=== PATIENT | female | born 1945 | race Caucasian/White ===

== ENCOUNTER 2018-10-08 22:28 | Emergency (ER) | payer MEDICARE, OTHER, SELFPAY ==
[2018-08-16 13:40] VITALS: BMI 32.6
[2018-10-08 22:30] VITALS: BP 158/114; PULSE 98; RESP 15; TEMP 36.7; O2SAT 95; BMI 34.5
[2018-10-08 23:01] VITALS: BP 108/80; PULSE 92; RESP 18; O2SAT 93
--- NOTE | 2018-10-08 23:29 | ED.VIS.GEN ---
History of Present Illness Chief Complaint: Allergic Reaction Informant: Patient Onset: Today - about 1-1.5 hrs [employer]ENDING [employer] Context: Gradual Onset - about 30-60 min after taking a diclofenac pill for her back Quality: itching Location: all over Current Severity: Mild Maximum Severity: Severe Worsened by: nothing Relieved by: benadryl 50mg IV given by EMS Associated Symptoms: rash Narrative: Patient had no presyncopal symptoms, shortness of breath, edema of her extremities or tongue. She lives by herself and the rash and itching all over made her nervous so she called 911 to be brought to the hospital. She took a diclofenac, the last time she took that was 1 month ago. She is taking them in the past off and on, occasionally, for the past 8 years or so. She takes it when she has sciatica flareup, which felt worse today. She states it works very well and her back is better now. She denies any bowel or bladder dysfunction or any other new symptoms prior to taking the pill. She does not take any other NSAIDs, such as ibuprofen or Aleve or aspirin. Other than a calcium tablet, she did not take any other medications this evening, and can recall no other new exposures that could account for this reaction. - Past Medical History (1) Lumbar radiculopathy Status: Chronic (2) Incomplete uterovaginal prolapse Status: Chronic Comment: ring with support pessary Past Medical History - Allergies and Home Meds Allergies/Adverse Reactions: Allergies diclofenac [From Voltaren] Allergy (Verified 10/08/18 22:29) Hives novacaine Allergy (Uncoded 08/16/18 13:40) Other Primary Care Physician: Luca Boucher III, MD [Primary Care Provider] - Lives: Alone Smoking Status: Never smoker - Family History Maternal Family History: Family History (Last Reviewed 08/16/18 @ 13:40 by Adriane Puentes) Father Cancer Grandmother Cancer Diabetes Grandfather No problems noted. Family History: Reports: Dementia Review of Systems General: Denies: Chills, Fever Eyes: Denies: Visual changes - bilaterally, Diplopia Cardiovascular: Denies: Chest pain, Palpitations, Heart racing Respiratory: Denies: Dyspnea, Cough Gastrointestinal: Denies: Nausea, Vomiting, Diarrhea Musculoskeletal: Denies: Swelling, Extremity Pain Skin: Reports: Rash. Denies: Wounds Neurological: Denies: Weakness, Parasthesia, Numbness Physical Exam Vital Signs/Narrative: Vital Signs Temp Pulse Resp BP Pulse Ox 10/08/18 23:01 92 18 108/80 93 10/08/18 22:30 98.0 F 98 15 158/114 H 95 Inital Vital Signs reviewed: Yes General: Well nourished, Well developed, No Acute Distress Head: Normocephalic, Atraumatic Eyes: Perrl, EOMI ENT: Moist mucous membranes, No rhinorrhea, - - No tongue edema. Airway patent, no stridor.. Negative for: Nasal congestion Neck: Supple, Nontender Cardiovascular: Regular rate, Regular rhythm, No murmurs. Negative for: Tachycardia Respiratory: No distress, CTA bilaterally, Chest nontender Extremities: Nontender, No edema Skin: No Trauma, Rash - Diffuse patchy blanching, nontender urticaria on all 4 extremities, trunk, face. No other rash/lesion. Neurological: Alert, Oriented x3, Cranial nerves II-XII grossly intact, Normal Strength, Normal Sensation Psychological: Normal affect, Normal Mood Diagnostic/Tx/Re-eval - Medical Decision Making Patient was simply observed for about 2-1/2 hours. Her urticaria and pruritus completely resolved. When she was sleeping her pulse ox went down to 89, nurses put her on oxygen. While awake she was okay and with ambulation she had no hypoxia. Her lungs are clear. She has no shortness of breath. I think she can safely follow-up. No signs of anaphylaxis or anaphylactoid reaction. The half-life of the medication that she took is 1.9 hours so I do not think she needs steroids to mitigate any other issues/symptoms, since by the time the steroids kick in, it will have been 4-5 half-lives of the 1 pill she took. She was given a dose of Benadryl to take later if she needs, since she does not have any at home. Encouraged to return for any worsening symptoms except for just recurrent hives which we discussed. She is comfortable with this plan. ED Disposition - Plan for ED Patient: Disposition: Home or Assisted Living Diagnosis: Allergic reaction to nonsteroidal anti-inflammatory drug (NSAID) Instructions: ED Drug React Allergic Referrals: Luca Boucher III, MD [Primary Care Provider] - 3-5 Days Additional Instructions: Take the 2 Benadryl caplets for recurrent itching/hives.
[2018-10-09] MEDS: DiphenhydrAMINE 25 MG Capsule 50 MG PO (01:06)
--- NOTE | 2018-10-09 01:11 | ED.RN ---
pt verbalizes understanding of d/c instructions and home pack. denies any further questions. this rn called a ride for pt. pt ambulats to lobby to await ride.
== END 2018-10-09 01:12 | disposition home or self-care (01) ==
PROVIDERS: Emergency Provider Emergency Medicine; Family Provider Family Medicine; PCP Family Medicine
DX: L27.1 Localized skin eruption due to drugs and medicaments taken internally (principal); T39.395A Adverse effect of other nonsteroidal anti-inflammatory drugs [NSAID], initial encounter; Y92.9 Unspecified place or not applicable; M54.16 Radiculopathy, lumbar region; N81.2 Incomplete uterovaginal prolapse
CPT/HCPCS: 99284; J7030; A4216

== ENCOUNTER 2020-12-06 07:51 | Inpatient (IN) | payer MEDICARE, OTHER, SELFPAY ==
[2020-11-29 13:32] VITALS: BMI 32.1
[2020-12-06] VITALS (18 sets, daily range): BP systolic 83–117; BP diastolic 57–81; PULSE 58–116; RESP 14–88; TEMP 36.2–37.2; O2SAT 19–99; BMI 30.1; BMI 31.7
--- NOTE | 2020-12-06 08:15 | EKG12_ITS ---
Test Reason : SOB Blood Pressure : / mmHG Vent. Rate : 092 BPM Atrial Rate : 092 BPM P-R Int : 158 ms QRS Dur : 120 ms QT Int : 360 ms P-R-T Axes : 051 056 -01 degrees QTc Int : 445 ms Sinus rhythm with marked sinus arrhythmia with occasional Premature ventricular complexes Right bundle branch block Abnormal ECG Confirmed by LAMONTE AGOSTO, MASSIEL ([id number]), editorial clerk ELZA WHITE ([id number]) on 12/10/2020 9:11:18 AM Referred By: JORDAN Confirmed By:LISA ABURTO MD
--- NOTE | 2020-12-06 08:20 | ED.VIS.DYS ---
HPI History of Present Illness Chief Complaint: Shortness of Breath Informant: patient Onset/Context/Timing Onset: Days Context: gradual Timing: Intermittent Quality: Positive for Dyspnea on exertion Worsened by: Exertion Relieved by: Rest Associated Symptoms cough, subjective and chills; Negative for rhinorrhea, ear pain, fever, sore throat, clear sputum, white sputum, yellow sputum or green sputum Chest Pain: Positive for Intermittent and - (Heaviness) Narrative Narrative: Patient presents with shortness of breath that has been intermittent over the past several days. Patient states it is gradually gotten worse. Patient states it is worse with any exertion. Patient states it is better with rest. Patient states she has been feeling fatigued. Patient also admits to some heaviness in her chest when she gets short of breath. Patient admits to some subjective chills at home. Patient admits to a cough but denies any sputum production. Patient denies any sore throat or ear pain. Patient denies any recent travel or recent surgery. Patient has been vaccinated for COVID-19. Patient denies any exposures to COVID-19. PFSH PFS Home Medications ascorbic acid (vitamin C) 500 mg capsule 500 mg PO DAILY 06/11/17 [History Last Taken Unknown] calcium carbonate 500 mg calcium (1,250 mg) tablet 500 mg PO BID tab 06/11/17 [History Last Taken Unknown] lutein 20 mg capsule 20 mg PO QDAY 06/11/17 [History Last Taken Unknown] multivitamin with minerals 2 tab PO TID 06/11/17 [History Last Taken Unknown] vinegar See Rx Instructions PO QDAY 11/28/19 [History Last Taken Unknown] estradiol 1 g VAGINAL 2XW #42.5 g 04/16/20 [Rx Last Taken Unknown] oxyquinoline 0.025 %-sodium lauryl sulfate 0.01 % vaginal gel 1 ea VAGINAL DAILY #113.4 gm 08/30/20 [Rx Last Taken Unknown] Allergy/AdvReac Type Severity Reaction Status Date / Time diclofenac [From Voltaren] Allergy Hives Verified 12/06/20 07:51 novacaine Allergy Other Uncoded 12/06/20 07:51 Family History Father Cancer prostate Grandmother Cancer Diabetes Grandfather No problems noted. Surgical History FH: bilateral hip replacements H/O bilateral hip replacements History of hysterectomy History of tonsillectomy Hx of cholecystectomy Social History Smoking Status: Never smoker alcohol intake: never substance use type: does not use caffeine: Yes frequency: 5-6 times per week seatbelt use: always do you feel safe at home: Yes ROS ROS ED Constitutional Constitutional ED: Reports chills; Denies fever(s) Eyes Eyes: Denies blurry vision or change in vision ENT ENT ED: Denies rhinorrhea or sore throat Cardiovascular Cardiovascular: Reports chest pain; Denies palpitations Respiratory/Chest Respiratory/Chest: Reports cough and dyspnea Gastrointestinal Gastrointestinal: Reports nausea; Denies vomiting Genitourinary Genitourinary ED: Denies dysuria or hematuria Musculoskeletal Musculoskeletal: Denies back pain or neck pain Integumentary Denies abscess or rash Neurologic Neurologic: Denies headache(s) or weakness Allergic/Immunologic Allergic/Immunologic ED: Denies mouth swelling or urticaria EXAM Physical Exam Const Vital Signs: 12/06/20 07:52 12/06/20 07:59 12/06/20 08:23 Temperature 98.6 F 98.6 F Temperature Source Temporal Temporal Pulse Rate 113 H 116 H Respiratory Rate 18 29 H Respiratory Effort Normal Non-Labored Respiratory Depth Normal Respiratory Pattern Normal Blood Pressure 100/65 108/81 H Blood Pressure Mean 76 90 Pulse Ox 96 95 94 Oxygen Delivery Method Room Air Room Air Room Air Oxygen Flow Rate (L/min) 12/06/20 08:25 12/06/20 08:40 12/06/20 08:42 Temperature Temperature Source Pulse Rate 114 H Respiratory Rate 24 H 88 H 24 H Respiratory Effort Respiratory Depth Respiratory Pattern Tachypnea Blood Pressure Blood Pressure Mean Pulse Ox 19 92 Oxygen Delivery Method Room Air Nasal Cannula Oxygen Flow Rate (L/min) 4 12/06/20 10:42 12/06/20 11:00 Temperature 97.3 F L 97.2 F L Temperature Source Temporal Temporal Pulse Rate 78 88 Respiratory Rate 25 H 19 H Respiratory Effort Respiratory Depth Respiratory Pattern Blood Pressure 112/59 L 83/66 L Blood Pressure Mean 76 71 Pulse Ox 93 95 Oxygen Delivery Method Room Air Room Air Oxygen Flow Rate (L/min) Positive well nourished and well developed General Appearance ED: well developed HEENT Reports moist mucous membranes Neck supple and no JVD Resp normal respiratory effort and clear to auscultation bilaterally Cardio Rate: tachycardic Rhythm: abnormal rhythm ectopic beats Heart Sounds: murmur systolic III/ blowing holo left sternal border and right sternal border GI non-tender Palpation: soft Extremity normal to inspection General Extremety ED: Negative for edema or tenderness General Extremity: Negative for edema Neuro oriented x3, CN's II-XII intact bilaterally and no sensory deficits noted Sensorium / Orientation: alert Motor Exam: strength 5/5 throughout Psych mental status grossly normal MDM MDM MDM Narrative Medical decision making narrative: EKG was obtained. On my interpretation, there is a second-degree type II AV block with a dropped beat on every fourth beat. There are occasional PVCs. There is a right bundle branch block pattern noted. There are nonspecific ST-T wave changes in leads III and aVF. There are no prior EKGs available for comparison. Portable 1 view chest x-ray was obtained. On my interpretation, lung abraham show bibasilar atelectasis and mild degree of vascular congestion. There is normal cardiac silhouette. Bony thorax is normal. There is no acute process noted. Radiologist also interpreted the x-ray and agrees. CBC shows a leukocytosis of 15.1. Comprehensive metabolic profile was essentially within normal limits. High-sensitivity troponin was normal. D-dimer was 0.64. BNP was slightly elevated at 329. Case was discussed with the hospitalist. He recommended ordering a CTA of the chest. This was ordered. There is bibasilar atelectasis and/or infiltrate noted. Patient was started on community-acquired pneumonia antibiotics. Patient understood and was agreeable with the plan. All questions were answered. Lab Data Attestation: I reviewed the patient's lab results. Labs: Laboratory Results - last 24 hr 12/06/20 12/06/20 12/06/20 08:20 08:20 08:20 WBC 15.1 H RBC 4.44 Hgb 13.9 Hct 41.9 MCV 94.4 MCH 31.3 MCHC 33.2 RDW Std Deviation 48.3 H RDW Coeff of Solo 13.9 Plt Count 166 MPV 11.3 Immature Gran % (Auto) 0.500 Neut % (Auto) 87.4 H Lymph % (Auto) 3.3 L Pinal % (Auto) 8.6 Eos % (Auto) 0.1 Baso % (Auto) 0.1 Absolute Neuts (auto) 13.2 H Absolute Lymphs (auto) 0.50 L Nucleated RBC % 0 Differential Comment COMMENT D-Dimer Quant (PE/DVT) 0.64 H* Sodium 136 Potassium 3.8 Chloride 103 Carbon Dioxide 23.0 Anion Gap 10 BUN 9 Creatinine 0.70 Estim Creat Clear Calc 40.21 Est GFR (MDRD) Af Amer 104 Est GFR (MDRD) Non-Af 86 BUN/Creatinine Ratio 12.8 Glucose 107 H Calcium 9.0 Total Bilirubin 1.00 AST 41 H ALT 48 Alkaline Phosphatase 73 Troponin I High Sens 21.5 B-Natriuretic Peptide Total Protein 7.1 Albumin 3.6 Globulin 3.5 Albumin/Globulin Ratio 1.0 12/06/20 08:20 WBC RBC Hgb Hct MCV MCH MCHC RDW Std Deviation RDW Coeff of Solo Plt Count MPV Immature Gran % (Auto) Neut % (Auto) Lymph % (Auto) Pinal % (Auto) Eos % (Auto) Baso % (Auto) Absolute Neuts (auto) Absolute Lymphs (auto) Nucleated RBC % Differential Comment D-Dimer Quant (PE/DVT) Sodium Potassium Chloride Carbon Dioxide Anion Gap BUN Creatinine Estim Creat Clear Calc Est GFR (MDRD) Af Amer Est GFR (MDRD) Non-Af BUN/Creatinine Ratio Glucose Calcium Total Bilirubin AST ALT Alkaline Phosphatase Troponin I High Sens B-Natriuretic Peptide 320.9 H Total Protein Albumin Globulin Albumin/Globulin Ratio Radiography Chest X-Ray - ED: 1 View, Read by ED Physician, Read by Radiologist, CHF and Left Infiltrate (Questionable atelectasis versus infiltrate) Diagnostic Testing: Radiology Impression Chest X-Ray 12/06/20 09:26 IMPRESSION: Mild degree of increased markings at the lung bases suggestive of atelectasis with blunting of the left costophrenic angle. Mild degree of vascular congestion. Large hiatal hernia. Electronically Signed: Juan Luis Heath MD at 9:56 EDT , Service support , Chest CTA 12/06/20 10:31 IMPRESSION: Bibasilar atelectasis and/or infiltrates. Large hiatal hernia. No evidence of pulmonary embolus. Electronically Signed: Juan Luis Heath MD at 11:22 EDT , Service support , EKG Initial EKG: Attestation: I personally reviewed and interpreted this EKG as follows: Interpretation: RBBB and AV Block (Second-degree type II with occasional PVCs.) Prior EKG tracings: not available for review Discharge Plan Triage Chief Complaint: Shortness of Breath ED Provider: Jamal Momin Dx/Rx/DC Orders Clinical Impression: Second degree type II atrioventricular block, Community acquired pneumonia, Hypoxia Prescriptions: No Action lutein 20 mg capsule 20 mg PO QDAY RF: 0 ascorbic acid (vitamin C) 500 mg capsule 500 mg PO DAILY RF: 0 calcium carbonate [Calcium 500] 500 mg calcium (1,250 mg) tablet 500 mg PO BID RF: 0 multivitamin with minerals [Hair,Skin and Nails] tablet 2 tab PO TID RF: 0 vinegar See Rx Instructions PO QDAY RF: 0 Trimo-Harry Jelly 0.025-0.01 % gel 1 ea VAGINAL DAILY Qty: 113.4 RF: 2 estradiol 0.01 % (0.1 mg/gram) cream 1 g VAGINAL 2XW Qty: 42.5 RF: 4 Primary Care Provider: Rick Marsh Referrals: Rick Marsh MD [Primary Care Provider] - Disposition Disposition: Acute Care Hospital [facility]
[2020-12-06 08:26] LABS: Absolute Neutrophil Count 13.2 X10^3/uL (2.0-7.7); Basophil# 0.02 X10^3/uL; Basophil% 0.1 % (0-1); Eosinophil# 0.02 X10^3/uL; Eosinophils% 0.1 % (0-5); Hematocrit 41.9 % (37-47); Hemoglobin 13.9 g/dL (12.0-15.0); Lymphocyte % 3.3 % (19-41); Mean Corp Hgb Conc 33.2 g/dL (32-36); Mean Corpuscular Hgb 31.3 pg (27.0-32.0); Mean Corpuscular Volume 94.4 fL (81-99); Mean Platelet Vol. 11.3 fl (6.2-12.0); Monocyte% 8.6 % (0-10); NRBC Flagged by Analyzer 0 % (0-5); Neutrophil # 13.19 X10^3/uL (2.7-7.7); Neutrophil % 87.4 % (47-70); POSITIVE DIFFERENTIAL YES; Platelet Count 166 K/mm3 (150-450); RBC Distribution Width CV 13.9 % (11.6-14.6); RBC Distribution Width SD 48.3 fl (35.1-43.9); Red Blood Count 4.44 M/mm3 (4.2-5.4); White Blood Count 15.1 K/mm3 (4.4-11.0)
[2020-12-06] MEDS: Ipratropium/Albuterol Sulfate 3 ML AMPUL.NEB INHALATION (08:26)
[2020-12-06 08:27] LABS: Differential Indicated SCAN CRITERIA MET
[2020-12-06 08:44] LABS: AST(SGOT) 41 U/L (15-37); Alanine Aminotransfer ALT/SGPT 48 U/L (13-56); Albumin, Serum 3.6 g/dL (3.2-5.0); Alkaline Phosphatase 73 U/L (45-117); Anion Gap 10 (5-15); BUN 9 mg/dL (7-18); BUN/Creat Ratio 12.8 RATIO (10-20); Chloride 103 mmol/L (98-107); EST Glomerular Filtration Rate 86 mL/min (>60); Est Glom Filt Rate - Afr Amer 104 mL/min (>60); Estimated Creatinine Clearance 40.21 ml/min; Globulin 3.5 g/dL (2.2-4.2); Glucose 107 mg/dL (74-106); Potassium 3.8 mmol/L (3.5-5.1); Protein, Total 7.1 g/dL (6.4-8.2); Sodium Level 136 mmol/L (136-145); Troponin-I HS 21.5 pg/mL (3.0-53.7)
[2020-12-06 08:54] LABS: D-Dimer Quantitative (DVT/PE) 0.64 FEU/ug/m (0.27-0.49)
[2020-12-06 09:06] LABS: BNP,B-Type NATRIURETIC PEPTIDE 320.9 pg/mL (0-100)
--- NOTE | 2020-12-06 09:26 | RAD_ITS ---
STUDY: X-RAY CHEST REASON FOR EXAM: Female, 75 years old. Shortness of breath and general weakness. Dyspnea. TECHNIQUE: Single AP portable view of the chest. COMPARISON: None. FINDINGS: EKG electrodes are seen. Mild increased linear markings at the lung bases suggestive of linear atelectasis. There is blunting of the left costophrenic angle. Mild degree of vascular congestion. There is moderate cardiac enlargement. Normal mediastinum and briseyda. Normal visualized pulmonary arteries. There is atherosclerotic calcification of the aortic arch with tortuosity. Normal visualized thoracic spine. There is degenerative osteoarthritis of the bilateral shoulders. Large hiatal hernia. RAD/Chest 1 View (Portable) IMPRESSION: Mild degree of increased markings at the lung bases suggestive of atelectasis with blunting of the left costophrenic angle. Mild degree of vascular congestion. Large hiatal hernia. Electronically Signed: Juan Luis Heath MD at 9:56 EDT , Service support ,
--- NOTE | 2020-12-06 10:31 | CT_ITS ---
STUDY: CTA CHEST REASON FOR EXAM: Female, 75 years old. Dyspnea and shortness of breath. RADIATION DOSAGE (If Supplied By Facility): CTDIvol = ( 10.67 ) mGy, DLP = ( 432.04 ) mGycm TECHNIQUE: The examination was performed with the intravenous administration of IV 100mL Isovue-370. Post-processing of the angiographic images was performed, with multiplanar reformation and 3D reconstruction. Individualized dose optimization techniques were used for this CT. COMPARISON: None. FINDINGS: Normal enhancement of the main pulmonary artery and right and left pulmonary arteries. Normal enhancement of the bilateral peripheral pulmonary arteries. There is no demonstrated pulmonary embolism. There is atherosclerotic calcification of the aortic arch with tortuosity. There is no demonstrated aortic dissection. There is cardiomegaly. There are calcifications of the coronary arteries. Normal mediastinum. Normal hilar regions. Normal visualized trachea and bronchi. The lungs are well expanded. Patchy bibasilar infiltrates more prominent on the right side. Normal pleura. Normal chest wall structures. There are degenerative changes of thoracic spine. Large hiatal hernia. CT/CTA Chest W/WO Contrast IMPRESSION: Bibasilar atelectasis and/or infiltrates. Large hiatal hernia. No evidence of pulmonary embolus. Electronically Signed: Juan Luis Heath MD at 11:22 EDT , Service support ,
--- NOTE | 2020-12-06 13:59 | ECHOD_ITS ---
Reason For Study: ARRHYTHMIA Procedure This was a 2D Doppler, Color Flow transthoracic echocardiogram. Exam performed portable in patient room. Left Ventricle Normal LV size. Sigmoid septal hypertrophy/asymmetric septal hypertrophy with moderate degree of obstruction. Mean gradient is 25-32mmHg. The estimated ejection fraction is 70 %. Unable to assess diastolic dysfunction. No regional wall motion abnormalities noted. Right Ventricle Normal RV size. Normal systolic function. Atria Normal left atrium. Normal right atrium. No doppler evidence for ASD. Mitral Valve There is moderate mitral annular calcification. There is no mitral valve stenosis. Mild (1+) mitral valve insufficiency. Tricuspid Valve There is no tricuspid stenosis. Mild tricuspid valve insufficiency. Pulmonary artery systolic pressure is 45 mmHg. Aortic Valve Trisinus/trileaflet aortic valve. There is no aortic stenosis. No aortic valve insufficiency. Pulmonic Valve There is no pulmonic valvular stenosis. No pulmonic valve insufficiency. Great Vessels Mildly dilated aortic root. Pericardium/Pleural No pericardial effusion. MMode/2D Measurements & Calculations LVIDd: 4.1 cm IVSd: 1.2 cm Ao root diam: 4.4 cm LVIDs: 2.3 cm LVPWd: 1.2 cm RVDd: 3.5 cm FS: 45.1 % LAV(MOD-bp): 49.9 ml LVAd ap4: 23.0 cm2 SV(MOD-sp4): 42.0 ml LAV(MOD-bp) Indexed: 27.7 ml/m2 LVLd ap4: 7.2 cm LAV(MOD-sp2): 38.1 ml EDV(MOD-sp4): 61.1 ml LAV(MOD-sp4): 50.7 ml EDV(sp4-el): 62.9 ml LVAs ap4: 10.6 cm2 LVLs ap4: 5.6 cm ESV(MOD-sp4): 19.1 ml ESV(sp4-el): 17.1 ml EF(MOD-sp4): 68.7 % EF(sp4-el): 72.8 % SV(sp4-el): 45.8 ml LA A4 area: 17.3 cm2 LA dimension(2D): 2.7 cm RA A4 area: 12.5 cm2 Time Measurements MV dec time: 0.26 sec Doppler Measurements & Calculations MV E max joe: 72.9 cm/sec Lat Peak E' Joe: 4.8 cm/sec Med Peak E' Joe: 5.0 cm/sec MV A max joe: 102.0 cm/sec E/E' lat: 15.1 E/E' med: 14.5 MV E/A: 0.71 Ao V2 max: 316.3 cm/sec PA V2 max: 116.1 cm/sec TR max joe: 318.1 cm/sec Ao max P.8 mmHg TR max P.5 mmHg Ao V2 mean: 231.0 cm/sec Ao mean P.0 mmHg Ao V2 VTI: 59.5 cm ECHO/Echo Complete Interpretation Summary The estimated ejection fraction is 70 %. Unable to assess diastolic dysfunction. Mild (1+) mitral valve insufficiency. Mild tricuspid valve insufficiency. Mildly dilated aortic root. There is moderate mitral annular calcification. Sigmoid septal hypertrophy/asymmetric septal hypertrophy with moderate degree o f obstruction. Mean gradient is 25-32mmHg Ordering Physician: Everett Le Referring Physician: TUNDE CORDOVA Performed By: Yesenia Monge, MAKAYLACS, RVT
--- NOTE | 2020-12-06 14:40 | EKG12_ITS ---
Test Reason : Blood Pressure : / mmHG Vent. Rate : 086 BPM Atrial Rate : 086 BPM P-R Int : 168 ms QRS Dur : 122 ms QT Int : 388 ms P-R-T Axes : 032 024 -04 degrees QTc Int : 464 ms Sinus rhythm with occasional Premature ventricular complexes Right bundle branch block Abnormal ECG Confirmed by GIANFRANCO AGOSTO, LUCY ([id number]), social media editor ELZA WHITE ([id number]) on 12/14/2020 9:13:08 AM Referred By: LAMONTE Confirmed By:LUCY MEDEL MD
--- NOTE | 2020-12-06 15:06 | HP.PCM.HOS_ITS ---
Documented by User: Gunjan Dinh NP, GLASS GLAZIER-C 12/06/20 15:46 HPI - General General Date of Admission: 12/06/20 Chief Complaint: Shortness of breath. HPI Narrative MARKOS BEASLEY, is a 75 F who presents to the emergency room due to shortness of breath. Patient reports this has been ongoing for the past several days, worse with exertion. Patient reports fatigue, chills. Denies fever, cough. Denies upper respiratory symptoms. Denies exposure to sick contacts. Denies weight gain or lower extremity swelling. Reports intermittent chest pressure associated with shortness of breath. States shortness of breath is improved with rest. Patient states she received Covid vaccine. She denies past medical history. PFSH no medical history Home Medications ascorbic acid (vitamin C) 500 mg capsule 500 mg PO DAILY 06/11/17 [History Last Taken Unknown] calcium carbonate 500 mg calcium (1,250 mg) tablet 500 mg PO BID tab 06/11/17 [History Last Taken Unknown] lutein 20 mg capsule 20 mg PO QDAY 06/11/17 [History Last Taken Unknown] multivitamin with minerals 2 tab PO TID 06/11/17 [History Last Taken Unknown] vinegar See Rx Instructions PO QDAY 11/28/19 [History Last Taken Unknown] estradiol 1 g VAGINAL 2XW #42.5 g 04/16/20 [Rx Last Taken Unknown] oxyquinoline 0.025 %-sodium lauryl sulfate 0.01 % vaginal gel 1 ea VAGINAL DAILY #113.4 gm 08/30/20 [Rx Last Taken Unknown] Allergy/AdvReac Type Severity Reaction Status Date / Time diclofenac [From Voltaren] Allergy Hives Verified 12/06/20 07:51 novacaine Allergy Other Uncoded 12/06/20 07:51 Family History Father Cancer prostate Grandmother Cancer Diabetes Grandfather No problems noted. other (Denies maternal medical history, lives at until age 98) Surgical History FH: bilateral hip replacements H/O bilateral hip replacements History of hysterectomy History of tonsillectomy Hx of cholecystectomy Social History Smoking Status: Never smoker alcohol intake: never substance use type: does not use caffeine: Yes frequency: 5-6 times per week seatbelt use: always do you feel safe at home: Yes ROS Constitutional Constitutional: Reports chills and fatigue; Denies change in weight, fever(s) or weakness Cardiovascular Cardiovascular: Denies chest pain, edema, lightheadedness, palpitations or syncope Respiratory/Chest Respiratory/Chest: Reports shortness of breath with exertion; Denies cough, productive cough or wheezing Gastrointestinal Gastrointestinal: Denies abdominal pain, constipation, diarrhea, nausea or vomiting Genitourinary Genitourinary: Denies burning urination, difficulty urinating, dysuria, dimitrios turia, urinary frequency, urinary incontinence or urinary urgency Musculoskeletal Musculoskeletal: Denies back pain, joint pain or muscle weakness Integumentary Integumentary: Denies erythema, lesions, rash or wounds Neurologic Neurologic: Denies abnormal speech, confusion, dizziness, focal weakness, numbness, paresthesias, seizure-like activity or syncope Psychiatric Psychiatric: Denies anxiety or depression Hematologic/Lymphatic Hematologic/Lymphatic: Denies anemia, easy bleeding or easy bruising Allergic/Immunologic Allergic/Immunologic: Denies hives or asthma Vital Signs Vital Signs Vital Signs: 12/06/20 07:52 12/06/20 07:59 12/06/20 08:23 Temperature 98.6 F 98.6 F Temperature Source Temporal Temporal Pulse Rate 113 H 116 H Respiratory Rate 18 29 H Respiratory Effort Normal Non-Labored Respiratory Depth Normal Respiratory Pattern Normal Blood Pressure 100/65 108/81 H Blood Pressure Mean 76 90 Pulse Ox 96 95 94 Oxygen Delivery Method Room Air Room Air Room Air Oxygen Flow Rate (L/min) 12/06/20 08:25 12/06/20 08:40 12/06/20 08:42 Temperature Temperature Source Pulse Rate 114 H Respiratory Rate 24 H 88 H 24 H Respiratory Effort Respiratory Depth Respiratory Pattern Tachypnea Blood Pressure Blood Pressure Mean Pulse Ox 19 92 Oxygen Delivery Method Room Air Nasal Cannula Oxygen Flow Rate (L/min) 4 12/06/20 10:42 12/06/20 11:00 12/06/20 12:47 Temperature 97.3 F L 97.2 F L 98.7 F Temperature Source Temporal Temporal Oral Pulse Rate 78 88 83 Respiratory Rate 25 H 19 H 21 H Respiratory Effort Respiratory Depth Respiratory Pattern Blood Pressure 112/59 L 83/66 L 102/57 L Blood Pressure Mean 76 71 72 Pulse Ox 93 95 96 Oxygen Delivery Method Room Air Room Air Oxygen Flow Rate (L/min) 12/06/20 13:29 12/06/20 13:30 12/06/20 13:33 Temperature Temperature Source Pulse Rate 80 Respiratory Rate 16 Respiratory Effort Normal Respiratory Depth Normal Respiratory Pattern Normal Blood Pressure Blood Pressure Mean Pulse Ox 98 98 Oxygen Delivery Method Nasal Cannula Nasal Cannula Oxygen Flow Rate (L/min) 2 2 12/06/20 13:38 Temperature Temperature Source Pulse Rate Respiratory Rate Respiratory Effort Normal Non-Labored Respiratory Depth Normal Respiratory Pattern Normal Blood Pressure Blood Pressure Mean Pulse Ox Oxygen Delivery Method Nasal Cannula Oxygen Flow Rate (L/min) Weight Weight: 169 lb 15.622 oz Body Mass Index (BMI) 30.1 Physical Exam Const alert, oriented x3 and no apparent distress Orientation / Consciousness: awake, oriented to person, oriented to place and oriented to time HEENT normocephalic and moist oral mucous membranes Eyes PERRL, EOMs intact bilaterally and conjunctivae normal Neck no lymphadenopathy Resp clear to auscultation bilaterally Auscultation: diminished lung sounds Cardio regular rate and regular rhythm Heart Sounds: murmur Peripheral Pulses: pulses 2+ throughout GI normal to inspection, nondistended, normoactive bowel sounds, non-tender and non-distended Extremity normal to inspection Skin no rashes or lesions noted Lesions: no lesions Rashes: no rashes Trauma: no lacerations or abrasions Neuro CN's II-XII intact bilaterally, no focal motor deficits, no sensory deficits noted and deep tendon reflexes 2+ bilaterally Psych mental status grossly normal and affect normal Results Lab / Micro Data Result Diagrams: 12/06/20 08:20 12/06/20 08:20 Labs: Laboratory Results - last 24 hr 12/06/20 08:20: WBC 15.1 H, RBC 4.44, Hgb 13.9, Hct 41.9, MCV 94.4, MCH 31.3, MCHC 33.2, RDW Std Deviation 48.3 H, RDW Coeff of Solo 13.9, Plt Count 166, MPV 11.3, Immature Gran % (Auto) 0.500, Neut % (Auto) 87.4 H, Lymph % (Auto) 3.3 L, Mcculloch % (Auto) 8.6, Eos % (Auto) 0.1, Baso % (Auto) 0.1, Absolute Neuts (auto) 13.2 H, Absolute Lymphs (auto) 0.50 L, Nucleated RBC % 0, Differential Comment COMMENT 12/06/20 08:20: D-Dimer Quant (PE/DVT) 0.64 H* 12/06/20 08:20: Sodium 136, Potassium 3.8, Chloride 103, Carbon Dioxide 23.0, Anion Gap 10, BUN 9, Creatinine 0.70, Estim Creat Clear Calc 40.21, Est GFR (MDRD) Af Amer 104, Est GFR (MDRD) Non-Af 86, BUN/Creatinine Ratio 12.8, Glucose 107 H, Calcium 9.0, Total Bilirubin 1.00, AST 41 H, ALT 48, Alkaline Phosphatase 73, Troponin I High Sens 21.5, Total Protein 7.1, Albumin 3.6, Globulin 3.5, Albumin/Globulin Ratio 1.0 12/06/20 08:20: B-Natriuretic Peptide 320.9 H Micro: Microbiology 12/06/20 08:25 Mucosa - Nose SARS-CoV-2 Antigen (Rapid) - Final Radiology Impression Chest X-Ray 12/06/20 09:26 IMPRESSION: Mild degree of increased markings at the lung bases suggestive of atelectasis with blunting of the left costophrenic angle. Mild degree of vascular congestion. Large hiatal hernia. Electronically Signed: Juan Luis Heath MD at 9:56 EDT , Service support , Chest CTA 12/06/20 10:31 IMPRESSION: Bibasilar atelectasis and/or infiltrates. Large hiatal hernia. No evidence of pulmonary embolus. Electronically Signed: Juan Luis Heath MD at 11:22 EDT , Service support , Assessment & Plan Assessment/Plan (1) Community acquired pneumonia: (2) Hypoxia: PLAN: 1. Acute hypoxic respiratory insufficiency secondary to community- acquired pneumonia-CTA shows no evidence of PE. Bibasilar infiltrates. IV azithromycin and IV Rocephin. Albuterol DuoNeb aerosols. Send sputum for culture. Continue supplement oxygen to maintain O2 above 90%. Walking pulse ox prior to discharge. Covid negative. 2. Elevated BNP-possibly related to #1. Obtain echocardiogram. CTA without evidence of congestion. 3. Secondary degree type II AV block-no prior EKG for comparison. Echo ordered as noted above. Not on rate limiting medication. DVT prophylaxis-Heparin subcu This patient was seen by Gunjan Dinh NP-C under the supervision of Dr. Le. Documented by User: Dr. Everett Le DO 12/06/20 17:29 HPI - General General Date of Admission: 12/06/20 [facility] Home Medications ascorbic acid (vitamin C) 500 mg capsule 500 mg PO DAILY 06/11/17 [History Last Taken Unknown] calcium carbonate 500 mg calcium (1,250 mg) tablet 500 mg PO BID tab 06/11/17 [History Last Taken Unknown] lutein 20 mg capsule 20 mg PO QDAY 06/11/17 [History Last Taken Unknown] multivitamin with minerals 2 tab PO TID 06/11/17 [History Last Taken Unknown] vinegar See Rx Instructions PO QDAY 11/28/19 [History Last Taken Unknown] estradiol 1 g VAGINAL 2XW #42.5 g 04/16/20 [Rx Last Taken Unknown] oxyquinoline 0.025 %-sodium lauryl sulfate 0.01 % vaginal gel 1 ea VAGINAL DAILY #113.4 gm 08/30/20 [Rx Last Taken Unknown] Allergy/AdvReac Type Severity Reaction Status Date / Time diclofenac [From Voltaren] Allergy Hives Verified 12/06/20 07:51 novacaine Allergy Other Uncoded 12/06/20 07:51 Family History Father Cancer prostate Grandmother Cancer Diabetes Grandfather No problems noted. Surgical History FH: bilateral hip replacements H/O bilateral hip replacements History of hysterectomy History of tonsillectomy Hx of cholecystectomy Social History Smoking Status: Never smoker alcohol intake: never substance use type: does not use caffeine: Yes frequency: 5-6 times per week seatbelt use: always do you feel safe at home: Yes Results Lab / Micro Data Result Diagrams: 12/06/20 08:20 12/06/20 08:20 Charges/Coding Addendum Addendum: Patient was seen and examined today independently of Gunjan Dinh, she came to the emergency room with complaints of shortness of breath and generalized weakness. Work-up in the emergency room showed the patient have an elevated white blood cell count with evidence of bibasilar infiltrates on her CTA of her chest. During the time the emergency room, patient had episodic secondary AV block which was asymptomatic. On examination she appeared in good health and spirits, she does not appear to be in any distress. Vital signs as documented. Skin warm and dry and without overt rashes. Neck without JVD, thyroid appears normal, trachea is midline, neck is supple. Lungs clear, normal air movement was noted. Heart exam notable for regular rhythm, normal sounds, and there is a 2/6 systolic murmur noted at the apex, no rubs or gallops were noted. Abdomen unremarkable and without evidence of organomegaly, masses, or abdominal aortic enlargement, bowel sounds are present in all 4 quadrants, no abdominal tenderness was noted. Extremities nonedematous, no cyanosis was noted, no clubbing was noted. Neuro: Cranial nerves II through XII are grossly intact, no focal motor deficits were noted, sensation to light touch and pinprick is intact, motor exam 5/5 throughout. Psych: Patient is alert and oriented x3, she does not appear anxious or depressed, she does not appear agitated. Patient was admitted to PCU, she will be maintained on antibiotics for co mmunity-acquired pneumonia, echocardiogram will be obtained and she will be monitored on telemetry. I have reviewed Gunjan Dinh's history and physical including her medical assessment and plan of care and endorse it. Visit Charges Inpatient E&M: 84560 Init Hosp L3
[2020-12-06] MEDS: Albuterol 2.5 MG/3 ML VIAL.NEB. INHALATION (20:00)
[2020-12-06] MEDS: Heparin Injection (Vial) 5,000 UNIT/ML VIAL 5000 UNIT SC (21:14)
[2020-12-06] MEDS: 0.9% Saline Lock 10 ML Syringe IV (21:14)
[2020-12-07] VITALS (11 sets, daily range): BP systolic 113–120; BP diastolic 45–75; PULSE 54–90; RESP 16–20; TEMP 36.7–37.1; O2SAT 92–96
[2020-12-07 06:13] LABS: Absolute Lymphocyte Count 0.93 X10^3/uL (0.83-4.51); Basophil# 0.03 X10^3/uL; Basophil% 0.4 % (0-1); Eosinophil# 0.09 X10^3/uL; Eosinophils% 1.3 % (0-5); Hemoglobin 12.9 g/dL (12.0-15.0); Lymphocyte # 0.93 X10^3/ul (0.83-4.51); Lymphocyte % 13.3 % (19-41); Mean Corp Hgb Conc 32.3 g/dL (32-36); Mean Corpuscular Hgb 30.6 pg (27.0-32.0); Mean Corpuscular Volume 94.8 fL (81-99); Mean Platelet Vol. 11.2 fl (6.2-12.0); Monocyte# 0.91 X10^3/uL; NRBC Flagged by Analyzer 0 % (0-5); Neutrophil # 5.01 X10^3/uL (2.7-7.7); Neutrophil % 71.7 % (47-70); Platelet Count 144 K/mm3 (150-450); RBC Distribution Width SD 48.4 fl (35.1-43.9); Red Blood Count 4.22 M/mm3 (4.2-5.4)
[2020-12-07 06:40] LABS: Anion Gap 5 (5-15); BUN 10 mg/dL (7-18); BUN/Creat Ratio 14.8 RATIO (10-20); Calcium,Total 8.6 mg/dL (8.5-10.1); Chloride 104 mmol/L (98-107); Creatinine, Serum 0.67 mg/dL (0.55-1.02); EST Glomerular Filtration Rate 90 mL/min (>60); Est Glom Filt Rate - Afr Amer 109 mL/min (>60); Estimated Creatinine Clearance 36.68 ml/min; Glucose 92 mg/dL (74-106); Potassium 4.2 mmol/L (3.5-5.1); Sodium Level 136 mmol/L (136-145)
[2020-12-07] MEDS: Albuterol 2.5 MG/3 ML VIAL.NEB. INHALATION (07:17)
--- NOTE | 2020-12-07 07:50 | RAD_ITS ---
STUDY: X-RAY CHEST REASON FOR EXAM: Female, 75 years old. Fever and cough TECHNIQUE: PA and lateral views of the chest. COMPARISON: 12/06/2020 FINDINGS: EKG leads overlie the chest Lungs are mildly hyperexpanded with chronic interstitial changes. There is impressive atelectasis in the medial aspects of both lower lung abraham due to a prominent hiatal hernia. No organized infiltrate or effusion. Normal size heart. Normal mediastinum and briseyda. Normal visualized pulmonary arteries. Normal visualized aortic arch and descending thoracic aorta. There are diffuse degenerative changes of the visualized thoracic spine. There is degenerative osteoarthritis of the bilateral shoulders. There is no demonstrated abnormality of the visualized soft tissue structures of the upper abdomen. RAD/Chest PA and Lateral IMPRESSION: Chronic interstitial changes with compressive atelectasis in the medial aspect of both lower lung abraham due to a stable large retrocardiac hiatal hernia. No organized infiltrate or effusion Electronically Signed: Jake Lozano MD at 8:10 EDT , Service support ,
[2020-12-07] MEDS: Heparin Injection (Vial) 5,000 UNIT/ML VIAL 5000 UNIT SC (09:48)
[2020-12-07] MEDS: Ceftriaxone 1 GM/50 ML BAG IV (09:48)
[2020-12-07] MEDS: 0.9% Saline Lock 10 ML Syringe IV (09:51)
--- NOTE | 2020-12-07 10:15 | CASEMGMT ---
MANUEL ISSA assessment: Face to Face with patient for initial transition planning/care coordination assessment. MANUEL ISSA introduced self and role at [facility], pt voices understanding and consents to assessment. Pt is sitting up in bed in no distress on room air. Pt is A/Ox4 and answers all questions approrpriately. Care providers, pharmacy, and demographics verified. Presentation: Pt c/o SOB w/ exertion, chills, elev heart rate Admitting dx: Bilat CAP PCP: Salma Specialists: CELINA Hedrick Pain management; Gracie ortho at [facility] Preferred Pharmacy: [facility] Insurance: [facility] A/B, [facility] Prescription Benefit: Yes Living Will/HPOA: Pt states has LW/HPOA and is aware that they are not on file at [facility]. Pt states her friend, Melisa Ascencio, is HPOA. LNOK: Bernadette Tripathi, friend; Melisa Ascencio, friend Living Arrangements: Pt states lives alone in 1 story home with basement and states no concerns at home. Pt is independent with ADL's. Transportation: Pt states drives self and states no transportation concerns. DME/HHC: Pt states has a cane and walker that she uses prn. Pt states has had HHC in the past s/p hip replacement and has been to [facility] in the past. Pt states no concerns with going home at time of discharge. Pt is retired. Pt states does not smoke cigarettes or drink ETOH. Pt states no further concerns/needs. CM to follow for any further discharge planning/needs. Advised pt to ask for CM if any further questions/concerns/needs arise, voices understanding. Pt Goal: Home Plan: [place] MANUEL ISSA
--- NOTE | 2020-12-07 12:51 | EKG12_ITS ---
Test Reason : Blood Pressure : / mmHG Vent. Rate : 082 BPM Atrial Rate : 082 BPM P-R Int : 256 ms QRS Dur : 124 ms QT Int : 438 ms P-R-T Axes : 031 -34 114 degrees QTc Int : 511 ms Sinus rhythm with 1st degree A-V block Left axis deviation Left bundle branch block Abnormal ECG Confirmed by GIANFRANCO AGOSTO, LUCY ([id number]), editor magazine ELZA WHITE ([id number]) on 12/14/2020 9:13:43 AM Referred By: ASIA Confirmed By:LUCY MEDEL MD
--- NOTE | 2020-12-07 14:00 | PCM.CONS.C ---
Assessment & Plan Assessment/Plan (1) Second degree type II atrioventricular block: PLAN: Patient has alternating left and right bundle branch block. This is suggestive of a block at the infra his level rather than at the level of the AV node. She would benefit from a permanent pacemaker. Regarding the timing of the pacemaker placement we had a discussion with the patient. I explained to the patient that we could transfer the patient to a facility where she could get the pacemaker as an inpatient. I did explain to the patient that while this could be done as an outpatient there is a risk of deterioration when she is waiting even though the patient has not had clear symptoms from high-grade AV block. Patient is evaluating and will let us know if she is okay with getting transferred to another facility. (2) Shortness of breath: PLAN: Patient's BNP was elevated. Upon talking to Dr. Le, it appears that patient does not have clear pneumonia as well. Her chest x-ray findings resolved within a day making pneumonia unlikely. She could have mild degree of heart failure with preserved EF. At this time she is comfortable and does not have significant pulmonary edema. It will be reasonable not to diurese her at this time with her moderate degree of LVOT obstruction. (3) Left ventricular outflow tract obstruction: PLAN: Patient appears to have sigmoid septal hypertrophy/asymmetric septal hypertrophy with moderate degree of obstruction. We will monitor this as an outpatient. She is going to require a permanent pacemaker. At that time perhaps the electrophysiology service could also opine whether she would benefit from an AICD for this indication. HPI Consult Data Date of Consult: 12/07/20 HPI Narrative HPI Narrative: MARKOS BEASLEY, is a 75 F who presents with shortness of breath. Initially pneumonia was in the differential diagnosis. However patient has remained afebrile, the pulmonary congestion on her initial chest x-ray resolved. She had a 2D echo which showed preserved EF, sigmoid septal hypertrophy/asymmetric septal hypertrophy with moderate degree of obstruction and systolic anterior motion of the mitral leaflet. Telemetry monitoring also revealed type II second-degree AV block. She also has alternating left and right bundle branch blocks. Patient denies any syncope, dizziness etc. She does admit to mild chest pressure when she feels short of breath. She says that she does have dyspnea on exertion and sometimes it is associated with chest pressure. She does not get chest pressure at rest or every time she exerts. Review of systems: All systems reviewed. All else is negative except that in the [facility] Home Medications ascorbic acid (vitamin C) 500 mg capsule 500 mg PO DAILY 06/11/17 [History Last Taken Unknown] calcium carbonate 500 mg calcium (1,250 mg) tablet 500 mg PO BID tab 06/11/17 [History Last Taken Unknown] lutein 20 mg capsule 20 mg PO QDAY 06/11/17 [History Last Taken Unknown] multivitamin with minerals 2 tab PO TID 06/11/17 [History Last Taken Unknown] vinegar See Rx Instructions PO QDAY 11/28/19 [History Last Taken Unknown] estradiol 1 g VAGINAL 2XW #42.5 g 04/16/20 [Rx Last Taken Unknown] oxyquinoline 0.025 %-sodium lauryl sulfate 0.01 % vaginal gel 1 ea VAGINAL DAILY #113.4 gm 08/30/20 [Rx Last Taken Unknown] Allergy/AdvReac Type Severity Reaction Status Date / Time diclofenac [From Voltaren] Allergy Hives Verified 12/06/20 07:51 novacaine Allergy Other Uncoded 12/06/20 07:51 Family History Father Cancer prostate Grandmother Cancer Diabetes Grandfather No problems noted. Surgical History FH: bilateral hip replacements H/O bilateral hip replacements History of hysterectomy History of tonsillectomy Hx of cholecystectomy Social History Smoking Status: Never smoker alcohol intake: never substance use type: does not use caffeine: Yes frequency: 5-6 times per week seatbelt use: always do you feel safe at home: Yes Physical Exam Const alert and oriented x3 Orientation / Consciousness: awake HEENT normocephalic Eyes no scleral icterus Neck supple Chest inspection of chest normal Resp normal respiratory effort Cardio regular rate Extremity no pedal edema Skin no rashes or lesions noted Neuro oriented x3 Psych mental status grossly normal Charges/Coding Visit Charges Inpatient E&M: 34927 Init Hosp L3 Objective Data Vital Signs: Vital Signs Temp Pulse Resp BP Pulse Ox 98.0 F 76 16 120/45 L 96 12/07/20 08:24 12/07/20 11:52 12/07/20 08:24 12/07/20 08:24 12/07/20 08:29 Oxygen Flow Rate (L/min) 2 Oxygen Delivery Method Room Air Weight: 166 lb 7.184 oz Body Mass Index (BMI) 31.7 Intake & Output: Intake and Output for Last 24 Hours 12/05/20 12/06/20 12/07/20 23:59 23:59 23:59 Intake Total 805 / 805 665 / 665 Output Total 300 / 1000 2100 / 2100 Balance 505 / -195 -1435 / -1435 Lab / Micro Data Result Diagrams: 12/07/20 06:00 12/07/20 06:00 Labs: Laboratory Results - last 24 hr 12/07/20 06:00: WBC 7.0, RBC 4.22, Hgb 12.9, Hct 40.0, MCV 94.8, MCH 30.6, MCHC 32.3, RDW Std Deviation 48.4 H, RDW Coeff of Solo 14.0, Plt Count 144 L, MPV 11.2, Immature Gran % (Auto) 0.300, Neut % (Auto) 71.7 H, Lymph % (Auto) 13.3 L, [place] % (Auto) 13.0 H, Eos % (Auto) 1.3, Baso % (Auto) 0.4, Absolute Neuts (auto) 5.0, Absolute Lymphs (auto) 0.93, Nucleated RBC % 0 12/07/20 06:00: Sodium 136, Potassium 4.2, Chloride 104, Carbon Dioxide 27.0, Anion Gap 5, BUN 10, Creatinine 0.67, Estim Creat Clear Calc 36.68, Est GFR (MDRD) Af Amer 109, Est GFR (MDRD) Non-Af 90, BUN/Creatinine Ratio 14.8, Glucose 92, Calcium 8.6 Micro: Microbiology 12/06/20 14:40 Urine, Random Legionella Antigen - Final 12/06/20 14:40 Urine, Random Streptococcus pneumoniae Antigen (M - Final Cardiology Labs/Tests 12/07/20 06:00: WBC 7.0, RBC 4.22, Hgb 12.9, Hct 40.0, MCV 94.8, MCH 30.6, MCHC 32.3, Plt Count 144 L, MPV 11.2, Immature Gran % (Auto) 0.300, Neut % (Auto) 71.7 H, Lymph % (Auto) 13.3 L, [place] % (Auto) 13.0 H, Eos % (Auto) 1.3, Baso % (Auto) 0.4, Absolute Neuts (auto) 5.0, Nucleated RBC % 0 12/07/20 06:00: Sodium 136, Potassium 4.2, Chloride 104, Carbon Dioxide 27.0, Anion Gap 5, BUN 10, Creatinine 0.67, Est GFR (MDRD) Af Amer 109, Est GFR (MDRD) Non-Af 90, BUN/Creatinine Ratio 14.8, Glucose 92, Calcium 8.6 Rhythm: EKG: ECHO: Stress Test: Cardiac Cath: PCI: CT Surgery: Holter monitor: EPS: PPM: CXR: Chest CT Scan: Radiography Diagnostic Testing: Radiology Impression Echocardiogram 12/06/20 13:59 Interpretation Summary The estimated ejection fraction is 70 %. Unable to assess diastolic dysfunction. Mild (1+) mitral valve insufficiency. Mild tricuspid valve insufficiency. Mildly dilated aortic root. There is moderate mitral annular calcification. Sigmoid septal hypertrophy/asymmetric septal hypertrophy with moderate degree of obstruction. Mean gradient is 25-32mmHg Ordering Physician: Everett Le Referring Physician: TUNDE CORDOVA Performed By: Yesenia Monge, RDCS, RVT Chest X-Ray 12/07/20 07:50 IMPRESSION: Chronic interstitial changes with compressive atelectasis in the medial aspect of both lower lung abraham due to a stable large retrocardiac hiatal hernia. No organized infiltrate or effusion Electronically Signed: Jake Lozano MD at 8:10 EDT , Service support ,
--- NOTE | 2020-12-07 15:06 | PN.HOSP_ITS ---
Documented by User: Gunjan Dinh NP, [employer]ER-C 12/07/20 15:21 Subjective Subjective Patient seen and examined. Denies further shortness of breath. Denies chest pain. Cardiology consulted due to abnormal findings on echocardiogram. Plan for transfer to tertiary facility for further cardiac evaluation. Objective Data Objective Data Vital Signs: Vital Signs Temp Pulse Resp BP Pulse Ox 98.7 F 87 16 114/75 92 12/07/20 14:00 12/07/20 14:00 12/07/20 14:00 12/07/20 14:00 12/07/20 14:00 Oxygen Flow Rate (L/min) 2 Oxygen Delivery Method Room Air Weight: 166 lb 7.184 oz Body Mass Index (BMI) 31.7 Intake & Output: Intake and Output for Last 24 Hours 12/05/20 12/06/20 12/07/20 23:59 23:59 23:59 Intake Total 805 / 805 665 / 665 Output Total 300 / 1000 2100 / 2100 Balance 505 / -195 -1435 / -1435 Lab / Micro Data Result Diagrams: 12/07/20 06:00 12/07/20 06:00 Labs: Laboratory Results - last 24 hr 12/07/20 06:00: WBC 7.0, RBC 4.22, Hgb 12.9, Hct 40.0, MCV 94.8, MCH 30.6, MCHC 32.3, RDW Std Deviation 48.4 H, RDW Coeff of Solo 14.0, Plt Count 144 L, MPV 11.2, Immature Gran % (Auto) 0.300, Neut % (Auto) 71.7 H, Lymph % (Auto) 13.3 L, Dick[place] % (Auto) 13.0 H, Eos % (Auto) 1.3, Baso % (Auto) 0.4, Absolute Neuts (auto) 5.0, Absolute Lymphs (auto) 0.93, Nucleated RBC % 0 12/07/20 06:00: Sodium 136, Potassium 4.2, Chloride 104, Carbon Dioxide 27.0, Anion Gap 5, BUN 10, Creatinine 0.67, Estim Creat Clear Calc 36.68, Est GFR (MDRD) Af Amer 109, Est GFR (MDRD) Non-Af 90, BUN/Creatinine Ratio 14.8, Glucose 92, Calcium 8.6 Micro: Microbiology 12/06/20 14:40 Urine, Random Legionella Antigen - Final 12/06/20 14:40 Urine, Random Streptococcus pneumoniae Antigen (M - Final 12/06/20 08:25 Mucosa - Nose SARS-CoV-2 Antigen (Rapid) - Final Radiography Diagnostic Testing: Radiology Impression Echocardiogram 12/06/20 13:59 Interpretation Summary The estimated ejection fraction is 70 %. Unable to assess diastolic dysfunction. Mild (1+) mitral valve insufficiency. Mild tricuspid valve insufficiency. Mildly dilated aortic root. There is moderate mitral annular calcification. Sigmoid septal hypertrophy/asymmetric septal hypertrophy with moderate degree of obstruction. Mean gradient is 25-32mmHg Ordering Physician: Everett Le Referring Physician: TUNDE CORDOVA Performed By: Yesenia Monge, RDCS, RVT Chest X-Ray 12/07/20 07:50 IMPRESSION: Chronic interstitial changes with compressive atelectasis in the medial aspect of both lower lung abraham due to a stable large retrocardiac hiatal hernia. No organized infiltrate or effusion Electronically Signed: Jake Lozano MD at 8:10 EDT , Service support , Physical Exam Const alert, oriented x3 and no apparent distress Orientation / Consciousness: awake, oriented to person, oriented to place and oriented to time HEENT normocephalic and moist oral mucous membranes Eyes PERRL, EOMs intact bilaterally and conjunctivae normal Neck no lymphadenopathy Resp clear to auscultation bilaterally Auscultation: diminished lung sounds Cardio Cardio Narrative: Second-degree type II AV block, alternating left and right bundle branch block Heart Sounds: murmur Peripheral Pulses: pulses 2+ throughout GI normal to inspection, nondistended, normoactive bowel sounds, non-tender and non-distended Extremity normal to inspection Skin no rashes or lesions noted Lesions: no lesions Rashes: no rashes Trauma: no lacerations or abrasions Neuro CN's II-XII intact bilaterally, no focal motor deficits, no sensory deficits noted and deep tendon reflexes 2+ bilaterally Psych mental status grossly normal and affect normal Assessment & Plan Assessment/Plan (1) Second degree type II atrioventricular block: (2) Shortness of breath: PLAN: 1. Acute hypoxic respiratory insufficiency secondary to mild heart failure with preserved ejection fraction, pneumonia ruled out-CTA shows no evidence of PE. Bibasilar infiltrates. Chest x-ray on admission with mild congestion versus atelectasis. Afebrile. No leukocytosis. Avoid diuresis due to LVOT obstruction. Repeat chest x-ray without congestion or infiltrates. Oxygen now stable on room air. 2. Sigmoid septal hypertrophy/asymmetric septal hypertrophy with moderate degree of obstruction-will need further outpatient follow-up with cardiology. 3. 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 Transfer to tertiary facility for evaluation for permanent pacemaker. DVT prophylaxis-Heparin subcu This patient was seen by DEMIAN Shin under the supervision of Dr. Le. Documented by User: Dr. Everett Le, 12/08/20 09:06 Objective Data Lab / Micro Data Result Diagrams: 12/07/20 06:00 12/07/20 06:00
--- NOTE | 2020-12-07 15:21 | PCM.DC.SUM ---
Documented by User: Gunjan Dinh NP, [employer] CAR[employer]ER-C 12/07/20 15:25 Providers Date of Admission: 12/06/20 Date of Discharge: 12/07/20 Primary Care Physician: Dr. Tunde Cordova MD Reason For Visit: BILATERAL COMMUNITY AQUIRED PNEUMONIA Diagnosis Discharge Diagnosis (1) Second degree type II atrioventricular block: Status: Acute Code(s): I44.1 - Atrioventricular block, second degree (2) Shortness of breath: Status: Acute Code(s): R06.02 - Shortness of breath Medications at Discharge Home Medications ascorbic acid (vitamin C) 500 mg capsule 500 mg PO DAILY 06/11/17 calcium carbonate 500 mg calcium (1,250 mg) tablet 500 mg PO BID tab 06/11/17 lutein 20 mg capsule 20 mg PO QDAY 06/11/17 multivitamin with minerals 2 tab PO TID 06/11/17 vinegar See Rx Instructions PO QDAY 11/28/19 estradiol 1 g VAGINAL 2XW #42.5 g 04/16/20 oxyquinoline 0.025 %-sodium lauryl sulfate 0.01 % vaginal gel 1 ea VAGINAL DAILY #113.4 gm 08/30/20 Hospital Course Operations None Procedures 2-D Echocardiogram Summary of Care Provided Minutes Spent on Discharge: 35 Hospital Course: Patient is a 75-year-old female admitted 12/06/2020 due to shortness of breath. 1. Acute hypoxic respiratory insufficiency secondary to mild heart failure with preserved ejection fraction, pneumonia ruled out-CTA shows no evidence of PE. Bibasilar infiltrates. Chest x-ray on admission with mild congestion versus atelectasis. Afebrile. No leukocytosis. Avoid diuresis due to LVOT obstruction. Repeat chest x-ray without congestion or infiltrates. Oxygen now stable on room air. 2. Sigmoid septal hypertrophy/asymmetric septal hypertrophy with moderate degree of obstruction-will need further outpatient follow-up with cardiology. 3. 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 Transfer to tertiary facility for evaluation for permanent pacemaker. Physical Exam Const alert, oriented x3 and no apparent distress Orientation / Consciousness: awake, oriented to person, oriented to place and oriented to time HEENT normocephalic and moist oral mucous membranes Eyes PERRL, EOMs intact bilaterally and conjunctivae normal Neck no lymphadenopathy Resp clear to auscultation bilaterally Auscultation: diminished lung sounds Cardio Cardio Narrative: Second-degree type II AV block, alternating left and right bundle branch block Heart Sounds: murmur Peripheral Pulses: pulses 2+ throughout GI normal to inspection, nondistended, normoactive bowel sounds, non-tender and non-distended Extremity normal to inspection Skin no rashes or lesions noted Lesions: no lesions Rashes: no rashes Trauma: no lacerations or abrasions Neuro CN's II-XII intact bilaterally, no focal motor deficits, no sensory deficits noted and deep tendon reflexes 2+ bilaterally Psych mental status grossly normal and affect normal Patient seen and examined prior to discharge. Physical assessment as noted above. Transfer to tertiary facility as noted above. This patient was seen by DEMIAN Shin under the supervision of Dr. Le. Weight / BMI Weight Weight: 166 lb 7.184 oz Body Mass Index (BMI) 31.7 ABG / Lab / Microbiology Data Result Diagrams: 12/07/20 06:00 12/07/20 06:00 Laboratory: Laboratory Results - last 24 hr 12/07/20 06:00: WBC 7.0, RBC 4.22, Hgb 12.9, Hct 40.0, MCV 94.8, MCH 30.6, MCHC 32.3, RDW Std Deviation 48.4 H, RDW Coeff of Solo 14.0, Plt Count 144 L, MPV 11.2, Immature Gran % (Auto) 0.300, Neut % (Auto) 71.7 H, Lymph % (Auto) 13.3 L, [place] % (Auto) 13.0 H, Eos % (Auto) 1.3, Baso % (Auto) 0.4, Absolute Neuts (auto) 5.0, Absolute Lymphs (auto) 0.93, Nucleated RBC % 0 12/07/20 06:00: Sodium 136, Potassium 4.2, Chloride 104, Carbon Dioxide 27.0, Anion Gap 5, BUN 10, Creatinine 0.67, Estim Creat Clear Calc 36.68, Est GFR (MDRD) Af Amer 109, Est GFR (MDRD) Non-Af 90, BUN/Creatinine Ratio 14.8, Glucose 92, Calcium 8.6 Microbiology: Microbiology 12/06/20 14:40 Urine, Random Legionella Antigen - Final 12/06/20 14:40 Urine, Random Streptococcus pneumoniae Antigen (M - Final 12/06/20 08:25 Mucosa - Nose SARS-CoV-2 Antigen (Rapid) - Final Radiography Diagnostic Testing: Radiology Impression Echocardiogram 12/06/20 13:59 Interpretation Summary The estimated ejection fraction is 70 %. Unable to assess diastolic dysfunction. Mild (1+) mitral valve insufficiency. Mild tricuspid valve insufficiency. Mildly dilated aortic root. There is moderate mitral annular calcification. Sigmoid septal hypertrophy/asymmetric septal hypertrophy with moderate degree of obstruction. Mean gradient is 25-32mmHg Ordering Physician: Everett Le Referring Physician: TUNDE CORDOVA Performed By: Yesenia Monge RDCS, RVT Chest X-Ray 12/07/20 07:50 IMPRESSION: Chronic interstitial changes with compressive atelectasis in the medial aspect of both lower lung abraham due to a stable large retrocardiac hiatal hernia. No organized infiltrate or effusion Electronically Signed: Jake Lozano MD at 8:10 EDT , Service support , Meaningful Use Info Meaningful Use Diagnoses (Choose all that apply): None applicable Discharge Plan Admission Admit Date/Time: 12/06/20 12:16 Attending Provider: Everett Le Primary Care Provider: Tunde Cordova Discharge Orders/Prescriptions Prescriptions: No Action lutein 20 mg capsule 20 mg PO QDAY RF: 0 ascorbic acid (vitamin C) 500 mg capsule 500 mg PO DAILY RF: 0 calcium carbonate [Calcium 500] 500 mg calcium (1,250 mg) tablet 500 mg PO BID RF: 0 multivitamin with minerals [Hair,Skin and Nails] tablet 2 tab PO TID RF: 0 vinegar See Rx Instructions PO QDAY RF: 0 Trimo-Harry Jelly 0.025-0.01 % gel 1 ea VAGINAL DAILY Qty: 113.4 RF: 2 estradiol 0.01 % (0.1 mg/gram) cream 1 g VAGINAL 2XW Qty: 42.5 RF: 4 Referrals / Follow Up: Tunde Cordvoa MD [Primary Care Provider] - Disposition Disposition (needs filled in before D/C Order can be placed[facility] Documented by User: Dr. Everett Le DO 12/08/20 09:06 Providers Date of Admission: 12/06/20 Reason For Visit: BILATERAL COMMUNITY AQUIRED PNEUMONIA Medications at Discharge Home Medications ascorbic acid (vitamin C) 500 mg capsule 500 mg PO DAILY 06/11/17 calcium carbonate 500 mg calcium (1,250 mg) tablet 500 mg PO BID tab 06/11/17 lutein 20 mg capsule 20 mg PO QDAY 06/11/17 multivitamin with minerals 2 tab PO TID 06/11/17 vinegar See Rx Instructions PO QDAY 11/28/19 estradiol 1 g VAGINAL 2XW #42.5 g 04/16/20 oxyquinoline 0.025 %-sodium lauryl sulfate 0.01 % vaginal gel 1 ea VAGINAL DAILY #113.4 gm 08/30/20 ABG / Lab / Microbiology Data Result Diagrams: 12/07/20 06:00 12/07/20 06:00 Discharge Plan Admission Admit Date/Time: 12/06/20 12:16 Attending Provider: Everett Le Primary Care Provider: Tunde Cordova Discharge Orders/Prescriptions Prescriptions: No Action lutein 20 mg capsule 20 mg PO QDAY RF: 0 ascorbic acid (vitamin C) 500 mg capsule 500 mg PO DAILY RF: 0 calcium carbonate [Calcium 500] 500 mg calcium (1,250 mg) tablet 500 mg PO BID RF: 0 multivitamin with minerals [Hair,Skin and Nails] tablet 2 tab PO TID RF: 0 vinegar See Rx Instructions PO QDAY RF: 0 Trimo-Harry Jelly 0.025-0.01 % gel 1 ea VAGINAL DAILY Qty: 113.4 RF: 2 estradiol 0.01 % (0.1 mg/gram) cream 1 g VAGINAL 2XW Qty: 42.5 RF: 4 Referrals / Follow Up: Tunde Cordova MD [Primary Care Provider] - Disposition Disposition (needs filled in before D/C Order can be placed): Acute Care Hospital Charges/Coding Addendum Addendum: Patient was seen and examined today independently of Gunjan Dinh, I had lengthy discussions with cardiology today after I had cardiology see the patient regarding her second-degree heart block and abnormal echocardiogram. Upon reviewing the patient's rhythm strips and EKGs, cardiology recommended the patient be evaluated for pacemaker insertion, I talked at length with the patient in the presence of cardiology, the patient preferred to have the pacemaker put in sooner rather than go home and get it done as an outpatient, she consented to be transferred to [facility] for this procedure and I was able to get confirmation of a bed there and they accepted the patient. On examination she appeared in good health and spirits, she does not appear to be in any distress. Vital signs as documented. Skin warm and dry and without overt rashes. Neck without JVD, thyroid appears normal, trachea is midline, neck is supple. Lungs clear, normal air movement was noted. Heart exam notable for regular rhythm, normal sounds and absence of murmurs, rubs or gallops. Abdomen unremarkable and without evidence of organomegaly, masses, or abdominal aortic enlargement, bowel sounds are present in all 4 quadrants, no abdominal tenderness was noted. Extremities nonedematous, no cyanosis was noted, no clubbing was noted. Neuro: Cranial nerves II through XII are grossly intact, no focal motor deficits were noted, sensation to light touch and pinprick is intact, motor exam 5/5 throughout. Psych: Patient is alert and oriented x3, she does not appear anxious or depressed, she does not appear agitated. Patient appears stable for transfer to [facility] in [facility] for further care, I have reviewed Gunjan Dinh's discharge summary including her medical assessment and plan of care and endorse it. Visit Charges Inpatient E&M: 90816 Disch Hosp
--- NOTE | 2020-12-07 17:08 | NURSING ---
report called and transfer set up for [facility] for pacemaker. no questions voiced. consent signed and belongings form filled out.
== END 2020-12-07 18:30 | disposition short-term general hospital (02) | DRG 308 ==
LOC: ED 12:20 → PCU 12:31
PROVIDERS: Admitting Provider Internal Medicine; Emergency Provider Emergency Medicine; PCP Family Medicine; Visit Provider Internal Medicine
DX: I44.1 Atrioventricular block, second degree (principal); I50.31 Acute diastolic (congestive) heart failure; I42.1 Obstructive hypertrophic cardiomyopathy; I49.3 Ventricular premature depolarization; I45.10 Unspecified right bundle-branch block; I44.7 Left bundle-branch block, unspecified; R09.02 Hypoxemia; R06.89 Other abnormalities of breathing
CPT/HCPCS: 36415; 71045; 71046; 71275; 80048; 80053; 83880; 84484; 85025; 85379; 87040; 87426; 87449; 93005; 93306; 94640; 99251; 99285; J7030; J7040; Q9967; A4216; G0463; J0696

== ENCOUNTER → 2021-03-29 10:58 | Outpatient (CLI) | payer MEDICARE, OTHER, SELFPAY ==
--- NOTE | 2021-03-29 11:15 | RAD_ITS ---
STUDY: X-RAY CHEST REASON FOR EXAM: Female, 75 years old. Pacemaker placement TECHNIQUE: PA and lateral views of the chest. COMPARISON: 12/07/2020 FINDINGS: A left subclavian pacemaker has been placed since the previous study, leads in satisfactory position. No pneumothorax. Lungs are hyperexpanded with chronic interstitial changes but no superimposed process. There is no demonstrated pleural abnormality. Normal size heart. Normal mediastinum and briseyda. Normal visualized pulmonary arteries. Normal visualized aortic arch and descending thoracic aorta. Normal visualized thoracic spine. Normal visualized ribs, clavicles, and shoulders. Stable retrocardiac hiatal hernia causing compressive atelectasis in the medial lung bases RAD/Chest PA and Lateral IMPRESSION: Hyper expanded lungs without a superimposed acute pulmonary process. There is a prominent retrocardiac hiatal hernia causing compressive atelectasis in the medial aspect of both lower lung abraham Satisfactory appearance of a left subclavian pacemaker, no pneumothorax Electronically Signed: Jake Lozano MD at 16:00 EST , Service support ,
== END ==
PROVIDERS: PCP Family Medicine; Visit Provider Internal Medicine Cardiovascular Disease
DX: I42.1 Obstructive hypertrophic cardiomyopathy (principal); I45.9 Conduction disorder, unspecified; I44.1 Atrioventricular block, second degree; Z95.0 Presence of cardiac pacemaker
CPT/HCPCS: 71046

== ENCOUNTER 2021-09-10 12:50 | Emergency (ER) | payer MEDICARE, OTHER, SELFPAY ==
[2021-09-10 12:51] VITALS: BP 159/132; PULSE 78; RESP 16; TEMP 36.4; O2SAT 87; BMI 33.5
--- NOTE | 2021-09-10 13:11 | EKG12_ITS ---
Test Reason : CP Blood Pressure : / mmHG Vent. Rate : 085 BPM Atrial Rate : 085 BPM P-R Int : 196 ms QRS Dur : 128 ms QT Int : 382 ms P-R-T Axes : 042 052 -19 degrees QTc Int : 454 ms Atrial-sensed ventricular-paced rhythm with occasional AV dual-paced complexes and with occasional Pr emature ventricular complexes Abnormal ECG Confirmed by JORGE AGOSTO, LAKHWINDER ([id number]), editor sound ELZA WHITE ([id number]) on 09/11/2021 9:49:16 AM Referred By: BB Confirmed By:LAKHWINDER PATEL MD
--- NOTE | 2021-09-10 13:12 | EDS_ITS ---
HPI History of Present Illness Chief Complaint: Chest Pain Informant: patient Narrative Narrative: 76-year-old female presents out of concern for her health. She states that this morning she felt in her usual state of health and she felt like perhaps her breathing was off. She cannot explain what she means by that but states that she started to get scared and wonders if the breathing was off because of being scared. She denies any chest pain or palpitations no nausea vomiting diarrhea sweating. She states laying in the bed she feels pretty normal. [facility] Medical History Heart block Hypertrophic obstructive cardiomyopathy Pacemaker Pessary maintenance Presence of permanent cardiac pacemaker (~12/10/20) Home Medications lutein 20 mg capsule 20 mg PO QDAY 06/11/17 [History Last Taken Unknown] vinegar See Rx Instructions PO QDAY 11/28/19 [History Last Taken Unknown] metoprolol succinate 50 mg tablet,extended release 24 hr 50 mg PO DAILY #30 tab 03/11/21 [Rx Last Taken Unknown] ascorbic acid (vitamin C) 500 mg capsule 1,000 mg PO DAILY cap 03/29/21 [History Last Taken Unknown] multivitamin with minerals 1 tab PO DAILY tab 03/29/21 [History Last Taken Unknown] calcium carbonate 600 mg calcium (1,500 mg) tablet 600 mg PO BID 06/26/21 [History Last Taken Unknown] estradiol 1 g VAGINAL .COMPLEX g 06/26/21 [History Last Taken Unknown] hydrochlorothiazide 12.5 mg capsule 12.5 mg PO DAILY #90 cap 06/26/21 [Rx Last Taken Unknown] Allergy/AdvReac Type Severity Reaction Status Date / Time diclofenac [From Voltaren] Allergy Hives Verified 09/10/21 12:53 novacaine Allergy Other Uncoded 09/10/21 12:53 Family History Father Cancer prostate Grandmother Cancer Diabetes Grandfather No problems noted. Surgical History FH: bilateral hip replacements H/O bilateral hip replacements History of hysterectomy History of tonsillectomy Hx of cholecystectomy Social History Smoking Status: Never smoker alcohol intake: never substance use type: does not use caffeine: Yes frequency: 5-6 times per week seatbelt use: always do you feel safe at home: Yes ROS ROS ED Constitutional Constitutional ED: Denies chills, fever(s) or weight loss Eyes Eyes: Denies change in vision or diplopia ENT ENT ED: Denies ear pain, rhinorrhea or sore throat Cardiovascular Cardiovascular: Denies chest pain, orthopnea, palpitations or racing heartbeat Respiratory/Chest Respiratory/Chest: Reports dyspnea; Denies cough or orthopnea Gastrointestinal Gastrointestinal: Denies abdominal pain, diarrhea, nausea or vomiting Genitourinary Genitourinary ED: Denies dysuria, hematuria or urinary frequency Musculoskeletal Musculoskeletal: Denies arthralgias or myalgias Integumentary Denies abscess or rash Neurologic Neurologic: Denies headache(s) or weakness Psychiatric Psychiatric: Denies anxiety, depression, suicidal ideation or suicidal thoughts Endocrine Endocrinology: Denies polydipsia, polyphagia or polyuria Allergic/Immunologic Allergic/Immunologic ED: Denies mouth swelling, tongue swelling or urticaria EXAM Physical Exam Const Vital Signs: 09/10/21 12:51 Temperature 97.5 F L Temperature Source Temporal Pulse Rate 78 Respiratory Rate 16 Blood Pressure 159/132 H Blood Pressure Mean 141 Pulse Ox 87 Oxygen Delivery Method Room Air Positive well nourished and well developed General Appearance ED: well developed HEENT Reports normocephalic, head/scalp atraumatic and moist mucous membranes Eyes PERRL and EOMs intact bilaterally Neck no lymphadenopathy, supple and no JVD Resp normal respiratory effort and clear to auscultation bilaterally Cardio regular rate, regular rhythm and no murmurs GI normal to inspection, nondistended, normoactive bowel sounds and non-tender Palpation: soft Back/Spine no CVA tenderness and normal ROM Extremity normal to inspection General Extremety ED: Negative for edema General Extremity: Negative for edema Neuro oriented x3 and CN's II-XII intact bilaterally Sensorium / Orientation: alert Motor Exam: strength 5/5 throughout Psych mental status grossly normal Mood & Affect: Negative for depressed or tearful Skin no rashes or lesions noted and no wounds MDM MDM MDM Narrative Medical decision making narrative: My interpretation of the plain film of the chest is hiatal. No acute process. CBC and BMP are normal. Troponin is 6. Patient's had no events on the monitor. At this point patient has normal vital signs. I believe the 87% on room air triage vital sign was in error. Laying in the bed with a good waveform she is 93%. This point patient will be discharged home Lab Data Attestation: I reviewed the patient's lab results. Labs: Laboratory Results - last 24 hr 09/10/21 09/10/21 13:07 13:07 WBC 8.6 RBC 4.54 Hgb 14.5 Hct 43.5 MCV 95.8 MCH 31.9 MCHC 33.3 RDW Std Deviation 46.5 H RDW Coeff of Solo 13.0 Plt Count 209 MPV 10.6 Immature Gran % (Auto) 0.200 Neut % (Auto) 68.1 Lymph % (Auto) 19.9 [place] % (Auto) 9.6 Eos % (Auto) 2.0 Baso % (Auto) 0.2 Absolute Neuts (auto) 5.8 Absolute Lymphs (auto) 1.70 Nucleated RBC % 0 Sodium 139 Potassium 3.7 Chloride 103 Carbon Dioxide 28.0 Anion Gap 8 BUN 22 H Creatinine 0.87 Estim Creat Clear Calc 39.51 Est GFR (MDRD) Af Amer 81 Est GFR (MDRD) Non-Af 67 BUN/Creatinine Ratio 25.2 H Glucose 103 Calcium 9.6 Troponin I High Sens 6 Radiography Diagnostic Testing: Clinical Impression(s) from Imaging Studies Chest X-Ray 09/10/21 13:20 IMPRESSION: Hyperinflation. Stable mild increased markings at the lung bases suggestive of scarring. Large hiatal hernia. Electronically Signed: Juan Luis Heath MD at 13:37 EDT , EKG Initial EKG: Attestation: I personally reviewed and interpreted this EKG as follows: Comments: Paced Discharge Plan Triage Chief Complaint: Chest Pain Other Complaint: Shortness of Breath ED Provider: Alex Ludwig Dx/Rx/DC Orders Clinical Impression: Anxiety about health, Acute dyspnea Instructions: ED Dyspnea Prescriptions: No Action lutein 20 mg capsule 20 mg PO QDAY RF: 0 ascorbic acid (vitamin C) 500 mg capsule 1,000 mg PO DAILY RF: 0 multivitamin with minerals [Hair,Skin and Nails] Tablet 1 tab PO DAILY RF: 0 vinegar See Rx Instructions PO QDAY RF: 0 calcium carbonate 600 mg calcium (1,500 mg) tablet 600 mg PO BID RF: 0 estradiol 0.01 % (0.1 mg/gram) cream 1 g VAGINAL .COMPLEX RF: 0 hydrochlorothiazide 12.5 mg capsule 12.5 mg PO DAILY Qty: 90 RF: 3 metoprolol succinate 50 mg tablet extended release 24 hr 50 mg PO DAILY Qty: 30 RF: 11 Primary Care Provider: Rick Marsh Referrals: Rick Marsh MD [Primary Care Provider] - As Needed Disposition Disposition: Home, Self Care
--- NOTE | 2021-09-10 13:20 | RAD_ITS ---
STUDY: X-RAY CHEST REASON FOR EXAM: Female, 76 years old. Chest pain TECHNIQUE: Single AP portable view of the chest. COMPARISON: Comparison is made with prior study dated 2020. FINDINGS: EKG electrodes are seen. Mild increased linear markings at the lung bases suggestive of bibasilar scarring. Hyperinflation. There is no demonstrated pleural abnormality. Normal size heart. The left-sided dual-chamber pacemaker is seen. Normal mediastinum and briseyda. Normal visualized pulmonary arteries. There is atherosclerotic tortuosity of the aortic arch and descending thoracic aorta. Normal visualized thoracic spine. Normal visualized ribs, clavicles, and shoulders. Large hiatal hernia. RAD/Chest 1 View (Portable) IMPRESSION: Hyperinflation. Stable mild increased markings at the lung bases suggestive of scarring. Large hiatal hernia. Electronically Signed: Juan Luis Heath MD at 13:37 EDT ,
[2021-09-10 13:23] LABS: Absolute Neutrophil Count 5.8 X10^3/uL (2.0-7.7); Basophil# 0.02 X10^3/uL; Basophil% 0.2 % (0-1); Eosinophil# 0.17 X10^3/uL; Hematocrit 43.5 % (37-47); Hemoglobin 14.5 g/dL (12.0-15.0); Lymphocyte % 19.9 % (19-41); Mean Corp Hgb Conc 33.3 g/dL (32-36); Mean Corpuscular Hgb 31.9 pg (27.0-32.0); Mean Corpuscular Volume 95.8 fL (81-99); Mean Platelet Vol. 10.6 fl (6.2-12.0); Monocyte# 0.82 X10^3/uL; Monocyte% 9.6 % (0-10); NRBC Flagged by Analyzer 0 % (0-5); Neutrophil # 5.83 X10^3/uL (2.7-7.7); Neutrophil % 68.1 % (47-70); Platelet Count 209 K/mm3 (150-450); RBC Distribution Width SD 46.5 fl (35.1-43.9); Red Blood Count 4.54 M/mm3 (4.2-5.4); White Blood Count 8.6 K/mm3 (4.4-11.0)
[2021-09-10 13:41] LABS: Anion Gap 8 (5-15); BUN 22 mg/dL (7-18); BUN/Creat Ratio 25.2 RATIO (10-20); Calcium,Total 9.6 mg/dL (8.5-10.1); Chloride 103 mmol/L (98-107); Creatinine, Serum 0.87 mg/dL (0.55-1.02); EST Glomerular Filtration Rate 67 mL/min (>60); Est Glom Filt Rate - Afr Amer 81 mL/min (>60); Estimated Creatinine Clearance 39.51 ml/min; Glucose 103 mg/dL (74-106); Potassium 3.7 mmol/L (3.5-5.1); Sodium Level 139 mmol/L (136-145); Troponin-I HS (w/2H Reflex) 6 pg/mL (3.0-54.0)
[2021-09-10 14:16] VITALS: BP 115/82; PULSE 71; RESP 18; O2SAT 95
[2021-09-10 15:20] LABS: Reflex Troponin-HS? (from REC) Y
== END 2021-09-10 14:16 | disposition home or self-care (01) ==
PROVIDERS: Emergency Provider Emergency Medicine; PCP Family Medicine; Visit Provider Emergency Medicine
DX: R06.00 Dyspnea, unspecified (principal); I42.1 Obstructive hypertrophic cardiomyopathy; Z95.0 Presence of cardiac pacemaker; Z79.899 Other long term (current) drug therapy; Z71.1 Person with feared health complaint in whom no diagnosis is made; F41.9 Anxiety disorder, unspecified
CPT/HCPCS: 71045; 80048; 84484; 85025; 93005; 99284; A4216

== ENCOUNTER → 2021-10-16 | Outpatient (CLI) | payer MEDICARE, OTHER, SELFPAY ==
--- NOTE | 2021-10-16 10:41 | ECHOD_ITS ---
Reason For Study: Dyspnea/SOB Procedure This was a 2D Doppler, Color Flow transthoracic echocardiogram. The exam was of adequate technical quality. Exam performed in department. Left Ventricle Normal LV size. Sigmoid septum. Left ventricular systolic function is normal. The estimated ejection fraction is 70 %. Diastolic function is indeterminate. No regional wall motion abnormalities noted. Right Ventricle Normal RV size. ICD or pacer leads identified within the right ventricle. Normal systolic function. Atria Normal left atrium. Normal right atrium. ICD or pacer leads identified within the right atrium. No doppler evidence for ASD. Bubble contrast study negative for right to left interatrial shunt. Mitral Valve There is mild mitral annular calcification. Chordal systolic anterior motion of the mitral valve. Mild mitral valve prolapse, posterior leaflet. Mild (1+) mitral valve insufficiency. Tricuspid Valve Normal tricuspid valve. Mild to moderate (1-2+) tricuspid valve insufficiency. Right ventricular systolic pressure estimated to be 29 mmHg. Aortic Valve Trisinus/trileaflet aortic valve. Mild focal aortic valve calcification. Trivial aortic valve insufficiency. Pulmonic Valve The pulmonic valve is not well visualized. Trivial pulmonic valve insufficiency. Great Vessels Borderline enlarged aortic root. Pericardium/Pleural No pericardial effusion. Medication Performed a rapid injection of agitated mix of 9 cc saline and 1cc air to assess for atrial septal defect. MMode/2D Measurements & Calculations LVIDd: 4.7 cm IVSd: 1.3 cm Ao root diam: 3.8 cm LVIDs: 2.5 cm LVPWd: 0.81 cm RVDd: 4.5 cm FS: 46.9 % LAV(MOD-bp): 43.6 ml LVAd ap4: 20.1 cm2 SV(MOD-sp4): 31.6 ml LAV(MOD-bp) Indexed: 24.9 ml/m2 LVLd ap4: 7.2 cm LAV(MOD-sp2): 43.2 ml EDV(MOD-sp4): 47.6 ml LAV(MOD-sp4): 42.8 ml EDV(sp4-el): 47.2 ml LVAs ap4: 10.4 cm2 LVLs ap4: 6.2 cm ESV(MOD-sp4): 16.0 ml ESV(sp4-el): 14.7 ml EF(MOD-sp4): 66.4 % EF(sp4-el): 68.9 % SV(sp4-el): 32.6 ml LA A4 area: 17.2 cm2 LA dimension(2D): 2.3 cm RA A4 area: 13.6 cm2 Doppler Measurements & Calculations MV E max joe: 63.4 cm/sec Lat Peak E' Joe: 5.2 cm/sec Med Peak E' Joe: 4.5 cm/sec MV A max joe: 77.0 cm/sec E/E' lat: 12.3 E/E' med: 14.0 MV E/A: 0.82 Ao V2 max: 172.0 cm/sec LV V1 max: 150.2 cm/sec PA V2 max: 83.0 cm/sec Ao max P.8 mmHg LV V1 max P.0 mmHg Ao V2 mean: 124.6 cm/sec Ao mean P.8 mmHg Ao V2 VTI: 32.4 cm TR max joe: 256.4 cm/sec TR max P.3 mmHg ECHO/Echo Complete Interpretation Summary Left ventricular systolic function is normal. The estimated ejection fraction is 70 %. Sigmoid septum. There is mild mitral annular calcification. Chordal systolic anterior motion of the mitral valve. Mild mitral valve prolapse, posterior leaflet Mild (1+) mitral valve insufficiency. Mild to moderate (1-2+) tricuspid valve insufficiency. Mild focal aortic valve calcification. Trivial aortic valve insufficiency. Trivial pulmonic valve insufficiency. Borderline enlarged aortic root. Right ventricular systolic pressure estimated to be 29 mmHg. Diastolic function is indeterminate. Bubble contrast study negative for right to left interatrial shunt. ICD or pacer leads identified within the right atrium ICD or pacer leads identified within the right ventricle. Ordering Physician: Maria D Crowley Referring Physician: Rick Marsh Performed By: Miranda Mcneil, MIRIAM, RVT
== END | disposition home or self-care (01) ==
LOC: CVS 10:40
PROVIDERS: PCP Family Medicine; Referring Provider Physician Assistant Medical; Visit Provider Physician Assistant Medical
DX: Q24.8 Other specified congenital malformations of heart (principal); I42.1 Obstructive hypertrophic cardiomyopathy; I44.1 Atrioventricular block, second degree; Z95.0 Presence of cardiac pacemaker; I45.9 Conduction disorder, unspecified
CPT/HCPCS: 93306; A4216

== ENCOUNTER 2023-07-18 13:32 | Observation (INO) | payer MEDICARE, OTHER, SELFPAY ==
[2023-07-18] VITALS (8 sets, daily range): BP systolic 130–158; BP diastolic 69–94; PULSE 38–60; RESP 14–24; TEMP 35.7–36.7; O2SAT 92–97; BMI 33.5; BMI 32.5
--- NOTE | 2023-07-18 14:00 | EKG12_ITS ---
Test Reason : Blood Pressure : / mmHG Vent. Rate : 041 BPM Atrial Rate : 041 BPM P-R Int : 174 ms QRS Dur : 126 ms QT Int : 464 ms P-R-T Axes : 045 065 -16 degrees QTc Int : 382 ms NSR WITH 2:1 CONDUCATION PACER Abnormal ECG Confirmed by Lizandro Ca ([id number]), acquisition editor LEAH BOND ([id number]) on 07/21/2023 7:22:19 AM Referred By: MARY ANNE Confirmed By:Lizandro Ca
--- NOTE | 2023-07-18 14:07 | EDS_ITS ---
<Statement entered by Criss Cruz MD - 07/18/23 17:40> I have personally performed a face to face assessment of the patient and have reviewed the ANA Note. Patient presents secondary to shortness of breath with exertion. She states symptoms started 3 days ago. She denies chest pain. She will get intermittently dizzy when she is up with exertion. Patient was seen by her cardiology office on Thursday. She states that she was told to keep a record of her blood pressure medications and call in next week for about some possible changes to her BP meds. At this time she has not made any changes to her medical regimen. Patient sitting upright in bed no acute distress. Alert and talkative. Head and neck examination unremarkable. Heart is bradycardic and regular. Lung sounds are clear. Abdomen is soft with no focal tenderness. Neuro exam unremarkable. EKG reveals paced rhythm, however she is only transmitting a QRS after every other P wave. Her ventricular rate is 40 bpm. Her blood pressure is normal. Lab work obtained and reveals no significant electrolyte abnormalities. Portable chest x-ray obtained that reveals wires to be intact. Patient's pacem nicole was interrogated. Patient discussed with cardiology and patient is to be admitted and will be evaluated. Patient discussed with hospitalist. HPI History of Present Illness Chief Complaint: Shortness of Breath Narrative Narrative: Patient is 78-year-old female that has a pacemaker, hypertension on metoprolol who presents to the emergency department for 3 days of feeling dyspneic, difficulty getting around. Patient states when she gets up, she can feel dizzy, lightheaded, she also feels that she is short of breath. Patient did have a pacemaker placed 4 years ago, she does see cardiology, she saw the nurse practitioner Thursday of this last week which was 4 to 5 days ago. Patient denies any medication changes, she has any cough, fever, chills, she denies any infective symptoms. [facility] Medical History Heart block Hypertrophic obstructive cardiomyopathy Pacemaker Pessary maintenance Presence of permanent cardiac pacemaker (~12/10/20) Home Medications lutein 20 mg capsule 20 mg PO QDAY 06/11/17 [History Last Taken Unknown] vinegar See Rx Instructions PO QDAY 11/28/19 [History Last Taken Unknown] ascorbic acid (vitamin C) 500 mg capsule 1,000 mg PO DAILY 03/29/21 [History Last Taken Unknown] multivitamin with minerals (Hair,Skin and Nails tablet) 1 tab PO DAILY 03/29/21 [History Last Taken Unknown] calcium carbonate 600 mg calcium (1,500 mg) tablet 600 mg PO BID 06/26/21 [History Last Taken Unknown] estradiol 0.01% (0.1 mg/gram) vaginal cream 1 g vaginal .COMPLEX 06/26/21 [History Last Taken Unknown] multivitamin 1 tab PO DAILY 01/01/22 [History Last Taken Unknown] vibegron 75 mg tablet (Gemtesa) 75 mg PO DAILY 01/01/22 [History Last Taken Unknown] metoprolol succinate 50 mg tablet,extended release 24 hr 25 mg PO DAILY 07/14/23 [History Last Taken Unknown] apixaban 5 mg tablet (Eliquis) 5 mg PO BID #180 tabs 07/16/23 [Rx Last Taken Unknown] Allergy/AdvReac Type Severity Reaction Status Date / Time diclofenac [From Voltaren] Allergy Hives Verified 07/18/23 13:33 procaine [From Novocain] Allergy NEEDS Verified 07/18/23 13:33 FOLLOW-UP Family History Father Cancer prostate Grandmother Cancer Diabetes Grandfather No problems noted. Surgical History (Reviewed 07/14/23 @ 09:35 by Tiffany Mathew RN LABOR AND DELIVERY, RN LABOR AND DELIVERY-C) FH: bilateral hip replacements H/O bilateral cataract extraction H/O bilateral hip replacements History of hysterectomy History of tonsillectomy Hx of cholecystectomy Social History Smoking Status: Never smoker alcohol intake: never substance use type: does not use caffeine: Yes frequency: 5-6 times per week seatbelt use: always do you feel safe at home: Yes ROS ROS ED ROS Narrative Constitutional: Negative for fever, chills, weight loss, weakness Eyes: Negative for vision loss, vision change, double vision ENT: Negative for any sore throat, ear pain, congestion Cardiovascular: Negative for any chest pain, tightness, palpitations Respiratory: Negative for any cough, sputum production, hemoptysis. Positive for dyspnea, dyspnea on exertion, orthopnea Gastrointestinal: Negative for any abdominal pain, nausea, vomiting, diarrhea, constipation, blood in stool, blood in vomit : Negative for any urinary frequency, dysuria, retention, blood in urine Muscle skeletal: Negative for any neck pain, back pain Neurological: Negative for any headache, syncope, dizziness Skin: Negative for any rashes, itching, abrasions, lacerations Psychiatric: Negative for any depression, anxiety, stress, suicidal ideation, homicidal ideation Hematologic: Negative for any excessive bruising, easy bleeding EXAM Physical Exam Narrative Exam Narrative: Vital signs reviewed. HEET: Head normocephalic atraumatic, TMs clear bilaterally. Posterior pharynx is clear, moist mucous membranes. Nares clear bilaterally. Neck: Supple with no lymphadenopathy or tenderness. No signs of meningismus. Cardiac: Bradycardic rhythm no murmurs gallops or rubs, equal peripheral pulses bilaterally. Respiratory: Lungs clear to auscultation bilaterally. No chest tenderness. Abdomen: Soft, nontender, nondistended. No abdominal bruit or pulsatile masses. No hepatosplenomegaly Extremities: No peripheral edema, no signs of gross trauma or deformity. Active full range of motion of all extremities. Neuro: Cranial nerves II through XII intact, no focal neurological deficits. Skin: Clean dry and intact with no rash, purpura, petechiae, vesicles or pustules. Backs/flank: No CVA tenderness, no midline spinal tenderness, no deformity. Psych: Normal mood and affect. No SI, HI or acute psychosis. Const Vital Signs: 07/18/23 13:33 07/18/23 13:46 07/18/23 13:47 Temperature 96.3 F L 98.1 F Temperature Source Temporal Temporal Pulse Rate 40 L 40 L Respiratory Rate 14 24 H Respiratory Effort Normal Respiratory Depth Normal Respiratory Pattern Tachypnea Blood Pressure 130/83 H 152/77 H Blood Pressure Mean 98 102 Pulse Ox 96 95 Oxygen Delivery Method Room Air Room Air 07/18/23 14:00 Temperature Temperature Source Pulse Rate Respiratory Rate Respiratory Effort Respiratory Depth Respiratory Pattern Blood Pressure Blood Pressure Mean Pulse Ox Oxygen Delivery Method Room Air [facility] Lab Data Labs: Laboratory Results - last 24 hr 07/18/23 14:00 WBC 7.1 RBC 4.14 L Hgb 13.4 Hct 40.3 MCV 97.3 MCH 32.4 H MCHC 33.3 RDW Std Deviation 48.1 H RDW Coeff of Solo 13.3 Plt Count 152 MPV 11.5 Immature Gran % (Auto) 0.100 Neut % (Auto) 66.4 Lymph % (Auto) 21.9 [place] % (Auto) 9.9 Eos % (Auto) 1.3 Baso % (Auto) 0.4 Absolute Neuts (auto) 4.7 Absolute Lymphs (auto) 1.55 Nucleated RBC % 0 Sodium 137 Potassium 4.2 Chloride 106 Carbon Dioxide 25.0 Anion Gap 6 BUN 14 Creatinine 0.81 Estim Creat Clear Calc 52.86 Est GFR (MDRD) Af Amer 88 Est GFR (MDRD) Non-Af 72 BUN/Creatinine Ratio 17.2 Glucose 108 H Calcium 9.1 Troponin I High Sens 15 EKG Atrial sensed ventricular paced rhythm: Attestation: I personally reviewed and interpreted this EKG as follows: Comments: EKG shows a rate of 41 bpm, patient is paced however it does appear that the ICD is not capturing the QRS, it is capturing to P waves however not to QRS waves. It seems that it is a 2-1 heart block. Treatment and Re-Evaluation :: Patient at rest appears to be in no obvious distress, patient's vital signs are stable. Patient is bradycardic, states that she is symptomatic when she gets up and moves around. Secondary to her pacemaker not capturing the QRSs, I did reach out to Dr. Ca who is a sheep clipper, he agrees this only might be wrong with a pacemaker. The pacemaker will be interrogated, sent to [facility]. Patient received some basic laboratory value as well as a chest x- ray. All radiologic examinations were read, reviewed by the emergency department attending. From these reads, a plan of care will be put in place. After the interrogation, I was instructed by Dr. Ca to call him back for reevaluation I received 34 pages of Interrogation. Is difficult for me to evaluate in detail. Patient CBC was unremarkable, chemistries were unremarkable, currently waiting on a BNP. Patient's chest x-ray would like to be no acute process interpreted the ER physician. After the interrogation, I did speak with Dr. Ca, he recommends admission, he will see her tomorrow. I spoke with hospitalist, PCU observation. I made the patient aware, she is on board with the plan. Patient stable for admission. Discharge Plan Triage Chief Complaint: Shortness of Breath ED Midlevel Provider: Jason Snell ED Provider: Criss Cruz Dx/Rx/DC Orders Clinical Impression: Dizziness, SOB (shortness of breath) on exertion, Bradycardia, Pacemaker complications Prescriptions: No Action lutein 20 mg capsule 20 mg PO QDAY ascorbic acid (vitamin C) 500 mg capsule 1,000 mg PO DAILY multivitamin with minerals [Hair,Skin and Nails] Tablet 1 tab PO DAILY vinegar See Rx Instructions PO QDAY Rx Instructions: 2 tsp in 8 oz h2o multivitamin Tablet 1 tab PO DAILY Gemtesa 75 mg tablet 75 mg PO DAILY calcium carbonate 600 mg calcium (1,500 mg) tablet 600 mg PO BID estradiol 0.01 % (0.1 mg/gram) cream 1 g VAGINAL .COMPLEX Rx Instructions: 1 g vaginal 3 times per week; metoprolol succinate 50 mg tablet extended release 24 hr 25 mg PO DAILY Eliquis 5 mg tablet 5 mg PO BID Qty: 180 4RF Primary Care Provider: Rick Marsh Referrals: Rick Marsh MD [Primary Care Provider] - Disposition Disposition: Acute Care Hospital [facility]
[2023-07-18 14:29] LABS: Absolute Lymphocyte Count 1.55 X10^3/uL (0.83-4.51); Absolute Neutrophil Count 4.7 X10^3/uL (2.0-7.7); Basophil# 0.03 X10^3/uL; Basophil% 0.4 % (0-1); Eosinophil# 0.09 X10^3/uL; Eosinophils% 1.3 % (0-5); Hematocrit 40.3 % (37-47); Hemoglobin 13.4 g/dL (12.0-15.0); Lymphocyte # 1.55 X10^3/ul (0.83-4.51); Lymphocyte % 21.9 % (19-41); Mean Corp Hgb Conc 33.3 g/dL (32-36); Mean Corpuscular Hgb 32.4 pg (27.0-32.0); Mean Corpuscular Volume 97.3 fL (81-99); Mean Platelet Vol. 11.5 fl (6.2-12.0); Monocyte% 9.9 % (0-10); NRBC Flagged by Analyzer 0 % (0-5); Neutrophil % 66.4 % (47-70); Platelet Count 152 K/mm3 (150-450); RBC Distribution Width CV 13.3 % (11.6-14.6); RBC Distribution Width SD 48.1 fl (35.1-43.9); Red Blood Count 4.14 M/mm3 (4.2-5.4); White Blood Count 7.1 K/mm3 (4.4-11.0)
[2023-07-18 14:32] LABS: Anion Gap 6 (5-15); BUN 14 mg/dL (7-18); BUN/Creat Ratio 17.2 RATIO (10-20); Calcium,Total 9.1 mg/dL (8.5-10.1); Chloride 106 mmol/L (98-107); Creatinine, Serum 0.81 mg/dL (0.55-1.02); EST Glomerular Filtration Rate 72 mL/min (>60); Est Glom Filt Rate - Afr Amer 88 mL/min (>60); Estimated Creatinine Clearance 52.86 ml/min; Glucose 108 mg/dL (74-106); Potassium 4.2 mmol/L (3.5-5.1); Sodium Level 137 mmol/L (136-145); Troponin-I HS (w/2H Reflex) 15 pg/mL (3.0-54.0)
--- NOTE | 2023-07-18 14:36 | RAD_ITS ---
INDICATION: chest pain EXAMINATION/TECHNIQUE: X-RAY - XR Chest 1 View COMPARISON: September 10, 2021 FINDINGS: LINES/DEVICES: There is a dual-lead cardiac pacer device in place. LUNGS: No new consolidation, edema or effusion. There are stable few right basilar streaky opacities which may reflect atelectasis and/or scarring. No pneumothorax. MEDIASTINUM AND CARDIOVASCULAR STRUCTURES: There is stable cardiomegaly. There is a grossly stable radiolucency projecting over the cardiac silhouette consistent with a hiatal hernia. BONES AND SOFT TISSUES: Unremarkable. RAD/Chest 1 View (Portable) IMPRESSION: No radiographic evidence of acute cardiopulmonary disease. Electronically Signed: Mirtha Ochoa MD at 15:22 EST ,
--- NOTE | 2023-07-18 14:56 | PCM.HP.STD ---
HPI - General General Date of Admission: 07/18/23 Date of Service: 07/18/23 Chief Complaint: SOB HPI Narrative MARKOS BEASLEY, is a 78 F with past medical history of HTN, bradycardia s/p pacemaker, now presents for worsening SOB and easy fatigability. She also has associated lightheadedness, orthostatic symptoms and decreased vitality. On evaluation in the ED her heart rates were in 40 to 50s and evaluation of the pacemaker revealed decreased capture to the QRS complex and there is 2 is to [address] Ca has been consulted from the ED, he would evaluate the patient tomorrow. Patient is being admitted for observation overnight. [facility] Medical History Heart block Hypertrophic obstructive cardiomyopathy Pacemaker Pessary maintenance Presence of permanent cardiac pacemaker (~12/10/20) Home Medications lutein 20 mg capsule 20 mg PO QDAY 06/11/17 [History Last Taken Unknown] vinegar See Rx Instructions PO QDAY 11/28/19 [History Last Taken Unknown] ascorbic acid (vitamin C) 500 mg capsule 1,000 mg PO DAILY 03/29/21 [History Last Taken Unknown] multivitamin with minerals (Hair,Skin and Nails tablet) 1 tab PO DAILY 03/29/21 [History Last Taken Unknown] calcium carbonate 600 mg calcium (1,500 mg) tablet 600 mg PO BID 06/26/21 [History Last Taken Unknown] estradiol 0.01% (0.1 mg/gram) vaginal cream 1 g vaginal .COMPLEX 06/26/21 [History Last Taken Unknown] multivitamin 1 tab PO DAILY 01/01/22 [History Last Taken Unknown] vibegron 75 mg tablet (Gemtesa) 75 mg PO DAILY 01/01/22 [History Last Taken Unknown] metoprolol succinate 50 mg tablet,extended release 24 hr 25 mg PO DAILY 07/14/23 [History Last Taken Unknown] apixaban 5 mg tablet (Eliquis) 5 mg PO BID #180 tabs 07/16/23 [Rx Last Taken Unknown] Allergy/AdvReac Type Severity Reaction Status Date / Time diclofenac [From Voltaren] Allergy Hives Verified 07/18/23 13:33 procaine [From Novocain] Allergy NEEDS Verified 07/18/23 13:33 FOLLOW-UP Family History Father Cancer prostate Grandmother Cancer Diabetes Grandfather No problems noted. Surgical History (Reviewed 07/14/23 @ 09:35 by Tiffany Mathew DIRECTOR HOSPICE OPERATIONS, DIRECTOR HOSPICE OPERATIONS-C) FH: bilateral hip replacements H/O bilateral cataract extraction H/O bilateral hip replacements History of hysterectomy History of tonsillectomy Hx of cholecystectomy Social History Smoking Status: Never smoker alcohol intake: never substance use type: does not use caffeine: Yes frequency: 5-6 times per week seatbelt use: always do you feel safe at home: Yes Vital Signs Vital Signs Vital Signs: 07/18/23 13:33 07/18/23 13:46 07/18/23 13:47 Temperature 96.3 F L 98.1 F Temperature Source Temporal Temporal Pulse Rate 40 L 40 L Respiratory Rate 14 24 H Respiratory Effort Normal Respiratory Depth Normal Respiratory Pattern Tachypnea Blood Pressure 130/83 H 152/77 H Blood Pressure Mean 98 102 Pulse Ox 96 95 Oxygen Delivery Method Room Air Room Air 07/18/23 14:00 Temperature Temperature Source Pulse Rate Respiratory Rate Respiratory Effort Respiratory Depth Respiratory Pattern Blood Pressure Blood Pressure Mean Pulse Ox Oxygen Delivery Method Room Air Weight Weight: 171 lb 15.369 oz Body Mass Index (BMI) 33.5 Results Lab / Micro Data 07/18/23 14:00 07/18/23 14:00 Labs: Laboratory Results - last 24 hr 07/18/23 14:00: WBC 7.1, RBC 4.14 L, Hgb 13.4, Hct 40.3, MCV 97.3, MCH 32.4 H, MCHC 33.3, RDW Std Deviation 48.1 H, RDW Coeff of Solo 13.3, Plt Count 152, MPV 11.5, Immature Gran % (Auto) 0.100, Neut % (Auto) 66.4, Lymph % (Auto) 21.9, [place] % (Auto) 9.9, Eos % (Auto) 1.3, Baso % (Auto) 0.4, Absolute Neuts (auto) 4.7, Absolute Lymphs (auto) 1.55, Nucleated RBC % 0, Sodium 137, Potassium 4.2, Chloride 106, Carbon Dioxide 25.0, Anion Gap 6, BUN 14, Creatinine 0.81, Estim Creat Clear Calc 52.86, Est GFR (MDRD) Af Amer 88, Est GFR (MDRD) Non-Af 72, BUN/Creatinine Ratio 17.2, Glucose 108 H, Calcium 9.1, Troponin I High Sens 15
--- NOTE | 2023-07-18 15:02 | PCM.HP.STD ---
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 She also has associated lightheadedness, orthostatic symptoms and decreased vitality. On evaluation in the ED her heart rates were in 40 to 50s and evaluation of the pacemaker revealed decreased capture to the QRS complex and there is 2 is to [address] Ca has been consulted from the ED, he would evaluate the patient tomorrow. Patient is being admitted for observation overnight. [facility] Medical History Heart block Hypertrophic obstructive cardiomyopathy Pacemaker Pessary maintenance Presence of permanent cardiac pacemaker (~12/10/20) Home Medications lutein 20 mg capsule 20 mg PO QDAY eye vitamin 06/11/17 [History Last Taken Unknown] vinegar See Rx Instructions PO QDAY suppliment 11/28/19 [History Last Taken Unknown] ascorbic acid (vitamin C) 500 mg capsule 1,000 mg PO DAILY suppliment 03/29/21 [History Last Taken Unknown] multivitamin with minerals (Hair,Skin and Nails tablet) 1 tab PO DAILY suppliement 03/29/21 [History Last Taken Unknown] calcium carbonate 600 mg calcium (1,500 mg) tablet 600 mg PO BID suppliment 06/26/21 [History Last Taken Unknown] estradiol 0.01% (0.1 mg/gram) vaginal cream 1 g vaginal .3xweek estrogen 06/26/21 [History Last Taken Unknown] multivitamin 1 tab PO DAILY suppliment 01/01/22 [History Last Taken Unknown] vibegron 75 mg tablet (Gemtesa) 75 mg PO DAILY bladder 01/01/22 [History Last Taken Unknown] metoprolol succinate 50 mg tablet,extended release 24 hr 25 mg PO DAILY heart 07/14/23 [History Last Taken Unknown] apixaban 5 mg tablet (Eliquis) 5 mg PO BID #180 tabs 07/16/23 [Rx Last Taken Unknown] Allergy/AdvReac Type Severity Reaction Status Date / Time procaine [From Novocain] Allergy Intermediate NEEDS Verified 07/18/23 15:57 FOLLOW-UP diclofenac [From Voltaren] Allergy Hives Verified 07/18/23 13:33 Family History Father Cancer prostate Grandmother Cancer Diabetes Grandfather No problems noted. Surgical History FH: bilateral hip replacements H/O bilateral cataract extraction H/O bilateral hip replacements History of hysterectomy History of tonsillectomy Hx of cholecystectomy Social History (Updated 07/18/23 @ 15:48 by Catrachita Waller) household members: none Smoking Status: Never smoker alcohol intake: never substance use type: does not use caffeine: Yes frequency: 5-6 times per week seatbelt use: always do you feel safe at home: Yes ROS Review of Systems ROS Unobtainable: Denies due to encephalopathy, due to endotracheal tube, due to mental condition, due to mental status or other Constitutional Constitutional: Denies anorexia, change in weight, chills, fatigue, fever(s), malaise, night sweats, weakness or other Eyes Eyes: Denies blurry vision, change in eye color, change in vision, discharge from eye(s), double vision, erythema, eye pain, loss of vision or other ENT HEENT: Denies abnormal hearing, dysphagia, ear pain, epistaxis, headache(s), hearing loss, nasal congestion, nasal discharge, post nasal drip, sinus pressure, sore throat or other Cardiovascular Cardiovascular: Reports dyspnea on exertion, edema, lightheadedness, orthopnea and palpitations Respiratory/Chest Respiratory/Chest: Reports dyspnea; Denies cough, excessive phlegm production, hemoptysis, productive cough, shortness of breath at rest, shortness of breath with exertion, wheezing or other Gastrointestinal Gastrointestinal: Denies abdominal pain, coffee ground emesis, constipation, diarrhea, dyspepsia, hematemesis, hematochezia, loose stools, melena, nausea, vomiting or other Genitourinary Genitourinary: Denies burning urination, difficulty urinating, dysuria, hematuria, nocturia, urinary frequency, urinary hesitancy, urinary incontinence, urinary urgency or other Musculoskeletal Musculoskeletal: Denies arthralgias, back pain, joint pain, joint stiffness, joint swelling, myalgias, neck pain or other Neurologic Neurologic: Reports disequilibrium and dizziness Psychiatric Psychiatric: Denies anxiety, depression, homicidal ideation, suicidal ideation or other Endocrine Endocrinology: Denies change in body appearance, cold intolerance, excessive sweating, heat intolerance, polydipsia, polyuria or other Vital Signs Vital Signs Vital Signs: 07/18/23 13:33 07/18/23 13:46 07/18/23 13:47 Temperature 96.3 F L 98.1 F Temperature Source Temporal Temporal Pulse Rate 40 L 40 L Respiratory Rate 14 24 H Respiratory Effort Normal Respiratory Depth Normal Respiratory Pattern Tachypnea Blood Pressure 130/83 H 152/77 H Blood Pressure Mean 98 102 Pulse Ox 96 95 Oxygen Delivery Method Room Air Room Air 07/18/23 14:00 Temperature Temperature Source Pulse Rate Respiratory Rate Respiratory Effort Respiratory Depth Respiratory Pattern Blood Pressure Blood Pressure Mean Pulse Ox Oxygen Delivery Method Room Air Weight Weight: 171 lb 15.369 oz Body Mass Index (BMI) 33.5 Physical Exam Const alert and oriented x3 HEENT normocephalic and head/scalp atraumatic Eyes PERRL, EOMs intact bilaterally and conjunctivae normal Neck no lymphadenopathy, supple, no JVD and no carotid bruits Resp normal respiratory effort, no retractions, no use of accessory muscles and clear to auscultation bilaterally Cardio Cardio Narrative: Bradycardia GI normal to inspection, nondistended, normoactive bowel sounds Extremity normal to inspection Neuro oriented x3, CN's II-XII intact bilaterally, moves all extremities and no focal motor deficits Results Medical Records Data Attestation: I reviewed the patient's medical records Lab / Micro Data Attestation: I reviewed the patient's lab results. 07/18/23 14:00 07/18/23 14:00 Labs: Laboratory Results - last 24 hr 07/18/23 14:00: WBC 7.1, RBC 4.14 L, Hgb 13.4, Hct 40.3, MCV 97.3, MCH 32.4 H, MCHC 33.3, RDW Std Deviation 48.1 H, RDW Coeff of Solo 13.3, Plt Count 152, MPV 11.5, Immature Gran % (Auto) 0.100, Neut % (Auto) 66.4, Lymph % (Auto) 21.9, Finney % (Auto) 9.9, Eos % (Auto) 1.3, Baso % (Auto) 0.4, Absolute Neuts (auto) 4.7, Absolute Lymphs (auto) 1.55, Nucleated RBC % 0, Sodium 137, Potassium 4.2, Chloride 106, Carbon Dioxide 25.0, Anion Gap 6, BUN 14, Creatinine 0.81, Estim Creat Clear Calc 52.86, Est GFR (MDRD) Af Amer 88, Est GFR (MDRD) Non-Af 72, BUN/Creatinine Ratio 17.2, Glucose 108 H, Calcium 9.1, Troponin I High Sens 15 Assessment & Plan Assessment/Plan (1) Pacemaker complications: PLAN: Plan 78-year-old female with bradycardia, permanent pacemaker placed since 2020, hypertrophic obstructive cardiomyopathy, presents to the ED with concerns regarding bradycardia secondary to pacemaker malformation and absence of capture of the QRS complex. 1. Bradycardia: Related to the pacemaker malfunction, will be interrogated further by cardiology tomorrow morning. Cardiology Dr. Ca has been informed through the ED -Will hold her metoprolol for now, she took her last dose this morning. 2. Shortness of breath: Exertion associated, saturation is normal. Continue to monitor 3. Atrial fibrillation [[id number] score 4 )on chronic anticoagulation with Eliquis continue same for now 4. Hypertrophic cardiomyopathy with sigmoid septum and asymmetric septal hypertrophy with chordal systolic anterior motion of the mitral valve with mild mitral valve prolapse and mild MR seen on last echo, she is on chronic beta-derrell therapy for the same. Given the bradycardia we will hold the beta-blockers till cardiology evaluation for now Charges/Coding Visit Charges Inpatient E&M: 04994 Init Hosp L2
--- NOTE | 2023-07-18 15:07 | NURSING ---
PCU OBS ALONZO PACEMAKER MALFUNCTION, SYMPTOMATIC BRADYCARDIA, DYSPNEA ON EXERTION
[2023-07-18 15:08] LABS: BNP,B-Type NATRIURETIC PEPTIDE 239.8 pg/mL (0-100)
[2023-07-18 16:09] LABS: Reflex Troponin-HS? (from REC) Y
[2023-07-18] MEDS: Calcium (Elemental) 500 MG Tablet PO (17:25)
[2023-07-18 20:43] LABS: Troponin-I HS 13 pg/mL (3.0-54.0)
[2023-07-19 03:33] VITALS: BP 115/71; PULSE 38; RESP 14; TEMP 36.8; O2SAT 94
[2023-07-19 04:57] VITALS: BP 128/69; PULSE 41; RESP 16; TEMP 36.6; O2SAT 94
[2023-07-19 07:42] VITALS: BP 111/90; PULSE 75; RESP 12; TEMP 36.6; O2SAT 94
[2023-07-19] MEDS: Ascorbic Acid 500 MG Tablet 1000 MG PO (07:50)
[2023-07-19] MEDS: Multivitamins,Therapeutic Tablet 1 TABLET PO (07:50)
[2023-07-19] MEDS: Calcium (Elemental) 500 MG Tablet PO ×2 (07:51→17:30)
[2023-07-19 08:02] VITALS: O2SAT 94
[2023-07-19 08:40] LABS: Hematocrit 44.6 % (37-47); Hemoglobin 14.4 g/dL (12.0-15.0); Mean Corp Hgb Conc 32.3 g/dL (32-36); Mean Corpuscular Hgb 31.4 pg (27.0-32.0); Mean Corpuscular Volume 97.4 fL (81-99); Mean Platelet Vol. 12.2 fl (6.2-12.0); Platelet Count 156 K/mm3 (150-450); RBC Distribution Width CV 13.4 % (11.6-14.6); RBC Distribution Width SD 47.8 fl (35.1-43.9); Red Blood Count 4.58 M/mm3 (4.2-5.4)
--- NOTE | 2023-07-19 08:51 | CON.PCM.CA_ITS ---
Assessment & Plan Assessment/Plan (1) Pacemaker complications: QUALIFIERS: Encounter type: initial encounter Qualified Code(s): T82.9XXA - Unspecified complication of cardiac and vascular prosthetic device, implant and graft, initial encounter PLAN: The patient's EKG and telemetry strips are consistent with intermittent sensing issues. Her heart rate at times is paced and AV sequential mode rate 70 bpm the majority of the time she is in sinus rhythm at 80 bpm with 2-1 AV conduction and a right bundle branch block pattern. The pacemaker will be interrogated. Currently the patient is asymptomatic resting in the bed. Blood pressure is stable and her heart rate varies between 40 and 80 bpm depending on the intermittent pacing. (2) Bradycardia: PLAN: The patient has a history of paroxysmal atrial fibrillation and sinus bradycardia with 2-1 AV block. The pacemaker was placed [facility] 4 years ago when she presented with identical symptoms as described on this admission. (3) Atrial fibrillation: QUALIFIERS: Atrial fibrillation type: paroxysmal Qualified Code(s): I48.0 - Paroxysmal atrial fibrillation PLAN: The patient has remained in sinus rhythm since admission. She does have a history of paroxysmal atrial fibrillation and we had prescribed Eliquis but due to financial constraints that has not been instituted. Currently she is in sinus rhythm and I would hold Eliquis in case a revision of the pacer is necessary. (4) Hypertrophic obstructive cardiomyopathy: PLAN: The patient has a history of sigmoid septum with a documented left ventricular outflow tract obstruction mean gradient of 25 to 30 mmHg range. The patient has been relatively active but limited by her arthritis by her report. She was riding a bike 15 minutes a day 3 to 5 days a week until the last few months. Once the pacemaker is evaluated and functioning appropriately I would r ecommend that we repeat her echocardiogram with provocation to determine left ventricular outflow tract and her overall LV function. She may be a candidate for further medical therapy to assist with her exertion tolerance. PLAN: Plan 1. Will interrogate permanent pacemaker. 2. Hold Eliquis and keep n.p.o. after midnight in preparation for possible pacemaker revision. 3. Consider repeat echocardiogram with provocation to determine potential for further aggressive medical therapy with myosin chain inhibitors. This would be done in the ambulatory setting after the pacer is functioning appropriately. HPI Consult Data Date of Consult: 07/19/23 HPI Narrative Reason for Consultation: Bradycardia potential pacer malfuction HPI Narrative: MARKOS BEASLEY, is a 78 F who presents with 4-day history of progressive dyspnea on exertion, shortness of breath, and fatigue. She had a permanent pacemaker placed 4 years ago which was a DDD pacemaker. In the emergency department her EKG showed sinus rhythm at 80 bpm with a ventricular rate of 40. The QRS is a right bundle branch block pattern and it appears there is 2-1 conduction. Telemetry strips show intermittent AV pacing and at other times it appears that there is noncapture also. The patient explains to me this is identical to what she presented when she originally had the pacemaker placed. The patient denies any lower extremity edema and denies any PND orthopnea she is fine as long as she is at rest. She d enies any chest discomfort and by her report has no history of coronary artery disease. The patient does have a history of paroxysmal atrial fibrillation, second-degree AV block, and alternating right and left bundle branch blocks documented at [facility] where she had the pacemaker implanted. She also carries a history of sigmoid septum with asymmetric septal hypertrophy and gradients needs in the 25 to 30 mmHg range. I do not know if that is with provocation or at rest. The patient had been given a prescription for Eliquis and the office was trying to obtain financial assistance so she has never had it filled yet. The patient is in sinus rhythm at this time we will hold Eliquis pending the evaluation and treatment of the pacemaker issues. The patient has never smoked she does not have a family history of coronary disease she denies any history with lipids she is not diabetic she does have a history of hypertension. Her blood pressure is currently controlled with only metoprolol 25 mg daily. The metoprolol has been held as well as the Eliquis which she has never started due to financial constraints. [facility] Medical History Heart block Hypertrophic obstructive cardiomyopathy Pacemaker Pessary maintenance Presence of permanent cardiac pacemaker (~12/10/20) Home Medications lutein 20 mg capsule 20 mg PO QDAY eye vitamin 06/11/17 [History Last Taken Unknown] vinegar See Rx Instructions PO QDAY suppliment 11/28/19 [History Last Taken Unknown] ascorbic acid (vitamin C) 500 mg capsule 1,000 mg PO DAILY suppliment 03/29/21 [History Last Taken Unknown] multivitamin with minerals (Hair,Skin and Nails tablet) 1 tab PO DAILY suppliement 03/29/21 [History Last Taken Unknown] calcium carbonate 600 mg calcium (1,500 mg) tablet 600 mg PO BID suppliment 06/26/21 [History Last Taken Unknown] estradiol 0.01% (0.1 mg/gram) vaginal cream 1 g vaginal .3xweek estrogen 06/26/21 [History Last Taken Unknown] multivitamin 1 tab PO DAILY suppliment 01/01/22 [History Last Taken Unknown] vibegron 75 mg tablet (Gemtesa) 75 mg PO DAILY bladder 01/01/22 [History Last Taken Unknown] metoprolol succinate 50 mg tablet,extended release 24 hr 25 mg PO DAILY heart 07/14/23 [History Last Taken Unknown] apixaban 5 mg tablet (Eliquis) 5 mg PO BID #180 tabs 07/16/23 [Rx Last Taken Unknown] Allergy/AdvReac Type Severity Reaction Status Date / Time procaine [From Novocain] Allergy Intermediate NEEDS Verified 07/18/23 15:57 FOLLOW-UP diclofenac [From Voltaren] Allergy Hives Verified 07/18/23 13:33 Family History Father Cancer prostate Grandmother Cancer Diabetes Grandfather No problems noted. Surgical History FH: bilateral hip replacements H/O bilateral cataract extraction H/O bilateral hip replacements History of hysterectomy History of tonsillectomy Hx of cholecystectomy Social History household members: none Smoking Status: Never smoker alcohol intake: never substance use type: does not use caffeine: Yes frequency: 5-6 times per week seatbelt use: always do you feel safe at home: Yes ROS Constitutional Constitutional: Reports as per HPI Eyes Eyes: Reports systems reviewed and no addt'l complaints, except as documented ENT HEENT: Reports systems reviewed and no addt'l complaints, except as documented Cardiovascular Cardiovascular: Reports as per HPI Respiratory/Chest Respiratory/Chest: Reports as per HPI Gastrointestinal Gastrointestinal: Reports systems reviewed and no addt'l complaints, except as documented Genitourinary Genitourinary: Reports systems reviewed and no addt'l complaints, except as documented Musculoskeletal Musculoskeletal: Reports systems reviewed and no addt'l complaints, except as documented Integumentary Integumentary: Reports systems reviewed and no addt'l complaints, except as documented Neurologic Neurologic: Reports systems reviewed and no addt'l complaints, except as documented Psychiatric Psychiatric: Reports systems reviewed and no addt'l complaints, except as documented Endocrine Endocrinology: Reports systems reviewed and no addt'l complaints, except as d ocumented Hematologic/Lymphatic Hematologic/Lymphatic: Reports systems reviewed and no addt'l complaints, except as documented Allergic/Immunologic Allergic/Immunologic: Reports systems reviewed and no addt'l complaints, except as documented Physical Exam Const oriented x3 HEENT normocephalic Eyes EOMs intact bilaterally Neck no JVD and no carotid bruits Chest inspection of chest normal Resp normal respiratory effort Auscultation: crackles right base Cardio Rate: bradycardia Rhythm: regular rhythm Heart Sounds: S1 normal, S2 normal and murmur systolic I/ soft right sternal border; Negative for click or gallop GI soft to palpation and no bruits Extremity General Extremity: edema bilateral lower extremity Details: trace Skin no rashes or lesions noted Neuro Neuro Narrative: Alert and oriented x 3 Psych mental status grossly normal Risk Stratification Risk Stratification Applicable: No Charges/Coding Visit Charges Inpatient E&M: 35873 Init Hosp L3 Objective Data Vital Signs: Vital Signs Temp Pulse Resp BP Pulse Ox O2 Del Method O2 Flow Rate 97.9 F 75 12 111/90 H 94 Nasal Cannula 2 07/19/23 07:42 07/19/23 07:42 07/19/23 07:42 07/19/23 07:42 07/19/23 07:42 07/19/23 07:42 07/19/23 07:42 Oxygen Flow Rate (L/min) 2 Oxygen Delivery Method Nasal Cannula Weight: 166 lb 10.711 oz Body Mass Index (BMI) 32.5 Intake & Output: Intake and Output for Last 24 Hours 07/17/23 07/18/23 07/20/23 23:59 23:59 00:59 Intake Total 560 / 560 120 / 120 Balance 560 / 560 120 / 120 Lab / Micro Data 07/19/23 08:23 07/18/23 14:00 Labs: Laboratory Results - last 24 hr 07/18/23 14:00: WBC 7.1, RBC 4.14 L, Hgb 13.4, Hct 40.3, MCV 97.3, MCH 32.4 H, MCHC 33.3, RDW Std Deviation 48.1 H, RDW Coeff of Solo 13.3, Plt Count 152, MPV 11.5, Immature Gran % (Auto) 0.100, Neut % (Auto) 66.4, Lymph % (Auto) 21.9, Brewster % (Auto) 9.9, Eos % (Auto) 1.3, Baso % (Auto) 0.4, Absolute Neuts (auto) 4.7, Absolute Lymphs (auto) 1.55, Nucleated RBC % 0, Sodium 137, Potassium 4.2, Chloride 106, Carbon Dioxide 25.0, Anion Gap 6, BUN 14, Creatinine 0.81, Estim Creat Clear Calc 52.86, Est GFR (MDRD) Af Amer 88, Est GFR (MDRD) Non-Af 72, BUN/Creatinine Ratio 17.2, Glucose 108 H, Calcium 9.1, Troponin I High Sens 15, B-Natriuretic Peptide 239.8 H 07/18/23 19:55: Troponin I High Sens 13 07/19/23 08:23: WBC 8.0, RBC 4.58, Hgb 14.4, Hct 44.6, MCV 97.4, MCH 31.4, MCHC 32.3, RDW Std Deviation 47.8 H, RDW Coeff of Solo 13.4, Plt Count 156, MPV 12.2 H Rhythm Strip Rhythm Strip: Sinus Rhythm Rate: 75 Cardiology Labs/Tests 07/18/23 14:00: WBC 7.1, RBC 4.14 L, Hgb 13.4, Hct 40.3, MCV 97.3, MCH 32.4 H, MCHC 33.3, Plt Count 152, MPV 11.5, Immature Gran % (Auto) 0.100, Neut % (Auto) 66.4, Lymph % (Auto) 21.9, Brewster % (Auto) 9.9, Eos % (Auto) 1.3, Baso % (Auto) 0.4, Absolute Neuts (auto) 4.7, Nucleated RBC % 0, Sodium 137, Potassium 4.2, Chloride 106, Carbon Dioxide 25.0, Anion Gap 6, BUN 14, Creatinine 0.81, Est GFR (MDRD) Af Amer 88, Est GFR (MDRD) Non-Af 72, BUN/Creatinine Ratio 17.2, Glucose 108 H, Calcium 9.1, B-Natriuretic Peptide 239.8 H 07/19/23 08:23: WBC 8.0, RBC 4.58, Hgb 14.4, Hct 44.6, MCV 97.4, MCH 31.4, MCHC 32.3, Plt Count 156, MPV 12.2 H Rhythm: EKG: ECHO: Stress Test: Cardiac Cath: PCI: CT Surgery: Holter monitor: EPS: PPM: CXR: Chest CT Scan: Radiography Diagnostic Testing: Radiology Impression Chest X-Ray 07/18/23 14:36 IMPRESSION: No radiographic evidence of acute cardiopulmonary disease. Electronically Signed: Mirtha Ochoa MD at 15:22 EST ,
[2023-07-19 08:53] LABS: Anion Gap 3 (5-15); BUN 11 mg/dL (7-18); BUN/Creat Ratio 12.9 RATIO (10-20); Calcium,Total 9.1 mg/dL (8.5-10.1); Chloride 106 mmol/L (98-107); Creatinine, Serum 0.86 mg/dL (0.55-1.02); EST Glomerular Filtration Rate 68 mL/min (>60); Est Glom Filt Rate - Afr Amer 83 mL/min (>60); Estimated Creatinine Clearance 48.97 ml/min; Glucose 149 mg/dL (74-106); Potassium 4.5 mmol/L (3.5-5.1); Sodium Level 137 mmol/L (136-145)
--- NOTE | 2023-07-19 12:04 | PCM.PN.HOSP ---
Reason for Visit Reason for Visit: Diagnoses Obstructive hypertrophic cardiomyopathy (07/18/23) Paroxysmal atrial fibrillation (07/18/23) Bradycardia, unspecified (07/18/23) Unspecified complication of cardiac and vascular prosthetic device, implant and graft, initial encounter (07/18/23) Subjective Subjective Patient admitted yesterday afternoon for symptomatic bradycardia and concern for pacemaker dysfunction. No acute events overnight. Patient seen at bedside this morning. Patient was sitting up comfortably in bed, conversing normally, no acute distress. Stated that she had been seen by Dr. Ca with cardiology shortly before this morning, and the plan was for her to have her pacemaker interrogated tomorrow morning and if not working properly, would be followed by a procedure with cardiology to fix the lead that is likely not functioning properly. She otherwise denies any pain or discomfort. No other acute concerns this time. Objective Data Objective Data Vital Signs: Vital Signs Temp Pulse Resp BP Pulse Ox O2 Del Method O2 Flow Rate 97.9 F 75 12 111/90 H 94 Nasal Cannula 2 07/19/23 07:42 07/19/23 07:42 07/19/23 07:42 07/19/23 07:42 07/19/23 08:02 07/19/23 08:02 07/19/23 08:02 Oxygen Flow Rate (L/min) 2 Oxygen Delivery Method Nasal Cannula Weight: 75.6 kg Body Mass Index (BMI) 32.5 Intake & Output: Intake and Output for Last 24 Hours 07/17/23 07/18/23 07/20/23 23:59 23:59 00:59 Intake Total 560 / 560 740 / 740 Balance 560 / 560 740 / 740 Lab / Micro Data 07/19/23 08:23 07/19/23 08:23 Labs: Laboratory Results - last 24 hr 07/18/23 14:00: WBC 7.1, RBC 4.14 L, Hgb 13.4, Hct 40.3, MCV 97.3, MCH 32.4 H, MCHC 33.3, RDW Std Deviation 48.1 H, RDW Coeff of Solo 13.3, Plt Count 152, MPV 11.5, Immature Gran % (Auto) 0.100, Neut % (Auto) 66.4, Lymph % (Auto) 21.9, Rhea % (Auto) 9.9, Eos % (Auto) 1.3, Baso % (Auto) 0.4, Absolute Neuts (auto) 4.7, Absolute Lymphs (auto) 1.55, Nucleated RBC % 0, Sodium 137, Potassium 4.2, Chloride 106, Carbon Dioxide 25.0, Anion Gap 6, BUN 14, Creatinine 0.81, Estim Creat Clear Calc 52.86, Est GFR (MDRD) Af Amer 88, Est GFR (MDRD) Non-Af 72, BUN/Creatinine Ratio 17.2, Glucose 108 H, Calcium 9.1, Troponin I High Sens 15, B-Natriuretic Peptide 239.8 H 07/18/23 19:55: Troponin I High Sens 13 07/19/23 08:23: WBC 8.0, RBC 4.58, Hgb 14.4, Hct 44.6, MCV 97.4, MCH 31.4, MCHC 32.3, RDW Std Deviation 47.8 H, RDW Coeff of Solo 13.4, Plt Count 156, MPV 12.2 H, Sodium 137, Potassium 4.5, Chloride 106, Carbon Dioxide 28.0, Anion Gap 3 L, BUN 11, Creatinine 0.86, Estim Creat Clear Calc 48.97, Est GFR (MDRD) Af Amer 83, Est GFR (MDRD) Non-Af 68, BUN/Creatinine Ratio 12.9, Glucose 149 H, Calcium 9.1 Radiography Diagnostic Testing: Radiology Impression Chest X-Ray 07/18/23 14:36 IMPRESSION: No radiographic evidence of acute cardiopulmonary disease. Electronically Signed: Mirtha Ochoa MD at 15:22 EST , Rhythm Strip Rhythm Strip: Sinus Rhythm Rate: 75 Physical Exam Const alert, oriented x3 and no apparent distress Constitutional Narrative: Pleasant elderly female, obese, sitting up comfortably in bed, conversing normally, no acute distress. General Appearance: cooperative and comfortable HEENT normocephalic, head/scalp atraumatic, hearing grossly normal bilaterally, nasal mucous membranes and turbinates normal and moist oral mucous membranes Eyes PERRL, EOMs intact bilaterally and conjunctivae normal Neck full ROM Chest inspection of chest normal Resp normal respiratory effort, normal air movement, no use of accessory muscles and clear to auscultation bilaterally Cardio regular rate, regular rhythm, no murmurs and peripheral pulses 2+ throughout GI normal to inspection, nondistended, normoactive bowel sounds, soft to palpation, non-tender and non-distended Back/Spine normal ROM Extremity normal to inspection, full ROM and no pedal edema Skin no rashes or lesions noted Neuro moves all extremities and no focal motor deficits Speech: speech normal Psych mental status grossly normal Assessment & Plan Assessment/Plan (1) Pacemaker complications: QUALIFIERS: Encounter type: initial encounter Qualified Code(s): T82.9XXA - Unspecified complication of cardiac and vascular prosthetic device, implant and graft, initial encounter PLAN: Plan Patient is a 78-year-old female who presented [facility] ED on 07/18/2023 with worsening shortness of breath on exertion and intermittent dizziness. 1. Symptomatic bradycardia, concern for pacemaker complication ? 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 Had pacemaker placed at [facility] 4 years ago. Symptoms on admission essential identical to her previous symptoms 4 years ago. ? Cardiology following. Planning to interrogate pacemaker tomorrow morning and if dysfunctional, will proceed with pacemaker revision. N.p.o. at midnight, hold home Eliquis for possible procedure. 2. Paroxysmal atrial fibrillation ? Per history. Notably has been in sinus rhythm since admission. Holding home Eliquis as noted above. Holding home Toprol. 3. Hypertrophic obstructive cardiomyopathy ? Per history. Notably has had decreasing exercise tolerance over the past few months. Per cardiology, recommending repeat echo likely in the outpatient setting to determine if any new findings with the ventricular outflow tract and overall LV function. DVT prophylaxis: SCDs CODE STATUS: Full code, verified Expected disposition: Home, TBD Total clinical time spent by myself addressing the patient's medical issues, reviewing all the data, and collaborating with patient's care team: 25 minutes. Charges/Coding Visit Charges Inpatient E&M: 74822 [facility] Hosp L1
[2023-07-19 15:51] VITALS: BP 118/79; PULSE 70; RESP 14; TEMP 36.6; O2SAT 95
[2023-07-19 21:12] VITALS: BP 131/76; PULSE 55; RESP 14; TEMP 36.6; O2SAT 96
[2023-07-20 03:23] VITALS: BP 141/85; PULSE 66; RESP 14; TEMP 36.8; O2SAT 96
[2023-07-20 08:18] VITALS: O2SAT 95
[2023-07-20 09:27] VITALS: BP 116/79; PULSE 83; RESP 12; TEMP 36.4; O2SAT 94
--- NOTE | 2023-07-20 10:38 | PCM.PN.CARD ---
Subjective Subjective Patient denies any symptoms of syncope or near syncope and her breathing has been normal. Telemetry has shown normal sinus rhythm with 2-1 conduction with a narrow complex. This morning her telemetry shows AV paced rhythm at 60 bpm. Pacer interrogation this morning shows high thresholds in the ventricle the output was increased with good capture being documented. The pacemaker was reprogrammed to avoid the AV sensing programmed AV delay. Objective Data Vital Signs: Vital Signs Temp Pulse Resp BP Pulse Ox O2 Del Method O2 Flow Rate 97.6 F L 83 12 116/79 94 Nasal Cannula 2 07/20/23 09:27 07/20/23 09:27 07/20/23 09:27 07/20/23 09:27 07/20/23 09:27 07/20/23 09:27 07/20/23 09:27 Oxygen Flow Rate (L/min) 2 Oxygen Delivery Method Nasal Cannula Weight: 166 lb 10.711 oz Body Mass Index (BMI) 32.5 Intake & Output: Intake and Output for Last 24 Hours 07/18/23 07/19/23 07/20/23 22:59 23:59 23:59 Intake Total 0 / 0 Balance 0 / 0 Lab / Micro Data 07/19/23 08:23 07/19/23 08:23 Rhythm Strip Rhythm Strip: AV paced Rate: 64 Cardiology Labs/Tests Rhythm: EKG: ECHO: Stress Test: Cardiac Cath: PCI: CT Surgery: Holter monitor: EPS: PPM: CXR: Chest CT Scan: Physical Exam Const oriented x3 HEENT normocephalic Neck no JVD Chest inspection of chest normal Resp normal respiratory effort and clear to auscultation bilaterally Cardio regular rate, regular rhythm, S1 normal heart sound, S2 normal heart sound, no rub and no gallops Heart Sounds: murmur systolic II/ GI soft to palpation Extremity no pedal edema Skin no rashes or lesions noted Neuro Neuro Narrative: Alert and oriented x 3 Psych mental status grossly normal Assessment & Plan Assessment/Plan (1) Pacemaker complications: QUALIFIERS: Encounter type: initial encounter Qualified Code(s): T82.9XXA - Unspecified complication of cardiac and vascular prosthetic device, implant and graft, initial encounter PLAN: The patient's pacer was reprogrammed is now functioning with an AV paced rhythm. The reprogramming will probably shorten the battery life and the patient's follow-up will be increased to every 3 months. At the time of battery placement the RV lead will be replaced artery manipulated and consideration given for APPLICATIONS DEVELOPMENT CONSULTANT left sided lead due to persistent right ventricular pacing. (2) Bradycardia: PLAN: The patient's underlying rhythm is normal sinus and when the pacer was malfunctioning and prior to pacer implantation she was a 2-1 AV conduction with narrow QRSs. (3) Atrial fibrillation: QUALIFIERS: Atrial fibrillation type: paroxysmal Qualified Code(s): I48.0 - Paroxysmal atrial fibrillation PLAN: The patient has a history of paroxysmal atrial fibrillation. She has not been able to afford Eliquis and has not started it yet. We will get her a card for first 30 days and then the [place] office is working to assist her with obtaining financial assistance. PLAN: Plan 1. Eliquis 5 mg twice daily. 2. Will increase pacer checks to every 3 months remotely. 3. Will follow-up in the office in 3 months. 4. The patient was instructed to call our office should she notice her heart rate in the 40 bpm range as this is when she goes 2-1. She is also instructed to call if she has any further symptoms she checks her blood pressure and heart rate on a daily basis. 5. The patient can be discharged to home from a cardiovascular standpoint. Charges/Coding Visit Charges Inpatient E&M: 62095 Subs Hosp L2
--- NOTE | 2023-07-20 11:42 | CASEMGMT ---
Met with patient to complete WHITE form. WHITE form explained to patient who voiced understanding and signed form. Original form placed in pt?s chart and copy provided to patient. Lorena Curry, Discharge Planning Asst
[2023-07-20] MEDS: Acetaminophen 325 MG Tablet 650 MG PO (14:14)
[2023-07-20 15:44] VITALS: BP 115/69; PULSE 105; RESP 14; TEMP 37; O2SAT 93
--- NOTE | 2023-07-20 15:46 | DS.PCM_ITS ---
Providers Date of Admission: 07/18/23 Date of Discharge: 07/20/23 Primary Care Physician: Dr. Rick Marsh MD Consultations 07/18/23 16:43 Consult: Cardiology Routine Consulting Provider: Jefferson Euceda Reason for Consult: Permanent pacemaker dysfunction EMERGENT Consult: Yes MD Notified: Yes Date Notified: 07/18/23 Time Notified: 16:43 Method of Notification: ED Physician Initiated Reason For Visit: BRADYCARDIA Diagnosis Discharge Diagnosis (1) Pacemaker complications: Status: Acute Code(s): T82.9XXA - Unspecified complication of cardiac and vascular prosthetic device, implant and graft, initial encounter Qualifiers: Encounter type: initial encounter Qualified Code(s): T82.9XXA - Unspecified complication of cardiac and vascular prosthetic device, implant and graft, initial encounter (2) Bradycardia: Status: Acute Code(s): R00.1 - Bradycardia, unspecified (3) Atrial fibrillation: Status: Acute Code(s): I48.91 - Unspecified atrial fibrillation Qualifiers: Atrial fibrillation type: paroxysmal Qualified Code(s): I48.0 - Paroxysmal atrial fibrillation Medications at Discharge Home Medications lutein 20 mg capsule 20 mg PO QDAY eye vitamin 06/11/17 vinegar See Rx Instructions PO QDAY suppliment 11/28/19 ascorbic acid (vitamin C) 500 mg capsule 1,000 mg PO DAILY suppliment 03/29/21 multivitamin with minerals (Hair,Skin and Nails tablet) 1 tab PO DAILY suppliement 03/29/21 calcium carbonate 600 mg calcium (1,500 mg) tablet 600 mg PO BID suppliment 06/26/21 estradiol 0.01% (0.1 mg/gram) vaginal cream 1 g vaginal .3xweek estrogen 06/26/21 multivitamin 1 tab PO DAILY suppliment 01/01/22 vibegron 75 mg tablet (Gemtesa) 75 mg PO DAILY bladder 01/01/22 metoprolol succinate 50 mg tablet,extended release 24 hr 25 mg PO DAILY heart 07/14/23 apixaban 5 mg tablet (Eliquis) 5 mg PO BID #180 tabs 07/16/23 Hospital Course Operations None Procedures EKG and - (Chest x-ray) Summary of Care Provided Minutes Spent on Discharge: 36 Hospital Course: Mrs. Gonzalez is a 78-year-old female who presented to the emergency department at [facility] on 07/19/2023 due to progressively worsening dyspnea on exertion, shortness of breath and fatigue. She had a permanent pacemaker placed 4 years ago and in the emergency department her EKG showed sinus rhythm with a ventricular rate at 40 bpm. Her QRS complex is a right bundle branch block pattern and it appears there may be a 2-1 conduction abnormality. Her telemetry slip showed intermittent AV pacing and at other times there was no capture. The patient reported that her symptoms were identical to how she felt prior to pacemaker placement. She denied any lower extremity edema, paroxysmal nocturnal dyspnea or orthopnea and stated she felt fine as long as she was at rest. She denied any chest pain and has no history of coronary disease. 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 Upon admission she was admitted to PCU due to bradycardia and her metoprolol was held. She was recently started on Eliquis but had not obtained the prescription yet as she was trying to obtain financial assistance. Cardiology was consulted on admission due to bradycardia and concern for malfunctioning pacemaker. By the a.m. of 06/21/2019 for her breathing felt normal. Telemetry showed sinus rhythm with 2 1 conduction and narrow complex and her AV paced rhythm was at 60 bpm. Her pacer was interrogated and showed high thresholds in the ventricle with output increased and good capture being documented. The pacemaker was reprogrammed to avoid AV sensing and programmed AV delay. Per discussion with cardiology they felt that she should continue her Eliquis, increase pacer checks to every 3 months remotely, and monitor her blood pressure and heart rate as an outpatient. She is to call them if her heart rate is in the 40 bpm range as this seems to be when she goes in a 2-1 block. She was also instructed to call if she has any issues with her blood pressure. They did recommend restarting her metoprolol. They recommended outpatient follow-up in 3 months. Clinically she was feeling well and anxious to go home so we were able to discharge her in stable condition on 07/20/2023. She is also to follow-up with her primary care physician within the next 1 to 2 weeks. Discharge diagnoses: Bradycardia Pacemaker complications History of atrial fibrillation Shortness of breath-resolved History of hypertrophic obstructive cardiomyopathy Urinary incontinence Physical Exam Const alert, oriented x3, no apparent distress, no limitations, healthy appearing and well nourished Constitutional Narrative: Obese, elderly, white female, sitting up on the edge of the bed, appears co mfortable and nontoxic General Appearance: cooperative, comfortable, well kempt and well developed Orientation / Consciousness: awake, oriented to person, oriented to place and oriented to time Exam Limitations: no limitations Nutritional Appearance: obese HEENT normocephalic, head/scalp atraumatic and moist oral mucous membranes; Negative for hearing grossly normal bilaterally HEENT Narrative: Mild hearing loss, Mallampati 2, no thrush Eyes PERRL, EOMs intact bilaterally and conjunctivae normal Eyes Narrative: No scleral icterus Neck no lymphadenopathy and supple Neck Narrative: Trachea midline, no thyroid enlargement Resp normal respiratory effort, no retractions, no use of accessory muscles and clear to auscultation bilaterally Auscultation: Negative for rales, rhonchi or wheezes Cardio regular rate, regular rhythm, S1 normal heart sound, S2 normal heart sound, no rub, no gallops and no clicks; Negative for no murmurs Cardio Narrative: 2 out of 6 systolic murmur loudest at left lower sternal border GI normal to inspection, nondistended, normoactive bowel sounds, soft to palpation and non-tender Extremity no clubbing, cyanosis or edema Extremity Narrative: Pedal pulses are 2+ Skin no rashes or lesions noted, no wounds, skin turgor normal and no jaundice Neuro oriented x3, moves all extremities and no focal motor deficits Speech: speech normal Psych affect normal Psych Narrative: Eye contact is good, patient is pleasant and interacts appropriately Weight / BMI Weight Weight: 75.6 kg Body Mass Index (BMI) 32.5 ABG / Lab / Microbiology Data 07/19/23 08:23 07/19/23 08:23 D/C Instructions Discharge Diet: Low fat / Low cholesterol Discharge Activity: Return to Normal Activity Meaningful Use Info Meaningful Use Diagnoses (Choose all that apply): None applicable Discharge Plan Admission Admit Date/Time: 07/18/23 15:11 Primary Reason for Your Visit: Bradycardia Attending Provider: Sammi Churchill Primary Care Provider: Rick Marsh Consulting Providers: Jefferson Euceda; Seun Jones Instructions Additional Instructions / Restrictions: 1. Continue your Eliquis 5 mg twice daily 2. The plan is to increase your pacer checks to every 3 months remotely 3. Please call order packer or packager office to follow-up with either Dr. Ca or the physician patient support assistant to be seen in 3 months 4. Please call the order packer or packager office if you notice your heart rate is in the 40 bpm range or if you have any questions about your blood pressure checks Discharge Orders/Prescriptions Prescriptions: Continued lutein 20 mg capsule 20 mg PO QDAY ascorbic acid (vitamin C) 500 mg capsule 1,000 mg PO DAILY Hair,Skin and Nails Tablet 1 tab PO DAILY vinegar See Rx Instructions PO QDAY Rx Instructions: 2 tsp in 8 oz h2o multivitamin Tablet 1 tab PO DAILY Gemtesa 75 mg tablet 75 mg PO DAILY calcium carbonate 600 mg calcium (1,500 mg) tablet 600 mg PO BID estradiol 0.01 % (0.1 mg/gram) cream 1 g VAGINAL .3xweek Rx Instructions: 1 g vaginal 3 times per week; thursday metoprolol succinate 50 mg tablet extended release 24 hr 25 mg PO DAILY Eliquis 5 mg tablet 5 mg PO BID Qty: 180 4RF Referrals / Follow Up: Rick Marsh MD [Primary Care Provider] - Within 2 Weeks Lizandro Ca MD [Med Staff - Active Staff] - Within 3 Months (Call for appt) Disposition Disposition (needs filled in before D/C Order can be placed): Home, Self Care Charges/Coding Visit Charges Inpatient E&M: 77980 Disch Hosp >30min
--- NOTE | 2023-07-20 16:01 | PHA.DC.MR.R ---
Pharmacy [place] Med Reconciliation Pharmacy Service has performed discharge medication reconciliation for this patient. The patient's discharge medication list was reviewed for discrepancies and discrepancies were resolved. Medications at Discharge Home Medications lutein 20 mg capsule 20 mg PO QDAY eye vitamin 06/11/17 vinegar See Rx Instructions PO QDAY suppliment 11/28/19 ascorbic acid (vitamin C) 500 mg capsule 1,000 mg PO DAILY suppliment 03/29/21 multivitamin with minerals (Hair,Skin and Nails tablet) 1 tab PO DAILY suppliement 03/29/21 calcium carbonate 600 mg calcium (1,500 mg) tablet 600 mg PO BID suppliment 06/26/21 estradiol 0.01% (0.1 mg/gram) vaginal cream 1 g vaginal .3xweek estrogen 06/26/21 multivitamin 1 tab PO DAILY suppliment 01/01/22 vibegron 75 mg tablet (Gemtesa) 75 mg PO DAILY bladder 01/01/22 metoprolol succinate 50 mg tablet,extended release 24 hr 25 mg PO DAILY heart 07/14/23 apixaban 5 mg tablet (Eliquis) 5 mg PO BID #180 tabs 07/16/23
--- NOTE | 2023-07-20 16:40 | CASEMGMT ---
Patient has order for discharge. RN CM in to discuss needs at discharge. Patient denies needs or help at discharge. Patient states her friend will take and check in on her at home. Patient had no further questions or concerns.
--- NOTE | 2023-07-20 16:40 | CHAPLAIN ---
Type of Pastoral Visit _x__ Initial Visit ___ Follow-up Visit ___ On-call Visit ___ General Patient Visit ___ Spiritual Assessment ___ Family Conference ___ Bereavement ___ Rapid Response ___ Code Blue ___ Other (describe below) Pastoral Care Referral From _x__ Patient ___ Family ___ Nurse ___ Physician ___ President Financial Institution ___ Telephonic Nurse ___ Other (describe below) Sacrament/Intervention _x__ Active listening ___ Anointing ___ Episcopal ___ Bereavement ___ Communion ___ Destiny exploration ___ ___ Life review ___ Prayer ___ Reconciliation ___ Sacrament of Sick _x__ Supportive presence ___ Wedding ___ Other (describe below) Pastoral Comments patient reports feeling better and is expecting to go home this afternoon; pt says she has no extra concerns but appreciates the offer of presence and support
== END 2023-07-20 15:51 | disposition home or self-care (01) ==
LOC: ED 15:04 → PCU 15:15
PROVIDERS: Hospitalist; Nurse Practitioner; Admitting Provider Internal Medicine; Emergency Provider Emergency Medicine; PCP Family Medicine; Visit Provider Internal Medicine
DX: T82.9XXA Unspecified complication of cardiac and vascular prosthetic device, implant and graft, initial encounter (principal); I42.1 Obstructive hypertrophic cardiomyopathy; I48.0 Paroxysmal atrial fibrillation; R00.1 Bradycardia, unspecified; Z95.5 Presence of coronary angioplasty implant and graft; I45.10 Unspecified right bundle-branch block; R32 Unspecified urinary incontinence; I10 Essential (primary) hypertension; Z79.01 Long term (current) use of anticoagulants; R06.02 Shortness of breath; R42 Dizziness and giddiness; R53.83 Other fatigue; Z79.899 Other long term (current) drug therapy; I44.1 Atrioventricular block, second degree; Y71.2 Prosthetic and other implants, materials and accessory cardiovascular devices associated with adverse incidents
CPT/HCPCS: 36415; 71045; 80048; 83880; 84484; 85025; 85027; 93005; 99221; 99284; G0378

== ENCOUNTER 2023-07-21 08:06 | Emergency (ER) | payer MEDICARE, OTHER, SELFPAY ==
[2023-07-21] VITALS (11 sets, daily range): BP systolic 58–104; BP diastolic 32–71; PULSE 45–87; RESP 16–25; TEMP 35.9–36.8; O2SAT 92–98; BMI 33.5
--- NOTE | 2023-07-21 08:27 | RAD_ITS ---
STUDY: X-RAY CHEST REASON FOR EXAM: Female, 78 years old. Dyspnea TECHNIQUE: AP and lateral views of the chest. COMPARISON: Comparison is made with prior study dated July 18, 2023. FINDINGS: EKG electrodes are seen. Mild increased markings at the lung bases suggestive of atelectasis. There is no demonstrated pleural abnormality. There is moderate cardiac enlargement. A left-sided dual-chamber pacemaker is seen. Normal mediastinum and briseyda. Normal visualized pulmonary arteries. There is atherosclerotic calcification of the aortic arch with tortuosity. There are diffuse degenerative changes of the visualized thoracic spine. There is degenerative osteoarthritis of the bilateral shoulders. Large hiatal hernia. RAD/Chest PA and Lateral IMPRESSION: Large hiatal hernia. Mild cardiomegaly. Mild increased linear markings at the lung bases suggestive of atelectasis. Electronically Signed: Juan Luis Heath MD at 9:12 EDT ,
[2023-07-21] MEDS: 0.9% Normal Saline (500mL Bag) 500 ML 1000 ML IV ×3 (08:43→11:00)
[2023-07-21 08:44] LABS: Absolute Lymphocyte Count 0.99 X10^3/uL (0.83-4.51); Absolute Neutrophil Count 13.5 X10^3/uL (2.0-7.7); Basophil# 0.05 X10^3/uL; Basophil% 0.3 % (0-1); Eosinophil# 0.02 X10^3/uL; Eosinophils% 0.1 % (0-5); Hematocrit 43.4 % (37-47); Hemoglobin 14.3 g/dL (12.0-15.0); Lymphocyte # 0.99 X10^3/ul (0.83-4.51); Lymphocyte % 6.2 % (19-41); Mean Corp Hgb Conc 32.9 g/dL (32-36); Mean Corpuscular Volume 97.1 fL (81-99); Mean Platelet Vol. 12.2 fl (6.2-12.0); Monocyte# 1.22 X10^3/uL; Monocyte% 7.7 % (0-10); NRBC Flagged by Analyzer 0 % (0-5); Neutrophil # 13.52 X10^3/uL (2.7-7.7); Neutrophil % 85.3 % (47-70); Platelet Count 135 K/mm3 (150-450); RBC Distribution Width CV 13.2 % (11.6-14.6); RBC Distribution Width SD 47.1 fl (35.1-43.9); Red Blood Count 4.47 M/mm3 (4.2-5.4); White Blood Count 15.9 K/mm3 (4.4-11.0)
[2023-07-21] MEDS: Aspirin 81 MG TAB.CHEW 324 MG PO (08:45)
[2023-07-21 09:06] LABS: BNP,B-Type NATRIURETIC PEPTIDE 334.5 pg/mL (0-100)
--- NOTE | 2023-07-21 09:07 | EKG12_ITS ---
Test Reason : SOB Blood Pressure : / mmHG Vent. Rate : 087 BPM Atrial Rate : 087 BPM P-R Int : 172 ms QRS Dur : 118 ms QT Int : 412 ms P-R-T Axes : 051 092 -37 degrees QTc Int : 495 ms Atrial-sensed ventricular-paced rhythm Abnormal ECG Confirmed by JORGE AGOSTO, LAKHWINDER ([id number]), editor farm journal LEAH BOND ([id number]) on 07/23/2023 6:15:52 AM Referred By: JORDAN Confirmed By:LAKHWINDER PATEL MD
[2023-07-21 09:11] LABS: Anion Gap 9 (5-15); BUN 20 mg/dL (7-18); BUN/Creat Ratio 17.7 RATIO (10-20); Calcium,Total 9.3 mg/dL (8.5-10.1); Chloride 105 mmol/L (98-107); Creatinine, Serum 1.13 mg/dL (0.55-1.02); EST Glomerular Filtration Rate 50 mL/min (>60); Est Glom Filt Rate - Afr Amer 60 mL/min (>60); Estimated Creatinine Clearance 37.84 ml/min; Glucose 150 mg/dL (74-106); Lactic Acid 2.5 mmol/L (0.4-1.9); Potassium 4.3 mmol/L (3.5-5.1); Sodium Level 135 mmol/L (136-145); Troponin-I HS (w/2H Reflex) 455 pg/mL (3.0-54.0)
[2023-07-21 09:15] LABS: International Normalized Ratio 1.4; Partial Thromboplast Time 31.8 Seconds (24.1-36.2)
--- NOTE | 2023-07-21 09:38 | PCM.CONS.C ---
Assessment & Plan Assessment/Plan (1) SOB (shortness of breath) on exertion: PLAN: The patient shortness of breath does not appear to be related to pacemaker malfunction. It appears that he is functioning appropriately the pacer will be interrogated. Has a history of left ventricular outflow tract obstruction with a resting gradient in the 25 to 30 mmHg range. Her murmur radiates widely and seems more prominent than I remember from the last 48 hours when she was hospitalized. Her blood pressure systolic is down, she has an elevated lactic acid and elevated white count and her renal function has deteriorated slightly. These all suggest hypoperfusion. (2) Presence of permanent cardiac pacemaker: PLAN: The pacemaker does appear to be functioning appropriately now. But with these complicating hemodynamics feel that higher level of care is indicated. (3) Hypertrophic obstructive cardiomyopathy: PLAN: The patient carries a history of left big outflow tract obstruction with gradients in the 25 to 30 mmHg range at rest. Her murmur sounds more prominent now her blood pressure systolic is down, she has lactic acidosis, white count is elevated with no obvious evidence of infection her renal function has deteriorated slightly and she has elevated troponins and BNP all consistent with what looks to be a drop in perfusion related to her left ventricular outflow tract. An echocardiogram has not been performed at this point in time but I believe this patient would require a higher level of care specifically given the pacemaker issues with her left ventricular lead and these hemodynamic parameters were seeing now. PLAN: Plan 1. Would avoid anything that would elevate the heart rate. Will program her pacemaker down to 60 bpm. 2. Will arrange for transfer to [facility] as she has previously been in the [facility] system. HPI Consult Data Date of Consult: 07/21/23 HPI Narrative Reason for Consultation: Recurrent shortness of breath HPI Narrative: MARKOS BEASLEY, is a 78 F who presents to the emergency department reporting that this morning she got up took her little dog out for their walk with some minimal shortness of breath. She came back in was getting a breakfast ready and shortness of breath recurred she sat down and it persisted. She did not take her blood pressure or heart rate at that time. She was recently discharged from the hospital in the last 24 hours with pacemaker that was not functioning appropriately. Her pacemaker was reprogrammed and on the rhythm strips and on the EKG shows an atrially paced rhythm with ventricular fused beats. There is also times when there is douglas conduction through the ventricle. The patient has an underlying right bundle branch block she had presented over the weekend to the emergency department with similar symptoms and was in sinus rhythm with 2-1 AV conduction at a rate of 40. Currently the patient is resting comfortably in recumbent position systolic blood pressures 85 heart rate is 75 and AV sequentially paced rhythm. She denies any PND orthopnea denies any lower extremity edema. Her shortness of breath is primarily dyspnea on exertion. She remains primarily in sinus rhythm. The patient does have a history of sigmoid septum with asymmetric septal hypertrophy and a left ventricular outflow gradient in the 25 to 30 mmHg range. This was due to be checked again after the pacemaker was functioning appropriately. It does appear that her pacer is functioning appropriately. Her EKG is suggestive of some post paced or fusion beats with J-point elevation and some ST segment elevation in aVL. Her troponin is slightly elevated at 455. BNP is in the 340 range. She has a 15,000 white count with a lactic acid of 2.5. Blood pressure has been running in the 85-95 systolic range with good mean arterial pressures. [facility] Medical History Heart block Hypertrophic obstructive cardiomyopathy Pacemaker Pessary maintenance Presence of permanent cardiac pacemaker (~12/10/20) Home Medications lutein 20 mg capsule 20 mg PO DAILY EYE HEALTH 06/11/17 [History Last Taken Unknown] vinegar PO DAILY SUPPLEMENT 11/28/19 [History Last Taken Unknown] ascorbic acid (vitamin C) 500 mg capsule 1,000 mg PO DAILY SUPPLEMENT 03/29/21 [History Last Taken Unknown] multivitamin with minerals (Hair,Skin and Nails tablet) 1 tab PO DAILY SUPPLEMENT 03/29/21 [History Last Taken Unknown] calcium carbonate 600 mg calcium (1,500 mg) tablet 600 mg PO BID SUPPLEMENT 06/26/21 [History Last Taken Unknown] estradiol 0.01% (0.1 mg/gram) vaginal cream 1 g vaginal SUWEFR HORMONES 06/26/21 [History Last Taken Unknown] multivitamin 1 tab PO DAILY SUPPLEMENT 01/01/22 [History Last Taken Unknown] vibegron 75 mg tablet (Gemtesa) 75 mg PO DAILY OVERACTIVE BLADDER 01/01/22 [History Last Taken Unknown] metoprolol succinate 50 mg tablet,extended release 24 hr 25 mg PO DAILY HEART 07/14/23 [History Last Taken Unknown] apixaban 5 mg tablet (Eliquis) 5 mg PO BID AFIB #180 tabs 07/20/23 [Rx Last Taken Unknown] Allergy/AdvReac Type Severity Reaction Status Date / Time procaine [From Novocain] Allergy Intermediate NEEDS Verified 07/18/23 15:57 FOLLOW-UP diclofenac [From Voltaren] Allergy Hives Verified 07/18/23 13:33 Family History Father Cancer prostate Grandmother Cancer Diabetes Grandfather No problems noted. Surgical History FH: bilateral hip replacements H/O bilateral cataract extraction H/O bilateral hip replacements History of hysterectomy History of tonsillectomy Hx of cholecystectomy Social History household members: none Smoking Status: Never smoker alcohol intake: never substance use type: does not use caffeine: Yes frequency: 5-6 times per week seatbelt use: always do you feel safe at home: Yes ROS Constitutional Constitutional: Reports as per HPI Eyes Eyes: Reports systems reviewed and no addt'l complaints, except as documented ENT HEENT: Reports systems reviewed and no addt'l complaints, except as documented Cardiovascular Cardiovascular: Reports as per HPI Respiratory/Chest Respiratory/Chest: Reports as per HPI Gastrointestinal Gastrointestinal: Reports systems reviewed and no addt'l complaints, except as documented Genitourinary Genitourinary: Reports systems reviewed and no addt'l complaints, except as documented Musculoskeletal Musculoskeletal: Reports systems reviewed and no addt'l complaints, except as documented Integumentary Integumentary: Reports systems reviewed and no addt'l complaints, except as documented Neurologic Neurologic: Reports systems reviewed and no addt'l complaints, except as documented Psychiatric Psychiatric: Reports systems reviewed and no addt'l complaints, except as documented Endocrine Endocrinology: Reports systems reviewed and no addt'l complaints, except as documented Hematologic/Lymphatic Hematologic/Lymphatic: Reports as per HPI Allergic/Immunologic Allergic/Immunologic: Reports systems reviewed and no addt'l complaints, except as documented Physical Exam Const oriented x3 HEENT normocephalic Eyes EOMs intact bilaterally Neck no JVD and no carotid bruits Chest inspection of chest normal Resp normal respiratory effort and clear to auscultation bilaterally Cardio regular rate, regular rhythm, S1 normal heart sound, S2 normal heart sound, no rub and no gallops Heart Sounds: murmur systolic III/ harsh left sternal border and right sternal border to the neck GI soft to palpation Extremity no pedal edema Skin no rashes or lesions noted Psych mental status grossly normal Risk Stratification Risk Stratification Applicable: Yes Age >/= 65: Yes >/= 3 CAD Risk Factors (HTN, HLD, DM, family hx of CAD, or current smoker): No Aspirin Use in the Past 7 Days: No Severe Angina (>/= episodes in 24 hours): No EKG ST Changes >/= 0.5mm: Yes Positive Cardiac Marker: Yes YEMI Risk Stratification Score: 3 YEMI % Risk: 13% Risk Charges/Coding Visit Charges Inpatient E&M: 71682 Init Hosp L3 Objective Data Vital Signs: Vital Signs Temp Pulse Resp BP Pulse Ox O2 Del Method 96.7 F L 79 22 H 76/60 L 98 Room Air 07/21/23 08:08 07/21/23 09:06 07/21/23 09:06 07/21/23 09:06 07/21/23 09:06 07/21/23 09:06 Oxygen Delivery Method Room Air Weight: 171 lb 8.314 oz Body Mass Index (BMI) 33.5 Intake & Output: Intake and Output for Last 24 Hours 07/19/23 07/20/23 07/21/23 23:59 23:59 23:59 Intake Total 200 / 200 Balance 200 / 200 Lab / Micro Data Attestation: I reviewed the patient's lab results. 07/21/23 08:18 07/21/23 08:18 Labs: Laboratory Results - last 24 hr 07/21/23 08:18: WBC 15.9 H, RBC 4.47, Hgb 14.3, Hct 43.4, MCV 97.1, MCH 32.0, MCHC 32.9, RDW Std Deviation 47.1 H, RDW Coeff of Solo 13.2, Plt Count 135 L, MPV 12.2 H, Immature Gran % (Auto) 0.400, Neut % (Auto) 85.3 H, Lymph % (Auto) 6.2 L, [place] % (Auto) 7.7, Eos % (Auto) 0.1, Baso % (Auto) 0.3, Absolute Neuts (auto) 13.5 H, Absolute Lymphs (auto) 0.99, Nucleated RBC % 0, PT 17.0 H, INR 1.4, APTT 31.8, Sodium 135 L, Potassium 4.3, Chloride 105, Carbon Dioxide 21.0, Anion Gap 9, BUN 20 H, Creatinine 1.13 H, Estim Creat Clear Calc 37.84, Est GFR (MDRD) Af Amer 60, Est GFR (MDRD) Non-Af 50 L, BUN/Creatinine Ratio 17.7, Glucose 150 H, Lactic Acid 2.5 H*, Calcium 9.3, Troponin I High Sens 455 H*, B-Natriuretic Peptide 334.5 H Rhythm Strip Rhythm Strip: Primarily atrially paced rhythm but does have an underlying sinus rhythm. Rate: 80 Cardiology Labs/Tests 07/21/23 08:18: WBC 15.9 H, RBC 4.47, Hgb 14.3, Hct 43.4, MCV 97.1, MCH 32.0, MCHC 32.9, Plt Count 135 L, MPV 12.2 H, Immature Gran % (Auto) 0.400, Neut % (Auto) 85.3 H, Lymph % (Auto) 6.2 L, [place] % (Auto) 7.7, Eos % (Auto) 0.1, Baso % (Auto) 0.3, Absolute Neuts (auto) 13.5 H, Nucleated RBC % 0, PT 17.0 H, INR 1.4, APTT 31.8, Sodium 135 L, Potassium 4.3, Chloride 105, Carbon Dioxide 21.0, Anion Gap 9, BUN 20 H, Creatinine 1.13 H, Est GFR (MDRD) Af Amer 60, Est GFR (MDRD) Non-Af 50 L, BUN/Creatinine Ratio 17.7, Glucose 150 H, Lactic Acid 2.5 H*, Calcium 9.3, B-Natriuretic Peptide 334.5 H Rhythm: EKG: ECHO: Stress Test: Cardiac Cath: PCI: CT Surgery: Holter monitor: EPS: PPM: CXR: Chest CT Scan: Radiography Diagnostic Testing: Radiology Impression Chest X-Ray 07/21/23 08:27 IMPRESSION: Large hiatal hernia. Mild cardiomegaly. Mild increased linear markings at the lung bases suggestive of atelectasis. Electronically Signed: Juan Luis Heath MD at 9:12 EDT , EKG Initial EKG: Interpretation: Atrially paced rhythm with occasional sinus beats there is douglas AV conduction and what appears to be ventricular fusion beats with a paced versus douglas conduction. There is subtle J-point and ST elevation in a nonischemic appearing pattern in lead aVL
--- NOTE | 2023-07-21 09:51 | CT_ITS ---
STUDY: CTA CHEST REASON FOR EXAM: Female, 78 years old. DYSPNEA RADIATION DOSAGE (If Supplied By Facility): CTDIvol = ( 9.30 ) mGy, DLP = ( 435.48 ) mGycm TECHNIQUE: The examination was performed with the intravenous administration of IV 100mL [id number]. Post-processing of the angiographic images was performed, with multiplanar reformation and 3D reconstruction. Individualized dose optimization techniques were used for this CT. COMPARISON: Comparison is made with prior CT scan of thorax dated December 06, 2020 and prior chest radiograph done earlier in the day. FINDINGS: Normal enhancement of the main pulmonary artery and right and left pulmonary arteries. Normal enhancement of the bilateral peripheral pulmonary arteries. There is no demonstrated pulmonary embolism. There is atherosclerotic calcification of the aortic arch with tortuosity. There is no demonstrated aortic dissection. Sternal cerclage wires and vascular clips are present from a prior sternotomy and coronary artery bypass graft procedure (CABG). There are calcifications of the coronary arteries. Normal mediastinum. Normal hilar regions. Normal visualized trachea and bronchi. The lungs are well expanded. Increased markings at the lung bases suggestive of a possible infiltrate superimposed on scarring. Normal pleura. Normal chest wall structures. Normal osseous structures. The patient is status post cholecystectomy. Large hiatal hernia. CT/CTA Chest W/WO Contrast IMPRESSION: No evidence of pulmonary embolism. Increased markings at the lung bases suggestive of scarring with either atelectasis and/or infiltrates. Large hiatal hernia. Electronically Signed: Juan Luis Heath MD at 11:14 EDT ,
[2023-07-21 10:38] LABS: Reflex Troponin-HS? (from REC) Y
--- NOTE | 2023-07-21 10:52 | ED.VIS.DYS ---
HPI History of Present Illness Chief Complaint: Shortness of Breath Informant: patient Onset/Context/Timing Onset: Today Context: sudden Timing: Continuous Quality: Positive for Dyspnea on exertion Worsened by: Exertion Relieved by: Nothing Associated Symptoms subjective and chills; Negative for cough, rhinorrhea, post nasal drip, ear pain, fever, sore throat, sweats, clear sputum, white sputum, yellow sputum or green sputum Chest Pain: Positive for None Narrative Narrative: Patient presents with shortness of breath that began this morning. Patient states it began rather suddenly. Patient states she woke up and was feeling fine. Patient states that while she was doing some activities this morning she started having some shortness of breath. Patient states her breathing is worse with any exertion. Patient states nothing seems to help with it. Patient admits to some subjective chills but denies any fevers. Patient denies any cough. Patient denies any chest pain. Patient denies any upper respiratory congestion or sore throat. Patient admits to some mild nausea but denies any vomiting. [facility] Medical History Heart block Hypertrophic obstructive cardiomyopathy Pacemaker Pessary maintenance Presence of permanent cardiac pacemaker (~12/10/20) Home Medications lutein 20 mg capsule 20 mg PO DAILY EYE HEALTH 06/11/17 [History Last Taken 07/21/23] Vinegar 2 tsp PO DAILY SUPPLEMENT 11/28/19 [History Last Taken Unknown] ascorbic acid (vitamin C) 500 mg capsule 1,000 mg PO DAILY SUPPLEMENT 03/29/21 [History Last Taken 07/21/23] multivitamin with minerals (Hair,Skin and Nails tablet) 1 tab PO DAILY SUPPLEMENT 03/29/21 [History Last Taken 07/21/23] calcium carbonate 600 mg calcium (1,500 mg) tablet 600 mg PO BID SUPPLEMENT 06/26/21 [History Last Taken Unknown] estradiol 0.01% (0.1 mg/gram) vaginal cream 1 g vaginal SUWEFR [place] 06/26/21 [History Last Taken 07/19/23] multivitamin 1 tab PO DAILY SUPPLEMENT 01/01/22 [History Last Taken 07/21/23] vibegron 75 mg tablet (Gemtesa) 75 mg PO DAILY OVERACTIVE BLADDER 01/01/22 [History Last Taken 07/18/23] metoprolol succinate 50 mg tablet,extended release 24 hr 25 mg PO DAILY HEART 07/14/23 [History Last Taken 07/20/23] apixaban 5 mg tablet (Eliquis) 5 mg PO BID AFIB #180 tabs 07/20/23 [Rx Last Taken 07/20/23] Allergy/AdvReac Type Severity Reaction Status Date / Time procaine [From Novocain] Allergy Intermediate NEEDS Verified 07/18/23 15:57 FOLLOW-UP diclofenac [From Voltaren] Allergy Hives Verified 07/18/23 13:33 Family History Father Cancer prostate Grandmother Cancer Diabetes Grandfather No problems noted. Surgical History FH: bilateral hip replacements H/O bilateral cataract extraction H/O bilateral hip replacements History of hysterectomy History of tonsillectomy Hx of cholecystectomy Social History household members: none Smoking Status: Never smoker alcohol intake: never substance use type: does not use caffeine: Yes frequency: 5-6 times per week seatbelt use: always do you feel safe at home: Yes EXAM Physical Exam Const Vital Signs: 07/21/23 08:08 07/21/23 08:12 07/21/23 08:12 Temperature 96.7 F L Temperature Source Temporal Pulse Rate 81 Respiratory Rate 24 H Respiratory Effort Normal Non-Labored Respiratory Depth Normal Respiratory Pattern Normal Blood Pressure 92/71 Blood Pressure Mean 78 Pulse Ox 93 Oxygen Delivery Method Room Air Room Air 07/21/23 08:26 07/21/23 09:06 07/21/23 10:00 Temperature Temperature Source Pulse Rate 75 79 87 Respiratory Rate 21 H 22 H 23 H Respiratory Effort Respiratory Depth Respiratory Pattern Blood Pressure 85/65 L 76/60 L 88/65 L Blood Pressure Mean 71 65 72 Pulse Ox 98 97 Oxygen Delivery Method Room Air Room Air 07/21/23 10:52 07/21/23 10:11 07/21/23 11:00 Temperature 98.0 F 98.1 F 98.3 F Temperature Source Temporal Temporal Temporal Pulse Rate 79 59 L 69 Respiratory Rate 21 H 25 H 25 H Respiratory Effort Respiratory Depth Respiratory Pattern Blood Pressure 80/53 L 104/69 73/49 L Blood Pressure Mean 62 80 57 Pulse Ox 97 95 96 Oxygen Delivery Method Room Air Room Air Room Air 07/21/23 11:45 07/21/23 11:50 07/21/23 11:16 Temperature Temperature Source Pulse Rate 45 L 52 L 67 Respiratory Rate 16 17 Respiratory Effort Respiratory Depth Respiratory Pattern Blood Pressure 58/32 L 76/57 L Blood Pressure Mean 40 63 Pulse Ox 92 Oxygen Delivery Method Room Air Positive well nourished and well developed General Appearance ED: well developed and NAD HEENT Reports moist mucous membranes Neck supple and no JVD Resp normal respiratory effort and clear to auscultation bilaterally Cardio regular rate and regular rhythm GI non-tender and non-distended Palpation: soft Extremity General Extremety ED: Negative for edema or tenderness General Extremity: Negative for edema Neuro oriented x3, CN's II-XII intact bilaterally and no sensory deficits noted Yara Coma Scale: document GCS findings Spontaneous Obeys Commands Oriented 15 Sensorium / Orientation: alert Speech: speech normal Psych mental status grossly normal MDM MDM MDM Narrative Medical decision making narrative: Differential diagnosis includes pulmonary embolism, pneumonia, congestive heart failure, cardiac dysrhythmia, cardiac ischemia, electrolyte abnormality. EKG will be obtained to assess for cardiac dysrhythmia and cardiac ischemia. Chest x-ray will be obtained to assess for pneumonia and pneumothorax. CBC will be obtained to assess for leukocytosis and anemia. Basic metabolic profile will be obtained to assess for electrolyte abnormality and renal function. High-sensitivity troponin will be obtained to assess for cardiac ischemia. 2-hour repeat high-sensitivity troponin will be obtained to assess for ongoing cardiac ischemia. BNP will be obtained to assess for congestive heart failure. CTA of the chest will be obtained to assess for pulmonary embolism. Lab Data Attestation: I reviewed the patient's lab results. Lab results narrative: CBC was reviewed. There is a mild leukocytosis of 15.9. The remainder is within normal limits. Basic metabolic profile was reviewed. BUN was 20 and creatinine was 1.13. This is slightly increased from previous result. PT was INR and PTT were reviewed. Pro time was 17.0 and INR is 1.4. PTT was 31.8. Serum lactate was reviewed and was mildly elevated at 2.5. High-sensitivity troponin was reviewed and was elevated at 455. BNP was reviewed and was slightly elevated at 334.5. 2-hour repeat high-sensitivity troponin was reviewed and was elevated at 1725. Labs: Laboratory Results - last 24 hr 07/21/23 07/21/23 08:18 11:19 WBC 15.9 H RBC 4.47 Hgb 14.3 Hct 43.4 MCV 97.1 MCH 32.0 MCHC 32.9 RDW Std Deviation 47.1 H RDW Coeff of Solo 13.2 Plt Count 135 L MPV 12.2 H Immature Gran % (Auto) 0.400 Neut % (Auto) 85.3 H Lymph % (Auto) 6.2 L Bond % (Auto) 7.7 Eos % (Auto) 0.1 Baso % (Auto) 0.3 Absolute Neuts (auto) 13.5 H Absolute Lymphs (auto) 0.99 Nucleated RBC % 0 PT 17.0 H INR 1.4 APTT 31.8 Sodium 135 L Potassium 4.3 Chloride 105 Carbon Dioxide 21.0 Anion Gap 9 BUN 20 H Creatinine 1.13 H Estim Creat Clear Calc 37.84 Est GFR (MDRD) Af Amer 60 Est GFR (MDRD) Non-Af 50 L BUN/Creatinine Ratio 17.7 Glucose 150 H Lactic Acid 2.5 H* Calcium 9.3 Troponin I High Sens 455 H* 1725 H* B-Natriuretic Peptide 334.5 H Radiography Diagnostic Testing: Clinical Impression(s) from Imaging Studies Chest X-Ray 07/21/23 08:27 IMPRESSION: Large hiatal hernia. Mild cardiomegaly. Mild increased linear markings at the lung bases suggestive of atelectasis. Electronically Signed: Juan Luis Heath MD at 9:12 EDT , PA and lateral chest x-ray was obtained. There are 2 views. On my independent interpretation, lung abraham show increased markings at the lung bases suggestive of atelectasis. There is cardiomegaly. There is a large hiatal hernia. Bony thorax is normal. There is no acute process noted. Radiologist also interpreted the x-ray and agrees. Rhythm Strip Rhythm Strip: Primarily atrially paced rhythm but does have an underlying sinus rhythm. Rate: 80 EKG Initial EKG: Attestation: I personally reviewed and interpreted this EKG as follows: Interpretation: Paced Comments: EKG was obtained. On my independent interpretation, it shows a paced rhythm with a rate of 87. SD interval was normal at 172 ms. QRS interval was normal at 118 ms. QTc interval was normal at 495 ms. [place] was normal at 92. There is a right bundle branch block pattern noted. There are no acute ST or T wave changes noted. Prior EKG tracings: available for review Prior: Changed (Previous EKG dated 07/18/2023 showed a paced rhythm with 2-1 conduction. Currently, pacemaker is capturing all beats. There are no other acute changes noted.) Follow-up EKG: Attestation: I personally reviewed and interpreted this EKG as follows: Interpretation: Sinus Bradycardia (48), RBBB and Non-Specific ST Changes Comments: EKG was obtained. On my independent interpretation, it showed sinus bradycardia with a rate of 48. There are occasional ectopic beats noted. There are some paced beats noted. There is some long conduction of the atrial paced beats. There is a right bundle branch block pattern noted. SD interval was normal at 166 ms. QRS interval was slightly prolonged at 130 ms. QTc interval was normal at 491 ms. [place] was normal. Prior EKG tracings: available for review Prior: Changed Management Discussion w/another healthcare provider: [facility] Treatment and Re-Evaluation :: Patient was given aspirin. Patient was given IV fluids. Case was discussed with Dr. Ca. He was in to evaluate the patient. He recommended giving the patient phenylephrine. He recommended transferring the patient to [facility]. Patient is agreeable with this. Case was discussed with the transfer center at [facility]. There is currently not a bed available at this time. They will continue to arrange for transfer bed. When one becomes available patient will be transferred there. Patient understood and was agreeable with the plan. All questions were answered. While awaiting transfer, patient lost capture of her pacemaker. Patient became more bradycardic and hypotensive. Patient was given more IV fluids. Patient was given a dose of phenylephrine. Patient was started on a phenylephrine drip. Patient was given 2 doses of atropine with no improvement. Case was discussed with Dr. Ca from cardiology. He was back in to evaluate the patient again. He had pacemaker interrogated and the voltage was increased. Patient was capturing more beats but not all of the pacemaker stimuli were conducted. He also had a stat echo obtained. This showed some wall motion abnormalities. Because of this, he consulted Dr. Parekh to take the patient to the [facility] prior to transfer. After his contacted [facility] and informed them of the patient going to the [facility] prior to transfer. He discussed the case with cardiology at [facility] and arranged acceptance from a market gardener there. Patient was taken to the [facility] and will then be transferred to [facility] ICU. Critical Care Time Critical Care Time: Yes Critical care time (excluding procedures): 75-104 minutes (82), Including time spent:, Discussing w/Patient &/or Family/Graphic Art Technician, Discussing w/Consultants, Arranging Admission or Transfer and Performing Direct Patient Care at Bedside Discharge Plan Triage Chief Complaint: Shortness of Breath ED Provider: Jamal Momin Dx/Rx/DC Orders Clinical Impression: Hypotension (arterial), Left ventricular outflow tract obstruction, Heart block, Presence of permanent cardiac pacemaker, Bradycardia Prescriptions: No Action lutein 20 mg capsule 20 mg PO DAILY ascorbic acid (vitamin C) 500 mg capsule 1,000 mg PO DAILY Hair,Skin and Nails Tablet 1 tab PO DAILY Vinegar solution 2 tsp PO DAILY Rx Instructions: ADD 2 TABLESPOONS OF VINEGAR TO 8 OZ OF WATER ONCE DAILY. multivitamin Tablet 1 tab PO DAILY Gemtesa 75 mg tablet 75 mg PO DAILY calcium carbonate 600 mg calcium (1,500 mg) tablet 600 mg PO BID estradiol 0.01 % (0.1 mg/gram) cream 1 g VAGINAL SUWEFR metoprolol succinate 50 mg tablet extended release 24 hr 25 mg PO DAILY Eliquis 5 mg tablet 5 mg PO BID Qty: 180 4RF Primary Care Provider: Rick Marsh Referrals: Rick Marsh MD [Primary Care Provider] - Disposition Disposition: Acute Care Hospital Discharge Location: [facility]
[2023-07-21] MEDS: Phenylephrine 1 MG/10 ML SYRINGE IV (11:00)
[2023-07-21] MEDS: Ondansetron 4 MG/2 ML Vial IV (11:37)
[2023-07-21 11:42] LABS: Troponin-I HS 1725 pg/mL (3.0-54.0)
--- NOTE | 2023-07-21 11:49 | ED.RN ---
DR. REED AT BEDSIDE ASSESSING PATIENT. GETTING ANOTHER EKG. UNABLE TO OBTAIN BLOOD PRESSURE BY AUTOMATIC OR MANAUL
--- NOTE | 2023-07-21 11:49 | ED.RN ---
PER DR. REED, GIVE PT. 1MG ATROPINE. ATROPINE GIVEN AT 1150. PACER PADS PUT ON PATEINT
--- NOTE | 2023-07-21 12:02 | ED.RN ---
pt. Hypotensive, 36. pale,diaphoretic. Dr. Momin notified
--- NOTE | 2023-07-21 12:15 | ED.RN ---
Pt. HR dropped to 25. Notified Dr. Momin. 1mg verbal order for atropine
--- NOTE | 2023-07-21 12:24 | ED.RN ---
Addendum entered by Cari Dooley 07/21/23 19:11: [address] Ca being completed. 1245 68/40, 89, 27rr 1253 dr. gutierrez at bedside *All of these vital signs have been paper charted d/t unexpected down time. Original Note: 1224 Dr. Ca at bedside. 1226 bp 53/32 1230 bp 51/32, hr [address] Momin at bedside, Dr. ca gave verbal order to increase maurice drip to 20 mcg 1242 bp 61/34, 74 HR, this RN gave verbal update on patient to [facility] critical care transport
[2023-07-21 14:31] LABS: Reflex Lactate? Y
--- NOTE | 2023-07-21 15:17 | PCM.OP.PRO ---
Procedure Report Date of Procedure: 07/21/23 Placement of a temporary transvenous pacemaker. Indication: Pacemaker malfunction. The patient was brought to cardiac catheterization lab urgently and was prepped for a left heart catheterization. It was decided to place a temporary pacemaker and a 7 [place] venous sheath was placed after the area was anesthetized. The sideport was flushed. A 5 [place] balloontipped catheter was then advanced and placed in the right ventricular apex with appropriate capturing. The ventricular rate was turned to 90 bpm. Appropriate capture was noted. The sheath was then sewn in place. Conclusion: Successful placement of a transvenous temporary pacemaker.
--- NOTE | 2023-07-21 15:20 | ECHOL_ITS ---
Reason For Study: Assess LV function Procedure This was a limited 2D transthoracic echocardiogram. Exam performed portable in ED. Left Ventricle Normal LV size. Mild concentric left ventricular hypertrophy. The estimated ejection fraction is 55 %. Mid-Lateral : Hypokinetic. Mid-Posterior: Hypokinetic. Right Ventricle Normal RV size. ICD or pacer leads identified within the right ventricle. Normal systolic function. Atria Normal left atrium. Normal right atrium. Mitral Valve Normal mitral valve. Tricuspid Valve Normal tricuspid valve. Aortic Valve Trisinus/trileaflet aortic valve. Great Vessels Normal aortic root. The pulmonary artery is normal size. Normal inferior vena cava. Pericardium/Pleural No pericardial effusion. MMode/2D Measurements & Calculations LVIDd: 3.6 cm IVSd: 1.2 cm LAV(MOD-sp4): 30.4 ml LVIDs: 1.7 cm LVPWd: 1.2 cm RVDd: 4.0 cm FS: 52.7 % LVAd ap4: 26.7 cm2 SV(MOD-sp4): 37.2 ml SV(sp4-el): 42.6 ml LVLd ap4: 7.4 cm EDV(MOD-sp4): 77.5 ml EDV(sp4-el): 82.6 ml LVAs ap4: 16.5 cm2 LVLs ap4: 5.8 cm ESV(MOD-sp4): 40.2 ml ESV(sp4-el): 40.0 ml EF(MOD-sp4): 48.1 % EF(sp4-el): 51.6 % LA dimension(2D): 3.2 cm LA A4 area: 12.3 cm2 RA A4 area: 14.2 cm2 ECHO/Echo, Limited Study Interpretation Summary Normal LV size. The estimated ejection fraction is 55 %. ICD or pacer leads identified within the right ventricle. Mild concentric left ventricular hypertrophy. Ordering Physician: Mk Coto Referring Physician: Rick Marsh Performed By: Alejandra Gonzalez RDCS
--- NOTE | 2023-07-28 14:25 | CL.D_ITS ---
Patient Name: MARKOS BEASLEY Study Date: 07/21/2023 Performing: Mk Coto MD Ht: 60 inches 152.4 cm : 1945 Wt: 171.52 lbs 77.8 kg Age: 78 Gender: female BSA: 1.75 PROCEDURE(S) PERFORMED LP13-(10832)TEMPORARY INTRAVENTRICULAR PACING DC02-(24088)LHC/COR CLINICAL PROFILE AND INDICATIONS Indications: Suspected CAD Heart Failure: None Stress/Imaging Stress/Image Study Performed: No CAD Presentations: Other: Hypotension CONCLUSIONS Normal coronary arteries Normal LV size, wall motion,and systolic function RECOMMENDATIONS Medical therapy DESCRIPTION OF PROCEDURE The patient arrived to the procedure lab. The risks and benefits of the procedure as well as a full description of our services here and current unavailability of surgical backup were fully explained to the patient and/or their significant other prior to the catheterization. The Timeout was completed, verifying the correct patient and procedure. The patient's procedural site was prepped and draped in the usual fashion. Local anesthetic was given subcutaneously to right groin region with Lidocaine 2%. Using a modified Seldinger technique, arterial access was obtained via the right femoral artery, a 5Fr sheath was inserted. Venous access was obtained via the right femoral vein, a 7Fr sheath was inserted. Left Coronary Artery selective angiography was performed in multiple views using a 5 Fr. JL4 catheter. Right Coronary Artery selective angiography was then performed in multiple views using a 5 Fr. 3DRC (Tin) catheter.The arterial sheath was sutured in place and capped with a transduced art line. The venous sheath was then sutured inplace with normal saline drip CORONARY ANGIOGRAPHY DOMINANCE: Right Dominant LEFT HEART ASSESSMENT Left Ventricular Ejection Fraction: by Echo 55 % Lateral Hypokinesis - Moderate Normal Left Ventricular systolic function LEFT MAIN: Angiographically normal LEFT ANTERIOR DESCENDING ARTERY: Angiographically normal CIRCUMFLEX ARTERY: Angiographically normal RIGHT CORONARY ARTERY: Angiographically normal COMPLICATIONS No Complications PROCEDURE MEDICATIONS Versed .5 mg IV Oxygen: 2 L/min via nasal cannula Vancomycin 1 Gm iv infused 07/21/2023 14:09:05 SUMMARY OF HEMODYNAMIC DATA Time AIR REST ECG 13:09:00 AO 62/41 (48) SA 13:28:41 14:31:57 Signed By Mk Coto MD On 07/21/2023 14:34:56 Mk Coto MD
== END 2023-07-21 13:24 | disposition short-term general hospital (02) ==
PROVIDERS: Emergency Provider Emergency Medicine; PCP Family Medicine; Visit Provider Emergency Medicine
DX: I95.9 Hypotension, unspecified (principal); I42.1 Obstructive hypertrophic cardiomyopathy; R00.1 Bradycardia, unspecified; Z95.0 Presence of cardiac pacemaker; I45.10 Unspecified right bundle-branch block; Z96.643 Presence of artificial hip joint, bilateral; Z98.41 Cataract extraction status, right eye; Z98.42 Cataract extraction status, left eye; Z90.710 Acquired absence of both cervix and uterus; Z90.49 Acquired absence of other specified parts of digestive tract; R06.02 Shortness of breath; R94.39 Abnormal result of other cardiovascular function study
CPT/HCPCS: 96374; 33210; 71046; 71275; 80048; 83605; 83880; 84484; 85025; 85610; 85730; 93005; 93308; 93454; 96361; 96365; 96375; 99152; 99285; J7030; J7040; J7050; Q9967; A4216; C1769; C1894; J2405

== ENCOUNTER 2023-08-05 15:30 | Inpatient (IN) | payer MEDICARE, OTHER, SELFPAY ==
[2023-08-05 15:47] VITALS: BP 109/67; PULSE 68; RESP 18; TEMP 36.4; O2SAT 96
[2023-08-05 19:02] VITALS: BMI 33.5
[2023-08-05 21:22] VITALS: PULSE 70
[2023-08-05] MEDS: Metoprolol(XL)Succ 25 MG Tablet PO (21:22)
[2023-08-05] MEDS: Estrogens,Conj. 1 Tube 0.625 DOSE VAGINAL (21:23)
[2023-08-05 21:37] VITALS: BP 134/79; PULSE 78; RESP 17; TEMP 36.7; O2SAT 96
[2023-08-06 05:58] LABS: Absolute Lymphocyte Count 0.94 X10^3/uL (0.83-4.51); Absolute Neutrophil Count 6.7 X10^3/uL (2.0-7.7); Basophil# 0.02 X10^3/uL; Basophil% 0.2 % (0-1); Eosinophil# 0.29 X10^3/uL; Eosinophils% 3.3 % (0-5); Hematocrit 31.8 % (37-47); Hemoglobin 10.5 g/dL (12.0-15.0); Lymphocyte # 0.94 X10^3/ul (0.83-4.51); Lymphocyte % 10.7 % (19-41); Mean Corpuscular Hgb 32.1 pg (27.0-32.0); Mean Corpuscular Volume 97.2 fL (81-99); Mean Platelet Vol. 11.8 fl (6.2-12.0); Monocyte# 0.85 X10^3/uL; Monocyte% 9.7 % (0-10); NRBC Flagged by Analyzer 0 % (0-5); Neutrophil # 6.65 X10^3/uL (2.7-7.7); Neutrophil % 75.9 % (47-70); Platelet Count 229 K/mm3 (150-450); RBC Distribution Width SD 49.2 fl (35.1-43.9); Red Blood Count 3.27 M/mm3 (4.2-5.4); White Blood Count 8.8 K/mm3 (4.4-11.0)
[2023-08-06 06:21] LABS: ALB/GLOB Ratio 0.9 RATIO (0.9-2.4); AST(SGOT) 16 U/L (15-37); Alanine Aminotransfer ALT/SGPT 18 U/L (13-56); Albumin, Serum 2.6 g/dL (3.2-5.0); Alkaline Phosphatase 77 U/L (45-117); Anion Gap 5 (5-15); BUN 11 mg/dL (7-18); BUN/Creat Ratio 19.9 RATIO (10-20); Calcium,Total 8.8 mg/dL (8.5-10.1); Chloride 109 mmol/L (98-107); Creatinine, Serum 0.55 mg/dL (0.55-1.02); EST Glomerular Filtration Rate 113 mL/min (>60); Est Glom Filt Rate - Afr Amer 137 mL/min (>60); Estimated Creatinine Clearance 52.57 ml/min; Glucose 104 mg/dL (74-106); Magnesium 1.9 mg/dL (1.6-2.6); Phosphorus 2.7 mg/dL (2.5-4.9); Potassium 3.8 mmol/L (3.5-5.1); Protein, Total 5.6 g/dL (6.4-8.2); Sodium Level 140 mmol/L (136-145)
[2023-08-06 08:23] VITALS: PULSE 71
[2023-08-06] MEDS: Senna/Docusate Sodium 1 Tablet 2 TABLET PO ×2 (08:23→22:52)
[2023-08-06] MEDS: Metoprolol(XL)Succ 25 MG Tablet PO ×2 (08:23→22:53)
[2023-08-06] MEDS: Calcium Carbonate 500 MG Tablet PO ×2 (08:23→16:21)
[2023-08-06] MEDS: Multivitamins,Therapeutic Tablet 1 TABLET PO (08:23)
[2023-08-06] MEDS: Ascorbic Acid 500 MG Tablet 1000 MG PO (08:23)
[2023-08-06] MEDS: Vibegron 75 MG TABLET PO (08:23)
--- NOTE | 2023-08-06 09:20 | HP.PCM_ITS ---
[facility] - General General Date of Admission: 08/05/23 Date of Service: 08/06/23 Chief Complaint: Debility due to prolonged hospitalization for malfunctioning PM with circulatory shock. 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 She presented to the ED at [facility] on 07/21/2023 with complaint of shortness of breath that had started rather abruptly that morning. When the squad arrived she was 78% saturated on RA and the BP was 78/58. She had just been an inpt at [facility] for possible pacer malfunction and was discharged on 07/20/23. BNP was slightly elevated at 334 in the emergency room and the troponin was elevated at 455. Initial EKG showed paced rhythm at 87 bpm with complete capture. Follow-up EKG was done when her heart rate dropped to 48 and it showed, per the ER doc, some paced beats and some ectopics. Pt was seen by Dr. Schreibers from cardiology and he recommended transfer to [facility] since she has been a [facility] patient. Initially there was not bed available at [facility] and while she was waiting for a bed the PM lost capture. She was taken for a cardiac cath at [facility] when the troponin increased from 445 to 1725. Prior to the cath a temporary PM. The cath showed normal coronaries, normal LV size and normal systolic function. She was then transferred to [facility]. Device check at [facility] showed reliable capture at high outputs. The RV lead was removed and reimplanted on 07/30/23. A repeat device check showed continued el evated V capture threshold and she underwent repeat RV lead placement on 08/04/2023. A repeat device check on 08/05/2023 showed stable impedance, sensing and threshold. Hospital course was complicated by acute hypoxic respiratory failure, malnutrition and urine retention requiring a Crain. Ron Cheryl was held due to urine retention but it was restarted at discharge. While at [facility] she was seen by therapy and acute inpt rehab was recommended at [facility]. She was transferred to [facility] acute inpt rehab on 08/05/23 for 3 hours of therapy daily to restore function/independence at or near her level prior to the admission for PM failure. She was on pharmacologic DVT prophylaxis at [facility] but, this was discontinued at [facility]. She is to start Eliquis on 08/08/23. Afebrile VSS Maintaining appropriate oxygen saturation on RA-95% Oral intake - FOOD good FLUIDS adequate Discussed with nursing - no problems that need addressed Medication list reviewed. All lab drawn this morning was personally reviewed. Hemoglobin is 10.5 today, down from 14.3 on 07/21/2023. Platelets are within normal limits. Sodium is 140 and the potassium is 3.8. The BUN is 11 with a creatinine of 0.55 which is actually better than her baseline. Phosphorus is normal at 2.7 and the magnesium is normal at 1.9. LFTs are unremarkable. Calcium is within normal limits. [facility] Medical History (Updated 08/09/23 @ 10:[address] 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 Heart block HTN (hypertension) Hypertrophic obstructive cardiomyopathy Incomplete prolapse of vaginal vault Lumbar radiculopathy Osteoarthritis Pacemaker Pessary maintenance Presence of permanent cardiac pacemaker (~12/10/20) Second degree type II atrioventricular block Home Medications lutein 20 mg capsule 20 mg PO DAILY EYE HEALTH 06/11/17 [History Last Taken 07/21/23] Vinegar 2 tsp PO DAILY SUPPLEMENT 11/28/19 [History Last Taken Unknown] ascorbic acid (vitamin C) 500 mg capsule 1,000 mg PO DAILY SUPPLEMENT 03/29/21 [History Last Taken 07/21/23] multivitamin with minerals (Hair,Skin and Nails tablet) 1 tab PO DAILY SUPPLEMENT 03/29/21 [History Last Taken 07/21/23] calcium carbonate 600 mg calcium (1,500 mg) tablet 600 mg PO BID SUPPLEMENT 06/26/21 [History Last Taken Unknown] estradiol 0.01% (0.1 mg/gram) vaginal cream 1 g vaginal SUWEFR HORMONES 06/26/21 [History Last Taken 07/19/23] multivitamin 1 tab PO DAILY SUPPLEMENT 01/01/22 [History Last Taken 07/21/23] vibegron 75 mg tablet (Gemtesa) 75 mg PO DAILY OVERACTIVE BLADDER 01/01/22 [History Last Taken 07/18/23] metoprolol succinate 50 mg tablet,extended release 24 hr 25 mg PO DAILY HEART [History Last Taken 08/05/23] apixaban 5 mg tablet (Eliquis) 5 mg PO BID AFIB #180 tabs 07/20/23 [Rx Last Taken 07/20/23] Allergy/AdvReac Type Severity Reaction Status Date / Time procaine [From Novocain] Allergy Intermediate NEEDS Verified 07/18/23 15:57 FOLLOW-UP diclofenac [From Voltaren] Allergy Hives Verified 07/18/23 13:33 Family History Father Cancer prostate Grandmother Cancer Diabetes Grandfather No problems noted. Surgical History FH: bilateral hip replacements H/O bilateral cataract extraction H/O bilateral hip replacements History of hysterectomy History of tonsillectomy Hx of cholecystectomy Social History household members: none pets and animals: Yes (Jakubodle named Rohan) pets and animals: dog(s) Smoking Status: Never smoker alcohol intake: never substance use type: does not use caffeine: Yes frequency: 5-6 times per week seatbelt use: always do you feel safe at home: Yes ROS Review of Systems ROS Unobtainable: Denies due to encephalopathy, due to endotracheal tube, due to mental condition or due to mental status Constitutional Constitutional: Reports weakness; Denies anorexia, change in weight, chills, difficulty sleeping, fatigue, fever(s) or night sweats Eyes Eyes: Denies blurry vision, change in vision, eye pain or loss of vision ENT HEENT: Denies abnormal hearing, dysphagia, headache(s), hearing loss, nasal congestion or sore throat Cardiovascular Cardiovascular: Reports dyspnea on exertion; Denies chest pain, edema, lighthead edness, orthopnea, palpitations, paroxysmal nocturnal dyspnea or syncope Respiratory/Chest Respiratory/Chest: Reports shortness of breath with exertion; Denies cough, dyspnea, shortness of breath at rest or wheezing Gastrointestinal Gastrointestinal: Denies abdominal pain, constipation, diarrhea, dyspepsia, hematemesis, hematochezia, nausea or vomiting Genitourinary Genitourinary: Denies dysuria, hematuria, nocturia, urinary frequency, urinary hesitancy, urinary incontinence or urinary urgency Musculoskeletal Musculoskeletal: Denies back pain, joint pain, joint swelling or neck pain Neurologic Neurologic: Denies confusion, disequilibrium, dizziness, focal weakness, headache(s), paresthesias, seizures or tremor(s) Psychiatric Psychiatric: Denies anxiety, depression, homicidal ideation or suicidal ideation Endocrine Endocrinology: Denies change in body appearance, polydipsia or polyuria Hematologic/Lymphatic Hematologic/Lymphatic: Denies easy bleeding, easy bruising or lymphadenopathy Allergic/Immunologic Allergic/Immunologic: Denies rhinitis, eczemia or asthma Vital Signs Vital Signs Vital Signs: 08/05/23 15:47 08/05/23 21:22 08/05/23 21:37 Temperature 97.6 F L 98.0 F Temperature Source Temporal Oral Pulse Rate 68 70 78 Respiratory Rate 18 17 Blood Pressure 109/67 134/79 H Blood Pressure Mean 81 97 Blood Pressure Source Monitor Monitor Blood Pressure Position Sitting Semi-Fowlers Blood Pressure Location Right Forearm Right Arm Pulse Ox 96 96 Oxygen Delivery Method Nasal Cannula Nasal Cannula Oxygen Flow Rate (L/min) 1 1 08/06/23 07:52 08/06/23 08:23 Temperature Temperature Source Pulse Rate 71 Respiratory Rate Blood Pressure Blood Pressure Mean Blood Pressure Source Blood Pressure Position Blood Pressure Location Pulse Ox Oxygen Delivery Method Oxygen Flow Rate (L/min) 1 Weight Weight: 166 lb 3.657 oz Body Mass Index (BMI) 33.5 Physical Exam Const alert, oriented x3 and no apparent distress General Appearance: cooperative, comfortable and well kempt HEENT head/scalp atraumatic and hearing grossly normal bilaterally Face and Sinus: normal facial exam and face symmetric Mouth: dry mucous membranes Eyes PERRL, EOMs intact bilaterally, conjunctivae normal and no scleral icterus General Eye: normal appearance of both eyes Neck supple and No nodes General: normal visual inspection and trachea midline Chest Chest: symmetrical chest wall rise Resp Resp Narrative: Not tachypneic at rest. She gets SOB with exertion and desaturated on RA with exertion. She became diaphoretic. She is known to have normal coronaries on recent cardiac cath. Few crackles in the bases only. No wheezing. No accessory muscle use, even with exertion. Effort and Inspection: able to speak in complete sentences Cardio regular rate, regular rhythm and no gallops Cardio Narrative: She has a 3/6 KARINE at the second RICS with radiation to the LVOT, LLSB and the apex. The MM radiates into the carotids and it gets softer as you move up the carotid toward the head. Jugular Venous Distention: Negative for JVD GI normal to inspection, nondistended, normoactive bowel sounds, soft to palpation and non-tender GI Narrative: No guarding with palpation Back/Spine General Back: Negative for CVA tenderness Extremity no calf tenderness Extremity Narrative: Trace ankle edema bilaterally which is controlled by LYN hose. Skin no jaundice and no petechiae General Skin Exam: no breakdown Rashes: no rashes Neuro oriented x3, CN's II-XII intact bilaterally, moves all extremities and no focal motor deficits Psych mental status grossly normal, thought process normal, cooperative, affect normal and speech normal Attitude: calm Results Lab / Micro Data 08/06/23 05:41 08/06/23 05:41 Labs: Laboratory Results - last 24 hr 08/06/23 05:41: WBC 8.8, RBC 3.27 L, Hgb 10.5 L, Hct 31.8 L, MCV 97.2, MCH 32.1 H, MCHC 33.0, RDW Std Deviation 49.2 H, RDW Coeff of Solo 14.0, Plt Count 229, MPV 11.8, Immature Gran % (Auto) 0.200, Neut % (Auto) 75.9 H, Lymph % (Auto) 10.7 L, [place] % (Auto) 9.7, Eos % (Auto) 3.3, Baso % (Auto) 0.2, Absolute Neuts (auto) 6.7, Absolute Lymphs (auto) 0.94, Nucleated RBC % 0, Sodium 140, Potassium 3.8, Chloride 109 H, Carbon Dioxide 26.0, Anion Gap 5, BUN 11, Creatinine 0.55, Estim Creat Clear Calc 52.57, Est GFR (MDRD) Af Amer 137, Est GFR (MDRD) Non-Af 113, BUN/Creatinine Ratio 19.9, Glucose 104, Calcium 8.8, Phosphorus 2.7, Magnesium 1.9, Total Bilirubin 0.80, AST 16, ALT 18, Alkaline Phosphatase 77, Total Protein 5.6 L, Albumin 2.6 L, Globulin 3.0, Albumin/Globulin Ratio 0.9 Assessment & Plan Assessment/Plan (1) Physical debility: (2) Acute congestive heart failure: (3) Heart block: (4) Pacemaker lead malfunction: (5) Presence of permanent cardiac pacemaker: (6) Left ventricular outflow tract obstruction: (7) Essential hypertension: (8) Atrial fibrillation: QUALIFIERS: Atrial fibrillation type: paroxysmal Qualified Code(s): I48.0 - Paroxysmal atrial fibrillation (9) Chronic anticoagulation: PLAN: With Eliquis (10) Hypoxia: PLAN: With exertion. Unknown at this time if this is chronic or acute. She has never smoked. Nno mention of PA systolic pressure on the recent cath or ECHO. will check with [facility] to see if an ECHO was done there and also find out who her regular retirement village manager is and request Med list, Problem list and reports of cardiac cath and ECHO's. (11) HTN (hypertension): QUALIFIERS: Hypertension type: primary hypertension Qualified Code(s): I10 - Essential (primary) hypertension (12) Acute blood loss anemia: PLAN: Hemoglobin on 07/21/2023 was 14.3 and at presentation to acute rehab it is 10.5. MCV is normal but, the RDW is increased. PLAN: Plan PLAN PT for gait stability OT for ADL's ST for evaluation Analgesics as needed Bowel protocol Fall precautions Assess for Anxiety/Depression GI prophylaxis -not necessary at this time. She denies nausea, vomiting, epigastric pain and heartburn. Will check a Hemoccult stool. DVT prophylaxis-on apixaban 5 mg twice daily for chronic anticoagulation for paroxysmal atrial fibrillation Follow up with PCP and cardiology following DC from [facility] AM lab including CMP, CBC, Mag and Phos-all personally reviewed Check a CXR today check a UA today since she had a Crain while at [facility]. Start Lovenox 40 mg subcu daily x 2 days and then discontinue and start Eliquis 5 mg twice daily on 08/08/2023. Follow-up in the [place] [facility] in 1 week. She is to follow-up with in 1 week and this will need to be rescheduled unless she is able to be discharged by then. I reviewed her restrictions for recent pacemaker revision. No driving for 1 week. No MRI for 6 weeks, must keep site dry for 1 week, site care and no lifting above the left shoulder level for 6 weeks.
[2023-08-06 09:54] VITALS: BP 141/58; PULSE 71; RESP 17; TEMP 36.2; O2SAT 95
[2023-08-06 11:29] LABS: Squamous Epithelial Cells - UA 0 SEEN /hpf (5-10)
[2023-08-06 11:32] LABS: Color, Urine Yellow (Yellow); Glucose, Dipstick Normal (Normal); Ketone-Dipstick 5 mg/dl (Negative); Leukocyte Esterase-Dipstick 25 /ul (Negative); Nitrite-Dipstick Negative (Negative); Occult Blood-Urine 10 /ul (Negative); Protein-Dipstick 15 mg/dl (Negative); Specific Gravity, Urine 1.025 (1.002-1.030); Urine Bilirubin Dipstick 1 mg/dL (Negative); Urine Clarity Sl. Cloudy (Clear); Urine Urobilinogen 4 mg/dl (Normal)
[2023-08-06 11:40] LABS: Bacteria 1+ /hpf (None Seen); Mucous, Urine 2+ /hpf (<or=2+); Red Blood Cells-Urine 0-5 SEEN /hpf (0-5); White Blood Cells 0-5 SEEN /hpf (0-5); Yeast-Urine 1+ /hpf (None Seen)
--- NOTE | 2023-08-06 12:10 | RAD_ITS ---
STUDY: X-RAY CHEST REASON FOR EXAM: Female, 78 years old. Shortness of breath. TECHNIQUE: PA and lateral views of the chest. COMPARISON: Comparison is made with prior study July 21, 2023. FINDINGS: Hyperinflation. Stable mild increased markings at the lung bases suggestive of atelectasis and/or scarring. There is no demonstrated pleural abnormality. The left-sided dual-chamber pacemaker is seen. Normal mediastinum and briseyda. Normal visualized pulmonary arteries. There is atherosclerotic calcification of the aortic arch with tortuosity. There is demineralization of the osseous structures. Increased kyphosis. Normal visualized ribs, clavicles, and shoulders. There is evidence of a large hiatal hernia. RAD/Chest PA and Lateral IMPRESSION: Hyperinflation. Mild increased markings at the lung base suggestive of atelectasis and/or scarring. Large hiatal hernia. Electronically Signed: Juan Luis Heath MD at 13:07 EDT ,
[2023-08-06 16:45] VITALS: O2SAT 93
[2023-08-06 22:00] VITALS: BP 94/65; PULSE 73; RESP 14; TEMP 36.6
[2023-08-06 22:53] VITALS: BP 106/70; PULSE 79
[2023-08-07 06:00] VITALS: BMI 33.0
[2023-08-07] MEDS: Ascorbic Acid 500 MG Tablet 1000 MG PO (08:45)
[2023-08-07 08:46] VITALS: PULSE 73
[2023-08-07] MEDS: Multivitamins,Therapeutic Tablet 1 TABLET PO (08:46)
[2023-08-07] MEDS: Calcium Carbonate 500 MG Tablet PO ×2 (08:46→16:53)
[2023-08-07] MEDS: Metoprolol(XL)Succ 25 MG Tablet PO ×2 (08:46→21:48)
[2023-08-07] MEDS: Vibegron 75 MG TABLET PO (08:46)
[2023-08-07 08:48] VITALS: BP 101/70; PULSE 73; RESP 16; TEMP 37.2; O2SAT 94
--- NOTE | 2023-08-07 14:10 | CASEMGMT ---
Social Work SW met with patient at bedside to complete rehab admission assessment. Patient completed MDS. BIM () and PHQ-9 (12/04). Patient informed SW that feelings of lack of interest and pleasure is due to having two cardiac procedures for pacemaker. Patient informed SW that she was feeling tired over the past two weeks due to medical issues with pacemaker. The patient denies any concerns regarding social support or loneliness. Patient reports feeling better since having cardiac procedure, but feels physically weaker due to being hospitalized. SW discussed home health care services and potential support services. Patient goals are to return home post rehab. NORBERTO Bourne
[2023-08-07 21:25] VITALS: BP 105/70; PULSE 77; RESP 16; TEMP 36.6; O2SAT 99
[2023-08-07 21:48] VITALS: BP 105/70; PULSE 77
[2023-08-07] MEDS: Estrogens,Conj. 1 Tube 0.625 DOSE VAGINAL (21:53)
[2023-08-08] MEDS: Ascorbic Acid 500 MG Tablet 1000 MG PO (08:08)
[2023-08-08 08:09] VITALS: BP 101/75; PULSE 70
[2023-08-08] MEDS: APIXABAN 5 MG TABLET PO ×2 (08:09→19:47)
[2023-08-08] MEDS: Metoprolol(XL)Succ 25 MG Tablet PO ×2 (08:09→19:46)
[2023-08-08] MEDS: Vibegron 75 MG TABLET PO (08:10)
[2023-08-08] MEDS: Multivitamins,Therapeutic Tablet 1 TABLET PO (08:10)
[2023-08-08] MEDS: Calcium Carbonate 500 MG Tablet PO ×2 (08:10→17:04)
[2023-08-08 09:41] VITALS: PULSE 74
[2023-08-08 10:00] VITALS: BP 100/72; PULSE 70; RESP 16; TEMP 36.5; O2SAT 92
[2023-08-08 19:45] VITALS: BP 100/60; PULSE 79; RESP 17; TEMP 36.2; O2SAT 96
[2023-08-08 19:46] VITALS: BP 100/60; PULSE 79
--- NOTE | 2023-08-09 02:20 | NURSING ---
Reviewed and agree with Raffaele NESBITT, documentation and assessment charting.
[2023-08-09 07:27] VITALS: BP 101/75; PULSE 66; RESP 17; TEMP 37.2; O2SAT 94
[2023-08-09] MEDS: Calcium Carbonate 500 MG Tablet PO ×2 (07:33→17:15)
[2023-08-09] MEDS: Multivitamins,Therapeutic Tablet 1 TABLET PO (07:33)
[2023-08-09] MEDS: Vibegron 75 MG TABLET PO (09:45)
[2023-08-09] MEDS: APIXABAN 5 MG TABLET PO ×2 (09:45→21:22)
[2023-08-09] MEDS: Ascorbic Acid 500 MG Tablet 1000 MG PO (09:46)
[2023-08-09 09:47] VITALS: PULSE 68
[2023-08-09] MEDS: Senna/Docusate Sodium 1 Tablet 2 TABLET PO (09:47)
[2023-08-09] MEDS: Metoprolol(XL)Succ 25 MG Tablet PO ×2 (09:47→21:22)
--- NOTE | 2023-08-09 10:34 | PCM.RU.PYE ---
Admission Information Primary Diagnosis:: Debility secondary to acute congestive heart failure secondary to malfunctioning pacemaker lead with heart block. Status Changes from Prescreening?: No changes Identified Actual Problem List:: Mobility Impaired, Self Care Deficit, BP, Hypertension, Alteration/ Air Exchange and Alteration-Leisure Activ. Potential Problem List:: DVT, Bleeding, Infection, UTI, Aspiration, Falls, Skin Integrity and Depression Risk of Complications DVT: LYN Hose and - (Apixaban 5 mg twice daily) Bleeding: Monitor Lab Values, Nursing to Teach Precautions for anti-coagulation therapy., Wound, if applicable, to be assessed every shift. and Stroke patients assessed for lethargy or change in status. Infection: Clinical Staff to Monitor for S/S of infection: and S/S of infection include fever, redness, warmth, etc. Urinary Tract Infection: Monitor for frequency, burning, discomfort, or incontinence. and Nursing will obtain urine sample for urinalysis and C&S when ordered. Aspiration: Clinical staff will monitor for coughing, drooling, congestion., Speech will evaluate swallowing and dsyphasia. and Nursing will monitor patient swallowing during meals. Falls: Patient will be evaluated for Fall Precautions and Patient will be placed on Fall Precautions as indicated per protocol. Skin Breakdown: Nursing will assess skin daily using assessment tool. and Nursing will place on Skin Breakdown Precautions as indicated. Pain: Clinical staff will assess patient's pain level per protocol., Medications will be given, if needed, and the pain level reassessed. and Other methods: Massage, distraction, decrease stimulus, etc. used PRN. Plan of Care Patient requires physician specializing in physical medicine and rehab oversight to provide close medical supervision of rehab issues including: Pain Management, Sleep Problems, Bowel and Bladder, Medical and co-morbidity Management, DVT prophylaxis, Rehabilitation Leadership and Coordination of treatment team Patient needs Physical Therapy: For a minimum of 1 hour and At least 5 out of 7 days Patient needs Physical Therapy to improve:: Mobility, Strengthening, Transfers, Stretching, ROM, Endurance, Stairs, Gait and Balance Patient needs Occupational Therapy: For a minimum of 1 hour and At least 5 out of 7 days Patient needs Occupational Therapy to improve ADL's incl.: Eating, Grooming, Bathing, Dressing, Toileting, Toilet transfers, Community Reintegration, Higher functioning activities, Household tasks, Adaptive Equipment, Splinting and Other activities as determined Patient requires 24/ Rehabilitation Nursing for: Pain Issues, Identifying and preventing risk factors, Monitoring and reporting current medical conditions, Assisting with ambulation, transfer, and all ADL's, Teaching patients about disease process and medications, Family teaching, Providing safe environment, Bowel and Bladder Issues, Skin integrity and Medication Management Patient needs Air Intelligence Specialist/ Case Management for: Discharge Planning, Arranging Home Equipment or Services and Family Interventions Patient needs Dietary and Nutrition Services for: Adequate Nutrition, Nutritional Supplements and Nutritional Education Goals Goals Patient will remain: free from falls Patient will perform eating at: MOD I level of assist. Patient will perform bed mobility at: MOD I level of assist. Patient will complete transfers from bed to chair at: MOD I level of assist. Patient will ambulate: - (300 feet with least restrictive device at mod I on various surfaces to allow her to return home.) Patient will complete upper body dressing at: MOD I level of assist. Patient will complete lower body dressing at: MOD I level of assist. (With adaptive equipment as needed) Patient will complete toilet transfer at: MOD I level of assist. Patient will complete toileting at: MOD I level of assist. Patient will perform bathing at: MOD I level of assist. Patient will perform Tub/Shower transfer at: MOD I level of assist. Patient will complete grooming at: MOD I level of assist. Patient will complete home management skills at: MOD I level of assist. Patient will achieve: - (1 flight of stairs with 2 handrails at standby assist to be able to let her dog out. 2 steps with 2 HR's to gain entrance into her home. ) Patient will have pain level of: of 3 or less Patient's skin will: remain intact Patient will receive: adequate nutrition. Discharge Planning Estimated Length of stay (days): 21 Anticipated D/C Destination: Home with Home Health
--- NOTE | 2023-08-09 10:40 | PCM.PROGNOTE ---
Subjective Subjective Afebrile VSS-blood pressures have ranged from 100/60 to 105/70 for the past 72 hours. Heart rate is within normal limits. She is 94 to 96% saturated on room air at rest. Maintaining appropriate oxygen saturation -she is 94% on 1 L/min today and yesterday was 96% on room air. Oral intake - FOOD good FLUIDS -not being monitored Postvoid residuals were all less than 200 Last bowel movement was yesterday. Discussed with nursing - no problems that need addressed Reviewed the THERAPY notes Medication list reviewed. Only antihypertensive is metoprolol 25 mg twice daily which also helps control heart rate when in atrial fibrillation. Melisa is very concerned about her pessary. She normally has it taken out and cleaned every 3 months and she is overdue. She follows with Dr. Courtney Jernigan. Melisa denies shortness of breath at rest and also denies cough. She does not lie flat at night but this is her preference and is for comfort and not because she gets short of breath. She denies chest pain, lightheadedness, vertigo, nausea/vomiting/abdominal pain, dysuria and calf tenderness. I reviewed the results of an echocardiogram done at [facility] in 2020 and at that time her right ventricular systolic pressure was estimated at 29 which is normal. Objective Data Objective Data Vital Signs: Vital Signs Temp Pulse Resp BP Pulse Ox O2 Del Method O2 Flow Rate 99.0 F 68 17 101/75 94 Nasal Cannula 1 08/09/23 07:27 08/09/23 09:47 08/09/23 07:27 08/09/23 07:27 08/09/23 07:27 08/09/23 07:27 08/09/23 07:27 Oxygen Flow Rate (L/min) 1 Oxygen Delivery Method Nasal Cannula Weight: 164 lb 0.383 oz Body Mass Index (BMI) 33.0 Intake & Output: Intake and Output for Last 24 Hours 08/07/23 08/08/23 08/09/23 23:59 23:59 23:59 Intake Total 600 / 600 Balance 600 / 600 Lab / Micro Data 08/06/23 05:41 08/06/23 05:41 Micro: Microbiology 08/06/23 15:30 Stool Stool Occult Blood (MARLO) - Final Physical Exam Const alert, oriented x3 and no apparent distress General Appearance: cooperative Orientation / Consciousness: Negative for confused HEENT moist oral mucous membranes Resp normal respiratory effort Resp Narrative: Few coarse crackles in the bases, no wheezing. Crackles improved with a couple deep breaths. Has been doing the IS regularly. She does not notice shortness of breath when doing therapy but she is very focused on doing therapy and not necessarily on her breathing. She does have oxygen on when exercising. Effort and Inspection: Negative for tachypneic Cardio regular rate, regular rhythm and no gallops Cardio Narrative: No change in murmur. GI normal to inspection, nondistended, normoactive bowel sounds, soft to palpation and non-distended GI Narrative: No guarding with palpation. Extremity no calf tenderness Extremity Narrative: Trace ankle edema. Skin General Skin Exam: no breakdown Rashes: no rashes Wounds: wounds noted Wound Narrative: The incision in the left inferior clavicular area is healing. Steri-Strips are still in place. There is no chandrika-incisional erythema and no significant swelling around the incision. Small amount of dried blood but no acute discharge. Neuro CN's II-XII intact bilaterally and no focal motor deficits Psych thought process normal, cooperative and affect normal Assessment & Plan Assessment/Plan (1) Physical debility: (2) Heart block: (3) Pacemaker lead malfunction: (4) Presence of permanent cardiac pacemaker: (5) Left ventricular outflow tract obstruction: (6) Chronic anticoagulation: (7) Hypoxia: (8) HTN (hypertension): QUALIFIERS: Hypertension type: primary hypertension Qualified Code(s): I10 - Essential (primary) hypertension (9) Acute blood loss anemia: (10) Presence of pessary: PLAN: Melisa is very concerned that this has not been cleaned in over [address] Jernigan for pessary maintenance. PLAN: Plan 1. Continue therapy 2. Recheck a BMP, mag and H&H in the AM. 3. BP is on the low side but, she is asymptomatic. will continue to monitor BP closely. May need to decrease metoprolol XL to 12.5 mg twice daily. Charges/Coding Visit Charges Inpatient E&M: 97745 Subs Hosp L1
[2023-08-09 21:22] VITALS: BP 98/65; PULSE 74
[2023-08-09 22:00] VITALS: BP 98/65; PULSE 74; RESP 16; TEMP 37.1; O2SAT 97
[2023-08-10] MEDS: Estrogens,Conj. 1 Tube 0.625 DOSE VAGINAL (05:11)
[2023-08-10 05:50] LABS: Hematocrit 28.7 % (37-47); Hemoglobin 9.3 g/dL (12.0-15.0)
[2023-08-10 06:13] LABS: Anion Gap 6 (5-15); BUN 13 mg/dL (7-18); BUN/Creat Ratio 22.5 RATIO (10-20); Calcium,Total 8.6 mg/dL (8.5-10.1); Chloride 108 mmol/L (98-107); Creatinine, Serum 0.58 mg/dL (0.55-1.02); EST Glomerular Filtration Rate 107 mL/min (>60); Est Glom Filt Rate - Afr Amer 130 mL/min (>60); Estimated Creatinine Clearance 52.21 ml/min; Glucose 100 mg/dL (74-106); Magnesium 1.8 mg/dL (1.6-2.6); Potassium 3.8 mmol/L (3.5-5.1); Sodium Level 141 mmol/L (136-145)
[2023-08-10 07:11] VITALS: BP 111/70; PULSE 73; RESP 16; TEMP 37.3; O2SAT 93
[2023-08-10 08:12] VITALS: PULSE 73
[2023-08-10] MEDS: Senna/Docusate Sodium 1 Tablet 2 TABLET PO (08:12)
[2023-08-10] MEDS: Multivitamins,Therapeutic Tablet 1 TABLET PO (08:12)
[2023-08-10] MEDS: Vibegron 75 MG TABLET PO (08:12)
[2023-08-10] MEDS: Calcium Carbonate 500 MG Tablet PO ×2 (08:12→17:49)
[2023-08-10] MEDS: Ascorbic Acid 500 MG Tablet 1000 MG PO (08:12)
[2023-08-10] MEDS: APIXABAN 5 MG TABLET PO (08:12)
[2023-08-10] MEDS: Metoprolol(XL)Succ 25 MG Tablet PO (08:12)
[2023-08-10 11:11] VITALS: O2SAT 95
--- NOTE | 2023-08-10 14:13 | CASEMGMT ---
Social Work IDT meeting with patient and friend at bedside. SW notified patient of Medicare estimated date of discharge 08/17/2023. SW discussed transition of care plans for transition of care unit (TCU) v. home health pending progress. Therapy recommends continued therapy services in an acute setting. Patient is agreeable to transition to TCU, if recommended. Patient expressed frustration with insurance determination for cut date of 08/16. Patient would like to go to TCU. Physician is agreeable to plan of care. Corporate Compliance Manager will follow up with patient regarding discharge plan of care. Discharge transfer to TCU [facility]
--- NOTE | 2023-08-10 16:40 | PCM.PROGNOTE ---
Subjective Subjective Melisa was seen on team rounds today. Her friend Bernadette was present in the room. All questions were answered to their satisfaction. Afebrile VSS-the blood pressure over the past 2 days has ranged from 98/65 to 111/70. The mean arterial pressures ranged from 73-83. HR is WNL. Maintaining appropriate oxygen saturation on RA - the saturation on RA prior to therapy was in the mid 90's. The sat on RA with exertion ranged from 94-98% but, when she sat down after exercise the sat initially dropped to 89% but, recovered quickly. Oral intake - FOOD good FLUIDS not being monitored at this time. Will order an accurate I&O. Her weight is 164 today, down from 171 almost 172 on 07/18/2023. Discussed with nursing - no problems that need addressed Reviewed the THERAPY notes Medication list reviewed. All lab was personally reviewed. Hemoglobin today is 9.3, down from 10.5 on 08/06/2023. Hemoglobin on 07/21/2023 was 14.3. Sodium today is 141 with a potassium of 3.8. The BUN is 13 and the creatinine is 0.58. The BUN/creatinine ratio is elevated at 22.5 which is up from 19.9 on 08/06/2023. Mag is 1.8. Hemoccult stool on 08/06/2023 was negative. Denies CP and also denies lightheadedness. She does not c/o SOB but, admits she is not focusing on sx she is focusing on completing her task. Denies palpitations, N/V/epigastric pain, diarrhea, black stool, dysuria and calf pain. Objective Data Objective Data Vital Signs: Vital Signs Temp Pulse Resp BP Pulse Ox O2 Del Method O2 Flow Rate 99.1 F 73 16 111/70 95 Room Air 1 08/10/23 07:11 08/10/23 08:12 08/10/23 07:11 08/10/23 07:11 08/10/23 11:11 08/10/23 10:00 08/10/23 12:40 Oxygen Flow Rate (L/min) 1 Oxygen Delivery Method Room Air Weight: 164 lb 0.383 oz Body Mass Index (BMI) 33.0 Intake & Output: Intake and Output for Last 24 Hours 03/30/24 03/31/24 04/01/24 23:59 23:59 23:59 Intake Total 600 / 600 240 / 240 Balance 600 / 600 240 / 240 Lab / Micro Data 08/10/23 05:32 08/10/23 05:32 Labs: Laboratory Results - last 24 hr 08/10/23 05:32: Hgb 9.3 L, Hct 28.7 L, Sodium 141, Potassium 3.8, Chloride 108 H, Carbon Dioxide 27.0, Anion Gap 6, BUN 13, Creatinine 0.58, Estim Creat Clear Calc 52.21, Est GFR (MDRD) Af Amer 130, Est GFR (MDRD) Non-Af 107, BUN/Creatinine Ratio 22.5 H, Glucose 100, Calcium 8.6, Magnesium 1.8 Micro: Microbiology 08/06/23 15:30 Stool Stool Occult Blood (MARLO) - Final Physical Exam Const alert and oriented x3 Constitutional Narrative: Appropriate, pleasant, normal thought process. General Appearance: cooperative Orientation / Consciousness: Negative for confused HEENT head/scalp atraumatic, hearing grossly normal bilaterally and moist oral mucous membranes Mouth: dry mucous membranes Eyes PERRL, EOMs intact bilaterally, conjunctivae normal and no scleral icterus General Eye: normal appearance of both eyes Neck supple and No nodes General: normal visual inspection and trachea midline Chest Chest: symmetrical chest wall rise Resp normal respiratory effort and clear to auscultation bilaterally Resp Narrative: Normal respiratory effort and no tachypnea at rest. Respiratory rate increases with exertion. Effort and Inspection: Negative for tachypneic Auscultation: diminished lung sounds bilateral lower Cardio regular rate, regular rhythm and no gallops Cardio Narrative: No change in the systolic MM 3/6 at the second RICS with radiation to the LVOT, LLSB and the apex. Jugular Venous Distention: Negative for JVD GI normal to inspection, nondistended, normoactive bowel sounds, soft to palpation and non-tender GI Narrative: No guarding with palpation. Bowel sounds are not hyperactive. Back/Spine General Back: Negative for CVA tenderness Extremity no calf tenderness Extremity Narrative: Trace ankle edema. General Extremity: Negative for edema Skin no jaundice and no petechiae General Skin Exam: no breakdown Rashes: no rashes Wounds: wounds noted Wound Narrative: The site of the pacemaker insertion is healing well with no chandrika-incisional erythema, no discharge and no significant swelling around the area. Neuro oriented x3, CN's II-XII intact bilaterally, moves all extremities and no focal motor deficits Psych mental status grossly normal, thought process normal, cooperative, affect normal and speech normal Attitude: calm Assessment & Plan Assessment/Plan (1) Physical debility: (2) Heart block: (3) Pacemaker lead malfunction: (4) Presence of permanent cardiac pacemaker: (5) Left ventricular outflow tract obstruction: (6) Chronic anticoagulation: (7) Hypoxia: (8) Acute blood loss anemia: (9) Presence of pessary: PLAN: Melisa is very concerned that this has not been cleaned in over [address] Jernigan for pessary maintenance. PLAN: Plan 1. Continue therapy 2. I believe the low BP and the IV volume depletion are contributing to the JONES in this pt with HOCM and LV outflow obstruction. Will give 1500 cc of NS IV tonight. Check orthostatic VS tonight and repeat in the AM. Decrease the Metoprolol succinate to 25 mg once a day. 3. Concerned about the continued drop in the HGB despite being dehydrated on PE. Stool was heme - on . Will recheck. Hold Apixaban for now until we see what the HGB is going to do. MCV is NL but the RDW is increased. check Iron studies in the AM. Suspect exercise tolerance, weakness and JONES will improve with a better BP and hydration. Melisa and I talked about the importance of maintaining good IV volume with HOCM and I explained, with drawings, what HCOM is and how it is treated. She will do her best to increase her fluid intake. Charges/Coding Visit Charges Inpatient E&M: 12696 Subs Hosp L2
[2023-08-10] MEDS: 0.9% Normal Saline (1000mL) 1,000 ML 75 ML IV (18:05)
--- NOTE | 2023-08-10 18:41 | CHAPLAIN ---
Type of Pastoral Visit _x__ Initial Visit ___ Follow-up Visit ___ On-call Visit ___ General Patient Visit ___ Spiritual Assessment ___ Family Conference ___ Bereavement ___ Rapid Response ___ Code Blue ___ Other (describe below) Pastoral Care Referral From _x__ Patient ___ Family ___ Nurse ___ Physician ___ Diploma Medical Assistant ___ Treasury Agent ___ Other (describe below) Sacrament/Intervention _x__ Active listening ___ Anointing ___ Confucianism ___ Bereavement ___ Communion ___ Destiny exploration ___ _x__ Life review _x__ Prayer ___ Reconciliation ___ Sacrament of Sick ___ Supportive presence ___ Wedding ___ Other (describe below) Pastoral Comments asked questions of patient, her background, her concerns, her destiny perspective, and current needs; prayer and presence given; will follow up at another time; pt has no family and is dependent on a few friends and her small pentecostal for support
[2023-08-10 20:00] VITALS: BP 112/68; PULSE 70; RESP 18; TEMP 37.1; O2SAT 95
[2023-08-11] VITALS (7 sets, daily range): BP systolic 84–169; BP diastolic 62–122; PULSE 86–96; RESP 16–20; TEMP 36.1–36.2; O2SAT 85–97
[2023-08-11 06:03] LABS: Ferritin 153 ng/mL (8-252); Iron 50 ug/dL (50-170); Iron Binding Capacity,Total 255 ug/dL (250-450); PERCENT IRON SATURATION 19.6 % (15.0-55.0)
[2023-08-11] MEDS: 0.9% Normal Saline (1000mL) 1,000 ML 75 ML IV (06:19)
[2023-08-11 06:28] LABS: Platelet Count 179 K/mm3 (150-450); RET-HE 34.4 pg (30-35); Reticulocyte Count 2.64 % (0.5-1.5)
[2023-08-11] MEDS: Calcium Carbonate 500 MG Tablet PO (09:06)
[2023-08-11] MEDS: Senna/Docusate Sodium 1 Tablet 2 TABLET PO (09:06)
[2023-08-11] MEDS: Metoprolol(XL)Succ 25 MG Tablet PO (09:07)
[2023-08-11] MEDS: Multivitamins,Therapeutic Tablet 1 TABLET PO (09:07)
[2023-08-11] MEDS: Vibegron 75 MG TABLET PO (09:07)
[2023-08-11] MEDS: Ascorbic Acid 500 MG Tablet 1000 MG PO (09:07)
--- NOTE | 2023-08-11 11:00 | PCM.PROGNOTE ---
Subjective Subjective Afebrile VSS-blood pressure this a.m. is increased at 147/76. Heart rate is within normal limits. Orthostatics today had a blood pressure of 147/76 lying down with a pulse rate of 86 and the blood pressure standing was 169/117 with a pulse rate of 94. Nursing did the orthostatics in her ankle? Will have them repeat in the arm after the IV is capped. Maintaining appropriate oxygen saturation on RA while awake however while sleeping last night it dropped to 85% and she was placed on 1 L/min. Current oxygen saturation on 1 L is 96%. Oral intake - FOOD good FLUIDS not being recorded by nursing. I&O has been ordered. Discussed with nursing - Has been very anxious for the majority of the admission so far. Does not want to be on oxygen and was upset about the IV fluids despite me explaining everything to her. She was also upset yesterday about insurance setting a DC for next Thursday. She knows that she is not ready/safe to go home next week yet. She is also upset about it being longer than 3 months since the pessary was removed and cleaned. She knows that a consult has been placed with Dr. Jernigan. Had an emesis last night. She is eating 75-100% of her meals. She is not on anything for anxiety or depression. Reviewed the THERAPY notes Medication list reviewed. Stool is Hemoccult positive. Apixaban was placed on hold yesterday. She is not on a PPI. Melisa did not sleep well last night. She is very tired today and is c/o SOB with exertion. She denies CP, shortness of breath at rest, palpitations, lightheadedness, cephalgia, nausea/vomiting/epigastric pain, diarrhea, dysuria and calf pain. She is feeling very anxious and overwhelmed. Objective Data Objective Data Vital Signs: Vital Signs Temp Pulse Resp BP Pulse Ox O2 Del Method O2 Flow Rate 97.0 F L 86 16 147/76 H 96 Nasal Cannula 1 08/11/23 07:33 08/11/23 09:07 08/11/23 07:33 08/11/23 07:33 08/11/23 07:33 08/11/23 07:33 08/11/23 07:33 Oxygen Flow Rate (L/min) 1 Oxygen Delivery Method Nasal Cannula Weight: 164 lb 0.383 oz Body Mass Index (BMI) 33.0 Intake & Output: Intake and Output for Last 24 Hours 08/09/23 08/10/23 08/11/23 23:59 23:59 23:59 Intake Total 600 / 600 240 / 240 917.5 / 917.5 Output Total 500 / 500 Balance 600 / 600 -260 / -260 917.5 / 917.5 Lab / Micro Data 08/11/23 11:45 08/10/23 05:32 Labs: Laboratory Results - last 24 hr 08/10/23 05:32: Retic Count 2.64 H, Immature Retic Fraction 12.80, Retic Hgb Equivalent 34.4, Iron 50, TIBC 255, Iron Saturation 19.6, Ferritin 153 Micro: Microbiology 08/11/23 06:20 Stool Stool Occult Blood (MARLO) - Final Occult Blood Positive 08/06/23 15:30 Stool Stool Occult Blood (MARLO) - Final Physical Exam Const alert Constitutional Narrative: Appears fatigued and anxious. She is pale. HEENT HEENT Narrative: Palpebral conjunctiva is very pale today. Mouth: dry mucous membranes Resp clear to auscultation bilaterally Resp Narrative: Few crackles in the bases that cleared after a few deep breaths. No wheezing. resting RR is mildly elevated. Cardio Cardio Narrative: Regular with an occasional ectopic. No gallop. No change in the MM. Resting HR is a little elevated today. GI GI Narrative: Nondistended, nontender to palpation, hypoactive bowel sounds. Stool was large, formed and dark this a.m. Extremity no calf tenderness General Extremity: Negative for edema Skin General Skin Exam: no breakdown Rashes: no rashes Neuro CN's II-XII intact bilaterally and no focal motor deficits Psych Appearance: appropriate Attitude: No agitated Mood & Affect: depressed and anxious Assessment & Plan Assessment/Plan (1) Physical debility: (2) Heart block: (3) Pacemaker lead malfunction: (4) Presence of permanent cardiac pacemaker: (5) Left ventricular outflow tract obstruction: (6) Chronic anticoagulation: (7) Hypoxia: (8) Acute blood loss anemia: (9) Presence of pessary: (10) Upper GI bleed: PLAN: Plan 1. Continue therapy 2. Check an H&H now 3. Recheck orthostatic vital signs later today after the IV has been capped 4. Start Protonix 40 mg once daily 5. Continue to hold apixaban 6. Patient is agreeable to starting sertraline for anxiety/depression. She is also agreeable to low-dose as needed Xanax for anxiety control. Will start 0.125 mg 3 times daily as needed anxiety/insomnia and give a dose now. Charges/Coding Visit Charges Inpatient E&M: 29784 Subs Hosp L2
[2023-08-11] MEDS: ALPRAZolam 0.25 MG Tablet 0.125 MG PO (11:48)
[2023-08-11] MEDS: Pantoprazole Sodium 40 MG Tablet PO (11:50)
[2023-08-11 12:03] LABS: Hematocrit 24.5 % (37-47)
[2023-08-11] MEDS: Pantoprazole Sodium 40 MG in 0.9% Normal Saline (100mL MB+) 100 ML 330 MG IV (13:31)
--- NOTE | 2023-08-11 14:31 | PCM.DC.SUM ---
Providers Date of Admission: 08/05/23 Date of Discharge: 08/11/23 Primary Care Physician: Dr. Rick Marsh MD Consultations 08/09/23 12:16 Consult: Urology Routine Consulting Provider: Courtney Jernigan Reason for Consult: removal and cleaning of pessary EMERGENT Consult: No Notified: Yes Date Notified: 08/09/23 Time Notified: 12:16 Method of Notification: Verbal 08/11/23 12:11 Consult: Gastroenterology Routine Consulting Provider: [facility] Reason for Consult: Upper GI bleed EMERGENT Consult: Yes Notified: Yes Date Notified: 08/11/23 Time Notified: 12:12 Method of Notification: Answering Service Reason For Visit: DEBILITY Diagnosis Discharge Diagnosis (1) Upper GI bleed: Status: Acute Code(s): K92.2 - Gastrointestinal hemorrhage, unspecified (2) Hypotension (arterial): Status: Acute Code(s): I95.9 - Hypotension, unspecified (3) Acute blood loss anemia: Status: Acute Code(s): D62 - Acute posthemorrhagic anemia (4) Physical debility: Status: Acute Code(s): R53.81 - Other malaise (5) Heart block: Status: Acute Code(s): I45.9 - Conduction disorder, unspecified (6) Pacemaker lead malfunction: Status: Acute Code(s): T82.110A - Breakdown (mechanical) of cardiac electrode, initial encounter (7) Presence of permanent cardiac pacemaker: Status: Chronic Code(s): Z95.0 - Presence of cardiac pacemaker (8) Left ventricular outflow tract obstruction: Status: Acute Code(s): Q24.8 - Other specified congenital malformations of heart Plan: Due to HOCM with a sigmoid septum. (9) Chronic anticoagulation: Status: Acute Code(s): Z79.01 - meterman (current) use of anticoagulants (10) Hypoxia: Status: Acute Code(s): R09.02 - Hypoxemia (11) Presence of pessary: Status: Acute Code(s): Z96.0 - Presence of urogenital implants Plan: Dr. Jernigan is on consult for maintenance. Plan 1. Transfer to ICU for cardiac monitoring. Increased resting HR with hypotension, increased resting HR and tachypnea. Dr. Brenton lyons. Dr. Arora notified of transfer and Dr. Sarabia notified of transfer to ICU. 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 Jernigan), atrial fibrillation, chronic anticoagulation with Eliquis (she actually was supposed to be taking Eliquis but, she could not afford and was not taking....It was started on the of this month) and osteoarthritis. She presented to the ED at [facility] on 07/21/2023 with complaint of shortness of breath that had started rather abruptly that morning. When the squad arrived she was 78% saturated on RA and the BP was 78/58. She had just been an inpt at [facility] for possible pacer malfunction and was discharged on 07/20/23. BNP was slightly elevated at 334 in the emergency room and the troponin was elevated at 455. Initial EKG showed paced rhythm at 87 bpm with complete capture. Follow-up EKG was done when her heart rate dropped to 48 and it showed, per the ER doc, some paced beats and some ectopics. Pt was seen by Dr. Post from cardiology and he recommended transfer to [facility] since she has been a [facility] patient. Initially there was not bed available at [facility] and while she was waiting for a bed the PM lost capture. She was taken for a cardiac cath at [facility] when the troponin increased from 445 to 1725. Prior to the cath a temporary PM. The cath showed normal coronaries, normal LV size and normal systolic function. She was then transferred to [facility]. Device check at [facility] showed reliable capture at high outputs. The RV lead was removed and reimplanted on 07/30/23. A repeat device check showed continued elevated V capture threshold and she underwent repeat RV lead placement on 08/04/2023. A repeat device check on 08/05/2023 showed stable impedance, sensing and threshold. Hospital course was complicated by acute hypoxic respiratory failure, malnutrition and urine retention requiring a Crain. Ron Cheryl was held due to urine retention but it was restarted at discharge. While at [facility] she was seen by therapy and acute inpt rehab was recommended at [facility]. She was transferred to [facility] acute inpt rehab on 08/05/23 for 3 hours of therapy daily to restore function/independence at or near her level prior to the admission for PM failure. HGB at presentation to rehab was 10.5 on 08/06/2023. Hemoglobin dropped to 9.3 on 08/10/2023 and 8.0 on 08/11/2023. Hemoccult stool was positive. Apixaban was discontinued after the first dose on 08/10/2023. She had 2 BM's on and they were formed but, heme +. Due to the HOCM she does not tolerate low BP's and tachycardia. Consult was ordered with Dr. Sarabia and she was made NPO. She was started on Protonix 40 mg IV twice daily. A type and cross mass was obtained and 2 units of packed red blood cells were ordered to be transfused. As the morning progressed on rehab the resting heart rate increased and the blood pressure dropped to 89/65. Heart rate was 96 bpm. Ectopy increased and she developed some mild tachypnea at rest. Auscultation of her lungs revealed decreased breath sounds in the left base but the right base was clear after several deep breaths. She had no wheezing. Bowel sounds were not hyperactive and she had no pain with palpation of the abdomen. The abdomen was soft. She was transferred to the ICU at [facility] where she can be closely monitored. She has seen Dr. Qiu's from [facility] in the past. Recent cardiac cath revealed normal coronaries and a normal ejection fraction. When she is stable will take her back on acute rehab. Physical Exam Const alert Constitutional Narrative: Appears fatigued and anxious. She is pale. HEENT HEENT Narrative: Palpebral conjunctiva is very pale today. Mouth: dry mucous membranes Resp clear to auscultation bilaterally Resp Narrative: Few crackles in the bases that cleared after a few deep breaths. No wheezing. resting RR is mildly elevated. Cardio Cardio Narrative: Regular with an occasional ectopic. No gallop. No change in the MM. Resting HR is a little elevated today. GI GI Narrative: Nondistended, nontender to palpation, hypoactive bowel sounds. Stool was large, formed and dark this a.m. Extremity no calf tenderness General Extremity: Negative for edema Skin General Skin Exam: no breakdown Rashes: no rashes Neuro CN's II-XII intact bilaterally and no focal motor deficits Psych Appearance: appropriate Attitude: No agitated Mood & Affect: depressed and anxious Weight / BMI Weight Weight: 164 lb 0.383 oz Body Mass Index (BMI) 33.0 ABG / Lab / Microbiology Data 08/11/23 11:45 08/10/23 05:32 Laboratory: Laboratory Results - last 24 hr 08/10/23 05:32: Retic Count 2.64 H, Immature Retic Fraction 12.80, Retic Hgb Equivalent 34.4, Iron 50, TIBC 255, Iron Saturation 19.6, Ferritin 153 08/11/23 11:45: Hgb 8.0 L, Hct 24.5 L, Blood Type O POSITIVE, Antibody Screen NEGATIVE, Crossmatch See Detail Microbiology: Microbiology 08/11/23 06:20 Stool Stool Occult Blood (MARLO) - Final Occult Blood Positive 08/06/23 15:30 Stool Stool Occult Blood (MARLO) - Final D/C Instructions Discharge Diet: - (NPO) Meaningful Use Info Meaningful Use Diagnoses (Choose all that apply): None applicable Discharge Plan Admission Admit Date/Time: 08/05/23 15:30 Primary Reason for Your Visit: debility due to PM malfunction Attending Provider: Fabienne Vazquez Primary Care Provider: Rick Marsh Consulting Providers: Courtney Jernigan Discharge Orders/Prescriptions Prescriptions: Continued lutein 20 mg capsule 20 mg PO DAILY Discontinued ascorbic acid (vitamin C) 500 mg capsule 1,000 mg PO DAILY Hair,Skin and Nails Tablet 1 tab PO DAILY Vinegar solution 2 tsp PO DAILY Rx Instructions: ADD 2 TABLESPOONS OF VINEGAR TO 8 OZ OF WATER ONCE DAILY. multivitamin Tablet 1 tab PO DAILY Gemtesa 75 mg tablet 75 mg PO DAILY metoprolol succinate 50 mg tablet extended release 24 hr 25 mg PO DAILY Eliquis 5 mg tablet 5 mg PO BID Qty: 180 4RF No Action calcium carbonate 600 mg calcium (1,500 mg) tablet 600 mg PO BID estradiol 0.01 % (0.1 mg/gram) cream 1 g VAGINAL SUWEFR Referrals / Follow Up: Rick Marsh MD [Primary Care Provider] - Disposition Disposition (needs filled in before D/C Order can be placed): Acute Care Hospital [facility] Charges/Coding Visit Charges Inpatient E&M: 28981 Disch Hosp >30min
--- NOTE | 2023-08-11 14:37 | NURSING ---
discharged to ICU. Report called to Evelina JACKSON
== END 2023-08-11 14:14 | disposition short-term general hospital (02) | DRG 949 ==
PROVIDERS: Admitting Provider Internal Medicine; PCP Family Medicine; Visit Provider Internal Medicine
DX: T82.1 Mechanical complication of cardiac electronic device (principal); I42.1 Obstructive hypertrophic cardiomyopathy; D62 Acute posthemorrhagic anemia; K92.2 Gastrointestinal hemorrhage, unspecified; I48.0 Paroxysmal atrial fibrillation; I10 Essential (primary) hypertension; F32.A Depression, unspecified; I95.1 Orthostatic hypotension; I45.9 Conduction disorder, unspecified; M19.90 Unspecified osteoarthritis, unspecified site; Q24.9 Congenital malformation of heart, unspecified; F41.9 Anxiety disorder, unspecified; E66.9 Obesity, unspecified; Z79.01 Long term (current) use of anticoagulants; R09.02 Hypoxemia; Y71.2 Prosthetic and other implants, materials and accessory cardiovascular devices associated with adverse incidents; Z79.899 Other long term (current) drug therapy; R33.9 Retention of urine, unspecified; Z68.33 Body mass index [BMI] 33.0-33.9, adult
CPT/HCPCS: 36415; 71046; 80048; 80053; 81001; 82274; 82728; 83540; 83550; 83735; 84100; 85014; 85018; 85025; 85045; 86920; 94668; 97110; 97116; 97162; 97166; 97530; 97535; 97802; J7030

== ENCOUNTER 2023-08-11 16:02 | Inpatient (IN) | payer MEDICARE, OTHER, SELFPAY ==
[2023-08-11] VITALS (15 sets, daily range): BP systolic 77–97; BP diastolic 49–70; PULSE 75–100; RESP 18–28; TEMP 36.4–37.7; O2SAT 90–100; BMI 31.8
--- NOTE | 2023-08-11 14:56 | CASEMGMT ---
MANUEL CM Discharge Planning: Notification received from Laure, Avionics Electronics Technician with [facility] Acute Rehab Unit that pt will be accepted back to the rehab unit upon discharge from acute stay. Maci Saavedra RN [facility]
[2023-08-11] MEDS: Lactated Ringers 1,000 ML 999 ML IV (15:16)
[2023-08-11] MEDS: 0.9% Saline Lock 10 ML Syringe IV (15:16)
--- NOTE | 2023-08-11 15:21 | HP.PCM.HOS_ITS ---
HPI - General General Date of Admission: 08/11/23 Date of Service: 08/11/23 Chief Complaint: Dizziness and lightheadedness on walking. Nausea vomiting yesterday and loss of appetite HPI Narrative MRAKOS BEASLEY, is a 78 F who is directly admitted from acute rehab unit after she was found dizzy and lightheaded in the morning. She stated she is not feeling good for last couple days but yesterday evening she had nausea and vomiting and felt fatigued and loss of appetite. She denies chest pain pressure or tightness. She is not short of breath at rest or dyspnea. In the rehab unit her BP was 142/76 heart rate 86 but later blood pressure dropped. Orthostatic blood pressure lying was 84/62 and standing documented 102/82, heart rate in 90s. In ICU patient blood pressure is 89/65 and 1 L of Ringer lactate ordered. No hypoxia. Her H&H dropped from 10.5 on 08/05-8.0 today. Platelet count normal 229,000. Units of PRBC ordered and patient further admitted in ICU. 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 Lumbar radiculopathy Osteoarthritis Pacemaker Pessary maintenance Presence of permanent cardiac pacemaker (~12/10/20) Presence of pessary Second degree type II atrioventricular block Home Medications lutein 20 mg capsule 20 mg PO DAILY E[facility] 06/11/17 [History Last Taken 0 07/21/23] calcium carbonate 600 mg calcium (1,500 mg) tablet 600 mg PO BID SUPPLEMENT 06/26/21 [History Last Taken Unknown] estradiol 0.01% (0.1 mg/gram) vaginal cream 1 g vaginal SUWEFR HORMONES 06/26/21 [History Last Taken 07/19/23] Allergy/AdvReac Type Severity Reaction Status Date / Time procaine [From Novocain] Allergy Intermediate NEEDS Verified 07/18/23 15:57 FOLLOW-UP diclofenac [From Voltaren] Allergy Hives Verified 07/18/23 13:33 Family History Father Cancer prostate Grandmother Cancer Diabetes Grandfather No problems noted. Family History other other (Denies maternal medical history, lives at until age 98) Surgical History FH: bilateral hip replacements H/O bilateral cataract extraction H/O bilateral hip replacements History of hysterectomy History of tonsillectomy Hx of cholecystectomy Social History household members: none pets and animals: Yes (Poodle named Rohan) pets and animals: dog(s) Smoking Status: Never smoker alcohol intake: never substance use type: does not use caffeine: Yes frequency: 5-6 times per week seatbelt use: always do you feel safe at home: Yes ROS ROS Narrative Constitutional: Reports fatigue and weakness. No fever. HEENT: Reports systems reviewed and no addt'l complaints, except as documented Respiratory/Chest: No acute shortness of breath or respiratory distress or wheezing. CVS: Mild dizziness/lightheadedness. No chest pain pressure or tightness Gastrointestinal: Stool for occult blood positive. Bowel movement regular. No abdominal pain or discomfort. Rest as described in HPI Genitourinary: Denies burning urination or new urinary tract symptoms Musculoskeletal: History of bilateral hip replacement. Denies acute joint pain or limited range of motion. No acute injury Neurologic: Denies seizure-like symptoms. No acute strokelike symptoms skin: No ulcer. No rash Endocrinology: Reports systems reviewed and no addt'l complaints, except as documented Hematologic/Lymphatic: Reports systems reviewed and no addt'l complaints, except as documented Rest 14 ROS are negative except as mentioned in HPI Vital Signs Vital Signs Vital Signs: Weight Weight: 162 lb 14.746 oz Body Mass Index (BMI) 31.8 Physical Exam Narrative General: Alert, Oriented x3, Cooperative HEENT: Atraumatic, PERRLA, EOMI, Normocephalic Oral: Oral mucosa dry. No Gingival or Mucosal Lesions/ Ulcerations Neck: Supple, No JVD, Negative Carotid Bruits Chest wall/Lungs: Air entry diminished in bilateral lung bases. No crepitation/rhonchi Cardiovascular: Paced rhythm. Systolic murmur right second ICS. Regular rhythm. Abdomen: Bowel Sounds Present, Soft, Non Tender, Non-Distended : No dysuria. No renal angle tenderness. No suprapubic tenderness. Extremities: Mild nonpitting ankle edema, Capillary Refill Less than 3 Seconds Skin: No rashes, No breakdown Musculoskeletal: No Tenderness to Palpation of Joints or Extremities. Muscle strength 4+/5 at knees and hip joints Neurological: Cranial nerves II-XII grossly intact, DTR 2+/4. No acute focal neurological deficit. Psych/Mental Status: Normal Affect, Appropriate. Results Lab / Micro Data Labs: Laboratory Results - last 24 hr 08/11/23 11:45: Blood Type O POSITIVE, Antibody Screen NEGATIVE, Crossmatch See Detail Assessment & Plan Assessment/Plan (1) Hypotension (arterial): QUALIFIERS: Hypotension type: hypotension due to hypovolemia Qualified Code(s): E86.1 - Hypovolemia (2) Upper GI bleed: PLAN: Plan This is 78-year-old female directly admitted to ICU from acute rehab unit for hypotension 1. Hypotension most likely due to hypovolemia from upper GI bleed: Patient is being admitted in ICU. 1 L Ringer lactate added and then 100 mill per hour to continue. Type and crossmatch for 2 units and transfuse 1 unit now. H&H every 6 hourly ordered. Pantoprazole 40 mg IV every 12 hourly. GI is consulted. She had EGD long time ago and does not remember. Denies history of NSAIDs or PUD/gastric ulcer in the past. 2. Upper GI bleed, exact most likely from apixaban: Patient states she does not know about her rectal bleed as she was not looking for it. Stool for occult blo od positive. In the rehab unit, patient's apixaban was held. Patient was on apixaban 5 mg twice daily. 3. Acute blood loss anemia most likely due to upper GI bleed: As mentioned above. 4. Hypertrophic cardiomyopathy with history of left ventricular outflow atoll traction, history of heart block status post pacemaker and paroxysmal A-fib and chronic HFpEF: Patient on metoprolol succinate 50 mg daily, which is on hold. Last cardiac cath in July 2023 shows angiographically normal arteries. Patient had 2D echo in July 2023 as mentioned below. 2D echo Normal LV size. Mild concentric LVH. RV normal size and systolic function. The estimated ejection fraction is 55 %. ICD or pacer leads identified within the right ventricle. Mild concentric left ventricular hypertrophy. 5. Hypertension, currently hypotension: Hold antihypertensive medication DVT prophylaxis: Pharmacological prophylaxis contraindicated. Bilateral SCDs Living will/advanced directive/end of life care: Patient does have living will or advanced directive. After discussion of benefits/risks procedures involved with full code, DNR CC arrest and DNR CC, the patient opted for full code. Patient does want artificial life support including intubation, tube feed, ventilator and/chest compression, central venous catheter, vasopressor and DC shock if needed Total time spent in [id number] encounter in discussion of advanced directive 17 minutes. Charges/Coding Visit Charges Inpatient E&M: 46077 Init Hosp L3 Procedures Hospitalists Procedures: 01302 Advncd Care Plan 30 Min
[2023-08-11] MEDS: 0.9% Normal Saline (500mL Bag) 500 ML 120 ML IV (15:46)
[2023-08-11 16:10] LABS: ALB/GLOB Ratio 0.9 RATIO (0.9-2.4); AST(SGOT) 26 U/L (15-37); Alanine Aminotransfer ALT/SGPT 16 U/L (13-56); Albumin, Serum 2.4 g/dL (3.2-5.0); Alkaline Phosphatase 61 U/L (45-117); Anion Gap 5 (5-15); BUN 32 mg/dL (7-18); BUN/Creat Ratio 65.2 RATIO (10-20); Calcium,Total 8.1 mg/dL (8.5-10.1); Chloride 110 mmol/L (98-107); Creatinine, Serum 0.49 mg/dL (0.55-1.02); EST Glomerular Filtration Rate 129 mL/min (>60); Est Glom Filt Rate - Afr Amer 157 mL/min (>60); Estimated Creatinine Clearance 52.02 ml/min; Globulin 2.6 g/dL (2.2-4.2); Glucose 101 mg/dL (74-106); Magnesium 1.7 mg/dL (1.6-2.6); Potassium 4.3 mmol/L (3.5-5.1); Sodium Level 138 mmol/L (136-145)
[2023-08-11] MEDS: Pantoprazole Sodium 40 MG in 0.9% Normal Saline (100mL MB+) 100 ML 330 MG IV ×2 (16:30→20:31)
[2023-08-11] MEDS: Lactated Ringers 1,000 ML 100 ML IV (16:30)
[2023-08-11 16:39] LABS: Absolute Lymphocyte Count 0.97 X10^3/uL (0.83-4.51); Absolute Neutrophil Count 4.8 X10^3/uL (2.0-7.7); Basophil# 0.02 X10^3/uL; Basophil% 0.3 % (0-1); Eosinophil# 0.08 X10^3/uL; Eosinophils% 1.2 % (0-5); Hematocrit 21.1 % (37-47); Hemoglobin 6.9 g/dL (12.0-15.0); Lymphocyte # 0.97 X10^3/ul (0.83-4.51); Mean Corp Hgb Conc 32.7 g/dL (32-36); Mean Corpuscular Hgb 32.2 pg (27.0-32.0); Mean Corpuscular Volume 98.6 fL (81-99); Mean Platelet Vol. 11.6 fl (6.2-12.0); Monocyte# 0.53 X10^3/uL; Monocyte% 8.2 % (0-10); NRBC Flagged by Analyzer 0 % (0-5); Neutrophil # 4.84 X10^3/uL (2.7-7.7); Neutrophil % 74.8 % (47-70); Platelet Count 151 K/mm3 (150-450); RBC Distribution Width CV 14.6 % (11.6-14.6); RBC Distribution Width SD 51.6 fl (35.1-43.9); Red Blood Count 2.14 M/mm3 (4.2-5.4); White Blood Count 6.5 K/mm3 (4.4-11.0)
[2023-08-11 16:47] LABS: International Normalized Ratio 1.4; Prothrombin Time (Protime)PT. 16.8 SECONDS (11.7-14.9)
--- NOTE | 2023-08-11 19:27 | EX.PCM.CON.G ---
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 She presented to the ED at [facility] on 07/21/2023 with complaint of shortness of breath that had started rather abruptly that morning. When the squad arrived she was 78% saturated on RA and the BP was 78/58. She had just been an inpt at [facility] for possible pacer malfunction and was discharged on 07/20/23. BNP was slightly elevated at 334 in the emergency room and the troponin was elevated at 455. Initial EKG showed paced rhythm at 87 bpm with complete capture. Follow-up EKG was done when her heart rate dropped to 48 and it showed, per the ER doc, some paced beats and some ectopics. Pt was seen by Dr. Schreibers from cardiology and he recommended transfer to [facility] since she has been a [facility] patient. Initially there was not bed available at [facility] and while she was waiting for a bed the PM lost capture. She was taken for a cardiac cath at [facility] when the troponin increased from 445 to 1725. Prior to the cath a temporary PM. The cath showed normal coronaries, normal LV size and normal systolic function. She was then transferred to [facility]. Device check at [facility] showed reliable capture at high outputs. The RV lead was removed and reimplanted on 07/30/23. A repeat device check showed continued elevated V capture threshold and she underwent repeat RV lead placement on 08/04/2023. A repeat device check on 08/05/2023 showed stable impedance, sensing and threshold. Hospital course was complicated by acute hypoxic respiratory failure, malnutrition and urine retention requiring a Crain. Ron Cheryl was held due to urine retention but it was restarted at discharge. While at [facility] she was seen by therapy and acute inpt rehab was recommended at [place]. She was transferred to [facility] acute inpt rehab on 08/05/23 for 3 hours of therapy daily to restore function/independence at or near her level prior to the admission for PM failure . HGB at presentation to rehab was 10.5 on 08/06/2023. Hemoglobin dropped to 9.3 on 08/10/2023 and 8.0 on 08/11/2023. Hemoccult stool was positive. Apixaban was discontinued after the first dose on 08/10/2023. She had 2 BM's on and they were formed but, heme +. Due to the HOCM she does not tolerate low BP's and tachycardia. Consult was ordered with Dr. Sarabia and she was made NPO. She was started on Protonix 40 mg IV twice daily. A type and cross mass was obtained and 2 units of packed red blood cells were ordered to be transfused. As the morning progressed on rehab the resting heart rate increased and the blood pressure dropped to 89/65. Heart rate was 96 bpm. She was transferred to the ICU at [facility] where she can be closely monitored. 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 Lumbar radiculopathy Osteoarthritis Pacemaker Pessary maintenance Presence of permanent cardiac pacemaker (~12/10/20) Presence of pessary Second degree type II atrioventricular block Home Medications lutein 20 mg capsule 20 mg PO DAILY [facility] 06/11/17 [History Last Taken 07/21/23] calcium carbonate 600 mg calcium (1,500 mg) tablet 600 mg PO BID SUPPLEMENT 06/26/21 [History Last Taken 08/11/23 09:00] estradiol 0.01% (0.1 mg/gram) vaginal cream 1 g vaginal SUWEFR HORMONES 06/26/21 [History Last Taken 08/10/23 05:00] apixaban 5 mg tablet (Eliquis) 5 mg PO BID blood thinner/afib 08/11/23 [History Last Taken 08/10/23 08:00] ascorbic acid (vitamin C) 500 mg capsule 1,000 mg PO DAILY supplement 08/11/23 [History Last Taken 08/11/23 09:00] metoprolol succinate 50 mg tablet,extended release 24 hr 25 mg PO DAILY heart/bp 08/11/23 [History Last Taken 08/11/23 09:00] multivitamin with minerals (Hair,Skin and Nails tablet) 1 tab PO DAILY Vitamin 08/11/23 [History Last Taken 08/11/23 09:00] vibegron 75 mg tablet (Gemtesa) 75 mg PO DAILY overactive bladder 08/11/23 [History Last Taken 08/11/23 09:00] Allergy/AdvReac Type Severity Reaction Status Date / Time procaine [From Novocain] Allergy Intermediate NEEDS Verified 07/18/23 15:57 FOLLOW-UP diclofenac [From Voltaren] Allergy Hives Verified 07/18/23 13:33 Family History Father Cancer prostate Grandmother Cancer Diabetes Grandfather No problems noted. Family History other Surgical History FH: bilateral hip replacements H/O bilateral cataract extraction H/O bilateral hip replacements History of hysterectomy History of tonsillectomy Hx of cholecystectomy Social History household members: none pets and animals: Yes (Jakubodle named Rohan) pets and animals: dog(s) Smoking Status: Never smoker alcohol intake: never substance use type: does not use caffeine: Yes frequency: 5-6 times per week seatbelt use: always do you feel safe at home: Yes ROS ROS Narrative Constitutional: Reports fatigue and weakness. No fever. HEENT: Reports systems reviewed and no addt'l complaints, except as documented Respiratory/Chest: No acute shortness of breath or respiratory distress or wheezing. CVS: Mild dizziness/lightheadedness. No chest pain pressure or tightness Gastrointestinal: Stool for occult blood positive. Bowel movement regular. No abdominal pain or discomfort. Rest as described in HPI Genitourinary: Denies burning urination or new urinary tract symptoms Musculoskeletal: History of bilateral hip replacement. Denies acute joint pain or limited range of motion. No acute injury Neurologic: Denies seizure-like symptoms. No acute strokelike symptoms skin: No ulcer. No rash Endocrinology: Reports systems reviewed and no addt'l complaints, except as documented Hematologic/Lymphatic: Reports systems reviewed and no addt'l complaints, except as documented Rest 14 ROS are negative except as mentioned in HPI Physical Exam Narrative General: Alert, Oriented x3, Cooperative HEENT: Atraumatic, PERRLA, EOMI, Normocephalic Oral: Oral mucosa dry. No Gingival or Mucosal Lesions/ Ulcerations Neck: Supple, No JVD, Negative Carotid Bruits Chest wall/Lungs: Air entry diminished in bilateral lung bases. No crepitation/rhonchi Cardiovascular: Paced rhythm. Systolic murmur right second ICS. Regular rhythm. Abdomen: Bowel Sounds Present, Soft, Non Tender, Non-Distended : No dysuria. No renal angle tenderness. No suprapubic tenderness. Extremities: Mild nonpitting ankle edema, Capillary Refill Less than 3 Seconds Skin: No rashes, No breakdown Musculoskeletal: No Tenderness to Palpation of Joints or Extremities. Muscle strength 4+/5 at knees and hip joints Neurological: Cranial nerves II-XII grossly intact, DTR 2+/4. No acute focal neurological deficit. Psych/Mental Status: Normal Affect, Appropriate. Lab / Micro Data 08/11/23 16:25 08/11/23 15:40 Labs: Laboratory Results - last 24 hr 08/11/23 11:45: Blood Type O POSITIVE, Antibody Screen NEGATIVE, Crossmatch See Detail 08/11/23 15:40: WBC Cancelled, Corrected WBC Cancelled, RBC Cancelled, Hgb Cancelled, Hct Cancelled, MCV Cancelled, MCH Cancelled, MCHC Cancelled, RDW Std Deviation Cancelled, RDW Coeff of Solo Cancelled, Plt Count Cancelled, MPV Cancelled, Immature Gran % (Auto) Cancelled, Neut % (Auto) Cancelled, Lymph % (Auto) Cancelled, Harris % (Auto) Cancelled, Eos % (Auto) Cancelled, Baso % (Auto) Cancelled, Absolute Neuts (auto) Cancelled, Absolute Lymphs (auto) Cancelled, Total Counted Cancelled, Neutrophils % (Manual) Cancelled, Band Neutrophils % Cancelled, Lymphocytes % (Manual) Cancelled, Monocytes % (Manual) Cancelled, Eosinophils % (Manual) Cancelled, Basophils % (Manual) Cancelled, Metamyelocytes % Cancelled, Myelocytes % Cancelled, Promyelocytes % Cancelled, Blast Cells % Cancelled, Plasma Cell % (Manual) Cancelled, Other Cells % Cancelled, Nucleated RBC % Cancelled, Nucleated RBCs/100 WBC Cancelled, Differential Comment Cancelled, Diff Path Review Cancelled, Hypersegmented Neuts Cancelled, Atypical Lymphocytes Cancelled, Reactive Lymphocytes Cancelled, Smudge Cells Cancelled, Toxic Granulation Cancelled, Toxic Vacuolation Cancelled, Dohle Bodies Cancelled, Triston Rods Cancelled, Platelet Estimate Cancelled, Plt Morphology Comment Cancelled, RBC Morphology Cancelled 08/11/23 15:40: RBC Morphology Cancelled, Polychromasia Cancelled, Hypochromasia Cancelled, Basophilic Stippling Cancelled, Anisocytosis Cancelled, Microcytosis Cancelled, Macrocytosis Cancelled, Spherocytes Cancelled, Sickle Cells Cancelled, Target Cells Cancelled, Tear Drop Cells Cancelled, Ovalocytes Cancelled, Stomatocytes Cancelled, Austin-Upton Bodies Cancelled, Junito Cells Cancelled, Bite Cells Cancelled, Crenated Cell Cancelled, Acanthocytes (Spur) Cancelled, Rouleaux Cancelled, Schistocytes Cancelled, Sodium 138, Potassium 4.3, Chloride 110 H, Carbon Dioxide 23.0, Anion Gap 5, BUN 32 H, Creatinine 0.49 L, Estim Creat Clear Calc 52.02, Est GFR (MDRD) Af Amer 157, Est GFR (MDRD) Non-Af 129, BUN/Creatinine Ratio 65.2 H, Glucose 101, Calcium 8.1 L, Magnesium 1.7, Total Bilirubin 0.40, AST 26, ALT 16, Alkaline Phosphatase 61, Total Protein 5.0 L, Albumin 2.4 L, Globulin 2.6, Albumin/Globulin Ratio 0.9 08/11/23 16:25: WBC 6.5, RBC 2.14 L, Hgb 6.9 L, Hct 21.1 L, MCV 98.6, MCH 32.2 H, MCHC 32.7, RDW Std Deviation 51.6 H, RDW Coeff of Solo 14.6, Plt Count 151, MPV 11.6, Immature Gran % (Auto) 0.500, Neut % (Auto) 74.8 H, Lymph % (Auto) 15.0 L, Harris % (Auto) 8.2, Eos % (Auto) 1.2, Baso % (Auto) 0.3, Absolute Neuts (auto) 4.8, Absolute Lymphs (auto) 0.97, Nucleated RBC % 0, PT 16.8 H, INR 1.4 Assessment & Plan Assessment/Plan (1) Physical debility: (2) Heart block: (3) Pacemaker lead malfunction: (4) Presence of permanent cardiac pacemaker: (5) Left ventricular outflow tract obstruction: (6) Chronic anticoagulation: (7) Hypoxia: (8) Acute blood loss anemia: (9) Presence of pessary: (10) Upper GI bleed: PLAN: Plan 78-year-old with hypertrophic cardiomyopathy, A-fib on anticoagulation transferred to ICU after having hypotension in the setting of GI bleed 1. Continue therapy 2. Check an H&H now 3. Recheck orthostatic vital signs later today after the IV has been capped 4. Start Protonix drip 5. Continue to hold apixaban 6. Patient will need to undergo an upper endoscopy to evaluate upper GI tract. She was explained alternatives, risk, benefits include not withstanding bleeding infection, sepsis, perforation, need for emergent urgent . Keep n.p.o. past midnight. Charges/Coding Visit Charges Inpatient E&M: 94950 Init Hosp L3
[2023-08-11 20:48] LABS: Hematocrit 23.4 % (37-47); Hemoglobin 7.7 g/dL (12.0-15.0)
[2023-08-12] VITALS (43 sets, daily range): BP systolic 67–108; BP diastolic 49–79; PULSE 72–114; RESP 14–30; TEMP 37.1–39.1; O2SAT 90–100; BMI 32.8
[2023-08-12 04:45] LABS: Absolute Lymphocyte Count 1.34 X10^3/uL (0.83-4.51); Absolute Neutrophil Count 5.2 X10^3/uL (2.0-7.7); Basophil# 0.03 X10^3/uL; Basophil% 0.4 % (0-1); Eosinophil# 0.24 X10^3/uL; Eosinophils% 3.2 % (0-5); Hematocrit 23.6 % (37-47); Hemoglobin 7.8 g/dL (12.0-15.0); Lymphocyte # 1.34 X10^3/ul (0.83-4.51); Lymphocyte % 18.1 % (19-41); Mean Corp Hgb Conc 33.1 g/dL (32-36); Mean Corpuscular Hgb 31.7 pg (27.0-32.0); Mean Corpuscular Volume 95.9 fL (81-99); Mean Platelet Vol. 11.9 fl (6.2-12.0); Monocyte# 0.52 X10^3/uL; NRBC Flagged by Analyzer 0 % (0-5); Neutrophil # 5.23 X10^3/uL (2.7-7.7); Neutrophil % 70.9 % (47-70); Platelet Count 137 K/mm3 (150-450); RBC Distribution Width CV 16.1 % (11.6-14.6); RBC Distribution Width SD 56.5 fl (35.1-43.9); Red Blood Count 2.46 M/mm3 (4.2-5.4); White Blood Count 7.4 K/mm3 (4.4-11.0)
[2023-08-12 05:18] LABS: Anion Gap 4 (5-15); BUN 24 mg/dL (7-18); BUN/Creat Ratio 45.3 RATIO (10-20); Calcium,Total 8.1 mg/dL (8.5-10.1); Chloride 115 mmol/L (98-107); Creatinine, Serum 0.53 mg/dL (0.55-1.02); EST Glomerular Filtration Rate 119 mL/min (>60); Est Glom Filt Rate - Afr Amer 143 mL/min (>60); Estimated Creatinine Clearance 52.79 ml/min; Glucose 98 mg/dL (74-106); Potassium 3.7 mmol/L (3.5-5.1); Sodium Level 145 mmol/L (136-145)
--- NOTE | 2023-08-12 07:27 | EX.PCM.CONCC ---
Assessment & Plan Assessment/Plan (1) Acute blood loss anemia: PLAN: Plan RECOMMENDATIONS: 1. Continue to monitor blood counts and transfuse if hemoglobin drops below 7 g/dL. 2. Gentle IV fluid hydration. 3. Continue PPI therapy. 4. Gastroenterology is following with tentative plans for endoscopic evaluation. 5. Send urine analysis and check lactate. Will obtain chest x-ray as well. IMPRESSIONS: 1. Acute blood loss anemia with associated hypotension The patient presented with acute blood loss anemia in the setting of recent Eliquis utilization. The aforementioned medication has been withheld now. The patient has received transfusion of blood products with stabilization of blood counts. Although the patient's blood pressures are somewhat marginal, she has not required vasopressor support. Recommend continuing to monitor H&H and transfuse if hemoglobin drops below 7 g/dL. Continue PPI therapy as ordered. Tentative plans for endoscopic evaluation today. 2. History of hypertrophic cardiomyopathy/history of heart block status post pacemaker/heart failure with preserved ejection fraction Complicates care, management, recovery and prognosis. Continue to hold beta-derrell for now. This note was generated with [employer]onge dictation software. It may contain incorrect words, spelling, and punctuation that were not noted in checking the note before signing. HPI Consult Data Date of Consult: 08/12/23 HPI Narrative Reason for Consultation: Blood loss anemia, hypotension HPI Narrative: The patient is a 78-year-old female, with a history as outlined below, who presented as a transfer from inpatient rehabilitation secondary to hypotension and anemia. The patient was initially admitted to the rehab unit on August 04 following admission in July with a malfunctioning pacemaker, which required temporary pacemaker placement and ultimate transfer to [facility]. The patient has a known history of hypertension and pacemaker placement for complete heart block in 2020. She also has a history of HOCM, atrial fibrillation, chronically anticoagulated on Eliquis and osteoarthritis. On arrival to the intensive care unit, the patient was noted to have a low-grade fever with a presenting blood pressure of 84/65 mmHg. She was maintaining saturations in the mid 90s on room air. Laboratory evaluation revealed a hemoglobin of 6.9 g/dL. The patient was ordered to receive 1 unit of packed red blood cells. Stool for occult blood was noted to be positive. GI consultation was obtained. The patient's Eliquis was discontinued on August 10, 2023. As of this morning, the patient's hemoglobin has improved to 7.8 g/dL. Although her blood pressures have been borderline, vasopressors were never initiated. There are tentative plans for endoscopic evaluation today by gastroenterology. 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 Lumbar radiculopathy Osteoarthritis Pacemaker Pessary maintenance Presence of permanent cardiac pacemaker (~12/10/20) Presence of pessary Second degree type II atrioventricular block Home Medications lutein 20 mg capsule 20 mg PO DAILY E[facility] HEALTH 06/11/17 [History Last Taken 07/21/23] calcium carbonate 600 mg calcium (1,500 mg) tablet 600 mg PO BID SUPPLEMENT 06/26/21 [History Last Taken 08/11/23 09:00] estradiol 0.01% (0.1 mg/gram) vaginal cream 1 g vaginal SUWEFR HORMONES 06/26/21 [History Last Taken 08/10/23 05:00] apixaban 5 mg tablet (Eliquis) 5 mg PO BID blood thinner/afib 08/11/23 [History Last Taken 08/10/23 08:00] ascorbic acid (vitamin C) 500 mg capsule 1,000 mg PO DAILY supplement 08/11/23 [History Last Taken 08/11/23 09:00] metoprolol succinate 50 mg tablet,extended release 24 hr 25 mg PO DAILY heart/bp 08/11/23 [History Last Taken 08/11/23 09:00] multivitamin with minerals (Hair,Skin and Nails tablet) 1 tab PO DAILY Vitamin 08/11/23 [History Last Taken 08/11/23 09:00] vibegron 75 mg tablet (Gemtesa) 75 mg PO DAILY overactive bladder 08/11/23 [History Last Taken 08/11/23 09:00] Allergy/AdvReac Type Severity Reaction Status Date / Time procaine [From Novocain] Allergy Intermediate NEEDS Verified 07/18/23 15:57 FOLLOW-UP diclofenac [From Voltaren] Allergy Hives Verified 07/18/23 13:33 Family History Father Cancer prostate Grandmother Cancer Diabetes Grandfather No problems noted. Family History other Surgical History FH: bilateral hip replacements H/O bilateral cataract extraction H/O bilateral hip replacements History of hysterectomy History of tonsillectomy Hx of cholecystectomy Social History household members: none pets and animals: Yes (Poodle named Rohan) pets and animals: dog(s) Smoking Status: Never smoker alcohol intake: never substance use type: does not use caffeine: Yes frequency: 5-6 times per week seatbelt use: always do you feel safe at home: Yes ROS ROS Narrative 10 systems reviewed with pertinent positives as noted in the HPI above. Physical Exam Const alert and no apparent distress General Appearance: cooperative HEENT normocephalic and head/scalp atraumatic Eyes PERRL, EOMs intact bilaterally and conjunctivae normal Neck supple General: trachea midline Chest inspection of chest normal Resp normal respiratory effort Auscultation: Negative for rales, rhonchi or wheezes Cardio regular rate and regular rhythm Heart Sounds: murmur GI soft to palpation and non-tender Extremity no clubbing, cyanosis or edema Skin no rashes or lesions noted Neuro CN's II-XII intact bilaterally, moves all extremities and no focal motor deficits Psych cooperative and affect normal Lab / Micro Data 08/12/23 04:25 08/12/23 04:25 Labs: Laboratory Results - last 24 hr 08/11/23 11:45: Blood Type O POSITIVE, Antibody Screen NEGATIVE, Crossmatch See Detail 08/11/23 15:40: WBC Cancelled, Corrected WBC Cancelled, RBC Cancelled, Hgb Cancelled, Hct Cancelled, MCV Cancelled, MCH Cancelled, MCHC Cancelled, RDW Std Deviation Cancelled, RDW Coeff of Solo Cancelled, Plt Count Cancelled, MPV Cancelled, Immature Gran % (Auto) Cancelled, Neut % (Auto) Cancelled, Lymph % (Auto) Cancelled, [place] % (Auto) Cancelled, Eos % (Auto) Cancelled, Baso % (Auto) Cancelled, Absolute Neuts (auto) Cancelled, Absolute Lymphs (auto) Cancelled, Total Counted Cancelled, Neutrophils % (Manual) Cancelled, Band Neutrophils % Cancelled, Lymphocytes % (Manual) Cancelled, Monocytes % (Manual) Cancelled, Eosinophils % (Manual) Cancelled, Basophils % (Manual) Cancelled, Metamyelocytes % Cancelled, Myelocytes % Cancelled, Promyelocytes % Cancelled, Blast Cells % Cancelled, Plasma Cell % (Manual) Cancelled, Other Cells % Cancelled, Nucleated RBC % Cancelled, Nucleated RBCs/100 WBC Cancelled, Differential Comment Cancelled, Diff Path Review Cancelled, Hypersegmented Neuts Cancelled, Atypical Lymphocytes Cancelled, Reactive Lymphocytes Cancelled, Smudge Cells Cancelled, Toxic Granulation Cancelled, Toxic Vacuolation Cancelled, Dohle Bodies Cancelled, Triston Rods Cancelled, Platelet Estimate Cancelled, Plt Morphology Comment Cancelled, RBC Morphology Cancelled 08/11/23 15:40: RBC Morphology Cancelled, Polychromasia Cancelled, Hypochromasia Cancelled, Basophilic Stippling Cancelled, Anisocytosis Cancelled, Microcytosis Cancelled, Macrocytosis Cancelled, Spherocytes Cancelled, Sickle Cells Cancelled, Target Cells Cancelled, Tear Drop Cells Cancelled, Ovalocytes Cancelled, Stomatocytes Cancelled, [place] Bodies Cancelled, [place] Cells Cancelled, Bite Cells Cancelled, Crenated Cell Cancelled, Acanthocytes (Spur) Cancelled, Rouleaux Cancelled, Schistocytes Cancelled, Sodium 138, Potassium 4.3, Chloride 110 H, Carbon Dioxide 23.0, Anion Gap 5, BUN 32 H, Creatinine 0.49 L, Estim Creat Clear Calc 52.02, Est GFR (MDRD) Af Amer 157, Est GFR (MDRD) Non-Af 129, BUN/Creatinine Ratio 65.2 H, Glucose 101, Calcium 8.1 L, Magnesium 1.7, Total Bilirubin 0.40, AST 26, ALT 16, Alkaline Phosphatase 61, Total Protein 5.0 L, Albumin 2.4 L, Globulin 2.6, Albumin/Globulin Ratio 0.9 08/11/23 16:25: WBC 6.5, RBC 2.14 L, Hgb 6.9 L, Hct 21.1 L, MCV 98.6, MCH 32.2 H, MCHC 32.7, RDW Std Deviation 51.6 H, RDW Coeff of Solo 14.6, Plt Count 151, MPV 11.6, Immature Gran % (Auto) 0.500, Neut % (Auto) 74.8 H, Lymph % (Auto) 15.0 L, [place] % (Auto) 8.2, Eos % (Auto) 1.2, Baso % (Auto) 0.3, Absolute Neuts (auto) 4.8, Absolute Lymphs (auto) 0.97, Nucleated RBC % 0, PT 16.8 H, INR 1.4 08/11/23 20:35: Hgb 7.7 L, Hct 23.4 L 08/12/23 04:25: WBC 7.4, RBC 2.46 L, Hgb 7.8 L, Hct 23.6 L, MCV 95.9, MCH 31.7, MCHC 33.1, RDW Std Deviation 56.5 H, RDW Coeff of Solo 16.1 H, Plt Count 137 L, MPV 11.9, Immature Gran % (Auto) 0.400, Neut % (Auto) 70.9 H, Lymph % (Auto) 18.1 L, [place] % (Auto) 7.0, Eos % (Auto) 3.2, Baso % (Auto) 0.4, Absolute Neuts (auto) 5.2, Absolute Lymphs (auto) 1.34, Nucleated RBC % 0, Sodium 145, Potassium 3.7, Chloride 115 H, Carbon Dioxide 26.0, Anion Gap 4 L, BUN 24 H, Creatinine 0.53 L, Estim Creat Clear Calc 52.79, Est GFR (MDRD) Af Amer 143, Est GFR (MDRD) Non-Af 119, BUN/Creatinine Ratio 45.3 H, Glucose 98, Calcium 8.1 L Charges/Coding Visit Charges Inpatient E&M: 36067 Init Hosp L3
[2023-08-12] MEDS: 0.9% Saline Lock 10 ML Syringe IV ×2 (07:41→13:19)
[2023-08-12] MEDS: 0.9% Normal Saline (1000mL) 1,000 ML 125 ML IV (07:41)
[2023-08-12] MEDS: Pantoprazole Sodium 40 MG in 0.9% Normal Saline (100mL MB+) 100 ML 330 MG IV ×2 (09:08→20:50)
[2023-08-12] MEDS: Epinephrine (1 mg/ml) 1 MG/ML VIAL (10:39)
[2023-08-12] MEDS: 0.9% Normal Saline (Pres. free 10 ML Vial (10:40)
--- NOTE | 2023-08-12 10:47 | OP.EGD_ITS ---
Patient Name: Becca Gonzalez Procedure Date: 08/12/2023 10:17 AM Date of : 1945 Age: 78 Procedure: Upper GI endoscopy Indications: Active gastrointestinal bleeding, Suspected upper gastrointestinal bleeding Providers: Willis Sarabia DO Referring MD: All Farris Medicines: Monitored Anesthesia Care Patient Profile: This is a 78 year old female. Refer to note in patient chart for documentation of history and physical. Patient has symptoms of acute abdominal cramping and acute dyspepsia. Complications: No immediate complications. Procedure: Pre-Anesthesia Assessment: - Prior to the procedure, a History and Physical was performed, and patient medications and allergies were reviewed. The patient is competent. The risks and benefits of the procedure and the sedation options and risks were discussed with the patient. All questions were answered and informed consent was obtained. Patient identification and proposed procedure were verified by the physician in the pre-procedure area. Mental Status Examination: alert and oriented. Airway Examination: normal oropharyngeal airway and neck mobility. Respiratory Examination: clear to auscultation. CV Examination: normal. Prophylactic Antibiotics: The patient does not require prophylactic antibiotics. Prior Anticoagulants: The patient has taken no anticoagulant or antiplatelet agents. ASA Grade Assessment: IV - A patient with severe systemic disease that is a constant threat to life. After reviewing the risks and benefits, the patient was deemed in satisfactory condition to undergo the procedure. The anesthesia plan was to use monitored anesthesia care (MAC). Immediately prior to administration of medications, the patient was re-assessed for adequacy to receive sedatives. The heart rate, respiratory rate, oxygen saturations, blood pressure, adequacy of pulmonary ventilation, and response to care were monitored throughout the procedure. The physical status of the patient was re-assessed after the procedure. After obtaining informed consent, the endoscope was passed under direct vision. Throughout the procedure, the patient's blood pressure, pulse, and oxygen saturations were monitored continuously. The Endoscope was introduced through the mouth, and advanced to the second part of duodenum. The upper GI endoscopy was accomplished without difficulty. The patient tolerated the procedure well. Scope In: 10:30:44 AM Scope Out: 10:41:35 AM Total Procedure Duration Time 0 hours 10 minutes 51 seconds Findings: The examined esophagus was significantly tortuous. A large hiatal hernia was present. Ten oozing cratered duodenal ulcers with a visible vessel were found in the duodenal bulb. The largest lesion was 6 mm in largest dimension. Area was successfully injected with 4 mL of a 0.1 mg/mL solution of epinephrine for drug delivery. Coagulation for hemostasis using heater probe was successful. Estimated blood loss was minimal. Three non-bleeding linear duodenal ulcers with no stigmata of bleeding were found in the first portion of the duodenum and in the second portion of the duodenum. The largest lesion was 4 mm in largest dimension. Coagulation for bleeding prevention using argon beam at 0.3 liters/minute and 20 light was successful. Estimated blood loss was minimal. Impression: - Tortuous esophagus. - Large hiatal hernia. - Oozing duodenal ulcers with a visible vessel. Injected. Treated with a heater probe. - Non-bleeding duodenal ulcers with no stigmata of bleeding. Treated with argon beam coagulation. - No specimens collected. Recommendation: - Return patient to [facility] for [facility] care. - Advance diet as tolerated today. - Continue present medications. Procedure Code(s): --- Professional --- 83885, Esophagogastroduodenoscopy, flexible, transoral; with control of bleeding, any method 21105, 59,51, Esophagogastroduodenoscopy, flexible, transoral; with directed submucosal injection(s), any substance CPT copyright 2021 [employer]. All rights reserved. The codes documented in this report are preliminary and upon optical goods drill operator review may be revised to meet current compliance requirements. Willis Sarabia DO 08/12/2023 10:47:36 AM This report has been signed electronically. Number of Addenda: 0 Note Initiated On: 08/12/2023 10:17 AM
--- NOTE | 2023-08-12 10:48 | OP.CCLET_ITS ---
08/12/2023 Rick Marsh MD Re : Upper GI endoscopy procedure for Becca Carlos Dear Dr. Marsh This procedure was performed on Saturday, August 12, 2023. My impressions and recommendations are as follows: Impressions : - Tortuous esophagus. - Large hiatal hernia. - Oozing duodenal ulcers with a visible vessel. Injected. Treated with a heater probe. - Non-bleeding duodenal ulcers with no stigmata of bleeding. Treated with argon beam coagulation. - No specimens collected. Recommendations : - Return patient to [facility] for ongoing care. - Advance diet as tolerated today. - Continue present medications. My findings are described in the full procedure note, which is enclosed. If I can be of further assistance, please feel free to contact me at . Sincerely, Willis Sarabia, 08/12/2023 10:47:36 AM This report has been signed electronically.
--- NOTE | 2023-08-12 11:46 | RAD_ITS ---
STUDY: X-RAY CHEST REASON FOR EXAM: Female, 78 years old. Hypotension TECHNIQUE: Single AP portable view of the chest. COMPARISON: Comparison is made with prior study dated August 06, 2023. FINDINGS: EKG electrodes are seen. The lungs are clear and expanded. There is no demonstrated pleural abnormality. Normal size heart. Left-sided dual-chamber pacemaker is seen. Normal mediastinum and briseyda. Normal visualized pulmonary arteries. There is atherosclerotic calcification of the aortic arch with tortuosity. There is a dextroscoliosis of the thoracic spine. There is degenerative osteoarthritis of the bilateral shoulders. There is a large hiatal hernia. RAD/Chest 1 View (Portable) IMPRESSION: Large hiatal hernia. The lungs are clear. Electronically Signed: Juan Luis Heath MD at 11:58 EDT ,
--- NOTE | 2023-08-12 13:06 | PN_ITS ---
Subjective Subjective Patient seen and examined. She was admitted with a complaint of lightheadedness and dizziness. She was found to be hypotensive and anemic. She has no active complaints today and said she actually felt a bit better. She She says she has a pessary in place and says it was due to be changed in July by her urologist; however she missed her appointment several times because she was in hospital. She may get an infection of his no change clean once urology consulted. Data Transcriber on board admission for EGD today. Objective Data Objective Data Vital Signs: Vital Signs Temp Pulse Resp BP Pulse Ox O2 Del Method O2 Flow Rate 99.2 F H 91 30 H 97/64 93 Nasal Cannula 4 08/12/23 11:16 08/12/23 11:45 08/12/23 11:45 08/12/23 11:45 08/12/23 11:45 08/12/23 11:45 08/12/23 11:45 Oxygen Flow Rate (L/min) 4 Oxygen Delivery Method Nasal Cannula Weight: 167 lb 8.821 oz Body Mass Index (BMI) 32.8 Intake & Output: Intake and Output for Last 24 Hours 08/10/23 08/11/23 08/12/23 23:59 23:59 23:59 Intake Total 1719 / 1719 1722.5 / 1722.5 Output Total 550 / 550 800 / 800 Balance 1169 / 1169 922.5 / 922.5 Lab / Micro Data 08/12/23 04:25 08/12/23 04:25 Labs: Laboratory Results - last 24 hr 08/11/23 11:45: Blood Type O POSITIVE, Antibody Screen NEGATIVE, Crossmatch See Detail 08/11/23 15:40: WBC Cancelled, Corrected WBC Cancelled, RBC Cancelled, Hgb Cancelled, Hct Cancelled, MCV Cancelled, MCH Cancelled, MCHC Cancelled, RDW Std Deviation Cancelled, RDW Coeff of Solo Cancelled, Plt Count Cancelled, MPV Cancelled, Immature Gran % (Auto) Cancelled, Neut % (Auto) Cancelled, Lymph % (Auto) Cancelled, [place] % (Auto) Cancelled, Eos % (Auto) Cancelled, Baso % (Auto) Cancelled, Absolute Neuts (auto) Cancelled, Absolute Lymphs (auto) Cancelled, Total Counted Cancelled, Neutrophils % (Manual) Cancelled, Band Neutrophils % Cancelled, Lymphocytes % (Manual) Cancelled, Monocytes % (Manual) Cancelled, Eosinophils % (Manual) Cancelled, Basophils % (Manual) Cancelled, Metamyelocytes % Cancelled, Myelocytes % Cancelled, Promyelocytes % Cancelled, Blast Cells % Cancelled, Plasma Cell % (Manual) Cancelled, Other Cells % Cancelled, Nucleated RBC % Cancelled, Nucleated RBCs/100 WBC Cancelled, Differential Comment Cancelled, Diff Path Review Cancelled, Hypersegmented Neuts Cancelled, Atypical Lymphocytes Cancelled, Reactive Lymphocytes Cancelled, Smudge Cells Cancelled, Toxic Granulation Cancelled, Toxic Vacuolation Cancelled, Dohle Bodies Cancelled, Triston Rods Cancelled, Platelet Estimate Cancelled, Plt Morphology Comment Cancelled, RBC Morphology Cancelled 08/11/23 15:40: RBC Morphology Cancelled, Polychromasia Cancelled, Hypochromasia Cancelled, Basophilic Stippling Cancelled, Anisocytosis Cancelled, Microcytosis Cancelled, Macrocytosis Cancelled, Spherocytes Cancelled, Sickle Cells Cancelled, Target Cells Cancelled, Tear Drop Cells Cancelled, Ovalocytes Cancelled, Stomatocytes Cancelled, [place] Bodies Cancelled, [place] Cells Cancelled, Bite Cells Cancelled, Crenated Cell Cancelled, Acanthocytes (Spur) Cancelled, Rouleaux Cancelled, Schistocytes Cancelled, Sodium 138, Potassium 4.3, Chloride 110 H, Carbon Dioxide 23.0, Anion Gap 5, BUN 32 H, Creatinine 0.49 L, Estim Creat Clear Calc 52.02, Est GFR (MDRD) Af Amer 157, Est GFR (MDRD) Non- Af 129, BUN/Creatinine Ratio 65.2 H, Glucose 101, Calcium 8.1 L, Magnesium 1.7, Total Bilirubin 0.40, AST 26, ALT 16, Alkaline Phosphatase 61, Total Protein 5.0 L, Albumin 2.4 L, Globulin 2.6, Albumin/Globulin Ratio 0.9 08/11/23 16:25: WBC 6.5, RBC 2.14 L, Hgb 6.9 L, Hct 21.1 L, MCV 98.6, MCH 32.2 H , MCHC 32.7, RDW Std Deviation 51.6 H, RDW Coeff of Solo 14.6, Plt Count 151, MPV 11.6, Immature Gran % (Auto) 0.500, Neut % (Auto) 74.8 H, Lymph % (Auto) 15.0 L, [place] % (Auto) 8.2, Eos % (Auto) 1.2, Baso % (Auto) 0.3, Absolute Neuts (auto) 4.8, Absolute Lymphs (auto) 0.97, Nucleated RBC % 0, PT 16.8 H, INR 1.4 08/11/23 20:35: Hgb 7.7 L, Hct 23.4 L 08/12/23 04:25: WBC 7.4, RBC 2.46 L, Hgb 7.8 L, Hct 23.6 L, MCV 95.9, MCH 31.7, MCHC 33.1, RDW Std Deviation 56.5 H, RDW Coeff of Solo 16.1 H, Plt Count 137 L, MPV 11.9, Immature Gran % (Auto) 0.400, Neut % (Auto) 70.9 H, Lymph % (Auto) 18.1 L, [place] % (Auto) 7.0, Eos % (Auto) 3.2, Baso % (Auto) 0.4, Absolute Neuts (auto) 5.2, Absolute Lymphs (auto) 1.34, Nucleated RBC % 0, Sodium 145, Potassium 3.7, Chloride 115 H, Carbon Dioxide 26.0, Anion Gap 4 L, BUN 24 H, Creatinine 0.53 L, Estim Creat Clear Calc 52.79, Est GFR (MDRD) Af Amer 143, Est GFR (MDRD) Non-Af 119, BUN/Creatinine Ratio 45.3 H, Glucose 98, Calcium 8.1 L Radiography Diagnostic Testing: Radiology Impression Chest X-Ray 08/12/23 11:46 IMPRESSION: Large hiatal hernia. The lungs are clear. Electronically Signed: Juan Luis Heath MD at 11:58 EDT , Physical Exam Const alert, oriented x3, no apparent distress and well nourished General Appearance: cooperative and well developed HEENT normocephalic, head/scalp atraumatic and oropharynx normal Mouth: dry mucous membranes Eyes PERRL and EOMs intact bilaterally Neck no lymphadenopathy and supple Lymph Lymphatic: no lymphadenopathy noted and no lymphedema noted Resp normal respiratory effort, normal air movement and clear to auscultation bilaterally Cardio regular rate, regular rhythm, S1 normal heart sound, S2 normal heart sound and no murmurs GI normal to inspection, nondistended, normoactive bowel sounds, soft to palpation, non-tender and non-distended Extremity normal capillary refill, no clubbing, cyanosis or edema and no calf tenderness Skin General Skin Exam: no breakdown Neuro CN's II-XII intact bilaterally, no focal motor deficits, no sensory deficits noted and deep tendon reflexes 2+ bilaterally Motor Exam: strength 5/5 throughout and general weakness Psych thought process normal, cooperative and affect normal Appearance: appropriate Assessment & Plan Assessment/Plan (1) Hypotension (arterial): QUALIFIERS: Hypotension type: hypotension due to hypovolemia Qualified Code(s): E86.1 - Hypovolemia (2) Upper GI bleed: (3) Acute blood loss anemia: PLAN: Plan #Hypotension likely due to GI bleed * Patient's blood pressure still running in the 80s and 90s systolic at time of my review this morning. * Hydrate with IV fluids normal saline at 150 cc/h. She was transfused with 2 units of packed red blood cells. Hemoglobin today 7.8. * On IV pantoprazole 40 mg every 12 hours. GI on board. * Had EGD today which showed tortuous esophagus with large hiatal hernia and oozing duodenal ulcers with a visible vessel which was injected and treated with heater probe. She also had nonbleeding duodenal ulcers with no stigmata of bleeding which were treated with argon beam coagulation. * Windows Infrastructure Engineer consulted due to hypotension. * #Upper GI bleed: Eliquis on hold. Stool for occult blood positive. GI on board. #Hypertrophic cardiomyopathy * On metoprolol which was held due to hypotension. Had cardiac cath in July 2023 which did not show any evidence of hemodynamically significant stenosis. * Has known EF of 55% with mild concentric left ventricular hypertrophy and ICD pacing leads in situ in the right ventricle. #History of heart block: S/p pacemaker. #Paroxysmal A-fib: Metoprolol on hold due to hypotension as mentioned above. #Pelvic prolapse: * Has a pessary in place. * Says the pessary was due to be changed in July but she missed her appointments because she was in the hospital. She would like Dr Jernigan to evaluate her today. Urology consulted. * DVT prophylaxis: SCDs Charges/Coding Visit Charges Inpatient E&M: 23297 Subs Hosp L3
[2023-08-12 13:15] LABS: Lactic Acid 1.2 mmol/L (0.4-1.9)
[2023-08-12] MEDS: Ondansetron 4 MG/2 ML Vial IV (13:18)
[2023-08-12 14:09] LABS: Allen Test Positive; Base Excess -5 mmol/L (-2 to +2); Bicarbonate 18.8 mmol/L (22-26); Blood Gas Specimen Type ART; Mode Not entered; O2 Delivery Device HFNC; PO2 52 mmHG (75-100); SITE R Radial; SO2 89 % (95-99); Total Carbon Dioxide 20 mmol/L; pCO2 26.1 mmHg (35-45); pH 7.46 (7.35-7.45)
--- NOTE | 2023-08-12 14:15 | RAD_ITS ---
STUDY: X-RAY CHEST REASON FOR EXAM: Female, 78 years old. Sob TECHNIQUE: Single AP portable view of the chest. COMPARISON: Comparison is made with prior study done earlier in the day. FINDINGS: EKG electrodes are seen. There now is evidence of mild increased markings at the lung bases as compared to prior study suggestive of bibasilar atelectasis. There is no demonstrated pleural abnormality. A left-sided dual-chamber pacemaker is seen. Normal mediastinum and briseyda. Normal visualized pulmonary arteries. There is atherosclerotic calcification of the aortic arch with tortuosity. Normal visualized thoracic spine. There is degenerative osteoarthritis of the bilateral shoulders. Large hiatal hernia. RAD/Chest 1 View (Portable) IMPRESSION: Increased markings at the lung bases suggestive of bibasilar atelectasis as compared to prior study. Persistent large hiatal hernia. Electronically Signed: Juan Luis Heath MD at 14:34 EDT ,
[2023-08-12 14:40] LABS: Hematocrit 28.7 % (37-47)
[2023-08-12 14:49] LABS: Bacteria 0 SEEN /hpf (None Seen); Mucous, Urine 0 SEEN /hpf (<or=2+); Red Blood Cells-Urine 0 SEEN /hpf (0-5); Squamous Epithelial Cells - UA 0 SEEN /hpf (5-10); White Blood Cells 0 SEEN /hpf (0-5)
[2023-08-12 14:53] LABS: Color, Urine Yellow (Yellow); Glucose, Dipstick Normal (Normal); Ketone-Dipstick Negative (Negative); Leukocyte Esterase-Dipstick Negative /ul (Negative); Nitrite-Dipstick Negative (Negative); Occult Blood-Urine Negative /ul (Negative); Protein-Dipstick Negative (Negative); Urine Bilirubin Dipstick Negative (Negative); Urine Clarity Sl. Cloudy (Clear); Urine Urobilinogen Normal (Normal)
[2023-08-12 14:58] LABS: Anion Gap 7 (5-15); BUN 19 mg/dL (7-18); BUN/Creat Ratio 28.6 RATIO (10-20); Calcium,Total 8.2 mg/dL (8.5-10.1); Chloride 114 mmol/L (98-107); Creatinine, Serum 0.66 mg/dL (0.55-1.02); EST Glomerular Filtration Rate 91 mL/min (>60); Est Glom Filt Rate - Afr Amer 111 mL/min (>60); Estimated Creatinine Clearance 52.79 ml/min; Glucose 135 mg/dL (74-106); Potassium 3.7 mmol/L (3.5-5.1); Sodium Level 143 mmol/L (136-145)
[2023-08-12 15:02] LABS: Yeast-Urine 1+ /hpf (None Seen)
[2023-08-12] MEDS: Piperacil/Tazobactam 3.375 GM in 0.9% Normal Saline (50mL MB+) 50 ML IV ×2 (15:08→21:14)
[2023-08-12] MEDS: Acetaminophen 325 MG Tablet 650 MG PO (15:35)
[2023-08-12 16:34] LABS: Allen Test Positive; Base Excess -2 mmol/L (-2 to +2); Bicarbonate 20.5 mmol/L (22-26); Blood Gas Specimen Type ART; Comment 60 91; Mode Not entered; O2 Delivery Device AIRVO; PO2 102 mmHG (75-100); SITE R Radial; SO2 99 % (95-99); Total Carbon Dioxide 21 mmol/L; pCO2 24.2 mmHg (35-45); pH 7.54 (7.35-7.45)
[2023-08-12] MEDS: Norepinephrine 8 MG in 0.9% Normal Saline (250mL Bag) 242 ML 9.4 MG CONT INF (18:14)
[2023-08-13] VITALS (58 sets, daily range): BP systolic 70–153; BP diastolic 41–78; PULSE 69–110; RESP 12–28; TEMP 37.6–38.4; O2SAT 92–100; BMI 32.5
[2023-08-13] MEDS: Piperacil/Tazobactam 3.375 GM in 0.9% Normal Saline (50mL MB+) 50 ML IV ×3 (04:59→21:19)
[2023-08-13 05:49] LABS: Absolute Lymphocyte Count 1.47 X10^3/uL (0.83-4.51); Absolute Neutrophil Count 20.2 X10^3/uL (2.0-7.7); Basophil# 0.07 X10^3/uL; Basophil% 0.3 % (0-1); Eosinophil# 0.02 X10^3/uL; Eosinophils% 0.1 % (0-5); Hematocrit 24.3 % (37-47); Hemoglobin 7.9 g/dL (12.0-15.0); Lymphocyte # 1.47 X10^3/ul (0.83-4.51); Lymphocyte % 6.3 % (19-41); Mean Corp Hgb Conc 32.5 g/dL (32-36); Mean Corpuscular Hgb 31.6 pg (27.0-32.0); Mean Corpuscular Volume 97.2 fL (81-99); Mean Platelet Vol. 12.4 fl (6.2-12.0); NRBC Flagged by Analyzer 0 % (0-5); Neutrophil # 20.23 X10^3/uL (2.7-7.7); Neutrophil % 86.5 % (47-70); POSITIVE DIFFERENTIAL YES; Platelet Count 147 K/mm3 (150-450); RBC Distribution Width CV 16.1 % (11.6-14.6); RBC Distribution Width SD 56.2 fl (35.1-43.9); White Blood Count 23.4 K/mm3 (4.4-11.0)
[2023-08-13 06:01] LABS: Anion Gap 6 (5-15); BUN 20 mg/dL (7-18); BUN/Creat Ratio 26.2 RATIO (10-20); Calcium,Total 8.2 mg/dL (8.5-10.1); Chloride 113 mmol/L (98-107); Creatinine, Serum 0.76 mg/dL (0.55-1.02); EST Glomerular Filtration Rate 78 mL/min (>60); Est Glom Filt Rate - Afr Amer 94 mL/min (>60); Estimated Creatinine Clearance 52.46 ml/min; Glucose 152 mg/dL (74-106); Potassium 3.6 mmol/L (3.5-5.1); Sodium Level 143 mmol/L (136-145)
[2023-08-13 06:18] LABS: Differential Indicated SCAN CRITERIA MET
[2023-08-13] MEDS: Norepinephrine 8 MG in 0.9% Normal Saline (250mL Bag) 242 ML 28.1 MG CONT INF (06:36)
[2023-08-13 06:54] LABS: Differential Comment SCANNED
--- NOTE | 2023-08-13 07:23 | PN.CC_ITS ---
Assessment & Plan Assessment/Plan (1) Acute blood loss anemia: PLAN: Plan RECOMMENDATIONS: 1. Continue Levophed to maintain a mean arterial pressure at or above 65 mmHg. 2. Continue empiric antibiotics, pending culture results. 3. Check MRSA screen. 4. Obtain follow-up echocardiogram, given undifferentiated hypotension. 5. Perform cosyntropin stimulation test. 6. Obtain CT chest/abdomen/pelvis. 7. Continue PPI therapy as ordered. IMPRESSIONS: 1. Undifferentiated shock The patient initially presented to the hospital in the setting of suspected hypotension related to blood loss anemia. However, the patient received IV fluid resuscitation and is stabilized from a blood count perspective following transfusion of packed red blood cells. Nevertheless, she remains persistently hypotensive. No definitive source of infection has yet to be identified. However, given the patient's recent manipulation of her pacemaker and lead placement, blood cultures were obtained. In addition, urine culture was sent for analysis. The patient has been initiated on antibiotics to cover for potential underlying infection that has yet to be identified. Given her recent cardiac device manipulation, will obtain follow-up echocardiogram, along with dedicated CT chest/abdomen/pelvis. Lastly, a cosyntropin stimulation test will be performed to evaluate for adrenal insufficiency. In the interim, the patient will be continued on vasopressor support to maintain hemodynamic stability. 2. Acute blood loss anemia secondary to upper GI bleed on apixaban The patient underwent upper endoscopy which revealed oozing duodenal ulcers with a visible vessel, which was injected and treated with a heater probe. The patient remains on PPI therapy. Plan to continue to monitor H&H and transfuse if hemoglobin drops below 7 g/dL. Apixaban has been discontinued. 3. History of hypertrophic cardiomyopathy/history of heart block status post pacemaker/heart failure with preserved ejection fraction Complicates care, management, recovery and prognosis. Continue to hold beta- derrell for now. Will obtain follow-up echocardiogram, as noted above. TIME: 40 minutes of critical care time, independent of procedures, spent addressing the patient's undifferentiated shock, acute blood loss anemia, upper GI bleed, hypertrophic cardiomyopathy, review of all data and collaboration with care team. Subjective Subjective The patient was seen and examined at the bedside this morning. Events from the last 24 hours have been reviewed. Yesterday afternoon, after returning from her endoscopy procedure, the patient was noted to have worsening in her respiratory status. I personally reevaluated the patient and reviewed her endoscopic findings along with laboratory workup. The exact etiology for her persistent hypotension was not entirely clear. The patient also began to develop fevers. Therefore, I opted to error on the side of caution and obtained blood and urine cultures and started the patient on antibiotics. Her hemodynamic instability persisted and she ultimately had to be started on vasopressor support. At the present time, the patient is requiring Levophed at 15 mcg/min along with heated high flow oxygen with an FiO2 requirement of 40%. She is documented to be overall net +2 L for the hospitalization. The patient's white count has inc reased to 23,000 this morning. Hemoglobin is relatively stable at 7.9 g/dL. Chemistry profile remains within normal limits, with a normal creatinine. The patient's upper endoscopy revealed a tortuous esophagus with a large hiatal hernia and oozing duodenal ulcers which were injected and treated with a heater probe. The patient reported that she did not feel well this morning, but is unable to provide any additional details as to what is truly bothering her. Objective Data Objective Data The patient's most recent lab work, culture data and imaging studies have all been personally reviewed. Blood and urine cultures are pending. Vital Signs: Vital Signs Temp Pulse Resp BP Pulse Ox O2 Del Method O2 Flow Rate 100.3 F H 110 H 25 H 101/72 97 Airvo 40 08/13/23 07:00 08/13/23 07:00 08/13/23 07:00 08/13/23 07:00 08/13/23 07:00 08/13/23 07:00 08/13/23 07:00 FiO2 40 08/13/23 07:00 Oxygen Flow Rate (L/min) 40 Oxygen Delivery Method Airvo Weight: 165 lb 9.074 oz Body Mass Index (BMI) 32.5 Intake & Output: Intake and Output for Last 24 Hours 08/11/23 08/12/23 08/13/23 23:59 23:59 23:59 Intake Total 1719 / 1719 2157.86 / 2176.66 219.02 / 219.02 Output Total 550 / 550 1450 / 1450 Balance 1169 / 1169 707.86 / 726.66 219.02 / 219.02 Lab / Micro Data Attestation: I reviewed the patient's lab results. 08/13/23 04:55 08/13/23 04:55 Labs: Laboratory Results - last 24 hr 08/12/23 12:40: Lactic Acid 1.2 08/12/23 14:25: Hgb 9.0 L, Hct 28.7 L, Sodium 143, Potassium 3.7, Chloride 114 H , Carbon Dioxide 22.0, Anion Gap 7, BUN 19 H, Creatinine 0.66, Estim Creat Clear Calc 52.79, Est GFR (MDRD) Af Amer 111, Est GFR (MDRD) Non-Af 91, BUN/Creatinine Ratio 28.6 H, Glucose 135 H, Calcium 8.2 L 08/12/23 14:35: Urine Color Yellow, Urine Clarity Sl. Cloudy, Urine pH 6.0, Ur Specific [place] 1.020, Urine Protein Negative, Urine Glucose (UA) Normal, Urine Ketones Negative, Urine Occult Blood Negative, Urine Nitrite Negative, Urine Bilirubin Negative, Urine Urobilinogen Normal, Ur Leukocyte Esterase Negative, Urine RBC 0 SEEN, Urine WBC 0 SEEN, Ur Squamous Epith Cells 0 SEEN, Urine Bacteria 0 SEEN, Urine Mucus 0 SEEN, Urine Yeast 1+ 08/13/23 04:55: WBC 23.4 H, RBC 2.50 L, Hgb 7.9 L, Hct 24.3 L, MCV 97.2, MCH 31.6, MCHC 32.5, RDW Std Deviation 56.2 H, RDW Coeff of Solo 16.1 H, Plt Count 147 L, MPV 12.4 H, Immature Gran % (Auto) 0.800, Neut % (Auto) 86.5 H, Lymph % (Auto) 6.3 L, [place] % (Auto) 6.0, Eos % (Auto) 0.1, Baso % (Auto) 0.3, Absolute Neuts (auto) 20.2 H, Absolute Lymphs (auto) 1.47, Nucleated RBC % 0, Differential Comment SCANNED, Sodium 143, Potassium 3.6, Chloride 113 H, Carbon Dioxide 24.0, Anion Gap 6, BUN 20 H, Creatinine 0.76, Estim Creat Clear Calc 52.46, Est GFR (MDRD) Af Amer 94, Est GFR (MDRD) Non-Af 78, BUN/Creatinine Ratio 26.2 H, Glucose 152 H, Calcium 8.2 L ABG Data ABG results: ABG 08/12/23 08/12/23 14:04 16:31 Specimen Type ART ART Sample Site R Radial R Radial pH 7.46 H 7.54 H Bicarbonate Actual 18.8 L 20.5 L Total CO2 20 21 Base Excess -5 L -2 O2 Saturation 89 L 99 O2 % 15.0 91.0 ABG pCO2 26.1 L 24.2 L ABG pO2 52 L 102 H Jose Luis Test Positive Positive O2 Delivery Device HFNC AIRVO Vent Mode Not entered Not entered Clinical Comments 60 91 Radiography Diagnostic Testing: Radiology Impression Chest X-Ray 08/12/23 11:46 IMPRESSION: Large hiatal hernia. The lungs are clear. Electronically Signed: Juan Luis Heath MD at 11:58 EDT , Chest X-Ray 08/12/23 14:15 IMPRESSION: Increased markings at the lung bases suggestive of bibasilar atelectasis as compared to prior study. Persistent large hiatal hernia. Electronically Signed: Juan Luis Heath MD at 14:34 EDT , Physical Exam Const alert and oriented x3 General Appearance: cooperative HEENT normocephalic and head/scalp atraumatic Eyes PERRL, EOMs intact bilaterally and conjunctivae normal Neck supple General: trachea midline Chest inspection of chest normal Resp Effort and Inspection: tachypneic Auscultation: Negative for rales, rhonchi or wheezes Cardio regular rate and regular rhythm Heart Sounds: murmur GI soft to palpation and non-tender Extremity no clubbing, cyanosis or edema Skin no rashes or lesions noted Neuro CN's II-XII intact bilaterally, moves all extremities and no focal motor defic its Psych cooperative and affect normal Charges/Coding Procedures Hospitalists Procedures: [id number] Critical Care 1st Hr
--- NOTE | 2023-08-13 07:28 | ECHOD_ITS ---
Reason For Study: DYSPNEA Procedure This was a 2D Doppler, Color Flow transthoracic echocardiogram. Exam performed portable in ICU/CCU. Left Ventricle Normal LV size. Left ventricular systolic function is normal. The left ventricular ejection fraction is 70 %. No regional wall motion abnormalities noted. Right Ventricle Normal RV size. Normal systolic function. Tricuspid Valve Normal tricuspid valve. Mild to moderate (1-2+) tricuspid valve insufficiency. Pulmonary artery systolic pressure is 44 mmHg. Pericardium/Pleural No pericardial effusion. MMode/2D Measurements & Calculations LAV(MOD-bp): 43.7 ml LA A4 area: 15.7 cm2 RA A4 area: 8.2 cm2 LAV(MOD-bp) Indexed: 25.4 ml/m2 LAV(MOD-sp2): 54.9 ml LAV(MOD-sp4): 32.1 ml TAPSE: 1.7 cm Doppler Measurements & Calculations MV E max eduardo: 145.8 cm/sec Ao V2 max: 180.6 cm/sec TR max eduardo: 308.8 cm/sec Ao max P.0 mmHg TR max P.2 mmHg ECHO/Echo Complete Interpretation Summary Normal LV size. Left ventricular systolic function is normal. The left ventricular ejection fraction is 70 %. Pulmonary artery systolic pressure is 44 mmHg. Ordering Physician: Simone Arora Referring Physician: All Farris Performed By: Mandi Benton RCS
--- NOTE | 2023-08-13 07:35 | RAD_ITS ---
INDICATION: Respiratory Failure EXAMINATION/TECHNIQUE: X-RAY - XR Chest 1 View COMPARISON: Prior study dated: 08/12/2023 FINDINGS: LINES/DEVICES: New right-sided PICC line with its tip in the superior vena cava. Left-sided dual-chamber cardiac pacer device in stable position. LUNGS: Improved aeration of the right lung base. No focal infiltrate is seen at this time. No evidence of pleural effusions. MEDIASTINUM AND CARDIOVASCULAR STRUCTURES: Cardiac silhouette not enlarged. Central airways and mediastinal contour are unremarkable. BONES AND SOFT TISSUES: Large hiatal hernia is again seen. Stable osseous structures. RAD/Chest 1 View (Portable) IMPRESSION: 1. New right PICC line with its tip in the superior vena cava. 2. No radiographic evidence of acute cardiopulmonary disease. 3. Large hiatal hernia. Electronically Signed: Ovidio Singh MD at 8:08 EDT ,
[2023-08-13 08:24] LABS: Magnesium 1.8 mg/dL (1.6-2.6); Phosphorus 4.1 mg/dL (2.5-4.9)
--- NOTE | 2023-08-13 09:11 | CT_ITS ---
INDICATION: Undifferentiated Shock EXAMINATION: CTA CHEST, ABDOMEN AND PELVIS WITH CONTRAST - TECHNIQUE: A CTA of the chest, abdomen, and pelvis is obtained with sagittal and coronal reconstructed MIP views. Three-dimensional surface rendered sequence of the thoracic and abdominal aorta was obtained. A radiation dose optimization technique was used for this scan. 100 mL of Isovue-370. Oral contrast: None. RADIATION DOSAGE (If Supplied By Facility): CTDIvol = ( 16.52 ) mGy, DLP = ( 1153.19 ) mGycm COMPARISON: CTA of the chest of 07/21/2023 FINDINGS: CT CHEST: THORACIC AORTA: Ascending thoracic aortic aneurysm measuring up to 4.3 cm in AP diameter atherosclerotic calcifications of the aortic arch. No evidence of aortic dissection. ABDOMINAL AORTA: Atherosclerotic calcifications without evidence of aneurysm or dissection. Unremarkable celiac axis and SMA. Atherosclerotic calcifications of the origin of the left renal artery without significant stenosis. Patent FIORELLA. LUNGS: [Atelectatic changes in the lower lungs increased since previous exam. Patchy infiltrates in both upper lobes abutting the major fissures. No evidence of pleural effusions. MEDIASTINUM: The thyroid gland is normal. No mediastinal or hilar adenopathy. HEART: Heart is normal size. No pericardial effusion. No CAD. CT ABDOMEN AND PELVIS: LIVER: Hepatic steatosis. No focal lesion is seen. GALLBLADDER: Status post cholecystectomy. SPLEEN: Normal. PANCREAS: No masses or inflammation. ADRENAL GLANDS: Normal. KIDNEYS AND URETERS: 2 cm low-density lesion in the right kidney likely representing cyst. Another smaller cyst in the lower pole. No hydronephrosis or nephrolithiasis. No renal masses or cysts. STOMACH: Large hiatal hernia. GI TRACT: Normal in caliber small bowel loops. Fecal retention. Diverticulosis without evidence of acute diverticulitis. Limited evaluation of the pelvic region due to severe artifacts from hip arthroplasty. The appendix is not definitely identified. MESENTERY: No mesenteric inflammation. No ascites. IVC: Unremarkable RETROPERITONEUM: No retroperitoneal lymphadenopathy. PELVIC STRUCTURES: Crain catheter in the bladder. Bladder is not distended. Limited evaluation due to artifacts. SOFT TISSUES ABDOMEN: No discrete abdominal wall hernia. SOFT TISSUE CHEST: Cardiac pacer device in the left anterior chest wall creating artifacts. BONES: S-shaped scoliosis of the thoracolumbar spine. Multilevel degenerative changes. Bilateral total hip arthroplasty creating significant artifacts. CT/CTA Chst, Abd, Pel W and/or WO IMPRESSION: 1. No evidence of pulmonary embolism or aortic dissection. 2. Ascending thoracic aortic aneurysm measuring up to 4.3 cm in AP diameter. 3. Atelectatic changes in the lower lungs and mild patchy infiltrates in both upper lobes. 4. Diverticulosis without evidence of acute diverticulitis. 5. Otherwise no focal acute inflammatory process. Electronically Signed: Ovidio Singh MD at 11:18 EDT ,
[2023-08-13 09:23] LABS: M R Staph aureus DNA By PCR POSITIVE (Negative)
[2023-08-13] MEDS: Pantoprazole Sodium 40 MG in 0.9% Normal Saline (100mL MB+) 100 ML 330 MG IV ×2 (09:23→20:54)
[2023-08-13 09:24] LABS: Probe Check PASS
--- NOTE | 2023-08-13 09:49 | PCM.OP.PRO ---
Procedure Report Date of Procedure: 08/13/23 Arterial Line Indication: Hemorrhagic shock Consent was obtained from: Patient A time-out was completed verifying correct patient, procedure, site, positioning, and special equipment if applicable. Jose Luis's test was performed to ensure adequate perfusion. The patient's left wrist was prepped and draped in the sterile fashion. An 18-gauge arrow arterial line was introduced into the left radial artery. The catheter was threaded over the guidewire and the needle was removed with the appropriate pulsatile blood return. The catheter was then sutured in place to the skin and a sterile dressing applied. Perfusion to the extremity distal to the point of catheter insertion was checked and found to be adequate. ULTRASOUND GUIDANCE STATEMENT (Vascular Access): I perform ultrasound image acquisition and interpretation for needle placement during this procedure. The vessel was identified and found to be free of thrombosis by compression technique. A safe point of entry was marked at the skin and then angle for access was determined. The needle was guided by obtaining free-flowing fluid and by real-time visualization. Procedures Hospitalists Procedures: [id number] Insertion Catheter Artery
[2023-08-13] MEDS: Vancomycin HCl 2,000 MG in 0.9% Normal Saline (500mL Bag) 500 ML 250 MG IV (10:21)
--- NOTE | 2023-08-13 10:22 | PN_ITS ---
Subjective Subjective Patient seen and seen and examined. She had EGD yesterday which showed tortuous esophagus and large hiatal hernia as well as oozing duodenal ulcers with a visible vessel. She subsequently became very short of breath and hypotensive. She had to be started on levophed and IVF was discontinued.She is febrile this morning, and says she doesnt feel well. She is coughing and as on Airvo. She remains on levophed. Review of systems is otherwise negative. Objective Data Objective Data Vital Signs: Vital Signs Temp Pulse Resp BP Pulse Ox O2 Del Method O2 Flow Rate 100.7 F H 87 23 H 90/54 L 100 High Flow 12 08/13/23 10:00 08/13/23 10:00 08/13/23 10:00 08/13/23 10:15 08/13/23 10:00 08/13/23 10:00 08/13/23 10:00 FiO2 40 08/13/23 09:00 Oxygen Flow Rate (L/min) 12 Oxygen Delivery Method High Flow Weight: 165 lb 9.074 oz Body Mass Index (BMI) 32.5 Intake & Output: Intake and Output for Last 24 Hours 08/11/23 08/12/23 08/13/23 23:59 23:59 23:59 Intake Total 1719 / 1719 2157.86 / 2176.66 465.70 / 465.70 Output Total 550 / 550 1450 / 1450 Balance 1169 / 1169 707.86 / 726.66 465.70 / 465.70 Lab / Micro Data 08/13/23 04:55 08/13/23 04:55 Labs: Laboratory Results - last 24 hr 08/12/23 12:40: Lactic Acid 1.2 08/12/23 14:25: Hgb 9.0 L, Hct 28.7 L, Sodium 143, Potassium 3.7, Chloride 114 H , Carbon Dioxide 22.0, Anion Gap 7, BUN 19 H, Creatinine 0.66, Estim Creat Clear Calc 52.79, Est GFR (MDRD) Af Amer 111, Est GFR (MDRD) Non-Af 91, BUN/Creatinine Ratio 28.6 H, Glucose 135 H, Calcium 8.2 L 08/12/23 14:35: Urine Color Yellow, Urine Clarity Sl. Cloudy, Urine pH 6.0, Ur Specific [place] 1.020, Urine Protein Negative, Urine Glucose (UA) Normal, Urine Ketones Negative, Urine Occult Blood Negative, Urine Nitrite Negative, Urine Bilirubin Negative, Urine Urobilinogen Normal, Ur Leukocyte Esterase Negative, Urine RBC 0 SEEN, Urine WBC 0 SEEN, Ur Squamous Epith Cells 0 SEEN, Urine Cindy teria 0 SEEN, Urine Mucus 0 SEEN, Urine Yeast 1+ 08/13/23 04:55: WBC 23.4 H, RBC 2.50 L, Hgb 7.9 L, Hct 24.3 L, MCV 97.2, MCH 31.6, MCHC 32.5, RDW Std Deviation 56.2 H, RDW Coeff of Solo 16.1 H, Plt Count 147 L, MPV 12.4 H, Immature Gran % (Auto) 0.800, Neut % (Auto) 86.5 H, Lymph % (Auto) 6.3 L, [place] % (Auto) 6.0, Eos % (Auto) 0.1, Baso % (Auto) 0.3, Absolute Neuts (auto) 20.2 H, Absolute Lymphs (auto) 1.47, Nucleated RBC % 0, Differential Comment SCANNED, Sodium 143, Potassium 3.6, Chloride 113 H, Carbon Dioxide 24.0, Anion Gap 6, BUN 20 H, Creatinine 0.76, Estim Creat Clear Calc 52.46, Est GFR (MDRD) Af Amer 94, Est GFR (MDRD) Non-Af 78, BUN/Creatinine Ratio 26.2 H, Glucose 152 H, Calcium 8.2 L, Phosphorus 4.1, Magnesium 1.8 08/13/23 07:45: MRSA (PCR) POSITIVE H ABG Data ABG results: ABG 08/12/23 08/12/23 14:04 16:31 Specimen Type ART ART Sample Site R Radial R Radial pH 7.46 H 7.54 H Bicarbonate Actual 18.8 L 20.5 L Total CO2 20 21 Base Excess -5 L -2 O2 Saturation 89 L 99 O2 % 15.0 91.0 ABG pCO2 26.1 L 24.2 L ABG pO2 52 L 102 H Jose Luis Test Positive Positive O2 Delivery Device HFNC AIRVO Vent Mode Not entered Not entered Clinical Comments 60 91 Radiography Diagnostic Testing: Radiology Impression Chest X-Ray 08/12/23 11:46 IMPRESSION: Large hiatal hernia. The lungs are clear. Electronically Signed: Juan Luis Heath MD at 11:58 EDT , Chest X-Ray 08/12/23 14:15 IMPRESSION: Increased markings at the lung bases suggestive of bibasilar atelectasis as compared to prior study. Persistent large hiatal hernia. Electronically Signed: Juan Luis Heath MD at 14:34 EDT , Chest X-Ray 08/13/23 07:35 IMPRESSION: 1. New right PICC line with its tip in the superior vena cava. 2. No radiographic evidence of acute cardiopulmonary disease. 3. Large hiatal hernia. Electronically Signed: Ovidio Singh MD at 8:08 EDT , Physical Exam Const alert, oriented x3, no apparent distress and well nourished General Appearance: cooperative and well developed HEENT normocephalic, head/scalp atraumatic, moist oral mucous membranes and oropharynx normal Eyes PERRL and EOMs intact bilaterally Neck no lymphadenopathy and supple Lymph Lymphatic: no lymphadenopathy noted and no lymphedema noted Resp Resp Narrative: diminished breath sounds bibasally, bilateral crackles. on 12L of oxygen via AirVo. Cardio regular rate, regular rhythm, S1 normal heart sound, S2 normal heart sound and no murmurs GI normal to inspection, nondistended, normoactive bowel sounds, soft to palpation, non-tender and non-distended Extremity normal capillary refill, no clubbing, cyanosis or edema and no calf tenderness General Extremity: no tenderness to palpation of joints or extremities Skin General Skin Exam: no breakdown Neuro CN's II-XII intact bilaterally, no focal motor deficits, no sensory deficits noted and deep tendon reflexes 2+ bilaterally Motor Exam: strength 5/5 throughout and general weakness Psych thought process normal, cooperative and affect normal Appearance: appropriate Assessment & Plan Assessment/Plan (1) Hypotension (arterial): QUALIFIERS: Hypotension type: hypotension due to hypovolemia Qualified Code(s): E86.1 - Hypovolemia (2) Upper GI bleed: (3) Acute blood loss anemia: PLAN: Plan #Shock, likely septic * Patient developed a fever and tachypnea. She is now on 12 L of oxygen via Airvo * Also on Levophed. Critical care on board. Started on Zosyn and on IV Zosyn. * blood cultures ordered. * titrate levophed to maintain MAP >65 * On IV pantoprazole 40 mg every 12 hours. GI on board. * CT chest, abdomen and pelvis ordered. * 2D echo ordered. * #Acute hypoxic respiratory failure * Likely due to aspiration pneumonia. Patient vomited after EGD so there is concern for aspiration. * Now on Airvo. On IV Zosyn. * Breathing treatment with bronchodilators. Titrate oxygen to maintain saturation above 90%. * blood cultures and sputum cultures ordered. * #Upper GI bleed: * Eliquis on hold. * Stool for occult blood positive. * Had EGD which showed tortuous esophagus with large hiatal hernia and oozing duodenal ulcers with a visible vessel which was injected and treated with heater probe. She also had nonbleeding duodenal ulcers with no stigmata of bleeding which were treated with argon beam coagulation. * GI on board. #Hypertrophic cardiomyopathy * On metoprolol which was held due to hypotension. Had cardiac cath in July 2023 which did not show any evidence of hemodynamically significant stenosis. * Has known EF of 55% with mild concentric left ventricular hypertrophy and ICD pacing leads in situ in the right ventricle. #History of heart block: S/p pacemaker. #Paroxysmal A-fib: Metoprolol on hold due to hypotension as mentioned above. #Pelvic prolapse: * Has a pessary in place. * Says the pessary was due to be changed in July but she missed her appointments because she was in the hospital. She would like Dr Jernigan to evaluate her. Urology consulted. * DVT prophylaxis: SCDs Charges/Coding Visit Charges Inpatient E&M: [id number] [facility] L3
[2023-08-13] MEDS: 0.9% Saline Lock 10 ML Syringe IV ×4 (11:16→20:54)
[2023-08-13] MEDS: Cosyntropin 0.25 MG in 0.9% Normal Saline (Pres. free 4 ML 150 MG IV (11:16)
--- NOTE | 2023-08-13 11:19 | PCM.RX.CS ---
Consult Antibiotic Management Pharmacy has been consulted to manage selected antibiotic: Vancomycin Type of Intervention Type of Consult: New start Suspected Infection Suspected Infection: Pneumonia Prior Doses of Antibiotics Prior Doses of Antibiotics Received/Current Regimen: THis is a new start Labs Labs: Sodium 143 mmol/L (136-145) 08/13/23 04:55 Potassium 3.6 mmol/L (3.5-5.1) 08/13/23 04:55 Chloride 113 mmol/L (98-107) H 08/13/23 04:55 Carbon Dioxide 24.0 mmol/L (21.0-32.0) 08/13/23 04:55 Anion Gap 6 (5-15) 08/13/23 04:55 BUN 20 mg/dL (7-18) H 08/13/23 04:55 Creatinine 0.76 mg/dL (0.55-1.02) 08/13/23 04:55 Est GFR (MDRD) Af Amer 94 mL/min (>60) 08/13/23 04:55 Est GFR (MDRD) Non-Af 78 mL/min (>60) 08/13/23 04:55 BUN/Creatinine Ratio 26.2 RATIO (10-20) H 08/13/23 04:55 Glucose 152 mg/dL (74-106) H 08/13/23 04:55 Dosing Weight Weight used for dosin kg Estimated Creatinine Clearance Estimated Creatinine Clearance: 52 Goal Trough Goal Trough: 15-20 mcg/mL Pharmacy Plan for Drug Dosing Pharmacy Plan for Drug Dosing: Give loading dose of 2000mg x1. Maintenance dose of 750mg every 12 hours. Pharmacy Service will continue to monitor and adjust dosing as required. Follow-Up Labs Follow-Up Labs: Trough: Vancomycin Date/Time Labs Ordered Labs to be done on [date and time ordered]: 08/14/23 @ 2200
--- NOTE | 2023-08-13 12:49 | CHAPLAIN ---
Type of Pastoral Visit ___ Initial Visit _x__ Follow-up Visit ___ On-call Visit ___ General Patient Visit ___ Spiritual Assessment ___ Family Conference ___ Bereavement ___ Rapid Response ___ Code Blue ___ Other (describe below) Pastoral Care Referral From _x__ Patient ___ Family ___ Nurse ___ Physician ___ Animation Producer ___ Depilatory Painter ___ Other (describe below) Sacrament/Intervention ___ Active listening ___ Anointing ___ Mormonism ___ Bereavement ___ Communion ___ Destiny exploration ___ ___ Life review _x__ Prayer ___ Reconciliation ___ Sacrament of Sick _x__ Supportive presence ___ Wedding ___ Other (describe below) Pastoral Comments patient was previously seen in Rehab and is now in ICU; pt remembers and welcomes this director mobile but explains that she is not feeling well and would like a prayer spoken and then to rest; done as requested
[2023-08-13] MEDS: Lactated Ringers 1,000 ML 999 ML IV ×2 (13:20→14:55)
[2023-08-13 13:28] LABS: Troponin-I HS 34 pg/mL (3.0-54.0)
[2023-08-13] MEDS: Vasopressin 20 UNITS in 0.9% Normal Saline (50mL Bag) 24 ML 3 UNITS CONT INF ×2 (13:50→18:32)
[2023-08-13] MEDS: Acetaminophen 325 MG Tablet 650 MG PO (14:21)
[2023-08-13] MEDS: Norepinephrine 8 MG in 0.9% Normal Saline (250mL Bag) 242 ML 56.3 MG CONT INF (14:29)
--- NOTE | 2023-08-13 16:13 | CON.PCM_ITS ---
Assessment & Plan Assessment/Plan (1) Presence of pessary: PLAN: Pessary has been removed for the time being I will see her in the office for replacement when she is able I will follow her socially, please call if there are any urologic concerns Thank you HPI Consult Data Date of Consult: 08/13/23 HPI Narrative Reason for Consultation: Pessary care HPI Narrative: MARKOS BEASLEY, is a 78 F who has had significant events since yesterday. She developed acute blood loss anemia, has had endoscopic management of bleeding ulcers and now appears to be septic. She is a patient of mine that I follow in the office with a vaginal pessary for prolapse. She is due for a routine every 3 month cleaning. After discussing with her, we have decided to remove the pessary and I will take it to the office for autoclave and can have it available to her when she is healthy enough to get it replaced in the office. 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 Lumbar radiculopathy Osteoarthritis Pacemaker Pessary maintenance Presence of permanent cardiac pacemaker (~12/10/20) Presence of pessary Second degree type II atrioventricular block Home Medications lutein 20 mg capsule 20 mg PO DAILY EYE HEALTH 06/11/17 [History Last Taken 07/21/23] calcium carbonate 600 mg calcium (1,500 mg) tablet 600 mg PO BID SUPPLEMENT 06/11 10/30 [History Last Taken 08/11/23 09:00] estradiol 0.01% (0.1 mg/gram) vaginal cream 1 g vaginal SUWEFR HORMONES 06/26/21 [History Last Taken 08/10/23 05:00] apixaban 5 mg tablet (Eliquis) 5 mg PO BID blood thinner/afib 08/11/23 [History Last Taken 08/10/23 08:00] ascorbic acid (vitamin C) 500 mg capsule 1,000 mg PO DAILY supplement 08/11/23 [History Last Taken 08/11/23 09:00] metoprolol succinate 50 mg tablet,extended release 24 hr 25 mg PO DAILY heart/bp 08/11/23 [History Last Taken 08/11/23 09:00] multivitamin with minerals (Hair,Skin and Nails tablet) 1 tab PO DAILY Vitamin 08/11/23 [History Last Taken 08/11/23 09:00] vibegron 75 mg tablet (Gemtesa) 75 mg PO DAILY overactive bladder 08/11/23 [History Last Taken 08/11/23 09:00] Allergy/AdvReac Type Severity Reaction Status Date / Time procaine [From Novocain] Allergy Intermediate NEEDS Verified 07/18/23 15:57 FOLLOW-UP diclofenac [From Voltaren] Allergy Hives Verified 07/18/23 13:33 Family History Father Cancer prostate Grandmother Cancer Diabetes Grandfather No problems noted. Family History other Surgical History FH: bilateral hip replacements H/O bilateral cataract extraction H/O bilateral hip replacements History of hysterectomy History of tonsillectomy Hx of cholecystectomy Social History household members: none pets and animals: Yes (Jakubodradha named Rohan) pets and animals: dog(s) Smoking Status: Never smoker alcohol intake: never substance use type: does not use caffeine: Yes frequency: 5-6 times per week seatbelt use: always do you feel safe at home: Yes Physical Exam Const alert and oriented x3 Constitutional Narrative: Feeling very lightheaded, placed into Trendelenburg position with improvement of blood pressure and dizziness. HEENT normocephalic and head/scalp atraumatic Eyes General Eye: normal appearance of both eyes Neck supple Chest Chest: symmetrical chest wall rise Resp Effort and Inspection: able to speak in complete sentences and symmetric chest movement Cardio regular rate Narrative: Pessary was removed without difficulty, cleaned and taken with me to the office for autoclave in. Her Crain catheter is draining clear yellow urine at this time. Bladder / Kidney Exam: catheter in place urethral Extremity Extremity Narrative: SCDs are in place Skin no rashes or lesions noted General Skin Exam: pallor Neuro oriented x3, CN's II-XII intact bilaterally and moves all extremities Psych mental status grossly normal and thought process normal Lab / Micro Data 08/13/23 13:35 08/13/23 04:55 Labs: Laboratory Results - last 24 hr 08/11/23 11:45: Blood Type O POSITIVE, Antibody Screen NEGATIVE, Crossmatch See Detail 08/13/23 04:55: WBC 23.4 H, RBC 2.50 L, Hgb 7.9 L, Hct 24.3 L, MCV 97.2, MCH 31.6, MCHC 32.5, RDW Std Deviation 56.2 H, RDW Coeff of Solo 16.1 H, Plt Count 147 L, MPV 12.4 H, Immature Gran % (Auto) 0.800, Neut % (Auto) 86.5 H, Lymph % (Auto) 6.3 L, [place] % (Auto) 6.0, Eos % (Auto) 0.1, Baso % (Auto) 0.3, Absolute Neuts (auto) 20.2 H, Absolute Lymphs (auto) 1.47, Nucleated RBC % 0, Different ial Comment SCANNED, Sodium 143, Potassium 3.6, Chloride 113 H, Carbon Dioxide 24.0, Anion Gap 6, BUN 20 H, Creatinine 0.76, Estim Creat Clear Calc 52.46, Est GFR (MDRD) Af Amer 94, Est GFR (MDRD) Non-Af 78, BUN/Creatinine Ratio 26.2 H, Glucose 152 H, Calcium 8.2 L, Phosphorus 4.1, Magnesium 1.8, Troponin I High Sens 34 08/13/23 07:45: MRSA (PCR) POSITIVE H 08/13/23 11:15: Cortisol 38.70 H 08/13/23 12:16: Cortisol 57.40 H 08/13/23 13:35: Hgb 7.0 L, Hct 22.0 L Micro: Microbiology 08/13/23 13:25 Mucosa - Nose SARS-CoV-2, Influenza & RSV (PCR) - Final 08/12/23 14:35 Urine Catheter - Crain Urine Culture - Preliminary Yeast ABG Data ABG results: ABG 08/12/23 16:31 Specimen Type ART Sample Site R Radial pH 7.54 H Bicarbonate Actual 20.5 L Total CO2 21 Base Excess -2 O2 Saturation 99 O2 % 91.0 ABG pCO2 24.2 L ABG pO2 102 H Jose Luis Test Positive O2 Delivery Device AIRVO Vent Mode Not entered Clinical Comments 60 91 Imaging Radiology Impression Echocardiogram 08/13/23 07:28 Interpretation Summary Normal LV size. Left ventricular systolic function is normal. The left ventricular ejection fraction is 70 %. Pulmonary artery systolic pressure is 44 mmHg. Ordering Physician: Simone Arora Referring Physician: All Farris Performed By: Mandi Benton RCS Chest X-Ray 08/13/23 07:35 IMPRESSION: 1. New right PICC line with its tip in the superior vena cava. 2. No radiographic evidence of acute cardiopulmonary disease. 3. Large hiatal hernia. Electronically Signed: Ovidio Singh MD at 8:08 EDT , Chest/Abdomen/Pelvis CTA 08/13/23 09:11 IMPRESSION: 1. No evidence of pulmonary embolism or aortic dissection. 2. Ascending thoracic aortic aneurysm measuring up to 4.3 cm in AP diameter. 3. Atelectatic changes in the lower lungs and mild patchy infiltrates in both upper lobes. 4. Diverticulosis without evidence of acute diverticulitis. 5. Otherwise no focal acute inflammatory process. Electronically Signed: Ovidio Singh MD at 11:18 EDT ,
--- NOTE | 2023-08-13 16:22 | CASEMGMT ---
Social Work Pt was admitted from [facility] Inpatient Rehab. SW met with pt to discuss discharge plan. Pt confirms plan to return to when medically ready. [facility] is able to accept pt back. Plan: Inpatient Rehab, when medically ready MICHELE Yeager
[2023-08-13] MEDS: Norepinephrine 8 MG in 0.9% Normal Saline (250mL Bag) 242 ML 37.5 MG CONT INF (19:58)
[2023-08-13] MEDS: Vancomycin HCl 750 MG in 0.9% Normal Saline (250mL Bag) 250 ML 250 MG IV (21:19)
[2023-08-14] VITALS (40 sets, daily range): BP systolic 47–195; BP diastolic 32–114; PULSE 64–88; RESP 12–39; TEMP 37.4–38.1; O2SAT 87–100; BMI 32.8
[2023-08-14] MEDS: 0.9% Saline Lock 10 ML Syringe IV ×3 (03:12→07:32)
[2023-08-14] MEDS: Vasopressin 20 UNITS in 0.9% Normal Saline (50mL Bag) 24 ML 3 UNITS CONT INF ×2 (03:12→11:58)
[2023-08-14 03:33] LABS: Absolute Lymphocyte Count 1.51 X10^3/uL (0.83-4.51); Absolute Neutrophil Count 13.3 X10^3/uL (2.0-7.7); Basophil# 0.05 X10^3/uL; Basophil% 0.3 % (0-1); Eosinophil# 0.02 X10^3/uL; Eosinophils% 0.1 % (0-5); Hematocrit 24.3 % (37-47); Hemoglobin 7.7 g/dL (12.0-15.0); Lymphocyte # 1.51 X10^3/ul (0.83-4.51); Lymphocyte % 9.3 % (19-41); Mean Corp Hgb Conc 31.7 g/dL (32-36); Mean Corpuscular Hgb 30.4 pg (27.0-32.0); Mean Platelet Vol. 11.8 fl (6.2-12.0); Monocyte# 1.33 X10^3/uL; Monocyte% 8.2 % (0-10); NRBC Flagged by Analyzer 0.1 % (0-5); Neutrophil # 13.25 X10^3/uL (2.7-7.7); Neutrophil % 81.5 % (47-70); Platelet Count 114 K/mm3 (150-450); RBC Distribution Width CV 17.5 % (11.6-14.6); RBC Distribution Width SD 59.7 fl (35.1-43.9); Red Blood Count 2.53 M/mm3 (4.2-5.4); White Blood Count 16.3 K/mm3 (4.4-11.0)
[2023-08-14 03:59] LABS: Anion Gap 5 (5-15); BUN 20 mg/dL (7-18); BUN/Creat Ratio 32.2 RATIO (10-20); Calcium,Total 8.2 mg/dL (8.5-10.1); Chloride 116 mmol/L (98-107); Creatinine, Serum 0.62 mg/dL (0.55-1.02); EST Glomerular Filtration Rate 99 mL/min (>60); Est Glom Filt Rate - Afr Amer 119 mL/min (>60); Estimated Creatinine Clearance 52.46 ml/min; Glucose 177 mg/dL (74-106); Potassium 3.6 mmol/L (3.5-5.1); Sodium Level 144 mmol/L (136-145)
[2023-08-14] MEDS: Norepinephrine 8 MG in 0.9% Normal Saline (250mL Bag) 242 ML 28.1 MG CONT INF (05:41)
[2023-08-14] MEDS: Piperacil/Tazobactam 3.375 GM in 0.9% Normal Saline (50mL MB+) 50 ML IV (05:41)
--- NOTE | 2023-08-14 06:41 | PN.CC_ITS ---
Assessment & Plan Assessment/Plan (1) Acute blood loss anemia: PLAN: Plan RECOMMENDATIONS: 1. Continue vasopressor support to maintain hemodynamic stability. 2. Obtain follow-up chest x-ray and check troponin. 3. Cardiology consultation to assist with medical management of HOCM. 4. Transfusion additional blood products as ordered. Check H&H posttransfusion. 5. Continue empiric antibiotics. 6. Continue PPI therapy as ordered. IMPRESSIONS: 1. Undifferentiated shock The patient initially presented to the hospital in the setting of suspected hypotension related to blood loss anemia. However, the patient received IV flui d resuscitation and is stabilized from a blood count perspective following transfusion of packed red blood cells. Nevertheless, she remains persistently hypotensive. No definitive source of infection has yet to be identified. However, given the patient's recent manipulation of her pacemaker and lead placement, blood cultures were obtained. In addition, urine culture was sent for analysis. The patient has been initiated on antibiotics to cover for potential underlying infection that has yet to be identified. Given her recent cardiac device manipulation, follow-up echocardiogram was obtained, which revealed intact normal systolic function. However, in light of the patient's history of HOCM, will obtain cardiology consultation. If the patient were to become progressively tachycardic, she would require rate control on account of her history of HOCM. Vasopressor support will be continued as tolerated to maintain hemodynamic stability. 2. Acute blood loss anemia secondary to upper GI bleed on apixaban The patient underwent upper endoscopy which revealed oozing duodenal ulcers with a visible vessel, which was injected and treated with a heater probe. The patient remains on PPI therapy. Plan to continue to monitor H&H and transfuse if hemoglobin drops below 7 g/dL. Apixaban has been discontinued. 3. History of hypertrophic cardiomyopathy/history of heart block status post pacemaker/heart failure with preserved ejection fraction Complicates care, management, recovery and prognosis. The patient remains full CODE STATUS. TIME: 38 minutes of critical care time, independent of procedures, spent addressing the patient's undifferentiated shock, acute blood loss anemia, upper GI bleed, hypertrophic cardiomyopathy, review of all data and collaboration with care team. Subjective Subjective The patient was seen and examined at the bedside this morning. Events from the last 24 hours have been reviewed. This morning, the patient acutely decompensated from a hemodynamic perspective of unclear etiology. She was already on Levophed and vasopressin. A repeat stat H&H revealed that her hem oglobin was 7.6 g/dL. Therefore, additional blood products were ordered to be administered. The patient is currently receiving additional IV fluid resuscitation and was initiated on Mike-Synephrine as well. Yesterday, the patient had a CTA chest/abdomen/pelvis, which failed to demonstrate significant pathology. Her echocardiogram demonstrated an ejection fraction of 70% without any wall motion abnormalities. No definitive sources of infection have been identified to date. Despite this, the patient remains on broad-spectrum antimicrobials. Objective Data Objective Data The patient's most recent lab work, culture data and imaging studies have all been personally reviewed. Blood and urine cultures are pending. Vital Signs: Vital Signs Temp Pulse Resp BP Pulse Ox O2 Del Method O2 Flow Rate 99.7 F H 74 24 H 99/55 L 95 Nasal Cannula 3 08/14/23 06:00 08/14/23 06:00 08/14/23 06:00 08/14/23 06:00 08/14/23 06:00 08/14/23 06:00 08/14/23 06:00 FiO2 40 08/13/23 09:00 Oxygen Flow Rate (L/min) 3 Oxygen Delivery Method Nasal Cannula Weight: 168 lb 6.931 oz Body Mass Index (BMI) 32.8 Intake & Output: Intake and Output for Last 24 Hours 08/12/23 08/13/23 08/14/23 23:59 23:59 23:59 Intake Total 2157.86 / 2176.66 4249.85 / 4268.65 462.42 / 462.42 Output Total 1450 / 1450 775 / 775 200 / 200 Balance 707.86 / 726.66 3474.85 / 3493.65 262.42 / 262.42 Lab / Micro Data Attestation: I reviewed the patient's lab results. 08/14/23 07:05 08/14/23 03:16 Labs: Laboratory Results - last 24 hr 08/11/23 11:45: Blood Type O POSITIVE, Antibody Screen NEGATIVE, Crossmatch See Detail 08/13/23 04:55: Differential Comment SCANNED, Phosphorus 4.1, Magnesium 1.8, Troponin I High Sens 34 08/13/23 07:45: MRSA (PCR) POSITIVE H 08/13/23 11:15: Cortisol 38.70 H 08/13/23 12:16: Cortisol 57.40 H 08/13/23 13:35: Hgb 7.0 L, Hct 22.0 L 08/14/23 03:16: WBC 16.3 H, RBC 2.53 L, Hgb 7.7 L, Hct 24.3 L, MCV 96.0, MCH 30.4, MCHC 31.7 L, RDW Std Deviation 59.7 H, RDW Coeff of Solo 17.5 H, Plt Count 114 L, MPV 11.8, Immature Gran % (Auto) 0.600, Neut % (Auto) 81.5 H, Lymph % ( Auto) 9.3 L, [place] % (Auto) 8.2, Eos % (Auto) 0.1, Baso % (Auto) 0.3, Absolute Neuts (auto) 13.3 H, Absolute Lymphs (auto) 1.51, Nucleated RBC % 0.1, Sodium 144, Potassium 3.6, Chloride 116 H, Carbon Dioxide 23.0, Anion Gap 5, BUN 20 H, Creatinine 0.62, Estim Creat Clear Calc 52.46, Est GFR (MDRD) Af Amer 119, Est GFR (MDRD) Non-Af 99, BUN/Creatinine Ratio 32.2 H, Glucose 177 H, Calcium 8.2 L Micro: Microbiology 08/13/23 13:25 Mucosa - Nose SARS-CoV-2, Influenza & RSV (PCR) - Final 08/12/23 14:35 Urine Catheter - Crain Urine Culture - Preliminary Yeast ABG Data ABG results: ABG 08/12/23 08/12/23 14:04 16:31 Specimen Type ART ART Sample Site R Radial R Radial pH 7.46 H 7.54 H Bicarbonate Actual 18.8 L 20.5 L Total CO2 20 21 Base Excess -5 L -2 O2 Saturation 89 L 99 O2 % 15.0 91.0 ABG pCO2 26.1 L 24.2 L ABG pO2 52 L 102 H Jose Luis Test Positive Positive O2 Delivery Device HFNC AIRVO Vent Mode Not entered Not entered Clinical Comments 60 91 Radiography Diagnostic Testing: Radiology Impression Echocardiogram 08/13/23 07:28 Interpretation Summary Normal LV size. Left ventricular systolic function is normal. The left ventricular ejection fraction is 70 %. Pulmonary artery systolic pressure is 44 mmHg. Ordering Physician: Simone Arora Referring Physician: All Farris Performed By: Mandi Benton RCS Chest X-Ray 08/13/23 07:35 IMPRESSION: 1. New right PICC line with its tip in the superior vena cava. 2. No radiographic evidence of acute cardiopulmonary disease. 3. Large hiatal hernia. Electronically Signed: Ovidio Singh MD at 8:08 EDT , Chest/Abdomen/Pelvis CTA 08/13/23 09:11 IMPRESSION: 1. No evidence of pulmonary embolism or aortic dissection. 2. Ascending thoracic aortic aneurysm measuring up to 4.3 cm in AP diameter. 3. Atelectatic changes in the lower lungs and mild patchy infiltrates in both upper lobes. 4. Diverticulosis without evidence of acute diverticulitis. 5. Otherwise no focal acute inflammatory process. Electronically Signed: Ovidio Singh MD at 11:18 EDT , Physical Exam Const alert and oriented x3 General Appearance: in distress and ill appearing HEENT normocephalic and head/scalp atraumatic Eyes PERRL, EOMs intact bilaterally and conjunctivae normal Neck supple General: trachea midline Chest inspection of chest normal Resp Effort and Inspection: tachypneic and labored Auscultation: Negative for rales, rhonchi or wheezes Cardio regular rate and regular rhythm Cardio Narrative: Paced rhythm with frequent ectopy Heart Sounds: murmur GI soft to palpation and non-tender Extremity no clubbing, cyanosis or edema Skin no rashes or lesions noted Neuro CN's II-XII intact bilaterally, moves all extremities and no focal motor deficits Psych cooperative and affect normal Charges/Coding Procedures Hospitalists Procedures: [id number] Critical Care 1st Hr
[2023-08-14] MEDS: Lactated Ringers 1,000 ML 999 ML IV (06:55)
[2023-08-14] MEDS: Ondansetron 4 MG/2 ML Vial IV (07:11)
[2023-08-14 07:20] LABS: Hematocrit 23.6 % (37-47); Hemoglobin 7.6 g/dL (12.0-15.0)
--- NOTE | 2023-08-14 07:30 | RAD_ITS ---
INDICATION: increased O2 needs EXAMINATION/TECHNIQUE: X-RAY - XR Chest 1 View COMPARISON: Prior study dated: 08/13/2023 FINDINGS: LINES/DEVICES: Left-sided dual-chamber pacemaker in stable position. LUNGS: Patchy infiltrates in the right mid and lower lung zones new since the previous exam. No evidence of pleural effusions. MEDIASTINUM AND CARDIOVASCULAR STRUCTURES: Stable cardiomediastinal silhouette. Large hiatal hernia is again seen. BONES AND SOFT TISSUES: Unremarkable. RAD/Chest 1 View (Portable) IMPRESSION: 1. Patchy infiltrates in the right lung new since previous exam concerning for pneumonia. 2. Large hiatal hernia. Electronically Signed: Ovidio Singh MD at 9:05 EDT ,
[2023-08-14] MEDS: Phenylephrine 1 MG/10 ML SYRINGE 0.5 MG IV ×2 (07:32)
[2023-08-14] MEDS: Phenylephrine 10 MG in 0.9% Normal Saline (250mL Bag) 249 ML 15 MG CONT INF (07:34)
--- NOTE | 2023-08-14 07:59 | NURSING ---
Around 0650, pt was assisted off the bedpan by the EMBEDDED SOFTWARE MANAGER. Pt had a large black tarry stool. Very shortly after, pt began c/o severe dizziness, nausea, and arterial blood pressures were reading low with MAPs in the 40s. Cuff pressures were correlating with arterial pressures as well. Dr. Arora notified and orders were given to transfuse the unit of blood on hold, give 1 L LR bolus, and obtain a stat H/H. Even after bolus was running, MAPs were still in the 40s and pt was extremely diaphoretic and pale. 500 mcg phenylephrine IV x1 given per Dr. Arora, with a second 500 mcg dose given shortly after d/t persistent hypotension. Dr. Arora at bedside. Phenylephrine gtt, stat troponin, EKG, and chest Xray orders placed, as well as a second unit of blood to give now.
[2023-08-14 08:03] LABS: Troponin-I HS 79 pg/mL (3.0-54.0)
[2023-08-14 08:06] LABS: Troponin-I HS 68 pg/mL (3.0-54.0)
[2023-08-14 09:19] LABS: Lactic Acid 5.2 mmol/L (0.4-1.9)
--- NOTE | 2023-08-14 09:39 | PCM.CONS.C ---
Assessment & Plan Assessment/Plan (1) Hemorrhagic shock: PLAN: Patient is getting packed RBC transfusions. Monitor H&H. Follow as per GI. Patient is noted to have LVOT obstruction with possible HOCM on echocardiogram from [facility]. Inotropic agents may make the LVOT obstruction worse and paradoxically lower the blood pressure. Recommend weaning off norepinephrine. Maximize preload with IV fluids/packed cell transfusions. (2) Upper GI bleed: PLAN: Follow as per GI. (3) Hypertrophic obstructive cardiomyopathy: PLAN: See #1 above. (4) Paroxysmal atrial fibrillation: PLAN: Patient with GI bleed. Not a candidate for antiplatelet agents or anticoagulation. (5) Sick sinus syndrome: PLAN: Status post permanent pacemaker placement. (6) Presence of permanent cardiac pacemaker: (7) Mitral regurgitation: PLAN: Plan Moderate mitral valve regurgitation noted on echocardiogram from [facility]. Monitor. HPI Consult Data Date of Consult: 08/14/23 HPI Narrative Reason for Consultation: Shock HPI Narrative: This 78-year-old lady has past medical history significant for paroxysmal atrial fibrillation and sick sinus syndrome status post permanent pacemaker placement. He has been admitted to the hospital this time with GI bleed. She has had an EGD done on the third which showed an oozing duodenal ulcer. That apparently was treated with a heater probe. Patient's hemoglobin after blood transfusions on the third was 9.0 g/dL. She however continues to be markedly hypotensive requiring vasopressor agents for hemodynamic support. This morning she is getting her fourth unit of packed cells since yesterday. Her hemoglobin this morning was 7.6 g/dL. Patient denies any chest pains. No shortness of breath. She has had an echocardiogram done yesterday. It showed normal LV systolic function with ejection fraction of 70%. On echocardiogram from [facility] on 07/22/2023, patient was reported to have moderate mitral valve regurgitation. Systolic anterior motion of the mitral leaflet was noted, suggesting hypertrophic obstructive cardiomyopathy. COUNTS INCLUDE 234 BEDS AT THE [facility] Medical History (Updated 08/14/23 @ 09:[address] 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 Lumbar radiculopathy Osteoarthritis Pacemaker Pessary maintenance Presence of permanent cardiac pacemaker (~12/10/20) Presence of pessary Second degree type II atrioventricular block Home Medications lutein 20 mg capsule 20 mg PO DAILY EYE HEALTH 06/11/17 [History Last Taken 07/21/23] calcium carbonate 600 mg calcium (1,500 mg) tablet 600 mg PO BID SUPPLEMENT 06/26/21 [History Last Taken 08/11/23 09:00] estradiol 0.01% (0.1 mg/gram) vaginal cream 1 g vaginal SUWEFR HORMONES 06/26/21 [History Last Taken 08/10/23 05:00] apixaban 5 mg tablet (Eliquis) 5 mg PO BID blood thinner/afib 08/11/23 [History Last Taken 08/10/23 08:00] ascorbic acid (vitamin C) 500 mg capsule 1,000 mg PO DAILY supplement 08/11/23 [History Last Taken 08/11/23 09:00] metoprolol succinate 50 mg tablet,extended release 24 hr 25 mg PO DAILY heart/bp 08/11/23 [History Last Taken 08/11/23 09:00] multivitamin with minerals (Hair,Skin and Nails tablet) 1 tab PO DAILY Vitamin 08/11/23 [History Last Taken 08/11/23 09:00] vibegron 75 mg tablet (Gemtesa) 75 mg PO DAILY overactive bladder 08/11/23 [History Last Taken 08/11/23 09:00] Allergy/AdvReac Type Severity Reaction Status Date / Time procaine [From Novocain] Allergy Intermediate NEEDS Verified 07/18/23 15:57 FOLLOW-UP diclofenac [From Voltaren] Allergy Hives Verified 07/18/23 13:33 Family History Father Cancer prostate Grandmother Cancer Diabetes Grandfather No problems noted. Family History other Surgical History FH: bilateral hip replacements H/O bilateral cataract extraction H/O bilateral hip replacements History of hysterectomy History of tonsillectomy Hx of cholecystectomy Social History household members: none pets and animals: Yes (Buddyle named Rohan) pets and animals: dog(s) Smoking Status: Never smoker alcohol intake: never substance use type: does not use caffeine: Yes frequency: 5-6 times per week seatbelt use: always do you feel safe at home: Yes Physical Exam Narrative Appears comfortable. No apparent distress. Heart sounds 1 and 2 are noted. 3/6 systolic murmur at apex and base. Decreased breath sounds at bases. No ankle edema. Risk Stratification Risk Stratification Applicable: No Objective Data Vital Signs: Vital Signs Temp Pulse Resp BP Pulse Ox O2 Del Method O2 Flow Rate 100.2 F H 82 32 H 102/70 97 Airvo 60 08/14/23 09:00 08/14/23 09:30 08/14/23 09:00 08/14/23 09:30 08/14/23 09:00 08/14/23 09:00 08/14/23 09:00 FiO2 90 08/14/23 09:10 Oxygen Flow Rate (L/min) 60 Oxygen Delivery Method Airvo Weight: 168 lb 6.931 oz Body Mass Index (BMI) 32.8 Intake & Output: Intake and Output for Last 24 Hours 08/12/23 08/13/23 08/14/23 23:59 23:59 23:59 Intake Total 2157.86 / 2176.66 4249.85 / 4268.65 1760.82 / 1760.82 Output Total 1450 / 1450 775 / 775 400 / 400 Balance 707.86 / 726.66 3474.85 / 3493.65 1360.82 / 1360.82 Lab / Micro Data 08/14/23 07:05 08/14/23 03:16 Labs: Laboratory Results - last 24 hr 08/11/23 11:45: Blood Type O POSITIVE, Antibody Screen NEGATIVE, Crossmatch See Detail 08/11/23 11:45: Crossmatch See Detail 08/13/23 04:55: Troponin I High Sens 34 08/13/23 11:15: Cortisol 38.70 H 08/13/23 12:16: Cortisol 57.40 H 08/13/23 13:35: Hgb 7.0 L, Hct 22.0 L 08/14/23 03:16: WBC 16.3 H, RBC 2.53 L, Hgb 7.7 L, Hct 24.3 L, MCV 96.0, MCH 30.4, MCHC 31.7 L, RDW Std Deviation 59.7 H, RDW Coeff of Solo 17.5 H, Plt Count 114 L, MPV 11.8, Immature Gran % (Auto) 0.600, Neut % (Auto) 81.5 H, Lymph % (Auto) 9.3 L, Taliaferro % (Auto) 8.2, Eos % (Auto) 0.1, Baso % (Auto) 0.3, Absolute Neuts (auto) 13.3 H, Absolute Lymphs (auto) 1.51, Nucleated RBC % 0.1, Sodium 144, Potassium 3.6, Chloride 116 H, Carbon Dioxide 23.0, Anion Gap 5, BUN 20 H, Creatinine 0.62, Estim Creat Clear Calc 52.46, Est GFR (MDRD) Af Amer 119, Est GFR (MDRD) Non-Af 99, BUN/Creatinine Ratio 32.2 H, Glucose 177 H, Calcium 8.2 L, Troponin I High Sens 79 H 08/14/23 07:05: Hgb 7.6 L, Hct 23.6 L 08/14/23 07:35: Troponin I High Sens 68 H 08/14/23 08:30: Lactic Acid 5.2 H* Micro: Microbiology 08/13/23 13:25 Mucosa - Nose SARS-CoV-2, Influenza & RSV (PCR) - Final 08/12/23 14:35 Urine Catheter - Crain Urine Culture - Preliminary Yeast Cardiology Labs/Tests 08/13/23 13:35: Hgb 7.0 L, Hct 22.0 L 08/14/23 03:16: WBC 16.3 H, RBC 2.53 L, Hgb 7.7 L, Hct 24.3 L, MCV 96.0, MCH 30.4, MCHC 31.7 L, Plt Count 114 L, MPV 11.8, Immature Gran % (Auto) 0.600, Neut % (Auto) 81.5 H, Lymph % (Auto) 9.3 L, Taliaferro % (Auto) 8.2, Eos % (Auto) 0.1, Baso % (Auto) 0.3, Absolute Neuts (auto) 13.3 H, Nucleated RBC % 0.1, Sodium 144, Potassium 3.6, Chloride 116 H, Carbon Dioxide 23.0, Anion Gap 5, BUN 20 H, Creatinine 0.62, Est GFR (MDRD) Af Amer 119, Est GFR (MDRD) Non-Af 99, BUN/Creatinine Ratio 32.2 H, Glucose 177 H, Calcium 8.2 L 08/14/23 07:05: Hgb 7.6 L, Hct 23.6 L 08/14/23 08:30: Lactic Acid 5.2 H* Rhythm: EKG: ECG with on demand AV sequential electronic pacemaker activity. ECHO: LVEF reported at 70%. Stress Test: Cardiac Cath: PCI: CT Surgery: Holter monitor: EPS: PPM: CXR: Chest CT Scan: Radiography Diagnostic Testing: Radiology Impression Echocardiogram 08/13/23 07:28 Interpretation Summary Normal LV size. Left ventricular systolic function is normal. The left ventricular ejection fraction is 70 %. Pulmonary artery systolic pressure is 44 mmHg. Ordering Physician: Simone Arora Referring Physician: All Farris Performed By: Mandi Benton RCS Chest/Abdomen/Pelvis CTA 08/13/23 09:11 IMPRESSION: 1. No evidence of pulmonary embolism or aortic dissection. 2. Ascending thoracic aortic aneurysm measuring up to 4.3 cm in AP diameter. 3. Atelectatic changes in the lower lungs and mild patchy infiltrates in both upper lobes. 4. Diverticulosis without evidence of acute diverticulitis. 5. Otherwise no focal acute inflammatory process. Electronically Signed: Ovidio Singh MD at 11:18 EDT , Chest X-Ray 08/14/23 07:30 IMPRESSION: 1. Patchy infiltrates in the right lung new since previous exam concerning for pneumonia. 2. Large hiatal hernia. Electronically Signed: Ovidio Singh MD at 9:05 EDT ,
[2023-08-14] MEDS: Pantoprazole Sodium 40 MG in 0.9% Normal Saline (100mL MB+) 100 ML 330 MG IV (10:17)
[2023-08-14] MEDS: 0.9% Normal Saline (1000mL) 1,000 ML 15 ML IV (10:18)
[2023-08-14] MEDS: Vancomycin HCl 750 MG in 0.9% Normal Saline (250mL Bag) 250 ML 250 MG IV (10:37)
[2023-08-14] MEDS: Phenylephrine 10 MG in 0.9% Normal Saline (250mL Bag) 249 ML 105 MG CONT INF (11:36)
[2023-08-14 12:46] LABS: Reflex Lactate? Y
--- NOTE | 2023-08-14 16:06 | DS.PCM_ITS ---
Providers Date of Admission: 08/11/23 Date of Discharge: 08/14/23 Primary Care Physician: Dr. Rick Marsh MD Consultations 08/11/23 15:19 Consult: Gastroenterology Routine Consulting Provider: [facility] Reason for Consult: GI bleed EMERGENT Consult: No Notified: Yes Date Notified: 08/11/23 Time Notified: 15:19 Method of Notification: Verbal 08/11/23 15:40 Consult: Dye Tub Tender / Pulmonary Medicine Routine Consulting Provider: Intensivists/Pulmonary Med Reason for Consult: Severe anemia, hypotension. EMERGENT Consult: No Notified: Yes Date Notified: 08/11/23 Time Notified: 15:40 Method of Notification: Text 08/12/23 13:31 Consult: Urology Routine Consulting Provider: Courtney Jernigan Reason for Consult: patient request o/a of pessary in situ that needs to be changed EMERGENT Consult: No Notified: Yes Date Notified: 08/12/23 Time Notified: 13:31 Method of Notification: Text 08/14/23 08:02 Consult: Cardiology Stat Consulting Provider: Jorge Bassett [facility] Reason for Consult: cardiac failure EMERGENT Consult: Yes MD Notified: Yes Date Notified: 08/14/23 Time Notified: 08:02 Method of Notification: Verbal Method of Consult:: In-Person Reason For Visit: HYPOTENSION WITH SEVERE ANEMIA Diagnosis Discharge Diagnosis (1) Hemorrhagic shock: Status: Acute Code(s): R57.8 - Other shock (2) Upper GI bleed: Status: Acute Code(s): K92.2 - Gastrointestinal hemorrhage, unspecified (3) Hypertrophic obstructive cardiomyopathy: Status: Acute Code(s): I42.1 - Obstructive hypertrophic cardiomyopathy (4) Paroxysmal atrial fibrillation: Status: Acute Code(s): I48.0 - Paroxysmal atrial fibrillation (5) Sick sinus syndrome: Status: Acute Code(s): I49.5 - Sick sinus syndrome (6) Presence of permanent cardiac pacemaker: Status: Chronic Code(s): Z95.0 - Presence of cardiac pacemaker (7) Mitral regurgitation: Status: Acute Code(s): I34.0 - Nonrheumatic mitral (valve) insufficiency (8) Acute blood loss anemia: Status: Acute Code(s): D62 - Acute posthemorrhagic anemia Plan #Shock, likely septic * Patient developed a fever and tachypnea. She is now on 12 L of oxygen via Airvo * Also on Levophed. Critical care on board. Started on Zosyn and on IV Zosyn. * blood cultures ordered. * titrate levophed to maintain MAP >65 * On IV pantoprazole 40 mg every 12 hours. GI on board. * CT chest, abdomen and pelvis ordered. * 2D echo ordered. * #Acute hypoxic respiratory failure * Likely due to aspiration pneumonia. Patient vomited after EGD so there is concern for aspiration. * Now on Airvo. On IV Zosyn. * Breathing treatment with bronchodilators. Titrate oxygen to maintain saturation above 90%. * blood cultures and sputum cultures ordered. * #Upper GI bleed: * Eliquis on hold. * Stool for occult blood positive. * Had EGD which showed tortuous esophagus with large hiatal hernia and oozing duodenal ulcers with a visible vessel which was injected and treated with heater probe. She also had nonbleeding duodenal ulcers with no stigmata of bleeding which were treated with argon beam coagulation. * GI on board. #Hypertrophic cardiomyopathy * On metoprolol which was held due to hypotension. Had cardiac cath in July 2023 which did not show any evidence of hemodynamically significant stenosis. * Has known EF of 55% with mild concentric left ventricular hypertrophy and ICD pacing leads in situ in the right ventricle. #History of heart block: S/p pacemaker. #Paroxysmal A-fib: Metoprolol on hold due to hypotension as mentioned above. #Pelvic prolapse: * Has a pessary in place. * Says the pessary was due to be changed in July but she missed her appointments because she was in the hospital. She would like Dr Jernigan to evaluate her. Urology consulted. * DVT prophylaxis: SCDs Medications at Discharge Home Medications lutein 20 mg capsule 20 mg PO DAILY EYE HEALTH 06/11/17 calcium carbonate 600 mg calcium (1,500 mg) tablet 600 mg PO BID SUPPLEMENT 06/26/21 estradiol 0.01% (0.1 mg/gram) vaginal cream 1 g vaginal SUWEFR HORMONES 06/26/21 apixaban 5 mg tablet (Eliquis) 5 mg PO BID blood thinner/afib 08/11/23 ascorbic acid (vitamin C) 500 mg capsule 1,000 mg PO DAILY supplement 08/11/23 metoprolol succinate 50 mg tablet,extended release 24 hr 25 mg PO DAILY heart/bp 08/11/23 multivitamin with minerals (Hair,Skin and Nails tablet) 1 tab PO DAILY Vitamin 08/11/23 vibegron 75 mg tablet (Gemtesa) 75 mg PO DAILY overactive bladder 08/11/23 Hospital Course Operations None Procedures EGD Summary of Care Provided Minutes Spent on Discharge: 70 Hospital Course: Patient is a 78-year-old female with a past medical history as outlined was admitted from the acute rehab facility after she was found dizzy and lightheaded on the morning of admission. She was admitted on 08/11/2023 and says she had not been feeling well for the past couple of days prior to admission. The day before admission she had nausea and vomiting with assisted loss of appetite and fatigue. She did not have any chest pain, pressure or dizziness. She denied any shortness of breath. Patient was found to be hypotensive in the rehab facility with her blood pressure being in the 80s systolic. She was also noted to have had a drop in her hemoglobin. She was admitted to the ICU on account of hypotension and hydrated with IV fluids. PRBC was also ordered. She was admitted and managed for acute upper GI bleed and hypotension. Gastroenterology was consulted and she had EGD which showed tortuous esophagus with large hiatal hernia and oozing duodenal ulcer with a visible vessel which was treated and injected with a heater probe. Post EGD, hospital course was complicated by hypoxia with patient requiring increasing amounts of oxygen. Patient also became hypotensive. She required vasopressors. She was started on broad- spectrum antibiotics. However hypotension persisted and she had to have phenylephrine added onto the Levophed. Vasopressin was subsequently also added on. Patient however still remained hypotensive and was not responding to treatment. Decision was therefore made to transfer patient to tertiary facility in light of her requiring multiple vasopressors. Patient was accepted at [facility]. She was transferred to [facility] on 08/14/2023. Patient was seen and examined prior to discharge. She was quite weak and frail. She says she was not feeling so good. She however denied any fever or chills, nausea vomiting or any other symptoms. She was on Airvo. She remained on vasopressors. Review of systems otherwise negative. Physical Exam Const alert, oriented x3, no apparent distress and well nourished General Appearance: cooperative, comfortable and well developed HEENT normocephalic, head/scalp atraumatic, hearing grossly normal bilaterally, moist oral mucous membranes and oropharynx normal Mouth: oral and palatal mucosa normal Eyes PERRL, EOMs intact bilaterally and conjunctivae normal Neck no lymphadenopathy and supple Lymph Lymphatic: no lymphadenopathy noted and no lymphedema noted Resp normal respiratory effort, normal air movement and clear to auscultation bilaterally Resp Narrative: diminished breath sounds bibasally, bilateral crackles. on BIPAP. Cardio regular rate, regular rhythm, S1 normal heart sound, S2 normal heart sound and no murmurs GI normal to inspection, nondistended, normoactive bowel sounds, soft to palpation, non-tender and non-distended Extremity normal capillary refill, no clubbing, cyanosis or edema and no calf tenderness General Extremity: no tenderness to palpation of joints or extremities Skin no rashes or lesions noted General Skin Exam: no breakdown Neuro oriented x3, CN's II-XII intact bilaterally, moves all extremities, no focal motor deficits, no sensory deficits noted and deep tendon reflexes 2+ bilaterally Sensorium / Orientation: awake and alert Motor Exam: strength 5/5 throughout and general weakness Psych thought process normal, cooperative and affect normal Appearance: appropriate Weight / BMI Weight Weight: 168 lb 6.931 oz Body Mass Index (BMI) 32.8 ABG / Lab / Microbiology Data 08/14/23 07:05 08/14/23 03:16 Laboratory: Laboratory Results - last 24 hr 08/11/23 11:45: Blood Type O POSITIVE, Antibody Screen NEGATIVE, Crossmatch See Detail 08/11/23 11:45: Crossmatch See Detail 08/14/23 03:16: WBC 16.3 H, RBC 2.53 L, Hgb 7.7 L, Hct 24.3 L, MCV 96.0, MCH 30.4, MCHC 31.7 L, RDW Std Deviation 59.7 H, RDW Coeff of Solo 17.5 H, Plt Count 114 L, MPV 11.8, Immature Gran % (Auto) 0.600, Neut % (Auto) 81.5 H, Lymph % (Auto) 9.3 L, Bracken % (Auto) 8.2, Eos % (Auto) 0.1, Baso % (Auto) 0.3, Absolute Neuts (auto) 13.3 H, Absolute Lymphs (auto) 1.51, Nucleated RBC % 0.1, Sodium 144, Potassium 3.6, Chloride 116 H, Carbon Dioxide 23.0, Anion Gap 5, BUN 20 H, Creatinine 0.62, Estim Creat Clear Calc 52.46, Est GFR (MDRD) Af Amer 119, Est GFR (MDRD) Non-Af 99, BUN/Creatinine Ratio 32.2 H, Glucose 177 H, Calcium 8.2 L, Troponin I High Sens 79 H 08/14/23 07:05: Hgb 7.6 L, Hct 23.6 L 08/14/23 07:35: Troponin I High Sens 68 H 08/14/23 08:30: Lactic Acid 5.2 H* Microbiology: Microbiology 08/12/23 14:35 Urine Catheter - Crain Urine Culture - Final Yeast, not Lesli albicans 08/12/23 14:25 Blood Culture (Wb) - Anticubital Left Blood Culture - Preliminary No growth in 48 hours. 08/13/23 13:25 Mucosa - Nose SARS-CoV-2, Influenza & RSV (PCR) - Final Radiography Diagnostic Testing: Radiology Impression Chest X-Ray 08/14/23 07:30 IMPRESSION: 1. Patchy infiltrates in the right lung new since previous exam concerning for pneumonia. 2. Large hiatal hernia. Electronically Signed: Ovidio Singh MD at 9:05 EDT , Meaningful Use Info Meaningful Use Diagnoses (Choose all that apply): None applicable Discharge Plan Admission Admit Date/Time: 08/11/23 16:02 Attending Provider: Laura Ochoa Primary Care Provider: Rick Marsh Consulting Providers: Jaydon Martinez; John Gilbert; Sadi Perez; Simone Arora; Tree Mejia; Brad Back; Joleen Jama; Rao Chaudhary; Fanta Bautista; Mónica Mascorro; Jayant Mario; Wes Barahona; Terrell Mcginnis; Elmo Lim; Jose Lind; All Farris; Courtney Jernigan; Tiffany Anthony; Calista Gilbert; Umesh Khoury; Hari Soto; Alex Lorenzana; Mk Coto; Armin Lamb; Jamal Worrell; Carmen Dow; Lizandro Ca; Peter Slater; Paula Lopez; Jaclyn Parekh; Tashi Rose; Francesco Alegria; Daniele Proctor; Cayden Mcneil TRACTOR TECHNICIAN; Tiffany Mathew TRACTOR TECHNICIAN; Maria D Crowley PA Discharge Orders/Prescriptions Prescriptions: No Action lutein 20 mg capsule 20 mg PO DAILY calcium carbonate 600 mg calcium (1,500 mg) tablet 600 mg PO BID estradiol 0.01 % (0.1 mg/gram) cream 1 g VAGINAL SUWEFR ascorbic acid (vitamin C) 500 mg capsule 1,000 mg PO DAILY Hair,Skin and Nails Tablet 1 tab PO DAILY Gemtesa 75 mg tablet 75 mg PO DAILY metoprolol succinate 50 mg tablet extended release 24 hr 25 mg PO DAILY Eliquis 5 mg tablet 5 mg PO BID Referrals / Follow Up: Rick Marsh MD [Primary Care Provider] - Disposition Disposition (needs filled in before D/C Order can be placed): Acute Care Hospital Charges/Coding Visit Charges Inpatient E&M: 09190 Disch Hosp >30min
[2023-08-19 01:45] LABS: Bedside Glucose 150 mg/dL (74-106)
== END 2023-08-14 12:45 | disposition short-term general hospital (02) | DRG 811 ==
PROVIDERS: Internal Medicine Critical Care Medicine; Internal Medicine Gastroenterology; Admitting Provider Internal Medicine; PCP Family Medicine; Referring Provider Internal Medicine; Visit Provider Student in an Organized Health Care Education/Training Program
PROC: 0DJ08ZZ Inspection of Upper Intestinal Tract, Via Natural or Artificial Opening Endoscopic (ICD-10-PCS; CPT 43235; principal; 2023-08-12 10:40)
DX: D62 Acute posthemorrhagic anemia (principal); J96.01 Acute respiratory failure with hypoxia; J69.0 Pneumonitis due to inhalation of food and vomit; R57.8 Other shock; A41.9 Sepsis, unspecified organism; R65.21 Severe sepsis with septic shock; I42.1 Obstructive hypertrophic cardiomyopathy; I50.32 Chronic diastolic (congestive) heart failure; T82.110A Breakdown (mechanical) of cardiac electrode, initial encounter; K26.9 Duodenal ulcer, unspecified as acute or chronic, without hemorrhage or perforation; I11.0 Hypertensive heart disease with heart failure; I48.0 Paroxysmal atrial fibrillation; I34.0 Nonrheumatic mitral (valve) insufficiency; E86.1 Hypovolemia; K44.9 Diaphragmatic hernia without obstruction or gangrene; Z51.5 Encounter for palliative care; Z95.0 Presence of cardiac pacemaker; Z79.01 Long term (current) use of anticoagulants; Z66 Do not resuscitate; N81.89 Other female genital prolapse
CPT/HCPCS: 36569; 36600; 36620; 71045; 71275; 74174; 80048; 80053; 81001; 82533; 82803; 82962; 83605; 83735; 84100; 84484; 85014; 85018; 85025; 85610; 86644; 86850; 86900; 86901; 86920; 86922; 87040; 87086; 87088; 87631; 87641; 93005; 93306; 94002; 94660; 94762; 97803; J7030; J7040; J7050; J7120; P9016; Q9967; A4216; J0834; J2405; J3490

== ENCOUNTER 2023-08-31 17:25 | Inpatient (IN) | payer MEDICARE, OTHER, SELFPAY ==
[2023-08-31 17:36] VITALS: BP 184/97; PULSE 74; RESP 16; TEMP 36.9; O2SAT 98
[2023-08-31 20:49] VITALS: PULSE 76
[2023-08-31] MEDS: Metoprolol Tartrate 50 MG Tablet PO (20:49)
[2023-08-31] MEDS: Senna/Docusate Sodium 1 Tablet 2 TABLET PO (20:50)
[2023-08-31] MEDS: APIXABAN 5 MG TABLET PO (20:50)
[2023-08-31 21:22] VITALS: BP 168/92; PULSE 77; RESP 16; TEMP 36.8; O2SAT 96
[2023-08-31 22:00] VITALS: PULSE 77; RESP 16
[2023-09-01] VITALS (7 sets, daily range): BP systolic 152–167; BP diastolic 86–94; PULSE 69–73; RESP 16; TEMP 37–37.1; O2SAT 94–100; BMI 33.1
[2023-09-01 06:19] LABS: ALB/GLOB Ratio 0.8 RATIO (0.9-2.4); AST(SGOT) 27 U/L (15-37); Alanine Aminotransfer ALT/SGPT 30 U/L (13-56); Albumin, Serum 2.3 g/dL (3.2-5.0); Alkaline Phosphatase 112 U/L (45-117); Anion Gap 3 (5-15); BUN 15 mg/dL (7-18); Calcium,Total 8.4 mg/dL (8.5-10.1); Chloride 109 mmol/L (98-107); Creatinine, Serum 0.54 mg/dL (0.55-1.02); EST Glomerular Filtration Rate 117 mL/min (>60); Est Glom Filt Rate - Afr Amer 142 mL/min (>60); Glucose 100 mg/dL (74-106); Magnesium 1.8 mg/dL (1.6-2.6); Phosphorus 2.3 mg/dL (2.5-4.9); Potassium 3.8 mmol/L (3.5-5.1); Protein, Total 5.3 g/dL (6.4-8.2); Sodium Level 140 mmol/L (136-145)
[2023-09-01 07:10] LABS: Hematocrit 28.9 % (37-47); Hemoglobin 9.1 g/dL (12.0-15.0); Mean Corpuscular Volume 98.3 fL (81-99); Red Blood Count 2.94 M/mm3 (4.2-5.4); White Blood Count 5.3 K/mm3 (4.4-11.0)
[2023-09-01 07:11] LABS: Mean Corp Hgb Conc 31.5 g/dL (32-36); Mean Platelet Vol. 11.7 fl (6.2-12.0); Platelet Count 145 K/mm3 (150-450); RBC Distribution Width CV 19.5 % (11.6-14.6); RBC Distribution Width SD 69.3 fl (35.1-43.9); Scan Indicated on CBC? Y/N YES- FLAGS NOTED
[2023-09-01] MEDS: Lidocaine 5% Patch 1 PATCH TOPICAL (09:48)
[2023-09-01] MEDS: APIXABAN 5 MG TABLET PO ×2 (09:49→20:21)
[2023-09-01] MEDS: Ascorbic Acid 500 MG Tablet 1000 MG PO (09:49)
[2023-09-01] MEDS: Senna/Docusate Sodium 1 Tablet 2 TABLET PO ×2 (09:49→20:20)
[2023-09-01] MEDS: Calcium (Elemental) 500 MG Tablet PO (09:49)
[2023-09-01] MEDS: Menthol/Lanolin/Calamine/Znox 113 GM Tube 1 APPLIC TOPICAL ×2 (09:49→20:21)
[2023-09-01] MEDS: Vibegron 75 MG TABLET PO (09:49)
[2023-09-01] MEDS: Pantoprazole Sodium 40 MG Tablet PO (09:49)
[2023-09-01] MEDS: Multivitamins,Ther W-Minerals Tablet 1 TABLET PO (09:49)
[2023-09-01] MEDS: Metoprolol Tartrate 50 MG Tablet PO ×2 (09:49→20:24)
--- NOTE | 2023-09-01 13:00 | HP.PCM_ITS ---
HPI - General General Date of Admission: 08/31/23 Date of Service: 09/01/23 Chief Complaint: Debility HPI Narrative MARKOS BEASLEY, is a 78 YO F who initially presented to acute inpt rehab at [facility] on 08/05/2023 for debility secondary to prolonged hospitalization for malfunctioning pacemaker with circulatory shock. 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 Jernigan), large hiatal hernia, atrial fibrillation, chronic anticoagulation with Eliquis and osteoarthritis. While on rehab she developed a GI bleed due to multiple oozing duodenal ulcers and was treated by Dr. Sarabia. She went on to develop septic shock due to probable aspiration PNA (due to N/V associated with the ulcers) and then acute CHF with resistant hypotension and severe hypoxemia related to LV outflow tract obstruction. She was transferred to the ICU at [facility] and then t ransferred from ICU to [facility]. While at [facility] she had a repeat EGD that showed no evidence of PUD in the stomach, duodenum and and the first portion of the jejunum. She also underwent a colonoscopy that showed diverticulosis with no evidence od diverticulitis and 2 colon polyps that were removed. On 08/20/23 she had an US of the UE's that showed acute DVT in the BL UE's and she is on Eliquis. There was no evidence of DVT in the BL LE's. She had no PE's. Supplemental oxygen was weaned down to 1 LPM at the time of DC from [facility] to the acute inpt rehab unit at [facility] on 08/31/23 for 3 hours of therapy daily to restore function/independence at or near her level prior to her first hospitalization in early July of this year. CT of the chest at [facility] found nodular lesions and she is to have a repeat CT of the chest in 4-6 weeks. She will also need a US of a lesion seen on CT of the abdomen above the R kidney and venous US's of the UE's in 4 weeks. She is being referred to [facility] for consideration for a Watchman device. All lab drawn this AM was personally reviewed. The white blood cell count is within normal limits at 5.3 and her hemoglobin is 9.1. MCV is 98.3 and the RDW standard deviation is markedly elevated. Platelets are mildly decreased at 145,000. Sodium is 140 and the potassium is 3.8. Serum bicarb is 28. The BUN is 15 with a creatinine of 0.54 which is within her baseline. Phosphorus is low at 2.3 and the magnesium is borderline low at 1.8. LFTs are normal. [facility] Medical History (Updated 09/02/23 @ 17:[address] 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 Heart block Hemorrhagic shock HTN (hypertension) Hypertrophic obstructive cardiomyopathy Incomplete prolapse of vaginal vault Lumbar radiculopathy Mitral regurgitation Osteoarthritis Pacemaker Pacemaker lead malfunction Pessary maintenance Presence of permanent cardiac pacemaker (~12/10/20) Presence of pessary Second degree type II atrioventricular block Sick sinus syndrome Upper GI bleed Home Medications lutein 20 mg capsule 20 mg PO DAILY EYE HEALTH 06/11/17 [History Last Taken 07/21/23] calcium carbonate 600 mg PO BID SUPPLEMENT 06/26/21 [History Last Taken 08/11/23 09:00] estradiol 0.01% (0.1 mg/gram) vaginal cream 1 g vaginal SUWEFR HORMONES 06/26/21 [History Last Taken 08/10/23 05:00] apixaban 5 mg tablet (Eliquis) 5 mg PO BID blood thinner/afib 08/11/23 [History Last Taken 08/10/23 08:00] ascorbic acid (vitamin C) 500 mg capsule 1,000 mg PO DAILY supplement 08/11/23 [History Last Taken 08/11/23 09:00] multivitamin with minerals (Hair,Skin and Nails tablet) 1 tab PO DAILY Vitamin 08/11/23 [History Last Taken 08/11/23 09:00] vibegron 75 mg tablet (Gemtesa) 75 mg PO DAILY overactive bladder 08/11/23 [History Last Taken 08/11/23 09:00] metoprolol tartrate 50 mg tablet (Lopressor) 50 mg PO BID bp 08/31/23 [History Last Taken Unknown] pantoprazole 40 mg tablet,delayed release (Protonix) 40 mg PO DAILY stomach 08/31/23 [History Last Taken Unknown] polyethylene glycol 3350 17 gram/dose oral powder (Miralax) 17 g PO DAILY constipation 08/31/23 [History Last Taken Unknown] Allergy/AdvReac Type Severity Reaction Status Date / Time procaine [From Novocain] Allergy Intermediate NEEDS Verified 07/18/23 15:57 FOLLOW-UP diclofenac [From Voltaren] Allergy Hives Verified 07/18/23 13:33 Family History Father Cancer prostate Grandmother Cancer Diabetes Grandfather No problems noted. Surgical History FH: bilateral hip replacements H/O bilateral cataract extraction H/O bilateral hip replacements History of hysterectomy History of tonsillectomy Hx of cholecystectomy Social History household members: none pets and animals: Yes (Gloria named Rohan) pets and animals: dog(s) Smoking Status: Never smoker alcohol intake: never substance use type: does not use caffeine: Yes frequency: 5-6 times per week seatbelt use: always do you feel safe at home: Yes ROS Review of Systems ROS Unobtainable: Denies due to encephalopathy, due to endotracheal tube, due to mental condition or due to mental status Constitutional Constitutional: Reports fatigue and weakness; Denies anorexia, change in weight, chills, fever(s) or night sweats Eyes Eyes: Denies blurry vision, change in vision, eye pain or loss of vision ENT HEENT: Denies abnormal hearing, dysphagia, headache(s), hearing loss, nasal congestion or sore throat Cardiovascular Cardiovascular: Reports edema; Denies chest pain, dyspnea on exertion, light headedness, orthopnea, palpitations, paroxysmal nocturnal dyspnea or syncope Respiratory/Chest Respiratory/Chest: Denies cough, dyspnea, shortness of breath at rest, shortness of breath with exertion or wheezing Gastrointestinal Gastrointestinal: Denies abdominal pain, constipation, diarrhea, dyspepsia, hematemesis, hematochezia, nausea or vomiting Genitourinary Genitourinary: Reports urinary incontinence and urinary urgency; Denies dysuria, hematuria, nocturia, urinary frequency or urinary hesitancy Musculoskeletal Musculoskeletal: Reports joint pain; Denies back pain, joint swelling or neck pain Integumentary Integumentary: Reports dry skin; Denies hirsutism, jaundice, pruritus or rash Neurologic Neurologic: Denies confusion, disequilibrium, dizziness, focal weakness, headache(s), paresthesias, seizures or tremor(s) Psychiatric Psychiatric: Reports anxiety; Denies depression, homicidal ideation or suicidal ideation Endocrine Endocrinology: Reports change in body appearance; Denies polydipsia or polyuria Hematologic/Lymphatic Hematologic/Lymphatic: Reports easy bleeding; Denies easy bruising or lymphadenopathy Allergic/Immunologic Allergic/Immunologic: Denies rhinitis, eczemia or asthma Vital Signs Vital Signs Vital Signs: 08/31/23 17:36 08/31/23 20:49 08/31/23 21:22 Temperature 98.5 F 98.3 F Temperature Source Temporal Temporal Pulse Rate 74 76 77 Respiratory Rate 16 16 Respiratory Effort Respiratory Depth Respiratory Pattern Blood Pressure 184/97 H 168/92 H Blood Pressure Mean 126 117 Blood Pressure Source Monitor Monitor Blood Pressure Position Sitting Semi-Fowlers Blood Pressure Location Right Leg Right Leg Pulse Ox 98 96 Oxygen Delivery Method Nasal Cannula Nasal Cannula Oxygen Flow Rate (L/min) 1 08/31/23 22:00 09/01/23 06:40 09/01/23 07:41 Temperature 98.6 F Temperature Source Temporal Pulse Rate 77 73 Respiratory Rate 16 16 Respiratory Effort Normal Non-Labored Respiratory Depth Normal Respiratory Pattern Normal Blood Pressure 167/94 H Blood Pressure Mean 118 Blood Pressure Source Monitor Blood Pressure Position Semi-Fowlers Blood Pressure Location Left Leg Pulse Ox 96 95 Oxygen Delivery Method Nasal Cannula Nasal Cannula Room Air Oxygen Flow Rate (L/min) 1 09/01/23 09:49 09/01/23 10:12 09/01/23 11:05 Temperature Temperature Source Pulse Rate 73 Respiratory Rate Respiratory Effort Respiratory Depth Respiratory Pattern Blood Pressure Blood Pressure Mean Blood Pressure Source Blood Pressure Position Blood Pressure Location Pulse Ox 94 94 Oxygen Delivery Method Oxygen Flow Rate (L/min) 1 09/01/23 12:52 Temperature Temperature Source Pulse Rate Respiratory Rate Respiratory Effort Respiratory Depth Respiratory Pattern Blood Pressure Blood Pressure Mean Blood Pressure Source Blood Pressure Position Blood Pressure Location Pulse Ox Oxygen Delivery Method Oxygen Flow Rate (L/min) 1 Physical Exam Const alert, oriented x3 and no apparent distress Constitutional Narrative: Has good color in her face and in general looks much better than the last time I saw her prior to transfer to [facility]. On nasal O2 at 1 LPM and maintaining an appropriate O2 sat. General Appearance: cooperative and well kempt HEENT head/scalp atraumatic and moist oral mucous membranes HEENT Narrative: No thrush Eyes PERRL, EOMs intact bilaterally, conjunctivae normal and no scleral icterus Eyes Narrative: No discharge from the eyes and no mattering of the eyelashes. Neck supple, thyroid normal and No nodes General: trachea midline Chest Chest: symmetrical chest wall rise Resp normal respiratory effort, normal air movement, no use of accessory muscles and clear to auscultation bilaterally Effort and Inspection: able to speak in complete sentences Cardio regular rate, regular rhythm, no rub, no gallops and no JVD Cardio Narrative: She has a 3/6 systolic ejection murmur at the second right intercostal space with radiation to the left ventricular outflow tract, lower left sternal border and apex. The murmur also radiates into the carotids. GI normal to inspection, nondistended, normoactive bowel sounds, soft to palpation and non-tender GI Narrative: No guarding with palpation Bladder / Kidney Exam: no CVA tenderness Extremity no calf tenderness and no pedal edema Skin no rashes or lesions noted, no jaundice and no petechiae General Skin Exam: jaundice Neuro oriented x3, CN's II-XII intact bilaterally, moves all extremities and no focal motor deficits Neuro Narrative: Generalized weakness Psych mental status grossly normal, thought process normal, cooperative, denies hallucinations, denies homicidal ideation and denies suicidal ideation Psych Narrative: Anxious Attitude: engaged Activity / Motor Behavior: appropriate eye contact Results Lab / Micro Data 09/01/23 05:35 09/01/23 05:35 Labs: Laboratory Results - last 24 hr 09/01/23 05:35: WBC 5.3, RBC 2.94 L, Hgb 9.1 L, Hct 28.9 L, MCV 98.3, MCH 31.0, MCHC 31.5 L, RDW Std Deviation 69.3 H, RDW Coeff of Solo 19.5 H, Plt Count 145 L, MPV 11.7, Differential Comment , Sodium 140, Potassium 3.8, Chloride 109 H, Carbon Dioxide 28.0, Anion Gap 3 L, BUN 15, Creatinine 0.54 L, Est GFR (MDRD) Af Amer 142, Est GFR (MDRD) Non-Af 117, BUN/Creatinine Ratio 28.0 H, Glucose 100, Calcium 8.4 L, Phosphorus 2.3 L, Magnesium 1.8, Total Bilirubin 0.40, AST 27, ALT 30, Alkaline Phosphatase 112, Total Protein 5.3 L, Albumin 2.3 L, Globulin 3.0, Albumin/Globulin Ratio 0.8 L Assessment & Plan Assessment/Plan (1) Physical debility: (2) Aspiration pneumonia: (3) History of septic shock: (4) Hypophosphatemia: (5) Hypertrophic obstructive cardiomyopathy: (6) Left ventricular outflow tract obstruction: (7) Cardiogenic shock: (8) Upper GI bleed: (9) Hemorrhagic shock: (10) Acute blood loss anemia: (11) Paroxysmal atrial fibrillation: (12) Hypoxia: (13) Essential hypertension: (14) Chronic anticoagulation: (15) Pacemaker: PLAN: Plan PLAN PT for gait stability OT for ADL's ST for evaluation Analgesics as needed Bowel protocol Fall precautions Assess for Anxiety/Depression GI prophylaxis -continue Protonix 40 mg p.o. daily DVT prophylaxis - currently being treated for DVT in the UE's with Eliquis so will continue Eliquis. Follow up with [facility] for consideration for a Watchman procedure, cardiology and PCP following DC from Rehab AM lab including CMP, CBC, Mag and Phos was personally reviewed. 1 packet of Neutra-Phos 3 times daily x 3 days. Will hold calcium supplementation until she is finished with the Neutra-Phos due to potential interaction. Supplement the magnesium to keep the magnesium level at approximately 2. Will start magnesium chloride 128 mg daily. Repeat venous ultrasounds of the upper extremities in [address] scan of the chest to follow-up nodular lesions identified at [facility] in 6 weeks. Renal ultrasound to further characterize the lesion sitting near the top of the right kidney. Charges/Coding Visit Charges Inpatient E&M: 20177 Init Hosp L2
--- NOTE | 2023-09-01 13:55 | REHABEVAL_ITS ---
Admission Information Primary Diagnosis:: Physical debility Status Changes from Prescreening?: No changes Identified Actual Problem List:: DVT, Pain, ALteration in Cmfrt, Mobility Impaired, Self Care Deficit, BP, Hypertension, Alteration/ Air Exchange and Alteration-Leisure Activ. Potential Problem List:: DVT, Bleeding, Infection, UTI, Aspiration, Falls, Skin Integrity and Depression Risk of Complications DVT: LYN Hose and - (Eliquis 5 mg p.o. twice daily) Bleeding: Monitor Lab Values, Nursing to Teach Precautions for anti-coagulation therapy., Wound, if applicable, to be assessed every shift. and Stroke patients assessed for lethargy or change in status. Infection: Clinical Staff to Monitor for S/S of infection: and S/S of infection include fever, redness, warmth, etc. Urinary Tract Infection: Monitor for frequency, burning, discomfort, or incontinence. and Nursing will obtain urine sample for urinalysis and C&S when ordered. Aspiration: Clinical staff will monitor for coughing, drooling, congestion., Speech will evaluate swallowing and dsyphasia. and Nursing will monitor patient swallowing during meals. Falls: Patient will be evaluated for Fall Precautions and Patient will be placed on Fall Precautions as indicated per protocol. Skin Breakdown: Nursing will assess skin daily using assessment tool. and Nursing will place on Skin Breakdown Precautions as indicated. Pain: Clinical staff will assess patient's pain level per protocol., Medications will be given, if needed, and the pain level reassessed. and Other methods: Massage, distraction, decrease stimulus, etc. used PRN. Plan of Care Patient requires physician specializing in physical medicine and rehab oversight to provide close medical supervision of rehab issues including: Pain Management, Sleep Problems, Bowel and Bladder, Medical and co-morbidity Management, DVT prophylaxis, Rehabilitation Leadership and Coordination of treatment team Patient needs Physical Therapy: For a minimum of 1 hour and At least 5 out of 7 days Patient needs Physical Therapy to improve:: Mobility, Strengthening, Transfers, Stretching, ROM, Endurance, Stairs, Gait and Balance Patient needs Occupational Therapy: For a minimum of 1 hour and At least 5 out of 7 days Patient needs Occupational Therapy to improve ADL's incl.: Eating, Grooming, Bathing, Dressing, Toileting, Toilet transfers, Community Reintegration, Higher functioning activities, Household tasks, Adaptive Equipment, Splinting and Other activities as determined Patient requires 24/ Rehabilitation Nursing for: Pain Issues, Identifying and preventing risk factors, Monitoring and reporting current medical conditions, Assisting with ambulation, transfer, and all ADL's, Teaching patients about disease process and medications, Family teaching, Providing safe environment, Bowel and Bladder Issues, Skin integrity and Medication Management Patient needs Fret Saw Operator/ Case Management for: Discharge Planning, Arranging Home Equipment or Services and Family Interventions Patient needs Dietary and Nutrition Services for: Adequate Nutrition, Nutritional Supplements and Nutritional Education Goals Goals Patient will remain: free from falls Patient will perform eating at: MOD I level of assist. Patient will perform bed mobility at: MOD I level of assist. Patient will complete transfers from bed to chair at: MOD I level of assist. Patient will ambulate: - (255 feet with least restrictive device on various surfaces to allow return home and to the community.) Patient will complete upper body dressing at: MOD I level of assist. Patient will complete lower body dressing at: MOD I level of assist. (With adaptive equipment as needed) Patient will complete toilet transfer at: MOD I level of assist. Patient will complete toileting at: MOD I level of assist. Patient will perform bathing at: MOD I level of assist. (Will complete upper body bathing and independent and lower body bathing at mod I with adaptive equ ipment as needed for increased independence with self-care.) Patient will perform Tub/Shower transfer at: - (Supervision for the first 1 to 2 weeks postdischarge) Patient will complete grooming at: MOD I level of assist. Patient will complete home management skills at: MOD I level of assist. Patient will achieve: 12 stairs (With 2 handrails at standby assist to allow access to her basement.) Discharge Planning Pt Prognosis for Sig. Practical Improv. w/in Reasonable Time: Good Estimated Length of stay (days): 28 Anticipated D/C Destination: Home with Home Health Was Preadmission Assessment Accurate?: Yes
[2023-09-01] MEDS: Na Biphos/Potassium Phosphate PACKET 1 PACKET PO ×2 (14:58→20:20)
[2023-09-02] VITALS (9 sets, daily range): BP systolic 136–167; BP diastolic 82–96; PULSE 66–74; RESP 16–18; TEMP 36.8; O2SAT 92–99; BMI 32.5
[2023-09-02] MEDS: Na Biphos/Potassium Phosphate PACKET 1 PACKET PO ×3 (06:00→22:06)
--- NOTE | 2023-09-02 06:59 | NURSING ---
Pt declines to have LYN eller applied at this time.
[2023-09-02] MEDS: Lidocaine 5% Patch 1 PATCH TOPICAL (08:44)
[2023-09-02] MEDS: Menthol/Lanolin/Calamine/Znox 113 GM Tube 1 APPLIC TOPICAL ×2 (08:52→22:07)
[2023-09-02] MEDS: Multivitamins,Ther W-Minerals Tablet 1 TABLET PO ×2 (09:01→09:02)
[2023-09-02] MEDS: Magnesium Chloride 64 MG Delay Rel.Tablet 128 MG PO ×2 (09:01→09:03)
[2023-09-02] MEDS: Pantoprazole Sodium 40 MG Tablet PO ×2 (09:01→09:02)
[2023-09-02] MEDS: APIXABAN 5 MG TABLET PO ×2 (09:01→22:04)
[2023-09-02] MEDS: Metoprolol Tartrate 50 MG Tablet PO ×2 (09:01→22:15)
[2023-09-02] MEDS: Ascorbic Acid 500 MG Tablet 1000 MG PO (09:03)
[2023-09-02] MEDS: Vibegron 75 MG TABLET PO (09:03)
--- NOTE | 2023-09-02 16:12 | CHAPLAIN ---
Type of Pastoral Visit _x__ Initial Visit ___ Follow-up Visit ___ On-call Visit ___ General Patient Visit ___ Spiritual Assessment ___ Family Conference ___ Bereavement ___ Rapid Response ___ Code Blue ___ Other (describe below) Pastoral Care Referral From _x__ Patient ___ Family ___ Nurse ___ Physician ___ Risk Control Representative ___ Plate Stacker Hand ___ Other (describe below) Sacrament/Intervention _x__ Active listening ___ Anointing ___ Catholic ___ Bereavement ___ Communion ___ Destiny exploration ___ ___ Life review _x__ Prayer ___ Reconciliation ___ Sacrament of Sick ___ Supportive presence ___ Wedding ___ Other (describe below) Pastoral Comments patient has returned to rehab from a different facility; 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
--- NOTE | 2023-09-02 16:40 | CASEMGMT ---
Social Work SW met with patient at bedside to complete initial intake assessment. SW introduced self and role. Patient was previously admitted in [facility] 08/04 and discharged due to medical complications. Patient is anxious to discuss transition of care plans. Patient informed SW that post rehospitalization, she is afraid to discuss hopes for discharge due to fleeting thoughts of potentially not making it out of the hospital. The patient confirmed that she has living will with friend, Melisa asencio. Upon review the patient does not have living will scanned in medical chart. Patient would like to remain in [facility] for therapy. Patient goal is to return home when medically appropriate, but she is anxious to discuss plans. SW encouraged patient and informed her that [facility] is here to support her care and transition. Patient states I need more positivity. SW informed Physician, Dr. Vazquez of patient anxiety. SW will continue to follow for discharge planning NORBERTO Bourne
--- NOTE | 2023-09-02 16:55 | NURSING ---
PT BP CONTINUES TO BE HIGH. AND RN AWARE.
--- NOTE | 2023-09-02 17:13 | PCM.PROGNOTE ---
Subjective Subjective Afebrile VSS-blood pressures have ranged from 152/86 to 184/97 since admission to rehab this time. Heart rate is in the 60s. Maintaining appropriate oxygen saturation on RA Oral intake - FOOD good FLUIDS poor-fair Discussed with nursing -she is requesting arthritis cream and as needed Tylenol for her right knee pain. Reviewed the THERAPY notes Medication list reviewed. Antihypertensives include metoprolol 50 mg p.o. twice daily. Melisa is feeling anxious. She constantly worried about having another complication. She is having some difficulty with waking up at night and not sleeping as well as usual. She denies lightheadedness, shortness of breath, cough, chest pain, palpitations, nausea/vomiting/epigastric pain, diarrhea/constipation, dysuria and calf tenderness. Has not been wearing the LYN hose as ordered. She is using the IS and PEP every hour while awake. Objective Data Objective Data Vital Signs: Vital Signs Temp Pulse Resp BP Pulse Ox O2 Del Method O2 Flow Rate 98.3 F 68 16 167/96 H 94 Room Air 1 09/02/23 10:00 09/02/23 10:00 09/02/23 10:00 09/02/23 10:00 09/02/23 15:11 09/02/23 14:40 09/02/23 15:11 Oxygen Flow Rate (L/min) 1 Oxygen Delivery Method Room Air Weight: 161 lb 2.526 oz Body Mass Index (BMI) 32.5 Intake & Output: Intake and Output for Last 24 Hours 08/31/23 09/01/23 09/02/23 23:59 23:59 23:59 Intake Total 350 / 350 800 / 800 1070 / 1070 Output Total 450 / 450 1800 / 1800 900 / 900 Balance -100 / -100 -1000 / -1000 170 / 170 Lab / Micro Data 09/01/23 05:35 09/01/23 05:35 Physical Exam Const alert, oriented x3 and no apparent distress General Appearance: cooperative Resp Resp Narrative: She has a few coarse crackles in the bases that almost completely disappeared after several deep breaths. No wheezing. No conversational dyspnea and no tachypnea. Cardio regular rate, regular rhythm and no gallops GI normal to inspection, nondistended, normoactive bowel sounds, soft to palpation and non-tender GI Narrative: Appetite has improved. Extremity no calf tenderness Extremity Narrative: She has some pitting edema of the ankles and distal lower extremities. She has not been wearing her LYN hose. The skin is rather shiny. Skin General Skin Exam: no breakdown Rashes: no rashes Psych cooperative Psych Narrative: Anxious Appearance: appropriate Activity / Motor Behavior: Negative for restless Assessment & Plan Assessment/Plan (1) Physical debility: (2) Hypophosphatemia: (3) Hypertrophic obstructive cardiomyopathy: (4) Left ventricular outflow tract obstruction: (5) Acute blood loss anemia: (6) Hypoxia: (7) Essential hypertension: (8) Chronic anticoagulation: PLAN: Plan 1. Continue therapy 2. Add lisinopril 10 mg daily to the metoprolol 50 mg twice daily. 3. Start hydralazine 25 mg every 4 hours as needed systolic greater than 170 or diastolic greater than 85. 4. Recheck a CBC, phosphorus and BMP on Thursday 5. BuSpar 5 mg twice daily 6. Melatonin 3 mg at at bedtime. 7. She is agreeable to wearing the LYN hose starting in the a.m. Charges/Coding Visit Charges Inpatient E&M: 19316 Subs Hosp L1
[2023-09-02] MEDS: Lisinopril 10 MG Tablet PO (17:41)
[2023-09-02] MEDS: MELATONIN 3 MG TABLET PO (22:03)
[2023-09-02] MEDS: busPIRone 5 MG Tablet PO (22:05)
[2023-09-02] MEDS: ESTRADIOL 42.5 GM VAGINAL (22:17)
[2023-09-03] VITALS (8 sets, daily range): BP systolic 135–165; BP diastolic 71–92; PULSE 64–70; RESP 16–17; TEMP 36.6–37.6; O2SAT 94–96; BMI 32.1
[2023-09-03] MEDS: Na Biphos/Potassium Phosphate PACKET 1 PACKET PO ×3 (05:12→20:48)
--- NOTE | 2023-09-03 07:37 | NURSING ---
Spoke w/ nurse this am who administered am meds yesterday to update Eliquis and Metoprolol were scanned twice. This nurse completed an unscheduled dose at hs for each above noted med. Refer to MAR for correct administration times.
[2023-09-03] MEDS: Lidocaine 5% Patch 1 PATCH TOPICAL (08:10)
[2023-09-03] MEDS: Ascorbic Acid 500 MG Tablet 1000 MG PO (08:10)
[2023-09-03] MEDS: Lisinopril 10 MG Tablet PO (08:11)
[2023-09-03] MEDS: Metoprolol Tartrate 50 MG Tablet PO ×2 (08:11→20:47)
[2023-09-03] MEDS: Vibegron 75 MG TABLET PO (08:11)
[2023-09-03] MEDS: busPIRone 5 MG Tablet PO ×2 (08:11→20:48)
[2023-09-03] MEDS: APIXABAN 5 MG TABLET PO ×2 (08:11→20:47)
[2023-09-03] MEDS: Menthol/Lanolin/Calamine/Znox 113 GM Tube 1 APPLIC TOPICAL ×2 (08:19→20:49)
--- NOTE | 2023-09-03 09:58 | PN_ITS ---
Subjective Subjective Becca was seen on team rounds today. Her friend Bernadette was present in the room for rounds. Afebrile VSS-blood pressure is better today with the addition of lisinopril 10 mg daily to her drug regimen. Has not required any hydralazine as needed since it was ordered yesterday. Maintaining appropriate oxygen saturation on RA Oral intake - FOOD good FLUIDS improving Discussed with nursing - no problems that need addressed. Nursing reports that she slept better last night. Sats dropped into the mid 80's yesterday on RA with exertion. Reviewed the THERAPY notes Medication list reviewed. She has been started on BuSpar and so far has had 2 doses. Melisa tells me that she slept a little better last night. She awoke to urinate but, was able to go back to sleep. She denies feeling anxious. Appetite is good. She denies SOB, CP, palpitations, DAVIDSON, N/V/abd pain, dysuria and calf pain. She denies any pain in the UE's and the swelling in the UE's is decreasing. She is not coughing. Objective Data Objective Data Vital Signs: Vital Signs Temp Pulse Resp BP Pulse Ox O2 Del Method O2 Flow Rate 97.9 F 64 16 143/71 H 94 Room Air 1 09/03/23 07:28 09/03/23 08:11 09/03/23 07:28 09/03/23 08:11 09/03/23 07:28 09/03/23 07:42 09/03/23 06:29 Oxygen Flow Rate (L/min) 1 Oxygen Delivery Method Room Air Weight: 158 lb 15.253 oz Body Mass Index (BMI) 32.1 Intake & Output: Intake and Output for Last 24 Hours 09/01/23 09/02/23 09/03/23 23:59 23:59 23:59 Intake Total 800 / 800 1830 / 1830 240 / 240 Output Total 1800 / 1800 1750 / 1750 700 / 700 Balance -1000 / -1000 80 / 80 -460 / -460 Lab / Micro Data 09/05/23 06:05 09/05/23 06:05 Physical Exam Const alert, oriented x3 and no apparent distress Constitutional Narrative: Seems less anxious to me today when we are talking. Still worried about having another complication. She is very determined to get home. General Appearance: cooperative Orientation / Consciousness: Negative for confused HEENT moist oral mucous membranes Eyes PERRL, EOMs intact bilaterally, conjunctivae normal and no scleral icterus Eyes Narrative: No discharge from the eyes and no mattering of the eyelashes. Neck supple, thyroid normal and No nodes General: trachea midline Chest Chest: symmetrical chest wall rise Resp normal respiratory effort Resp Narrative: Few coarse crackles in the bases. No wheezing. No cough even with deep breathing. Breath sounds are mildly decreased in the bases. Effort and Inspection: Negative for tachypneic or labored Cardio regular rate, regular rhythm and no gallops Cardio Narrative: No change in the MM due to the septal hypertrophy/LVOT obstruction GI normal to inspection, nondistended, normoactive bowel sounds, soft to palpation and non-tender GI Narrative: No guarding with palpation. Bladder / Kidney Exam: no CVA tenderness Extremity no calf tenderness Extremity Narrative: LYN hose are in place today. Edema is better when the compression stockings are on. Skin no rashes or lesions noted, no jaundice and no petechiae General Skin Exam: no breakdown and jaundice Rashes: no rashes Neuro CN's II-XII intact bilaterally and no focal motor deficits Neuro Narrative: Generalized weakness. 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 Continue therapy 2. Continue Buspar at 5 mg BID 3. Check the blood pressure 4 times a day while awake as long as we are a djusting antihypertensives. Continue lisinopril at 10 mg daily. Charges/Coding Visit Charges Inpatient E&M: 58843 [facility] Hosp L1
--- NOTE | 2023-09-03 13:06 | CASEMGMT ---
Social Work IDT met with patient and friend, Bernadette to complete care plan meeting. Discussed patient progress with therapy (PT/OT). Patient initial assessment shows continued need for therapy; progressing well. Patient is anxious regarding plan of care. SW will continue to work with patient during progression of care to identify transition of care plans. Due to patient anxiety, physician started patient on Buspar. Patient was informed of Medicare insurance coverage and benefits. The patient does not have identified timeline for Medicare approved dates at this time. Once approved, SW will provide updates regarding insurance approved dates. SW will continue to follow for discharge planning. NORBERTO Bourne
--- NOTE | 2023-09-03 13:28 | RAD_ITS ---
STUDY: X-RAY CHEST REASON FOR EXAM: Female, 78 years old. F/U Pneumonia TECHNIQUE: PA and lateral views of the chest. COMPARISON: 08/14/2023 FINDINGS: Left subclavian pacemaker which is unchanged. The lungs are clear and expanded. There is no demonstrated pleural abnormality. Normal size heart. Large hiatal hernia. Normal visualized pulmonary arteries. Normal visualized aortic arch and descending thoracic aorta. There is a dextroscoliosis of the thoracic spine. Normal visualized ribs, clavicles, and shoulders. There is no demonstrated abnormality of the visualized soft tissue structures of the upper abdomen. RAD/Chest PA and Lateral IMPRESSION: No active disease. Large hiatal hernia. Electronically Signed: Filiberto Liang MD at 21:21 EDT ,
[2023-09-03] MEDS: MELATONIN 3 MG TABLET PO (20:48)
[2023-09-03] MEDS: hydrALAZINE 25 MG Tablet PO (20:53)
[2023-09-04] VITALS (7 sets, daily range): BP systolic 132–147; BP diastolic 71–79; PULSE 60–70; RESP 15–17; TEMP 36.9–37; O2SAT 94–95; BMI 31.9
[2023-09-04] MEDS: Na Biphos/Potassium Phosphate PACKET 1 PACKET PO (05:29)
[2023-09-04] MEDS: Pantoprazole Sodium 40 MG Tablet PO (08:25)
[2023-09-04] MEDS: Metoprolol Tartrate 50 MG Tablet PO ×2 (08:25→21:34)
[2023-09-04] MEDS: Magnesium Chloride 64 MG Delay Rel.Tablet 128 MG PO (08:26)
[2023-09-04] MEDS: busPIRone 5 MG Tablet PO ×2 (08:26→21:35)
[2023-09-04] MEDS: Vibegron 75 MG TABLET PO (08:26)
[2023-09-04] MEDS: APIXABAN 5 MG TABLET PO ×2 (08:26→21:35)
[2023-09-04] MEDS: Lisinopril 10 MG Tablet PO (08:26)
[2023-09-04] MEDS: Lidocaine 5% Patch 1 PATCH TOPICAL (08:26)
[2023-09-04] MEDS: Ascorbic Acid 500 MG Tablet 1000 MG PO (08:26)
[2023-09-04] MEDS: Multivitamins,Ther W-Minerals Tablet 1 TABLET PO (08:26)
[2023-09-04] MEDS: Menthol/Lanolin/Calamine/Znox 113 GM Tube 1 APPLIC TOPICAL ×2 (08:29→21:43)
[2023-09-04] MEDS: MELATONIN 3 MG TABLET PO (21:34)
[2023-09-04] MEDS: ESTRADIOL 42.5 GM VAGINAL (21:36)
[2023-09-05] VITALS (8 sets, daily range): BP systolic 140–159; BP diastolic 74–84; PULSE 64–76; RESP 17–19; TEMP 36.6–37.2; O2SAT 93–96; BMI 32.3
[2023-09-05 06:50] LABS: Hematocrit 32.4 % (37-47); Hemoglobin 9.9 g/dL (12.0-15.0); Mean Corp Hgb Conc 30.6 g/dL (32-36); Mean Corpuscular Hgb 30.7 pg (27.0-32.0); Mean Corpuscular Volume 100.6 fL (81-99); Mean Platelet Vol. 11.1 fl (6.2-12.0); POSITIVE MORPHOLOGY YES; Platelet Count 215 K/mm3 (150-450); RBC Distribution Width CV 18.9 % (11.6-14.6); RBC Distribution Width SD 69.4 fl (35.1-43.9); Red Blood Count 3.22 M/mm3 (4.2-5.4); White Blood Count 4.5 K/mm3 (4.4-11.0)
[2023-09-05 07:02] LABS: Scan Indicated on CBC? Y/N YES- FLAGS NOTED
[2023-09-05 07:17] LABS: Anion Gap 3 (5-15); BUN 6 mg/dL (7-18); BUN/Creat Ratio 9.4 RATIO (10-20); Chloride 108 mmol/L (98-107); Creatinine, Serum 0.64 mg/dL (0.55-1.02); EST Glomerular Filtration Rate 95 mL/min (>60); Est Glom Filt Rate - Afr Amer 115 mL/min (>60); Estimated Creatinine Clearance 51.56 ml/min; Glucose 95 mg/dL (74-106); Potassium 4.1 mmol/L (3.5-5.1); Sodium Level 140 mmol/L (136-145)
[2023-09-05] MEDS: Ascorbic Acid 500 MG Tablet 1000 MG PO (08:33)
[2023-09-05] MEDS: busPIRone 5 MG Tablet PO ×2 (08:34→22:38)
[2023-09-05] MEDS: Multivitamins,Ther W-Minerals Tablet 1 TABLET PO (08:34)
[2023-09-05] MEDS: APIXABAN 5 MG TABLET PO ×2 (08:34→22:38)
[2023-09-05] MEDS: Calcium (Elemental) 500 MG Tablet PO ×2 (08:34→17:43)
[2023-09-05] MEDS: Pantoprazole Sodium 40 MG Tablet PO (08:34)
[2023-09-05] MEDS: Senna/Docusate Sodium 1 Tablet 2 TABLET PO (08:34)
[2023-09-05] MEDS: Magnesium Chloride 64 MG Delay Rel.Tablet 128 MG PO (08:34)
[2023-09-05] MEDS: Vibegron 75 MG TABLET PO (08:34)
[2023-09-05] MEDS: Lidocaine 5% Patch 1 PATCH TOPICAL (08:35)
[2023-09-05] MEDS: Menthol/Lanolin/Calamine/Znox 113 GM Tube 1 APPLIC TOPICAL ×2 (08:35→22:38)
[2023-09-05] MEDS: Metoprolol Tartrate 50 MG Tablet PO ×2 (08:38→22:38)
[2023-09-05] MEDS: Lisinopril 10 MG Tablet PO (08:39)
--- NOTE | 2023-09-05 11:19 | PCM.PROGNOTE ---
Subjective Subjective Afebrile Blood pressure is much better controlled. Maintaining appropriate oxygen saturation on 1 L of nasal O2. Good oral intake. All lab drawn this AM was personally reviewed. The white blood cell count is 4.5 and the hemoglobin is stable at 9.9. MCV is elevated at 100.6 and the RDW is also elevated. Platelet count is normal today at 215,000. Sodium is 140 and the potassium is stable at 4.1. The BUN is 6 with a creatinine of 0.64 which is within her baseline. Phosphorus is normal following supplementation and the calcium is normal at 9.0. Melisa denies lightheadedness, cough, shortness of breath at rest, orthopnea, abdominal pain, nausea/vomiting, diarrhea/constipation, dysuria and calf tenderness. She has been using her incentive spirometry hourly while awake. Her only complaint is she really feels weak and tires easily. She tells me that she thinks the BuSpar is helping and she does not feel as worried by things that she did before. She does not seem to be perseverating. Blood pressure is looking better. Objective Data Objective Data Vital Signs: Vital Signs Temp Pulse Resp BP Pulse Ox O2 Del Method O2 Flow Rate 98 F 76 17 143/74 H 93 Nasal Cannula 1 09/05/23 09:50 09/05/23 09:50 09/05/23 09:50 09/05/23 09:50 09/05/23 09:50 09/05/23 09:53 09/05/23 09:53 Oxygen Flow Rate (L/min) 1 Oxygen Delivery Method Nasal Cannula Weight: 160 lb 2 oz Body Mass Index (BMI) 32.3 Intake & Output: Intake and Output for Last 24 Hours 09/03/23 09/04/23 09/05/23 23:59 23:59 23:59 Intake Total 720 / 720 2000 / 2240 740 / 740 Output Total 700 / 1500 2700 / 3100 1150 / 1150 Balance 20 / -780 -700 / -860 -410 / -410 Lab / Micro Data 09/05/23 06:05 09/05/23 06:05 Labs: Laboratory Results - last 24 hr 09/05/23 06:05: WBC 4.5, RBC 3.22 L, Hgb 9.9 L, Hct 32.4 L, MCV 100.6 H, MCH 30.7, MCHC 30.6 L, RDW Std Deviation 69.4 H, RDW Coeff of Solo 18.9 H, Plt Count 215, MPV 11.1, Differential Comment , Sodium 140, Potassium 4.1, Chloride 108 H, Carbon Dioxide 29.0, Anion Gap 3 L, BUN 6 L, Creatinine 0.64, Estim Creat Clear Calc 51.56, Est GFR (MDRD) Af Amer 115, Est GFR (MDRD) Non-Af 95, BUN/Creatinine Ratio 9.4 L, Glucose 95, Calcium 9.0, Phosphorus 3.0 Physical Exam Const alert, oriented x3 and no apparent distress Constitutional Narrative: Sitting in the recliner at the bedside. General Appearance: cooperative Orientation / Consciousness: Negative for confused HEENT moist oral mucous membranes Eyes PERRL and EOMs intact bilaterally Resp Resp Narrative: Few coarse crackles at the bases, no wheezes, not tachypneic, no conversational dyspnea. Cardio regular rate, regular rhythm and no gallops Cardio Narrative: the MM due to the septal hypertrophy/LVOT obstruction is softer than it has been. No ectopy. GI normal to inspection, nondistended, normoactive bowel sounds, soft to palpation and non-tender Extremity no calf tenderness Extremity Narrative: LE edema is much better with the compression stockings in place. Skin Rashes: no rashes Neuro CN's II-XII intact bilaterally and no focal motor deficits Neuro Narrative: Generalized weakness. Speech: speech normal Psych Psych Narrative: less anxious and no longer perseverating on complications. Assessment & Plan Assessment/Plan (1) Physical debility: (2) Hypophosphatemia: (3) Hypertrophic obstructive cardiomyopathy: (4) Left ventricular outflow tract obstruction: (5) Acute blood loss anemia: (6) Hypoxia: (7) Essential hypertension: (8) Chronic anticoagulation: (9) Anxiety: (10) Pulmonary hypertension: PLAN: Plan 1. Continue therapy 2. No changes to the drug regimen today 3. Recheck pulse ox with ambulation on room air on Thursday. Patient would like not to have to wear her oxygen. She does have moderate pulmonary hypertension and may need oxygen with exertion. 4. Anxiety is improved with the addition of BuSpar to her drug regimen. Will continue 5 mg twice daily but I let the patient know if she starts worrying about things and perseverating that she should let me know and we can increase the BuSpar to 5 mg 3 times daily. She is sleeping better at night. Charges/Coding Visit Charges Inpatient E&M: 59314 Subs Hosp L1
[2023-09-05] MEDS: MELATONIN 3 MG TABLET PO (22:38)
[2023-09-06] VITALS (9 sets, daily range): BP systolic 154–175; BP diastolic 76–91; PULSE 64–78; RESP 17–18; TEMP 37.2–37.3; O2SAT 93–96; BMI 32.2
[2023-09-06] MEDS: Lisinopril 10 MG Tablet PO (08:56)
[2023-09-06] MEDS: Calcium (Elemental) 500 MG Tablet PO ×2 (08:56→17:40)
[2023-09-06] MEDS: Vibegron 75 MG TABLET PO (08:56)
[2023-09-06] MEDS: Magnesium Chloride 64 MG Delay Rel.Tablet 128 MG PO (08:56)
[2023-09-06] MEDS: Multivitamins,Ther W-Minerals Tablet 1 TABLET PO (08:56)
[2023-09-06] MEDS: Senna/Docusate Sodium 1 Tablet 2 TABLET PO (08:56)
[2023-09-06] MEDS: Ascorbic Acid 500 MG Tablet 1000 MG PO (08:56)
[2023-09-06] MEDS: busPIRone 5 MG Tablet PO ×2 (08:57→20:31)
[2023-09-06] MEDS: Pantoprazole Sodium 40 MG Tablet PO (08:57)
[2023-09-06] MEDS: APIXABAN 5 MG TABLET PO ×2 (08:57→20:30)
[2023-09-06] MEDS: Menthol/Lanolin/Calamine/Znox 113 GM Tube 1 APPLIC TOPICAL ×2 (08:58→20:30)
[2023-09-06] MEDS: Metoprolol Tartrate 50 MG Tablet PO ×2 (09:00→20:33)
[2023-09-06] MEDS: Lidocaine 5% Patch 1 PATCH TOPICAL (09:00)
[2023-09-06] MEDS: ESTRADIOL 42.5 GM VAGINAL (20:21)
[2023-09-06] MEDS: MELATONIN 3 MG TABLET PO (20:33)
[2023-09-06] MEDS: hydrALAZINE 25 MG Tablet PO (20:34)
[2023-09-07] VITALS (8 sets, daily range): BP systolic 124–145; BP diastolic 71–84; PULSE 62–70; RESP 16; TEMP 36.7; O2SAT 93–96; BMI 32.1
[2023-09-07] MEDS: Multivitamins,Ther W-Minerals Tablet 1 TABLET PO (07:42)
[2023-09-07] MEDS: Calcium (Elemental) 500 MG Tablet PO ×2 (07:43→17:13)
[2023-09-07] MEDS: APIXABAN 5 MG TABLET PO ×2 (07:44→22:12)
[2023-09-07] MEDS: Magnesium Chloride 64 MG Delay Rel.Tablet 128 MG PO (07:44)
[2023-09-07] MEDS: Ascorbic Acid 500 MG Tablet 1000 MG PO (07:45)
[2023-09-07] MEDS: Menthol/Lanolin/Calamine/Znox 113 GM Tube 1 APPLIC TOPICAL ×2 (07:47→22:11)
[2023-09-07] MEDS: Vibegron 75 MG TABLET PO (09:58)
[2023-09-07] MEDS: Pantoprazole Sodium 40 MG Tablet PO (09:58)
[2023-09-07] MEDS: Lisinopril 10 MG Tablet PO (09:58)
[2023-09-07] MEDS: busPIRone 5 MG Tablet PO ×3 (09:58→22:11)
[2023-09-07] MEDS: Metoprolol Tartrate 50 MG Tablet PO ×2 (09:59→22:12)
--- NOTE | 2023-09-07 10:17 | PCM.PROGNOTE ---
Subjective Subjective Afebrile VSS-blood pressures were elevated over the weekend. The blood pressure is better today at 133/79. She did have to receive hydralazine last night at 830. Maintaining appropriate oxygen saturation of 93-94% on a 1 LPM NC Oral intake - FOOD good FLUIDS good Discussed with nursing - C/o pain in the R knee. This is a chronic complaint. Will continue Lidocaine patch to the R knee since she seems to think it helps. Reviewed the THERAPY notes. Ambulating short distances at A with a WW with no LOB. Fatigues easily. O2 sat drops with exertion. Medication list reviewed. No complaints other than R knee pain. This is a chronic problem and due to OA. Denies CP, SOB at rest, N/V/abd pain. No dysuria and no calf pain. Fatigues easily but, never turns down therapy. No cough. Objective Data Objective Data Vital Signs: Vital Signs Temp Pulse Resp BP Pulse Ox O2 Del Method O2 Flow Rate 98.9 F 62 16 133/79 H 94 Nasal Cannula 1 09/06/23 20:30 09/07/23 10:00 09/07/23 10:00 09/07/23 10:00 09/07/23 10:00 09/07/23 10:00 09/07/23 10:00 Oxygen Flow Rate (L/min) 1 Oxygen Delivery Method Nasal Cannula Weight: 158 lb 12.8 oz Body Mass Index (BMI) 32.1 Intake & Output: Intake and Output for Last 24 Hours 09/05/23 09/06/23 09/07/23 23:59 23:59 23:59 Intake Total 1480 / 1730 2520 / 2520 350 / 350 Output Total 3050 / 3950 3500 / 3500 1000 / 1000 Balance -1570 / -2220 -980 / -980 -650 / -650 Lab / Micro Data 09/05/23 06:05 09/05/23 06:05 Physical Exam Const alert, oriented x3 and no apparent distress General Appearance: cooperative Orientation / Consciousness: Negative for confused Resp Resp Narrative: Coarse crackles in both bases. No conversational dyspnea. No coughing with deep breaths. Reminded her she needs to do the IS and PEP for 10 breaths hourly while awake. Effort and Inspection: Negative for tachypneic or labored Cardio regular rate, regular rhythm and no gallops GI normal to inspection, nondistended, normoactive bowel sounds, soft to palpation and non-tender GI Narrative: No guarding with palpation Extremity no calf tenderness Extremity Narrative: No pitting edema of the ankles today. LYN hose are in place. No swelling of the hands. Skin General Skin Exam: no breakdown Rashes: no rashes Psych thought process normal and cooperative Appearance: appropriate Assessment & Plan Assessment/Plan (1) Physical debility: (2) Hypertrophic obstructive cardiomyopathy: (3) Left ventricular outflow tract obstruction: (4) Acute blood loss anemia: (5) Hypoxia: (6) Essential hypertension: (7) Chronic anticoagulation: (8) Anxiety: PLAN: Started on Buspar. Tolerating without any adverse side effects at present. (9) Pulmonary hypertension: PLAN: Plan 1. Continue therapy 2. I suspect that the elevated blood pressures over the weekend are due to anxiety. Will increase the BuSpar to 5 mg p.o. 3 times daily. She is tolerating well without any nausea/vomiting/abdominal pain. Charges/Coding Visit Charges Inpatient E&M: 22792 [facility] L1
[2023-09-07] MEDS: Lidocaine 5% Patch 1 PATCH TOPICAL (11:35)
--- NOTE | 2023-09-07 12:20 | NURSING ---
During several therapy sessions with exerting, Spo2 checked on RA and consistently levels were 88% RA. Denied SOB. Patient understanding that she needs to wear oxygen still.
--- NOTE | 2023-09-07 16:18 | CASEMGMT ---
Social Work SW met with patient at bedside to discuss Medicare insurance approve days: approved 16 days- D/C 09/15. Becca provided verbal understanding of approval. Patient informed SW that she would like to transition to TCU, should she require additional therapy support. Discharge plan: TCU SW will continue to follow to support discharge plans. NORBERTO Bourne
[2023-09-07] MEDS: MELATONIN 3 MG TABLET PO (22:12)
[2023-09-08] VITALS (9 sets, daily range): BP systolic 126–165; BP diastolic 71–94; PULSE 63–71; RESP 16; TEMP 36.2–36.4; O2SAT 95–97; BMI 32.0
[2023-09-08] MEDS: busPIRone 5 MG Tablet PO ×3 (06:13→21:39)
[2023-09-08] MEDS: Magnesium Chloride 64 MG Delay Rel.Tablet 128 MG PO (08:13)
[2023-09-08] MEDS: Pantoprazole Sodium 40 MG Tablet PO (08:14)
[2023-09-08] MEDS: APIXABAN 5 MG TABLET PO ×2 (08:14→21:41)
[2023-09-08] MEDS: Ascorbic Acid 500 MG Tablet 1000 MG PO (08:14)
[2023-09-08] MEDS: Calcium (Elemental) 500 MG Tablet PO ×2 (08:14→17:10)
[2023-09-08] MEDS: Lidocaine 5% Patch 1 PATCH TOPICAL (08:14)
[2023-09-08] MEDS: Lisinopril 10 MG Tablet PO (08:14)
[2023-09-08] MEDS: Vibegron 75 MG TABLET PO (08:14)
[2023-09-08] MEDS: Metoprolol Tartrate 50 MG Tablet PO ×2 (08:14→21:39)
[2023-09-08] MEDS: Multivitamins,Ther W-Minerals Tablet 1 TABLET PO (08:14)
--- NOTE | 2023-09-08 11:51 | PCM.PROGNOTE ---
Subjective Subjective Afebrile VSS -blood sugars over the past 24 hours have ranged from 124/71 to 165/85. She has not required any hydralazine over the past 24 hours. Maintaining appropriate oxygen saturation on RA Oral intake - FOOD good FLUIDS good Discussed with nursing - no problems that need addressed Reviewed the THERAPY notes Medication list reviewed. She states she is not sleeping through the night but, she wakens feeling refreshed in the AM and denies daytime somnolence. This is her routing at home as well. Gets up to urinate no more than once a night. Denies lightheadedness, SOB at rest, CP, N/V/epigastric pain, dysuria and calf tenderness. She denies pain anywhere today. Today she is fixated/worrying about oxygen saturation. she continues to need supplemental 02 with exertion. She is adamant that she does not want oxygen at home. Pulse ox when she is resting in the recliner is WNL and she is not SOB or tachypneic. Objective Data Objective Data Vital Signs: Vital Signs Temp Pulse Resp BP Pulse Ox O2 Del Method O2 Flow Rate 97.5 F L 64 16 149/94 H 95 Nasal Cannula 1 09/08/23 06:00 09/08/23 10:00 09/08/23 06:00 09/08/23 10:00 09/08/23 06:00 09/08/23 10:00 09/08/23 10:00 Oxygen Flow Rate (L/min) 1 Oxygen Delivery Method Nasal Cannula Weight: 158 lb 12.8 oz Body Mass Index (BMI) 32.1 Intake & Output: Intake and Output for Last 24 Hours 09/06/23 09/07/23 09/08/23 23:59 23:59 23:59 Intake Total 2520 / 2520 1350 / 1350 600 / 600 Output Total 3500 / 3500 1950 / 1950 950 / 950 Balance -980 / -980 -600 / -600 -350 / -350 Lab / Micro Data 09/05/23 06:05 09/05/23 06:05 Physical Exam Const alert, oriented x3 and no apparent distress Constitutional Narrative: Good color in her face today. General Appearance: cooperative Orientation / Consciousness: Negative for confused Resp Resp Narrative: Diminished in the bases with coarse crackles initially but, after a few deep breaths the crackles were much better. No wheezing. No conversational dyspnea. Effort and Inspection: Negative for tachypneic or labored Cardio regular rate, regular rhythm and no gallops GI normal to inspection, nondistended, normoactive bowel sounds, soft to palpation and non-tender GI Narrative: No guarding with palpation Extremity no calf tenderness Extremity Narrative: No pitting edema of the ankles today. LYN hose are in place. No swelling of the hands. General Extremity: Negative for cyanosis Skin General Skin Exam: no breakdown Rashes: no rashes Neuro CN's II-XII intact bilaterally and no focal motor deficits Psych thought process normal and cooperative Psych Narrative: Anxious but, she does not see this........BP is very sensitive to increase in her anxiety level. Buspar was increased to 5 mg TID yesterday. Appearance: appropriate Assessment & Plan Assessment/Plan (1) Physical debility: (2) Hypertrophic obstructive cardiomyopathy: (3) Left ventricular outflow tract obstruction: (4) Acute blood loss anemia: (5) Hypoxia: PLAN: With exertion, not at rest now. (6) Essential hypertension: PLAN: Very sensitive to any increase in stress level. (7) Chronic anticoagulation: (8) Anxiety: PLAN: Started on Buspar. Tolerating without any adverse side effects at present. (9) Pulmonary hypertension: PLAN: Plan 1. Continue therapy 2. No changes to the antihypertensive regimen. Will focus on controlling anxiety. Increase BuSpar as tolerated. Continue the as needed hydralazine. 3. Repeat a BMP and CBC on Thursday. 4. Continue Apixaban. 5. Making steady progress in therapy. It has been a long road for her with many complications and readmissions to acute along the way. The goal is to get her home. May need SNF for a short time following DC from acute. Charges/Coding Visit Charges Inpatient E&M: 00972 Subs Hosp L1
[2023-09-08] MEDS: MELATONIN 3 MG TABLET PO (21:40)
[2023-09-08] MEDS: Menthol/Lanolin/Calamine/Znox 113 GM Tube 1 APPLIC TOPICAL (21:42)
[2023-09-09] VITALS (11 sets, daily range): BP systolic 125–153; BP diastolic 76–89; PULSE 61–72; RESP 15–17; TEMP 36.6–37.2; O2SAT 92–97; BMI 31.1
[2023-09-09] MEDS: busPIRone 5 MG Tablet PO ×3 (06:02→21:00)
[2023-09-09] MEDS: Multivitamins,Ther W-Minerals Tablet 1 TABLET PO (08:07)
[2023-09-09] MEDS: Lidocaine 5% Patch 1 PATCH TOPICAL (08:08)
[2023-09-09] MEDS: Metoprolol Tartrate 50 MG Tablet PO ×2 (08:08→21:00)
[2023-09-09] MEDS: Vibegron 75 MG TABLET PO (08:08)
[2023-09-09] MEDS: APIXABAN 5 MG TABLET PO ×2 (08:08→21:00)
[2023-09-09] MEDS: Pantoprazole Sodium 40 MG Tablet PO (08:09)
[2023-09-09] MEDS: Magnesium Chloride 64 MG Delay Rel.Tablet 128 MG PO (08:09)
[2023-09-09] MEDS: Calcium (Elemental) 500 MG Tablet PO ×2 (08:10→17:03)
[2023-09-09] MEDS: Ascorbic Acid 500 MG Tablet 1000 MG PO (08:10)
[2023-09-09] MEDS: Lisinopril 10 MG Tablet PO (08:10)
[2023-09-09] MEDS: Menthol/Lanolin/Calamine/Znox 113 GM Tube 1 APPLIC TOPICAL ×2 (08:12→21:00)
[2023-09-09] MEDS: hydrALAZINE 25 MG Tablet PO (10:11)
[2023-09-09] MEDS: MELATONIN 3 MG TABLET PO (21:00)
[2023-09-09] MEDS: ESTRADIOL 42.5 GM VAGINAL (21:00)
[2023-09-10] VITALS (8 sets, daily range): BP systolic 121–160; BP diastolic 69–87; PULSE 60–66; RESP 16–17; TEMP 36.6–37.1; O2SAT 93–97; BMI 30.7
[2023-09-10] MEDS: busPIRone 5 MG Tablet PO ×3 (05:37→20:35)
[2023-09-10] MEDS: Ascorbic Acid 500 MG Tablet 1000 MG PO (09:09)
[2023-09-10] MEDS: Pantoprazole Sodium 40 MG Tablet PO (09:10)
[2023-09-10] MEDS: Metoprolol Tartrate 50 MG Tablet PO ×2 (09:10→20:35)
[2023-09-10] MEDS: Magnesium Chloride 64 MG Delay Rel.Tablet 128 MG PO (09:10)
[2023-09-10] MEDS: Lisinopril 10 MG Tablet PO (09:10)
[2023-09-10] MEDS: Vibegron 75 MG TABLET PO (09:10)
[2023-09-10] MEDS: Multivitamins,Ther W-Minerals Tablet 1 TABLET PO (09:11)
[2023-09-10] MEDS: Calcium (Elemental) 500 MG Tablet PO ×2 (09:11→16:21)
[2023-09-10] MEDS: Lidocaine 5% Patch 1 PATCH TOPICAL (09:11)
[2023-09-10] MEDS: APIXABAN 5 MG TABLET PO ×2 (09:11→20:35)
--- NOTE | 2023-09-10 10:34 | PCM.PROGNOTE ---
Subjective Subjective Melisa was seen on team rounds today. Her friend Bernadette was present in the room for rounds. Afebrile VSS - Still having some elevated BP's........rony in the AM. Still anxious at times. Worried about going home and taking care of Rohan (her dog). Does not feel as though she is strong enough to go home at this point and thinks she will need SNF at [place] from acute rehab. Maintaining appropriate oxygen saturation - 93-97% on 1 LPM Oral intake - FOOD good FLUIDS usually good Over the past 2 months her weight has decreased from 171 pounds to 152 pounds. Many complications and set backs in the past 2 months of hospitalization. Eating well now and progressing in therapy but, fatigues easily and this is understandable. I reviewed the environmental services manager's assessment and she has not been diagnosed with malnutrition. Discussed with nursing - no problems that need addressed. Sleeping OK at night. Reviewed the THERAPY notes Medication list reviewed. tolerating Buspar with no adverse side effects. Melisa denies cephalgia, lightheadedness, chest pain, shortness of breath at rest, palpitations, nausea/vomiting/epigastric pain, dysuria and calf tenderness. She admits to fatiguing easily. Heart rate increases with minimal exertion. She was able to maintain an O2 sat above 90% on RA today on a 5 minute walk. Objective Data Objective Data Vital Signs: Vital Signs Temp Pulse Resp BP Pulse Ox O2 Del Method O2 Flow Rate 97.9 F 66 16 160/85 H 97 Nasal Cannula 1 09/10/23 05:39 09/10/23 09:10 09/10/23 05:39 09/10/23 09:10 09/10/23 08:01 09/10/23 05:39 09/10/23 08:01 Oxygen Flow Rate (L/min) 1 Oxygen Delivery Method Nasal Cannula Weight: 152 lb 1.903 oz Body Mass Index (BMI) 30.7 Intake & Output: Intake and Output for Last 24 Hours 09/08/23 09/09/23 09/10/23 23:59 23:59 23:59 Intake Total 2370 / 2370 720 / 1020 950 / 950 Output Total 1950 / 1950 1300 / 1750 1450 / 1450 Balance 420 / 420 -580 / -730 -500 / -500 Lab / Micro Data 09/05/23 06:05 09/05/23 06:05 Physical Exam Const alert and oriented x3 General Appearance: cooperative HEENT moist oral mucous membranes Resp clear to auscultation bilaterally Resp Narrative: Diminished in the Left base......this is chronic. No conversational dyspnea. Respiratory rate does increase with exertion. No cough. No wheezing. Cardio regular rate, regular rhythm and no gallops GI normal to inspection, nondistended, normoactive bowel sounds, soft to palpation and non-tender Extremity no calf tenderness Extremity Narrative: Peripheral edema is well-controlled with compression stockings. General Extremity: Negative for edema Skin General Skin Exam: no breakdown Rashes: no rashes Assessment & Plan Assessment/Plan (1) Physical debility: (2) Hypertrophic obstructive cardiomyopathy: (3) Left ventricular outflow tract obstruction: (4) Acute blood loss anemia: (5) Hypoxia: (6) Essential hypertension: (7) Chronic anticoagulation: (8) Anxiety: PLAN: Started on Buspar. Tolerating without any adverse side effects at present. Still requiring PRN Hydralazine at times. Will increase the Buspar to 10 mg in the AM and afternoon and 5 mg toward evening. (9) Pulmonary hypertension: PLAN: Plan 1. Continue therapy. She is doing very well but has been in the hospital for 2 straight months with many complications and a near experience secondary to septic shock and cardiovascular collapse. She lives alone. Would benefit from a 10-14 [facility] discharge from acute rehab. She is looking into getting a stair lift at home. 2. CBC and BMP ordered for the a.m. Charges/Coding Visit Charges Inpatient E&M: 25333 Subs Hosp L2
--- NOTE | 2023-09-10 13:01 | CASEMGMT ---
Social Work IDT met with patient and friend, Bernadette at bedside to complete care plans. Discussed patient progress with therapy PT/OT and nursing. Patient continues to progress with therapy. Patient is currently transition off O2 while exercising; remains on room air. SW educated patient on Medicare coverage and approval for 16 days; discharge 09/15. SW discussed physician and therapy recommendation for continued rehab. Patient is agreeable to transition to TCU upon discharge from [facility]. SW provided patient with stair lift resources. Patient is appreciative of resources. Patient informed SW that she will reach out to [facility] for equipment. SW will continue to follow to assist with transition of care. NORBERTO Bourne
[2023-09-10] MEDS: MELATONIN 3 MG TABLET PO (20:35)
[2023-09-10] MEDS: Menthol/Lanolin/Calamine/Znox 113 GM Tube 1 APPLIC TOPICAL (20:36)
[2023-09-11] VITALS (10 sets, daily range): BP systolic 114–158; BP diastolic 70–81; PULSE 63–78; RESP 17–18; TEMP 36.4–36.5; O2SAT 92–98; BMI 30.2
[2023-09-11] MEDS: busPIRone 5 MG Tablet PO ×3 (04:52→22:22)
[2023-09-11 07:11] LABS: Hematocrit 33.9 % (37-47); Hemoglobin 10.5 g/dL (12.0-15.0); Mean Corpuscular Hgb 31.1 pg (27.0-32.0); Mean Corpuscular Volume 100.3 fL (81-99); Mean Platelet Vol. 10.9 fl (6.2-12.0); POSITIVE MORPHOLOGY YES; Platelet Count 184 K/mm3 (150-450); RBC Distribution Width CV 17.4 % (11.6-14.6); RBC Distribution Width SD 65.6 fl (35.1-43.9); Red Blood Count 3.38 M/mm3 (4.2-5.4); White Blood Count 4.8 K/mm3 (4.4-11.0)
[2023-09-11 07:26] LABS: Scan Indicated on CBC? Y/N YES- FLAGS NOTED
[2023-09-11 07:58] LABS: Differential Comment SCANNED
[2023-09-11] MEDS: Ascorbic Acid 500 MG Tablet 1000 MG PO (08:09)
[2023-09-11] MEDS: Lisinopril 10 MG Tablet PO (08:11)
[2023-09-11] MEDS: Multivitamins,Ther W-Minerals Tablet 1 TABLET PO (08:11)
[2023-09-11] MEDS: Pantoprazole Sodium 40 MG Tablet PO (08:11)
[2023-09-11] MEDS: Vibegron 75 MG TABLET PO (08:11)
[2023-09-11] MEDS: Metoprolol Tartrate 50 MG Tablet PO ×2 (08:11→22:29)
[2023-09-11] MEDS: Magnesium Chloride 64 MG Delay Rel.Tablet 128 MG PO (08:11)
[2023-09-11] MEDS: Calcium (Elemental) 500 MG Tablet PO ×2 (08:11→16:53)
[2023-09-11] MEDS: Lidocaine 5% Patch 1 PATCH TOPICAL (08:12)
[2023-09-11] MEDS: APIXABAN 5 MG TABLET PO ×2 (08:12→22:22)
[2023-09-11] MEDS: Menthol/Lanolin/Calamine/Znox 113 GM Tube 1 APPLIC TOPICAL ×2 (08:12→22:33)
[2023-09-11 08:13] LABS: Anion Gap 8 (5-15); BUN 8 mg/dL (7-18); BUN/Creat Ratio 12.5 RATIO (10-20); Calcium,Total 8.7 mg/dL (8.5-10.1); Chloride 105 mmol/L (98-107); Creatinine, Serum 0.64 mg/dL (0.55-1.02); EST Glomerular Filtration Rate 95 mL/min (>60); Est Glom Filt Rate - Afr Amer 115 mL/min (>60); Estimated Creatinine Clearance 50.23 ml/min; Glucose 93 mg/dL (74-106); Potassium 3.9 mmol/L (3.5-5.1); Sodium Level 138 mmol/L (136-145)
[2023-09-11] MEDS: MELATONIN 3 MG TABLET PO (22:22)
[2023-09-11] MEDS: ESTRADIOL 42.5 GM VAGINAL (22:25)
[2023-09-11] MEDS: Senna/Docusate Sodium 1 Tablet 2 TABLET PO (22:30)
[2023-09-12] VITALS (8 sets, daily range): BP systolic 119–140; BP diastolic 46–83; PULSE 62–68; RESP 17–18; TEMP 36.7–36.8; O2SAT 91–98; BMI 30.1
[2023-09-12] MEDS: busPIRone 5 MG Tablet PO ×3 (06:31→22:03)
[2023-09-12] MEDS: Multivitamins,Ther W-Minerals Tablet 1 TABLET PO (09:45)
[2023-09-12] MEDS: Calcium (Elemental) 500 MG Tablet PO ×2 (09:45→18:42)
[2023-09-12] MEDS: Metoprolol Tartrate 50 MG Tablet PO ×2 (09:45→22:03)
[2023-09-12] MEDS: APIXABAN 5 MG TABLET PO ×2 (09:45→22:03)
[2023-09-12] MEDS: Vibegron 75 MG TABLET PO (09:45)
[2023-09-12] MEDS: Lidocaine 5% Patch 1 PATCH TOPICAL (09:46)
[2023-09-12] MEDS: Menthol/Lanolin/Calamine/Znox 113 GM Tube 1 APPLIC TOPICAL ×2 (09:48→22:07)
[2023-09-12] MEDS: Ascorbic Acid 500 MG Tablet 1000 MG PO (10:59)
[2023-09-12] MEDS: Magnesium Chloride 64 MG Delay Rel.Tablet 128 MG PO (10:59)
[2023-09-12] MEDS: Lisinopril 10 MG Tablet PO (10:59)
[2023-09-12] MEDS: Pantoprazole Sodium 40 MG Tablet PO (10:59)
[2023-09-12] MEDS: MELATONIN 3 MG TABLET PO (22:03)
[2023-09-12] MEDS: Senna/Docusate Sodium 1 Tablet 2 TABLET PO (22:03)
[2023-09-13] VITALS (9 sets, daily range): BP systolic 123–156; BP diastolic 76–90; PULSE 63–78; RESP 14–18; TEMP 36.5–36.8; O2SAT 92–96
[2023-09-13] MEDS: busPIRone 5 MG Tablet PO ×3 (05:40→21:52)
[2023-09-13] MEDS: Multivitamins,Ther W-Minerals Tablet 1 TABLET PO (08:40)
[2023-09-13] MEDS: Calcium (Elemental) 500 MG Tablet PO ×2 (08:40→18:18)
[2023-09-13] MEDS: Vibegron 75 MG TABLET PO (08:41)
[2023-09-13] MEDS: Lidocaine 5% Patch 1 PATCH TOPICAL (08:41)
[2023-09-13] MEDS: APIXABAN 5 MG TABLET PO ×2 (08:41→21:52)
[2023-09-13] MEDS: Metoprolol Tartrate 50 MG Tablet PO ×2 (08:41→21:53)
[2023-09-13] MEDS: Menthol/Lanolin/Calamine/Znox 113 GM Tube 1 APPLIC TOPICAL ×2 (08:42→21:55)
[2023-09-13] MEDS: Pantoprazole Sodium 40 MG Tablet PO (10:35)
[2023-09-13] MEDS: Magnesium Chloride 64 MG Delay Rel.Tablet 128 MG PO (10:35)
[2023-09-13] MEDS: Ascorbic Acid 500 MG Tablet 1000 MG PO (10:35)
[2023-09-13] MEDS: Lisinopril 10 MG Tablet PO (10:35)
[2023-09-13] MEDS: hydrALAZINE 25 MG Tablet PO (14:00)
[2023-09-13] MEDS: MELATONIN 3 MG TABLET PO (21:52)
[2023-09-13] MEDS: ESTRADIOL 42.5 GM VAGINAL (21:54)
[2023-09-14] VITALS (8 sets, daily range): BP systolic 110–158; BP diastolic 72–85; PULSE 62–71; RESP 16–20; TEMP 36.6; O2SAT 90–94; BMI 30.2
[2023-09-14] MEDS: busPIRone 5 MG Tablet PO ×3 (06:01→21:33)
[2023-09-14] MEDS: Ascorbic Acid 500 MG Tablet 1000 MG PO (08:20)
[2023-09-14] MEDS: Magnesium Chloride 64 MG Delay Rel.Tablet 128 MG PO (08:21)
[2023-09-14] MEDS: Lisinopril 10 MG Tablet PO (08:21)
[2023-09-14] MEDS: Multivitamins,Ther W-Minerals Tablet 1 TABLET PO (08:21)
[2023-09-14] MEDS: Pantoprazole Sodium 40 MG Tablet PO (08:21)
[2023-09-14] MEDS: APIXABAN 5 MG TABLET PO ×2 (08:21→21:33)
[2023-09-14] MEDS: Vibegron 75 MG TABLET PO (08:22)
[2023-09-14] MEDS: Calcium (Elemental) 500 MG Tablet PO ×2 (08:22→17:36)
[2023-09-14] MEDS: Menthol/Lanolin/Calamine/Znox 113 GM Tube 1 APPLIC TOPICAL ×2 (08:22→21:37)
[2023-09-14] MEDS: Metoprolol Tartrate 50 MG Tablet PO ×2 (08:22→21:33)
[2023-09-14] MEDS: Lidocaine 5% Patch 1 PATCH TOPICAL (08:23)
--- NOTE | 2023-09-14 12:25 | PN_ITS ---
Subjective Subjective Afebrile VSS -blood pressure is still mildly elevated at times but in general is much better with the addition of BuSpar to her drug regimen. Maintaining appropriate oxygen saturation on RA Oral intake - FOOD good FLUIDS good Discussed with nursing - no problems that need addressed Reviewed the THERAPY notes Medication list reviewed. Melisa denies lightheadedness, cephalgia, shortness of breath at rest, orthopnea, chest pain, nausea/vomiting/abdominal pain, dysuria and calf tenderness. Does not feel she is ready to go home and be by herself. She is having someone put in a stair lift at her home and thinks it would be best if she went home after this was done. Objective Data Objective Data Vital Signs: Vital Signs Temp Pulse Resp BP Pulse Ox O2 Del Method O2 Flow Rate 97.8 F 62 20 H 126/81 H 90 Room Air 1 09/14/23 05:55 09/14/23 10:00 09/14/23 05:55 09/14/23 10:00 09/14/23 07:17 09/14/23 07:17 09/10/23 20:42 Oxygen Flow Rate (L/min) 1 Oxygen Delivery Method Room Air Weight: 150 lb Body Mass Index (BMI) 30.2 Intake & Output: Intake and Output for Last 24 Hours 09/12/23 09/13/23 09/14/23 23:59 23:59 23:59 Intake Total 1999 / 2250 2860 / 2860 440 / 440 Output Total 2425 / 3225 2700 / 3400 700 / 700 Balance -425 / -975 160 / -540 -260 / -260 Lab / Micro Data 09/11/23 06:53 09/11/23 06:53 Physical Exam Const alert, oriented x3 and no apparent distress Constitutional Narrative: Sitting in the recliner at the bedside. Appears comfortable. Not tachypneic. HEENT moist oral mucous membranes HEENT Narrative: No evidence of thrush. Resp clear to auscultation bilaterally Effort and Inspection: Negative for tachypneic or respiratory distress Cardio regular rate, regular rhythm, no rub and no gallops Cardio Narrative: No change in the murmur. GI normal to inspection, nondistended, normoactive bowel sounds, soft to palpation and non-tender GI Narrative: No guarding with palpation. Extremity Extremity Narrative: LYN hose are in place and she has a trace of ankle edema only. Skin General Skin Exam: no breakdown Rashes: no rashes Psych Psych Narrative: Generally she is much calmer than she was prior to starting BuSpar. She has been tolerating the BuSpar with no adverse reactions. She is a bit anxious today and I suspect this is due to expectation of transfer to TCU. 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 Continue therapy 2. Plan discharge to TCU on 09/16/2023 for additional skilled therapy prior to returning home where she lives alone. Charges/Coding Visit Charges Inpatient E&M: [id number] [facility] L1
--- NOTE | 2023-09-14 15:42 | CHAPLAIN ---
Type of Pastoral Visit ___ Initial Visit _x__ Follow-up Visit ___ On-call Visit ___ General Patient Visit ___ Spiritual Assessment ___ Family Conference ___ Bereavement ___ Rapid Response ___ Code Blue ___ Other (describe below) Pastoral Care Referral From _x__ Patient ___ Family ___ Nurse ___ Physician ___ Scanner Operator ___ Tool And Die Manager ___ Other (describe below) Sacrament/Intervention _x__ Active listening ___ Anointing ___ Buddhism ___ Bereavement ___ Communion ___ Destiny exploration ___ ___ Life review _x__ Prayer ___ Reconciliation ___ Sacrament of Sick _x__ Supportive presence ___ Wedding ___ Other (describe below) Pastoral Comments progress report given by patient; pt has been reading more books and is entertained by watching the construction outside; pt states that she is more cautious this time about getting out of the hospital and wants to be very sure that she is ready to go home; pt is also encouraged about what she is able to do now and the new freedoms; 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
--- NOTE | 2023-09-14 16:56 | CASEMGMT ---
Social Work SW met with patient at bedside to address patient concerns for stair lift. Patient informed SW that she needs a script for the stair lift to be sent to [facility] to support tax discount. SW submitted faxed to [facility] [phone] SW inquired about patient's goal for transition of care. Patient informed SW that she does not feel comfortable discharging home at this time. Patient goals for transition of care remains for TCU Discharge plan: TCU 09/16/2023 NORBERTO Bourne
[2023-09-14] MEDS: MELATONIN 3 MG TABLET PO (21:33)
[2023-09-15] VITALS (10 sets, daily range): BP systolic 103–138; BP diastolic 64–83; PULSE 61–66; RESP 16–17; TEMP 36.4–36.7; O2SAT 93–97; BMI 30.1
[2023-09-15] MEDS: busPIRone 5 MG Tablet PO ×3 (05:31→21:20)
[2023-09-15] MEDS: Multivitamins,Ther W-Minerals Tablet 1 TABLET PO (08:26)
[2023-09-15] MEDS: Calcium (Elemental) 500 MG Tablet PO ×2 (08:26→16:20)
[2023-09-15] MEDS: Menthol/Lanolin/Calamine/Znox 113 GM Tube 1 APPLIC TOPICAL ×2 (08:26→21:35)
[2023-09-15] MEDS: Vibegron 75 MG TABLET PO (08:27)
[2023-09-15] MEDS: Lidocaine 5% Patch 1 PATCH TOPICAL (08:27)
[2023-09-15] MEDS: APIXABAN 5 MG TABLET PO ×2 (08:27→21:21)
[2023-09-15] MEDS: Metoprolol Tartrate 50 MG Tablet PO ×2 (08:27→21:20)
[2023-09-15] MEDS: Pantoprazole Sodium 40 MG Tablet PO (08:28)
[2023-09-15] MEDS: Magnesium Chloride 64 MG Delay Rel.Tablet 128 MG PO (08:28)
[2023-09-15] MEDS: Lisinopril 10 MG Tablet PO (08:28)
[2023-09-15] MEDS: Ascorbic Acid 500 MG Tablet 1000 MG PO (08:28)
--- NOTE | 2023-09-15 14:05 | CASEMGMT ---
Social Work SW met with patient at bedside to review discharge plans. Patient anticipates discharge on 09/16/2023 to TCU. SW informed patient of her Medicare Rights to appeal discharge. Patient declined discharge at this time. SW informed patient of her Medicare benefit and coverage for TCU. Patient goal is to discharge from TCU prior to 20th day. Discharge: TCU 09/16/2023 NORBERTO Bourne
[2023-09-15] MEDS: MELATONIN 3 MG TABLET PO (21:21)
[2023-09-16] MEDS: busPIRone 5 MG Tablet PO (05:53)
[2023-09-16 06:00] VITALS: BP 116/93; PULSE 62; RESP 17; TEMP 36.7; O2SAT 91; BMI 30.2
[2023-09-16 06:04] VITALS: BP 116/93; PULSE 62
[2023-09-16] MEDS: hydrALAZINE 25 MG Tablet PO (06:04)
[2023-09-16] MEDS: Lidocaine 5% Patch 1 PATCH TOPICAL (08:15)
[2023-09-16 08:16] VITALS: PULSE 62
[2023-09-16] MEDS: Magnesium Chloride 64 MG Delay Rel.Tablet 128 MG PO (08:16)
[2023-09-16] MEDS: APIXABAN 5 MG TABLET PO (08:16)
[2023-09-16] MEDS: Lisinopril 10 MG Tablet PO (08:16)
[2023-09-16] MEDS: Metoprolol Tartrate 50 MG Tablet PO (08:16)
[2023-09-16] MEDS: Ascorbic Acid 500 MG Tablet 1000 MG PO (08:16)
[2023-09-16] MEDS: Multivitamins,Ther W-Minerals Tablet 1 TABLET PO (08:16)
[2023-09-16] MEDS: Pantoprazole Sodium 40 MG Tablet PO (08:16)
[2023-09-16] MEDS: Vibegron 75 MG TABLET PO (08:16)
[2023-09-16] MEDS: Calcium (Elemental) 500 MG Tablet PO (08:16)
[2023-09-16] MEDS: Menthol/Lanolin/Calamine/Znox 113 GM Tube 1 APPLIC TOPICAL (08:17)
--- NOTE | 2023-09-16 09:46 | TREXTCAR_ITS ---
Diet Diet Order/Speech Therapy: 08/31/23 17:37 Diet: Regular - General Dietary Modifications:: No Added Salt Is pt able to select menu?: Yes Routine Orders/Code Status Enema Type: Fleetz Enema Frequency: Daily PRN Suppository Type: Dulcolax 10mg Suppository Frequency: Daily PRN O2 Liters per Minute: 1-2 O2 Frequency: PRN Keep PO Greater than or Equal to (%): 90 Code Status: Full Code Wound(s) LEFT UPPER CHEST: Wound Type: Surgical Incision MEDIAL RT UPPER ARM: Wound Type: Surgical Incision Therapies Weight Bearing: Full weight bearing Physical Therapy: Eval and Treat Occupational Therapy: Eval and Treat Problem/Diagnosis (1) Physical debility: Status: Acute Code(s): R53.81 - Other malaise Plan: Transferred to nursing home, transitional care unit, for additional therapy prior to returning home alone. Comment: Due to prolonged hospitalization starting in early July. Multiple medical complications including septic shock, PNA, Acute on chronic CHF due to hypertrophic obstructive cardiomyopathy with LVOT obstruction, GI bleed, etc. (2) Hypertrophic obstructive cardiomyopathy: Status: Acute Code(s): I42.1 - Obstructive hypertrophic cardiomyopathy (3) Left ventricular outflow tract obstruction: Status: Acute Code(s): Q24.8 - Other specified congenital malformations of heart (4) Acute blood loss anemia: Status: Acute Code(s): D62 - Acute posthemorrhagic anemia Comment: Stable. Tolerating apixaban without recurrent GI bleeding. (5) Hypoxia: Status: Resolved Code(s): R09.02 - Hypoxemia (6) Essential hypertension: Status: Chronic Code(s): I10 - Essential (primary) hypertension Plan: Continue current antihypertensives. Her BP is very sensitive to any stress. BP control is much better since she was started on Buspar to control anxiety. Tolerating Buspar with no adverse side effects. (7) Chronic anticoagulation: Status: Chronic Code(s): Z79.01 - bed bug exterminator (current) use of anticoagulants (8) Anxiety: Status: Chronic Code(s): F41.9 - Anxiety disorder, unspecified Plan: Started on Buspar. Tolerating without any adverse side effects at present. Sti ll requiring PRN Hydralazine at times bu, rarely. (9) Pulmonary hypertension: Status: Chronic Code(s): I27.20 - Pulmonary hypertension, unspecified (10) Paroxysmal atrial fibrillation: Status: Acute Code(s): I48.0 - Paroxysmal atrial fibrillation (11) Pacemaker: Status: Acute Code(s): Z95.0 - Presence of cardiac pacemaker (12) DVT (deep venous thrombosis): Status: Acute Code(s): I82.409 - Acute embolism and thrombosis of unspecified deep veins of unspecified lower extremity Comment: BL UE's due to PICC/central lines. No DVT in the LE's (13) Colon polyps: Status: Acute Code(s): K63.5 - Polyp of colon Comment: 2 polyps were removed in August of 2023 at [facility] Plan 1. Transfer to TCU for additional therapy prior to returning home alone. 2. Stair chair is being installed at her home. 3. Follow up with PCP, cardiology post DC from TCU. 4. would benefit from some psychotherapy to learn how to better manage her anxiety. 5. Follow-up at [facility] following discharge from TCU for consideration for a Watchman procedure. 6. Repeat bilateral upper extremity venous ultrasounds in 2 weeks for follow-up on bilateral upper extremity DVTs. 7. She is to have a follow-up CT scan of her chest for nonspecific nodular lesions identified at [facility] in 4 weeks and then will need to follow up with pulmonary. Allergies/Procedures Done in Hospital Allergies procaine [From Novocain] Allergy (Intermediate, Verified 07/18/23 15:57) NEEDS FOLLOW-UP numbness in toes and coming up legs diclofenac [From Voltaren] Allergy (Verified 07/18/23 13:33) Hives Procedures: EGD (Dr. Sarabia for UGI bleed due to multiple oozing duodenal ulcers. ), Transthoracic Echo (Multiple recently at [facility], [facility] and [facility]. ) and - (Replacement of PM malfunctioning PM leads at [facility] X 2 in July 2023) Type of Care/Length of Stay Estimated LOS: Convalescent Care Less Than 30 days Type of Care Needed: Skilled Rehab Potential: Good Prognosis: Good Additional Orders/Day of Discharge H&P will serve as current which was dated: 09/01/23 Day of Discharge: 09/16/23 Dietary and Speech Recommendations Dietitian Recommendations/Changes: Continue Regular - MIRTHA diet to manage medical conditions. Will reassess need for ONS at follow-up based on PO intakes and weights. Follow Up Care Please follow up with your Primary Care Physician in: Dr. Marsh following DC from TCU Please Follow Up With: pulmonary When: following repeat CT scan of the chest in 4 weeks for NS lung nodules Please Follow Up With: cardiology When: Cardiology [facility] for Watchman procedure Discharge Plan Admission Admit Date/Time: 08/31/23 17:25 Primary Reason for Your Visit: Debility due to prolonged hospitalization from from 07/18/23 to 08/31/23. Attending Provider: Fabienne Vazquez Primary Care Provider: Rick Marsh Instructions Additional Instructions / Restrictions: 1. Melisa gets very anxious with any kind of stress and tends to perseverate on things. When this happens her BP soars. BP's are much better on a beta derrell and Buspar. She denies feeling anxious but, she is doing much better on Buspar. She is sleeping much better and rarely needs PRN Hydralazine now. Discharge Orders/Prescriptions Prescriptions: New bisacodyl 10 mg Suppository 10 mg NJ X1 PRN (Reason: Constipation) Qty: 1 0RF buspirone 5 mg Tablet See Rx Instructions .ROUTE .COMPLEX Qty: 1 0RF Rx Instructions: 2 tabs in the AM, 1 in the afternoon and 2 tabs in the evening. hydralazine 25 mg Tablet 25 mg PO Q4H PRN (Reason: sys>170 rangel>85) Qty: 1 0RF melatonin 3 mg Tablet 3 mg PO QHS Qty: 1 0RF magnesium hydroxide 400 mg/5 mL Suspension 30 ml PO X1 PRN (Reason: Constipation) Qty: 30 0RF lisinopril 10 mg Tablet 10 mg PO DAILY Qty: 1 0RF lidocaine 5 % Adhesive Patch,Medicated 1 patch topical DAILY Qty: 1 0RF Protocol: *Topical Application Instructions APPLICATION INSTRUCTIONS: left knee magnesium chloride [Mag 64] 64 mg Tablet,Delayed Release (Dr/Ec) 128 mg PO DAILY Qty: 1 0RF sennosides-docusate sodium [Stool Softener-Stimulant Laxat] 8.6-50 mg Tablet 2 tab PO BID Qty: 1 0RF menthol-zinc oxide [Calmoseptine] 0.44-20.6 % Ointment 1 applic topical BID Qty: 1 0RF Protocol: *Topical Application Instructions APPLICATION INSTRUCTIONS: bilateral buttocks Continued lutein 20 mg capsule 20 mg PO DAILY calcium carbonate 600 mg calcium (1,500 mg) tablet 600 mg PO BID estradiol 0.01 % (0.1 mg/gram) cream 1 g VAGINAL SUWEFR metoprolol tartrate [Lopressor] 50 mg tablet 50 mg PO BID Rx Instructions: hold if SBP < 100 or HR < 50 pantoprazole [Protonix] 40 mg tablet,delayed release (DR/EC) 40 mg PO DAILY polyethylene glycol 3350 [Miralax] 17 gram/dose powder 17 g PO DAILY ascorbic acid (vitamin C) 500 mg capsule 1,000 mg PO DAILY Hair,Skin and Nails Tablet 1 tab PO DAILY Gemtesa 75 mg tablet 75 mg PO DAILY Eliquis 5 mg tablet 5 mg PO BID Referrals / Follow Up: [facility] Cow[facility]-Cardiology [Other] Rick Marsh MD [Primary Care Provider] - (Have PCP follow up on CT scans of lung and Kidney that were done at [facility]) Yesi Craft PA [Non-Staff] - Disposition Disposition (needs filled in before D/C Order can be placed): [facility]
--- NOTE | 2023-09-16 10:30 | PCM.DC.SUM ---
Providers Date of Admission: 08/31/23 Date of Discharge: 09/16/23 Primary Care Physician: Dr. Rick Marsh MD Reason For Visit: DEBILITY Diagnosis Discharge Diagnosis (1) Physical debility: Status: Acute Code(s): R53.81 - Other malaise Plan: [facility], for additional therapy prior to returning home alone. (2) Hypertrophic obstructive cardiomyopathy: Status: Acute Code(s): I42.1 - Obstructive hypertrophic cardiomyopathy (3) Left ventricular outflow tract obstruction: Status: Acute Code(s): Q24.8 - Other specified congenital malformations of heart (4) Acute blood loss anemia: Status: Acute Code(s): D62 - Acute posthemorrhagic anemia (5) Hypoxia: Status: Resolved Code(s): R09.02 - Hypoxemia (6) Essential hypertension: Status: Chronic Code(s): I10 - Essential (primary) hypertension Plan: Continue current antihypertensives. Her BP is very sensitive to any stress. BP control is much better since she was started on Buspar to control anxiety. Tolerating Buspar with no adverse side effects. (7) Chronic anticoagulation: Status: Chronic Code(s): Z79.01 - intermediate (current) use of anticoagulants (8) Anxiety: Status: Chronic Code(s): F41.9 - Anxiety disorder, unspecified Plan: Started on Buspar. Tolerating without any adverse side effects at present. Still requiring PRN Hydralazine at times bu, rarely. (9) Pulmonary hypertension: Status: Chronic Code(s): I27.20 - Pulmonary hypertension, unspecified (10) Paroxysmal atrial fibrillation: Status: Acute Code(s): I48.0 - Paroxysmal atrial fibrillation (11) Pacemaker: Status: Acute Code(s): Z95.0 - Presence of cardiac pacemaker (12) DVT (deep venous thrombosis): Status: Acute Code(s): I82.409 - Acute embolism and thrombosis of unspecified deep veins of unspecified lower extremity (13) Colon polyps: Status: Acute Code(s): K63.5 - Polyp of colon Plan 1. Transfer to TCU for additional therapy prior to returning home alone. 2. Stair chair is being installed at her home. 3. Follow up with PCP, cardiology post DC from TCU. 4. would benefit from some psychotherapy to learn how to better manage her anxiety. 5. Follow-up at [facility] following discharge from TCU for consideration for a Watchman procedure. 6. Repeat bilateral upper extremity venous ultrasounds in 2 weeks for follow-up on bilateral upper extremity DVTs. 7. She is to have a follow-up CT scan of her chest for nonspecific nodular lesions identified at [place] in 4 weeks and then will need to follow up with pulmonary. Medications at Discharge Home Medications lutein 20 mg capsule 20 mg PO DAILY EYE HEALTH 06/11/17 calcium carbonate 600 mg PO BID SUPPLEMENT 06/26/21 estradiol 0.01% (0.1 mg/gram) vaginal cream 1 g vaginal SUWEFR HORMONES 06/26/21 apixaban 5 mg tablet (Eliquis) 5 mg PO BID blood thinner/afib 08/11/23 ascorbic acid (vitamin C) 500 mg capsule 1,000 mg PO DAILY supplement 08/11/23 multivitamin with minerals (Hair,Skin and Nails tablet) 1 tab PO DAILY Vitamin 08/11/23 vibegron 75 mg tablet (Gemtesa) 75 mg PO DAILY overactive bladder 08/11/23 metoprolol tartrate 50 mg tablet (Lopressor) 50 mg PO BID bp 08/31/23 pantoprazole 40 mg tablet,delayed release (Protonix) 40 mg PO DAILY stomach 08/31/23 polyethylene glycol 3350 17 gram/dose oral powder (Miralax) 17 g PO DAILY constipation 08/31/23 bisacodyl 10 mg rectal suppository 10 mg LA X1 PRN Constipation #1 ea 09/16/23 buspirone 5 mg tablet See Rx Instructions .Route .COMPLEX #1 TAB 09/16/23 hydralazine 25 mg tablet 25 mg PO Q4H PRN sys>170 rangel>85 #1 TAB 09/16/23 lidocaine 5 % topical patch 1 patch topical DAILY #1 ea 09/16/23 lisinopril 10 mg tablet 10 mg PO DAILY #1 TAB 09/16/23 magnesium chloride 64 mg (magnesium chloride) tablet,delayed release (Mag 64) 128 mg (2 x 64 mg) PO DAILY #1 TAB 09/16/23 magnesium hydroxide 400 mg/5 mL oral suspension 30 ml PO X1 PRN Constipation #30 mL 09/16/23 melatonin 3 mg tablet 3 mg PO QHS #1 TAB 09/16/23 menthol 0.44 %-zinc oxide 20.6 % topical ointment (Calmoseptine) 1 applic topical BID #1 g 09/16/23 sennosides 8.6 mg-docusate sodium 50 mg tablet (Stool Softener-Stimulant Laxative) 2 tab PO BID #1 TAB 09/16/23 Hospital Course Operations - (On 07/30/2023 at [facility] the right ventricular pacemaker lead was removed and reimplanted. Due to continued elevated ventricular capture threshold she had a repeat right ventricular lead removal and reimplantation on 08/04/2023) Procedures EGD (EGD on 08/12/[address] Willis Sarabia. She had a repeat EGD and colonoscopy at [facility] in August.) and Transthoracic echo (Multiple transthoracic echocardiograms were done in the past 2 months at [facility], [facility] and [facility].) Summary of Care Provided Minutes Spent on Discharge: 45 Hospital Course: Melisa Gonzalez is a 78-year-old female with a past medical history of hypertension, septal/hypertrophic obstructive cardiomyopathy with left ventricular outflow tract obstruction, pacemaker implantation for complete heart block, presence of a pessary (managed by Dr. Jernigan), large hiatal hernia, paroxysmal atrial fibrillation, chronic anticoagulation with Eliquis, anxiety/depression and osteoarthritis. She was initially admitted to [facility] on 07/18/23 with a complaint of shortness of breath. W/U was negative and she was discharged home on 07/20/23. She returned to the ED on with c/o sudden onset of SOB that morning. Blood pressure was decreased at 78/58 and she was hypoxic. she was seen by cardiology and she was transferred to [facility] for suspected PM malfunction. On 07/30/2023 she underwent right ventricular lead removal and reimplantation. Follow-up pacemaker check showed continued elevated ventricular capture thresholds and she underwent a second right ventricular lead removal and replacement on 08/04/2023. She was transferred to the acute inpatient rehab unit at [facility] on 08/05/2023 for 3 hours of therapy daily. While on acute rehab her hemoglobin began to drop and a Hemoccult stool was positive. Apixaban was placed on hold and GI was consulted. She was started on Protonix 40 mg IV twice daily. She received 2 units of packed red blood cells. On 08/11/2023 she became hypotensive and mildly tachypneic at rest. She was transferred to the intensive care unit. EGD by Dr. Sarabia on 08/12/2023 showed multiple oozing duodenal ulcers, a large hiatal hernia and a torturous esophagus. She was injected and treated with a heater probe and transferred back to the medical intensive care unit. Oxygen requirements continued to increase and she remained hypotensive even with pressors. She was transferred to [facility] on 08/14/2023. While at [place] she had a repeat EGD that showed no evidence of peptic ulcer disease in the stomach, duodenum or first portion of the jejunum. She had a colonoscopy that showed diverticulosis with no evidence of diverticulitis. 2 colon polyps were removed. On 08/20/2023 she had ultrasound of the upper extremities and had acute DVT in both upper extremities. She was restarted on Eliquis. Venous ultrasounds of the lower extremities were negative for DVT. A CT scan of the chest done at [place] found nodular lesions in her lungs and it was recommended that she have a follow-up CT chest in 4 to 6 weeks. There was also a lesion noted above the right kidney and a follow-up ultrasound of the right kidney/adrenal gland in 4 weeks was recommended. With treatment of pneumonia and acute on chronic congestive heart failure she improved and was transferred to acute inpatient rehab at [facility] on 08/31/2023 for 3 hours of therapy daily. Blood pressures were markedly elevated at arrival to acute rehab and she was very anxious, although she denied feeling anxious. She was started on Buspar and this was effective in controlling the anxiety/hypertension. She has had no adverse side effects with Buspar and we have rarely had to give PRN Hydralazine over the days leading up to DC to TCU. Buspar dose was increased to 10 mg in the AM, 5 mg in the afternoon and 10 mg in the evening prior to transfer to TCU. She has done quite well on rehab this admission and the only real complication has been uncontrolled HTN but, this is much improved at [facility] with changes in her antihypertensive regimen and addition of Buspar to the drug regimen. Melisa lives by herself and she did not feel quite strong enough to go home at [facility] from rehab. She is having a stair lift chair installed at her house because she is fearful of doing steps. She lacks confidence in her abilities, more likely than not due to the multiple complications starting on 07/18/23. She has been continuously hospitalized since 07/21/23. She was transferred to the Transitional Care Unit at [facility] on 09/16/23 for additional therpay prior to returning home alone. Hemoglobin has been improving and is up to 10.5 from 9.1 at admission to rehab. Iron studies early in August were not consistent with iron deficiency. White blood cell count is normal and platelets are also normal. BUN is 8 with a stable creatinine at 0.64. Hypophosphatemia resolved with supplementation. Following DC from [facility] she will need a CT chest to follow the pulmonary nodules. She also needs a US of the R kidney/adrenal gland to better evaluate the lesion superior to the R kidney on a CT done at [place]. She will need BL UE venous US's to follow the DVT's in the BL UE's. [facility] cardiology recommended she follow up at [facility] post discharge to be evaluated for a Watchman provedure. She will follow up with her PCP, Dr. Marsh, following DC from [facility]. Physical Exam Const alert and oriented x3 General Appearance: cooperative HEENT moist oral mucous membranes Resp clear to auscultation bilaterally Resp Narrative: Breath sounds in the left base are diminished and occasionally she has a few coarse crackles but this is chronic. She is not tachypneic and she has no conversational dyspnea. She is able to speak in complete sentences. Cardio regular rate, regular rhythm and no gallops GI normal to inspection, nondistended, normoactive bowel sounds, soft to palpation and non-tender Extremity no calf tenderness Extremity Narrative: Peripheral edema is well-controlled with compression stockings. General Extremity: Negative for edema Skin General Skin Exam: no breakdown Rashes: no rashes Psych Psych Narrative: Anxiety is under much better control with the addition of BuSpar to her drug regimen. She is sleeping well at night and she is not perseverating on complications she has had along the way. She is pleasant and smiling and making good eye contact with me. She is more upbeat today than she has been in the past and I think she is more confident in her ability to return home alone and do well. Weight / BMI Weight Weight: 149 lb 0.52 oz Body Mass Index (BMI) 30.1 ABG / Lab / Microbiology Data 09/11/23 06:53 09/11/23 06:53 D/C Instructions Please Follow Up With: pulmonary Meaningful Use Info Meaningful Use Meaningful Use Diagnoses (Choose all that apply): CHF CHF AMBIKA/ARB ordered at discharge?: Yes Documented LVEF (%): 77 Ischemic Stroke Statin Dosing Therapy Reference: STATIN DOSE THERAPY REFERENCE: * Patients > 75 years receive moderate or high dose statin therapy. * Patients 75 years or YOUNGER should receive HIGH intensity statin dose unless contraindicated. You will be required to document reason for non-treatment if statin daily dose does not meet guidelines. HIGH DOSE STATIN THERAPY DAILY Atorvastatin > than or = to 40 mg Rosuvastatin > than or = to 20 mg Amlodipine + Atorvastatin > than or = to 2.5/40 mg Ezetimibe + Simvastatin 10/80 mg Simvastatin 80mg Discharge Plan Admission Admit Date/Time: 08/31/23 17:25 Primary Reason for Your Visit: Debility due to prolonged hospitalization from from 07/18/23 to 08/31/23. Attending Provider: Fabienne Vazquez Primary Care Provider: Rick Marsh Instructions Additional Instructions / Restrictions: 1. Melisa gets very anxious with any kind of stress and tends to perseverate on things. When this happens her BP soars. BP's are much better on a beta derrell and Buspar. She denies feeling anxious but, she is doing much better on Buspar. She is sleeping much better and rarely needs PRN Hydralazine now. Discharge Orders/Prescriptions Prescriptions: New bisacodyl 10 mg Suppository 10 mg LA X1 PRN (Reason: Constipation) Qty: 1 0RF buspirone 5 mg Tablet See Rx Instructions .ROUTE .COMPLEX Qty: 1 0RF Rx Instructions: 2 tabs in the AM, 1 in the afternoon and 2 tabs in the evening. hydralazine 25 mg Tablet 25 mg PO Q4H PRN (Reason: sys>170 rangel>85) Qty: 1 0RF melatonin 3 mg Tablet 3 mg PO QHS Qty: 1 0RF magnesium hydroxide 400 mg/5 mL Suspension 30 ml PO X1 PRN (Reason: Constipation) Qty: 30 0RF lisinopril 10 mg Tablet 10 mg PO DAILY Qty: 1 0RF lidocaine 5 % Adhesive Patch,Medicated 1 patch topical DAILY Qty: 1 0RF Protocol: *Topical Application Instructions APPLICATION INSTRUCTIONS: left knee magnesium chloride [Mag 64] 64 mg Tablet,Delayed Release (Dr/Ec) 128 mg PO DAILY Qty: 1 0RF sennosides-docusate sodium [Stool Softener-Stimulant Laxat] 8.6-50 mg Tablet 2 tab PO BID Qty: 1 0RF menthol-zinc oxide [Calmoseptine] 0.44-20.6 % Ointment 1 applic topical BID Qty: 1 0RF Protocol: *Topical Application Instructions APPLICATION INSTRUCTIONS: bilateral buttocks Continued lutein 20 mg capsule 20 mg PO DAILY calcium carbonate 600 mg calcium (1,500 mg) tablet 600 mg PO BID estradiol 0.01 % (0.1 mg/gram) cream 1 g VAGINAL SUWEFR metoprolol tartrate [Lopressor] 50 mg tablet 50 mg PO BID Rx Instructions: hold if SBP < 100 or HR < 50 pantoprazole [Protonix] 40 mg tablet,delayed release (DR/EC) 40 mg PO DAILY polyethylene glycol 3350 [Miralax] 17 gram/dose powder 17 g PO DAILY ascorbic acid (vitamin C) 500 mg capsule 1,000 mg PO DAILY Hair,Skin and Nails Tablet 1 tab PO DAILY Gemtesa 75 mg tablet 75 mg PO DAILY Eliquis 5 mg tablet 5 mg PO BID Referrals / Follow Up: [facility] [Other] Rick Marsh MD [Primary Care Provider] - (Have PCP follow up on CT scans of lung and Kidney that were done at [facility]) Yesi Craft PA [Non-Staff] - Disposition Disposition (needs filled in before D/C Order can be placed): Shelter Facility Charges/Coding Visit Charges Inpatient E&M: 37691 Disch Hosp >30min
--- NOTE | 2023-09-16 11:04 | NURSING ---
discharged to TCU. report called to Nilsa
[2023-09-16 11:05] VITALS: BP 116/93; PULSE 62; RESP 17; TEMP 36.6; O2SAT 91
== END 2023-09-16 11:02 | disposition skilled nursing facility (03) | DRG 949 ==
PROVIDERS: Admitting Provider Internal Medicine; PCP Family Medicine; Visit Provider Internal Medicine
DX: T82.1 Mechanical complication of cardiac electronic device (principal); J69.0 Pneumonitis due to inhalation of food and vomit; I82.623 Acute embolism and thrombosis of deep veins of upper extremity, bilateral; D62 Acute posthemorrhagic anemia; I42.1 Obstructive hypertrophic cardiomyopathy; E27.8 Other specified disorders of adrenal gland; E83.39 Other disorders of phosphorus metabolism; I27.20 Pulmonary hypertension, unspecified; I11.0 Hypertensive heart disease with heart failure; I48.0 Paroxysmal atrial fibrillation; I50.9 Heart failure, unspecified; Q24.9 Congenital malformation of heart, unspecified; M19.90 Unspecified osteoarthritis, unspecified site; F41.9 Anxiety disorder, unspecified; K63.5 Polyp of colon; K26.9 Duodenal ulcer, unspecified as acute or chronic, without hemorrhage or perforation; Z79.01 Long term (current) use of anticoagulants; Y71.2 Prosthetic and other implants, materials and accessory cardiovascular devices associated with adverse incidents; Z79.899 Other long term (current) drug therapy
CPT/HCPCS: 36415; 71046; 80048; 80053; 83735; 84100; 85027; 94668; 97110; 97116; 97162; 97166; 97530; 97535; 97802; 97803

== ENCOUNTER 2023-09-16 11:04 | Inpatient (IN) | payer MEDICARE, OTHER, SELFPAY ==
[2023-09-16 11:16] VITALS: BP 144/74; PULSE 61; RESP 18; TEMP 36.3; O2SAT 94; BMI 28.9
[2023-09-16] MEDS: busPIRone 5 MG Tablet PO (14:00)
--- NOTE | 2023-09-16 14:00 | PCM.HP.STD ---
[facility] - General General Date of Admission: 09/16/23 Date of Service: 09/16/23 Chief Complaint: Here for rehabilitation. [facility] Aimee BEASLEY, is a 78 Female who presents with followin08/05/2023 Admit to with debility 2/2 prolonged hospitalization, malfunctioning pacemaker, septic shock. Dr. Sarabia treated multiple oozing duodenal ulcers, GI bleed, developed septic shock 2/2 aspiration pneumonia. Transferred to [facility] ICU, then transferred to [facility]. 08/20/2023 Doppler ultrasound showed bilateral upper extremity DVT, on Eliquis. Discharged to . [facility] to consider watchman device. 08/31/2023 Admit to . Replace phosphorous, supplement magnesium. Repeat Doppler ultrasound bilateral upper extremities in 4-[address] chest for f/u nodular lesions in 6 weeks. Renal ultrasound right kidney lesion. 09/02/2023 Add Lisinopril 10mg to Metoprolol 50mg bid for HTN, Hydralazine 25mg q4 prn high blood pressure. Buspar 5mg bid for anxiety. 09/03/2023 check blood pressure 4 times per day. 09/05/2023 Sleeping better. 09/07/2023 Increase Buspar to 5mg 3x/day for anxiety. 09/08/2023 Progressing with therapy, may benefit from SNF at discharge. 09/10/2023 Consider TCU at discharge. 09/14/2023 Blood pressure much better. 09/16/2023 Admit to TCU with debility, here for rehabilitation, strengthening, prior to discharge home alone. [facility] Medical History (Updated 09/16/23 @ 14:[address] 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 Lumbar radiculopathy Mitral regurgitation Osteoarthritis Pacemaker Pacemaker lead malfunction Pessary maintenance Presence of permanent cardiac pacemaker (~12/10/20) Presence of pessary Pulmonary hypertension Second degree type II atrioventricular block Sick sinus syndrome Upper GI bleed Home Medications lutein 20 mg capsule 20 mg PO DAILY EYE HEALTH 06/11/17 [History Last Taken 07/21/23] calcium carbonate 600 mg PO BID SUPPLEMENT 06/26/21 [History Last Taken 09/16/23 08:15] estradiol 0.01% (0.1 mg/gram) vaginal cream 1 g vaginal SUWEFR HORMONES 06/26/21 [History Last Taken 09/13/23 09:55] apixaban 5 mg tablet (Eliquis) 5 mg PO BID blood thinner/afib 08/11/23 [History Last Taken 09/16/23 08:15] ascorbic acid (vitamin C) 500 mg capsule 1,000 mg PO DAILY supplement 08/11/23 [History Last Taken 09/16/23 08:15] multivitamin with minerals (Hair,Skin and Nails tablet) 1 tab PO DAILY Vitamin 08/11/23 [History Last Taken 09/16/23 08:15] vibegron 75 mg tablet (Gemtesa) 75 mg PO DAILY overactive bladder 08/11/23 [History Last Taken 09/16/23 08:15] metoprolol tartrate 50 mg tablet (Lopressor) 50 mg PO BID bp 08/31/23 [History Last Taken 09/16/23 08:15] pantoprazole 40 mg tablet,delayed release (Protonix) 40 mg PO DAILY stomach 08/31/23 [History Last Taken 09/16/23 08:15] polyethylene glycol 3350 17 gram/dose oral powder (Miralax) 17 g PO DAILY constipation 08/31/23 [History Last Taken Unknown] bisacodyl 10 mg rectal suppository 10 mg NE X1 PRN Constipation #1 ea 09/16/23 [Rx Last Taken Unknown] buspirone 5 mg tablet See Rx Instructions .Route .COMPLEX anxiety #1 TAB 09/16/23 [Rx Last Taken 09/16/23 08:15] hydralazine 25 mg tablet 25 mg PO Q4H PRN sys>170 rangel>85 #1 TAB 09/16/23 [Rx Last Taken 09/16/23 06:00] lidocaine 5 % topical patch 1 patch topical DAILY pain #1 ea 09/16/23 [Rx Last Taken 09/16/23 08:15] lisinopril 10 mg tablet 10 mg PO DAILY Blood pressure #1 TAB 09/16/23 [Rx Last Taken 09/16/23 08:15] magnesium chloride 64 mg (magnesium chloride) tablet,delayed release (Mag 64) 128 mg (2 x 64 mg) PO DAILY supplement #1 TAB 09/16/23 [Rx Last Taken 09/16/23 08:15] magnesium hydroxide 400 mg/5 mL oral suspension 30 ml PO X1 PRN Constipation #30 mL 09/16/23 [Rx Last Taken Unknown] melatonin 3 mg tablet 3 mg PO QHS sleep #1 TAB 09/16/23 [Rx Last Taken 09/15/23 21:20] menthol 0.44 %-zinc oxide 20.6 % topical ointment (Calmoseptine) 1 applic topical BID skin #1 g 09/16/23 [Rx Last Taken 09/16/23 08:15] sennosides 8.6 mg-docusate sodium 50 mg tablet (Stool Softener-Stimulant Laxative) 2 tab PO BID constipation #1 TAB 09/16/23 [Rx Last Taken 09/12/23 22:00] Allergy/AdvReac Type Severity Reaction Status Date / Time procaine [From Novocain] Allergy Intermediate NEEDS Verified 07/18/23 15:57 FOLLOW-UP diclofenac [From Voltaren] Allergy Hives Verified 07/18/23 13:33 Family History Father Cancer prostate Grandmother Cancer Diabetes Grandfather No problems noted. Surgical History FH: bilateral hip replacements H/O bilateral cataract extraction H/O bilateral hip replacements History of hysterectomy History of tonsillectomy Hx of cholecystectomy Social History household members: none pets and animals: Yes (Poodle named Rohan) pets and animals: dog(s) Smoking Status: Never smoker alcohol intake: never substance use type: does not use caffeine: Yes frequency: 5-6 times per week seatbelt use: always do you feel safe at home: Yes ROS Constitutional Constitutional: Denies chills, fever(s) or weight gain ENT HEENT: Denies headache(s), nasal congestion or nasal discharge Cardiovascular Cardiovascular: Denies chest pain or palpitations Respiratory/Chest Respiratory/Chest: Denies cough, excessive phlegm production or shortness of breath with exertion Gastrointestinal Gastrointestinal: Denies abdominal pain, nausea or vomiting Genitourinary Genitourinary: Denies dysuria Musculoskeletal Musculoskeletal: Denies joint pain or joint swelling Integumentary Integumentary: Denies rash or wounds Neurologic Neurologic: Denies focal weakness, numbness or tingling Psychiatric Psychiatric: Denies anxiety, auditory hallucinations, depression, homicidal ideation or suicidal ideation Vital Signs Vital Signs Vital Signs: 09/16/23 11:16 Temperature 97.3 F L Temperature Source Temporal Pulse Rate 61 Respiratory Rate 18 Blood Pressure 144/74 H Blood Pressure Mean 97 Blood Pressure Source Monitor Blood Pressure Position Sitting Blood Pressure Location Right Arm Pulse Ox 94 Oxygen Delivery Method Room Air Weight Weight: 67.222 kg Body Mass Index (BMI) 28.9 Physical Exam Const alert General Appearance: cooperative HEENT normocephalic Eyes PERRL and EOMs intact bilaterally Neck supple, no JVD and no carotid bruits Resp normal respiratory effort, normal air movement and clear to auscultation bilaterally Cardio regular rate and regular rhythm GI normal to inspection, nondistended, normoactive bowel sounds, non-tender and non-distended Extremity normal capillary refill General Extremity: Negative for edema Skin no rashes or lesions noted General Skin Exam: no breakdown Psych affect normal Appearance: appropriate Assessment & Plan Assessment/Plan (1) Debility: (2) Septic shock: (3) Aspiration pneumonia: (4) Acute bilateral deep vein thrombosis (DVT) of upper extremities: (5) Pacemaker malfunction: (6) HTN (hypertension): QUALIFIERS: Hypertension type: primary hypertension Qualified Code(s): I10 - Essential (primary) hypertension (7) Hypertrophic obstructive cardiomyopathy: (8) Complete heart block: (9) Hiatal hernia: (10) Atrial fibrillation: QUALIFIERS: Atrial fibrillation type: paroxysmal Qualified Code(s): I48.0 - Paroxysmal atrial fibrillation (11) Atrophic vaginitis: (12) Overactive bladder: (13) GERD (gastroesophageal reflux disease): PLAN: Plan 78 year old female with below past medical history hospitalized for septic shock 2/2 aspiration pneumonia, complicated by bilateral upper extremity DVT, pacemaker malfunction, admitted to , then transferred to TCU with debility, here for rehabilitation, strengthening, prior to discharge home alone. Debility - PT/OT. Pain - Tylenol 1000mg q6 prn pain (1-10), Lidoderm 1 patch topical daily. Bowel - Miralax 17gm daily, senna/colace 2 tablets bid, Dulcolax 10mg pr x 1 prn, MOM 30ml po x 1 prn. Adult immunization - Administer pneumonia vaccine, covid vaccine, flu vaccine as appropriate. DVT prophylaxis - on Eliquis. Bilateral upper extremity DVT - Eliquis 5mg bid, f/u doppler ultrasound bilateral upper extremity November 2023. Vitamin C deficiency - Vitamin C 1000mg daily. Anxiety - Buspar 10mg, 5mg, 10mg. Calcium deficiency - Calcium 500mg bidcm. Nutrition - Ensure Plus 120ml po tidcm, MVI 1 tablet daily. Atrophic vaginitis - Premarin 1gm pv SuWeFr. Hypertension - Lisinopril 10mg daily, Hydralazine 25mg q4 prn. Hypomagnesemia - Magnesium chloride 128mg daily. Insomnia - Melatonin 3mg qhs. Skin irritation - Calmoseptine topical bid. Atrial fibrillation - Metoprolol 50mg bid, Eliquis 5mg bid, [facility] to consider Watchman. GERD - Pantoprazole 40mg daily. Overactive bladder - Gemtesa 75mg daily.
[2023-09-16 16:00] VITALS: RESP 16
[2023-09-16] MEDS: Calcium (Elemental) 500 MG Tablet PO (17:32)
[2023-09-16] MEDS: busPIRone 5 MG Tablet 10 MG PO (20:43)
[2023-09-16] MEDS: Menthol/Lanolin/Calamine/Znox 113 GM Tube 1 APPLIC TOPICAL (20:47)
[2023-09-16] MEDS: APIXABAN 5 MG TABLET PO (20:48)
[2023-09-16 20:49] VITALS: BP 100/62; PULSE 65
[2023-09-16] MEDS: Metoprolol Tartrate 50 MG Tablet PO (20:49)
[2023-09-16] MEDS: MELATONIN 3 MG TABLET PO (20:50)
[2023-09-16] MEDS: Estrogens,Conj. 1 Tube 1 DOSE VAGINAL (20:55)
[2023-09-16] MEDS: Senna/Docusate Sodium 1 Tablet 2 TABLET PO (20:58)
[2023-09-16 21:07] VITALS: BP 100/62; PULSE 65
[2023-09-17] MEDS: busPIRone 5 MG Tablet 10 MG PO ×2 (05:41→21:49)
[2023-09-17 05:56] LABS: Absolute Lymphocyte Count 1.19 X10^3/uL (0.83-4.51); Absolute Neutrophil Count 2.5 X10^3/uL (2.0-7.7); Basophil# 0.03 X10^3/uL; Basophil% 0.7 % (0-1); Eosinophil# 0.16 X10^3/uL; Eosinophils% 3.7 % (0-5); Hematocrit 34.8 % (37-47); Hemoglobin 10.8 g/dL (12.0-15.0); Lymphocyte # 1.19 X10^3/ul (0.83-4.51); Lymphocyte % 27.4 % (19-41); Mean Corpuscular Hgb 30.8 pg (27.0-32.0); Mean Corpuscular Volume 99.1 fL (81-99); Mean Platelet Vol. 11.5 fl (6.2-12.0); Monocyte# 0.47 X10^3/uL; Monocyte% 10.8 % (0-10); NRBC Flagged by Analyzer 0 % (0-5); Neutrophil # 2.49 X10^3/uL (2.7-7.7); Neutrophil % 57.2 % (47-70); Platelet Count 169 K/mm3 (150-450); RBC Distribution Width CV 16.9 % (11.6-14.6); Red Blood Count 3.51 M/mm3 (4.2-5.4); White Blood Count 4.4 K/mm3 (4.4-11.0)
[2023-09-17 06:45] LABS: Anion Gap 5 (5-15); BUN 12 mg/dL (7-18); BUN/Creat Ratio 20.3 RATIO (10-20); Calcium,Total 8.9 mg/dL (8.5-10.1); Chloride 107 mmol/L (98-107); Creatinine, Serum 0.59 mg/dL (0.55-1.02); EST Glomerular Filtration Rate 105 mL/min (>60); Est Glom Filt Rate - Afr Amer 127 mL/min (>60); Estimated Creatinine Clearance 49.58 ml/min; Glucose 97 mg/dL (74-106); Potassium 3.9 mmol/L (3.5-5.1); Sodium Level 138 mmol/L (136-145)
[2023-09-17] MEDS: Calcium (Elemental) 500 MG Tablet PO ×2 (08:52→16:49)
[2023-09-17] MEDS: APIXABAN 5 MG TABLET PO ×2 (08:52→21:49)
[2023-09-17] MEDS: Multivitamins,Ther W-Minerals Tablet 1 TABLET PO (08:52)
[2023-09-17] MEDS: Vibegron 75 MG TABLET PO (08:53)
[2023-09-17] MEDS: Lidocaine 5% Patch 1 PATCH TOPICAL (08:54)
[2023-09-17 08:55] VITALS: BP 118/68; PULSE 75
[2023-09-17] MEDS: Magnesium Chloride 64 MG Delay Rel.Tablet 128 MG PO (08:55)
[2023-09-17] MEDS: Metoprolol Tartrate 50 MG Tablet PO ×2 (08:55→21:48)
[2023-09-17] MEDS: Lisinopril 10 MG Tablet PO (08:57)
[2023-09-17] MEDS: Ascorbic Acid 500 MG Tablet 1000 MG PO (08:57)
[2023-09-17] MEDS: Pantoprazole Sodium 40 MG Tablet PO (08:57)
[2023-09-17] MEDS: Menthol/Lanolin/Calamine/Znox 113 GM Tube 1 APPLIC TOPICAL ×2 (08:59→21:47)
[2023-09-17 09:06] VITALS: BP 118/68; PULSE 75
[2023-09-17] MEDS: Tuberculin,Purif.prot.deriv. 50 TU/ML Vial 0.1 ML ID (10:02)
--- NOTE | 2023-09-17 10:44 | PCM.PN.DRR ---
Documented by User: Danielle Thayer 09/17/23 11:19 TCU RX Drug Regimen Review Subjective/Objective Subjective/Objective: Subjective: TCU Admission. 78 YOF hospitalized for septic shock 2/2 aspiration pneumonia, complicated by bilateral upper extremity DVT, pacemaker malfunction, admitted to [facility]. Admitted to TCU with debility for strengthening and rehabilitation. Objective: Allergies procaine [From Novocain] Allergy (Intermediate, Verified 07/18/23 15:57) NEEDS FOLLOW-UP numbness in toes and coming up legs diclofenac [From Voltaren] Allergy (Verified 07/18/23 13:33) Hives Current Medications Generic Name Dose Route Start Last Admin Trade Name Freq PRN Reason Stop Dose Admin Acetaminophen 1,000 mg 09/16/23 16:45 Acetaminophen 500 Mg Tablet PO Q6H PRN PRN Pain Score 1-10 Apixaban 5 mg 09/16/23 22:00 09/17/23 08:52 Apixaban 5 Mg Tablet PO 5 mg BID SEVEN Administration Ascorbic Acid 1,000 mg 09/17/23 10:00 09/17/23 08:57 Ascorbic Acid 500 Mg Tablet PO 1,000 mg DAILY SEVEN Administration Bisacodyl 10 mg 09/16/23 11:30 Bisacodyl 10 Mg Suppository RC X1 PRN Constipation Buspirone HCl 10 mg 09/16/23 22:00 09/17/23 05:41 Buspirone 5 Mg Tablet PO 10 mg 0600,2200 SEVEN Administration Buspirone HCl 5 mg 09/16/23 14:00 09/16/23 14:00 Buspirone 5 Mg Tablet PO 5 mg 1400 SEVEN Administration Calamine/Phenol 1 applic 09/16/23 22:00 09/17/23 08:59 Menthol/Lanolin/Calamine/Znox 113 Gm Tube TOPICAL 1 applic BID SEVEN Administration Protocol Calcium Carbonate 500 mg 09/16/23 17:00 09/17/23 08:52 Calcium (Elemental) 500 Mg Tablet PO 500 mg BIDCM SEVEN Administration Estrogens Conjugated 1 dose 09/16/23 22:00 09/16/23 20:55 Estrogens,Conj. 1 Tube VAGINAL 1 dose SuWeFr@2200 SEVEN Administration Hydralazine HCl 25 mg 09/16/23 11:30 Hydralazine 25 Mg Tablet PO Q4H PRN sys>170 rangel>85 Protocol Lidocaine 1 patch 09/17/23 10:00 09/17/23 08:54 Lidocaine 5% Patch TOPICAL 1 patch DAILY [facility] Administration Protocol Lisinopril 10 mg 09/17/23 10:00 09/17/23 08:57 Lisinopril 10 Mg Tablet PO 10 mg DAILY SEVEN Administration Protocol Magnesium Chloride 128 mg 09/17/23 10:00 09/17/23 08:55 Magnesium Chloride 64 Mg Delay Rel.Tablet PO 128 mg DAILY SEVEN Administration Magnesium Hydroxide 30 ml 09/16/23 11:35 Magnesium Hydroxide 30 Ml Udc PO X1 PRN Constipation Melatonin 3 mg 09/16/23 22:00 09/16/23 20:50 Melatonin 3 Mg Tablet PO 3 mg QHS SEVEN Administration Metoprolol Tartrate 50 mg 09/16/23 22:00 09/17/23 08:55 Metoprolol Tartrate 50 Mg Tablet PO 50 mg BID SEVEN Administration Protocol Multivitamins/Minerals 1 tablet 09/17/23 08:00 09/17/23 08:52 Multivitamins,Ther W-Minerals Tablet PO 1 tablet DAILYCM [facility] Administration Nutritional Formula (Lactose Free) 120 ml 09/16/23 17:45 09/17/23 08:50 Ensure Plus High Protein 120 Ml Liquid PO Not Given TIDCM [facility] Pantoprazole Sodium 40 mg 09/17/23 10:00 09/17/23 08:57 Pantoprazole Sodium 40 Mg Tablet PO 40 mg DAILY [facility] Administration Polyethylene Glycol 17 gm 09/17/23 10:00 09/17/23 08:56 Polyethylene Glycol 3350 17 Gm Packet PO Not Given DAILY SEVEN Senna/Docusate Sodium 2 tablet 09/16/23 22:00 09/17/23 08:56 Senna/Docusate Sodium 1 Tablet PO Not Given BID [facility] Tuberculin PPD 0.1 ml 09/24/23 10:00 Tuberculin,Purif.Prot.Deriv. 50 Tu/Ml Vial ID 09/24/23 10:01 X1 ONE Problem List (Updated 09/16/23 @ 14:[address] James Castillo MD) GERD (gastroesophageal reflux disease) (Acute) Overactive bladder (Acute) Atrophic vaginitis (Acute) Atrial fibrillation (Acute) Hiatal hernia (Acute) Complete heart block (Acute) HTN (hypertension) (Chronic) Pacemaker malfunction (Acute) Acute bilateral deep vein thrombosis (DVT) of upper extremities (Acute) Septic shock (Acute) Debility (Acute) Aspiration pneumonia (Acute) Hypertrophic obstructive cardiomyopathy (Acute) Vital Signs Temp Pulse Resp BP Pulse Ox O2 Del Method 97.3 F L 75 16 118/68 94 Room Air 09/16/23 11:16 09/17/23 09:06 09/16/23 16:00 09/17/23 09:06 09/16/23 11:16 09/16/23 11:16 Oxygen Delivery Method Room Air Weight: 67.222 kg Body Mass Index (BMI) 28.9 Sodium 138 mmol/L (136-145) 09/17/23 05:16 Potassium 3.9 mmol/L (3.5-5.1) 09/17/23 05:16 Chloride 107 mmol/L (98-107) 09/17/23 05:16 Carbon Dioxide 26.0 mmol/L (21.0-32.0) 09/17/23 05:16 Anion Gap 5 (5-15) 09/17/23 05:16 BUN 12 mg/dL (7-18) 09/17/23 05:16 Creatinine 0.59 mg/dL (0.55-1.02) 09/17/23 05:16 Est GFR (MDRD) Af Amer 127 mL/min (>60) 09/17/23 05:16 Est GFR (MDRD) Non-Af 105 mL/min (>60) 09/17/23 05:16 BUN/Creatinine Ratio 20.3 RATIO (10-20) H 09/17/23 05:16 Glucose 97 mg/dL (74-106) 09/17/23 05:16 Assessment/Plan: 1. Pain: acetaminophen 1000mg PO Q6H PRN pain (1-10) and lidocaine 5% patch 1 patch topical daily. Resident has not used any PRN doses. Please continue to monitor for increased pain, PRN usage and rash. 2. Bowel: Miralax 17gm PO daily, senna/docusate 2T PO BID, bisacodyl 10mg RC x1 PRN constipation and MOM 30ML PO x1 PRN constipation. Resident has not used any PRN doses. Last documented bowel movement was 5/7. Please continue to monitor for constipation and PRN usage. 3. Bilateral upper extremity DVT: apixaban 5mg PO BID. Please continue to monitor for S/S of bleeding and hemoglobin (last 10.8g/dL). 4. Hypertension/atrial fibrillation: lisinopril 10mg PO daily, metoprolol 50mg PO BID, hydralazine 25mg PO Q4H PRN SBP >170/DM >85 and apixaban 5mg PO BID. Please continue to monitor BP (last 118/68), HR (last 75), potassium (last 3.9), PRN usage (no doses given so far), S/S of bleeding and hemoglobin (last 10.8g/dL). 5. GERD: pantoprazole 40mg PO daily. Please continue to monitor for S/S of GERD, diarrhea (BEERs medication) and magnesium. 6. Overactive bladder: vibegron 75mg PO daily. Please continue to monitor for S/S of overactive bladder, diarrhea, headache, dry mouth and nausea. 7. Insomnia: melatonin 3mg PO QHS. Please continue to monitor for excessive drowsiness. 8. Atrophic vaginitis: Premarin 1gm vaginally SuWeFr. Please continue to monitor. 9. Hypomagnesemia: magnesium chloride 128mg PO daily. Please continue to monitor magnesium (last 1.8mg/dL 09/01/23). 10. Calcium/vitamin C deficiency and nutrition: ascorbic acid 1000mg PO daily, calcium carbonate 500mg PO BIDCM and multivitamin with minerals 1T PO daily. Please continue to monitor calcium (last 8.9mg/dL). Assessment/Plan for indications treated with psychotropic medications: 1. Anxiety: buspirone 10mg PO 0600,2200 and 5mg 1400. Medication just increased, GDR likely not appropriate at this time. Please continue to monitor for anxiety, dizziness and drowsiness. Medical chart and medication regimen reviewed. The following medication irregularities or issues were identified: None Date Date of Note:: 09/17/23 Documented by User: Dr. James Castillo MD 09/17/23 11:29 TCU RX Drug Regimen Review Provider Comments Provider responsibility Provider Comments to Recommendations by Pharmacy: Agree
[2023-09-17] MEDS: Ensure Plus High Protein 120 ML LIQUID PO (11:48)
[2023-09-17] MEDS: busPIRone 5 MG Tablet PO (14:00)
[2023-09-17 15:02] VITALS: BP 112/75; PULSE 72; RESP 18; TEMP 36.1; O2SAT 96
[2023-09-17 21:48] VITALS: BP 123/64; PULSE 66
[2023-09-17] MEDS: MELATONIN 3 MG TABLET PO (21:49)
[2023-09-17 22:00] VITALS: PULSE 82; RESP 16; O2SAT 82
[2023-09-18] MEDS: busPIRone 5 MG Tablet 10 MG PO ×2 (05:49→20:32)
[2023-09-18 09:34] VITALS: BP 113/68; PULSE 67; RESP 16; TEMP 37; O2SAT 92
[2023-09-18] MEDS: Vibegron 75 MG TABLET PO (09:36)
[2023-09-18] MEDS: Calcium (Elemental) 500 MG Tablet PO ×2 (09:36→17:12)
[2023-09-18] MEDS: APIXABAN 5 MG TABLET PO ×2 (09:36→20:33)
[2023-09-18] MEDS: Menthol/Lanolin/Calamine/Znox 113 GM Tube 1 APPLIC TOPICAL ×2 (09:36→20:30)
[2023-09-18] MEDS: Multivitamins,Ther W-Minerals Tablet 1 TABLET PO (09:36)
[2023-09-18 09:37] VITALS: PULSE 67
[2023-09-18] MEDS: Metoprolol Tartrate 50 MG Tablet PO ×2 (09:37→20:34)
[2023-09-18] MEDS: Magnesium Chloride 64 MG Delay Rel.Tablet 128 MG PO (09:37)
[2023-09-18] MEDS: Lidocaine 5% Patch 1 PATCH TOPICAL (09:37)
[2023-09-18] MEDS: Lisinopril 10 MG Tablet PO (09:38)
[2023-09-18] MEDS: Pantoprazole Sodium 40 MG Tablet PO (09:38)
[2023-09-18] MEDS: Ascorbic Acid 500 MG Tablet 1000 MG PO (09:38)
--- NOTE | 2023-09-18 12:23 | NURSING ---
Professor Of Industrial Technology Note; Activity Asset: Oliver Hudson is independent in her choice of daily activities. She will watch tv, read visit w/friends and welcomes visits from the pot washer and therapy dog when available. Staff will remind her of weekly activities, encourage group and respect her right to say no.
[2023-09-18] MEDS: Ensure Plus High Protein 120 ML LIQUID PO (12:49)
[2023-09-18] MEDS: busPIRone 5 MG Tablet PO (12:49)
--- NOTE | 2023-09-18 13:52 | CASEMGMT ---
Social Work SW met with pt and introduced self and role of SW and completed initial assessment. SW verified contacts. Pt does have a living will on file at [facility]. A HCPOA is not on file. Pt confirms that she has completed a HCPOA but is uncertain if she listed her friend Abby Tripathi or Melisa Ascencio. Pt's friend abby is to bringing a copy to [facility]. SW educated pt to Medicare benefit and copay coverage. Pt lives at home alone and plans to return home independently at time of discharge. ELISSA will continue to follow for support and dc planning. MICHELE Culver
[2023-09-18 20:34] VITALS: BP 100/59; PULSE 64
[2023-09-18] MEDS: Senna/Docusate Sodium 1 Tablet 2 TABLET PO (20:35)
[2023-09-18] MEDS: MELATONIN 3 MG TABLET PO (20:35)
[2023-09-18] MEDS: Estrogens,Conj. 1 Tube 1 DOSE VAGINAL (20:41)
[2023-09-18 20:47] VITALS: BP 100/59; PULSE 64
[2023-09-18 22:00] VITALS: O2SAT 94
[2023-09-19] MEDS: busPIRone 5 MG Tablet 10 MG PO ×2 (05:16→20:21)
[2023-09-19] MEDS: Calcium (Elemental) 500 MG Tablet PO ×2 (09:22→16:49)
[2023-09-19] MEDS: APIXABAN 5 MG TABLET PO ×2 (09:24→20:22)
[2023-09-19] MEDS: Multivitamins,Ther W-Minerals Tablet 1 TABLET PO (09:24)
[2023-09-19] MEDS: Vibegron 75 MG TABLET PO (09:24)
[2023-09-19] MEDS: Lidocaine 5% Patch 1 PATCH TOPICAL (09:24)
[2023-09-19 09:25] VITALS: PULSE 84
[2023-09-19] MEDS: Metoprolol Tartrate 50 MG Tablet PO ×2 (09:25→20:24)
[2023-09-19] MEDS: Pantoprazole Sodium 40 MG Tablet PO (09:26)
[2023-09-19] MEDS: Magnesium Chloride 64 MG Delay Rel.Tablet 128 MG PO (09:26)
[2023-09-19] MEDS: Lisinopril 10 MG Tablet PO (09:27)
[2023-09-19] MEDS: Senna/Docusate Sodium 1 Tablet 2 TABLET PO ×2 (09:27→20:22)
[2023-09-19] MEDS: Ascorbic Acid 500 MG Tablet 1000 MG PO (09:27)
[2023-09-19] MEDS: Menthol/Lanolin/Calamine/Znox 113 GM Tube 1 APPLIC TOPICAL ×2 (09:29→20:20)
[2023-09-19] MEDS: Ensure Plus High Protein 120 ML LIQUID PO (12:52)
[2023-09-19] MEDS: busPIRone 5 MG Tablet PO (14:01)
[2023-09-19 16:00] VITALS: BP 126/76; PULSE 92; RESP 13; TEMP 36.3; O2SAT 94
[2023-09-19 19:50] VITALS: O2SAT 94
[2023-09-19 20:17] VITALS: BP 133/70; PULSE 69
[2023-09-19 20:24] VITALS: BP 133/70; PULSE 69
[2023-09-19] MEDS: MELATONIN 3 MG TABLET PO (20:25)
[2023-09-20] MEDS: busPIRone 5 MG Tablet 10 MG PO ×2 (05:39→21:19)
[2023-09-20] MEDS: Multivitamins,Ther W-Minerals Tablet 1 TABLET PO (09:37)
[2023-09-20] MEDS: Lidocaine 5% Patch 1 PATCH TOPICAL (09:38)
[2023-09-20] MEDS: Magnesium Chloride 64 MG Delay Rel.Tablet 128 MG PO (09:38)
[2023-09-20] MEDS: Pantoprazole Sodium 40 MG Tablet PO (09:39)
[2023-09-20] MEDS: Senna/Docusate Sodium 1 Tablet 2 TABLET PO ×2 (09:39→21:22)
[2023-09-20] MEDS: Vibegron 75 MG TABLET PO (09:39)
[2023-09-20] MEDS: Lisinopril 10 MG Tablet PO (09:40)
[2023-09-20] MEDS: Calcium (Elemental) 500 MG Tablet PO ×2 (09:40→16:54)
[2023-09-20] MEDS: APIXABAN 5 MG TABLET PO ×2 (09:41→21:20)
[2023-09-20] MEDS: Ascorbic Acid 500 MG Tablet 1000 MG PO (09:41)
[2023-09-20 09:49] VITALS: BP 135/81; PULSE 67
[2023-09-20] MEDS: Metoprolol Tartrate 50 MG Tablet PO ×2 (09:49→21:20)
[2023-09-20] MEDS: Ensure Plus High Protein 120 ML LIQUID PO (12:04)
[2023-09-20] MEDS: Menthol/Lanolin/Calamine/Znox 113 GM Tube 1 APPLIC TOPICAL ×2 (12:05→21:19)
[2023-09-20] MEDS: busPIRone 5 MG Tablet PO (13:12)
[2023-09-20 13:48] VITALS: BP 120/73; PULSE 63; RESP 14; TEMP 36.6; O2SAT 94
[2023-09-20 21:17] VITALS: BP 129/68; PULSE 62
[2023-09-20 21:20] VITALS: BP 129/68; PULSE 62
[2023-09-20] MEDS: MELATONIN 3 MG TABLET PO (21:21)
[2023-09-20] MEDS: Estrogens,Conj. 1 Tube 1 DOSE VAGINAL (21:23)
[2023-09-21] MEDS: busPIRone 5 MG Tablet 10 MG PO ×2 (05:43→21:09)
[2023-09-21] MEDS: Lidocaine 5% Patch 1 PATCH TOPICAL (10:13)
[2023-09-21] MEDS: APIXABAN 5 MG TABLET PO ×2 (10:13→21:09)
[2023-09-21] MEDS: Calcium (Elemental) 500 MG Tablet PO ×2 (10:13→17:15)
[2023-09-21] MEDS: Vibegron 75 MG TABLET PO (10:13)
[2023-09-21] MEDS: Multivitamins,Ther W-Minerals Tablet 1 TABLET PO (10:13)
[2023-09-21] MEDS: Magnesium Chloride 64 MG Delay Rel.Tablet 128 MG PO (10:14)
[2023-09-21] MEDS: Ascorbic Acid 500 MG Tablet 1000 MG PO (10:15)
[2023-09-21] MEDS: Lisinopril 10 MG Tablet PO (10:15)
[2023-09-21] MEDS: Senna/Docusate Sodium 1 Tablet 2 TABLET PO ×2 (10:15→21:08)
[2023-09-21] MEDS: Pantoprazole Sodium 40 MG Tablet PO (10:15)
[2023-09-21 10:17] VITALS: BP 141/75; PULSE 60
[2023-09-21] MEDS: Metoprolol Tartrate 50 MG Tablet PO ×2 (10:17→21:08)
[2023-09-21] MEDS: Menthol/Lanolin/Calamine/Znox 113 GM Tube 1 APPLIC TOPICAL ×2 (10:22→21:07)
[2023-09-21] MEDS: Ensure Plus High Protein 120 ML LIQUID PO (13:32)
[2023-09-21] MEDS: busPIRone 5 MG Tablet PO (13:32)
[2023-09-21 14:46] VITALS: BP 111/74; PULSE 82; RESP 18; TEMP 36.5; O2SAT 96
--- NOTE | 2023-09-21 16:06 | CHAPLAIN ---
Type of Pastoral Visit ___ Initial Visit _x__ Follow-up Visit ___ On-call Visit ___ General Patient Visit ___ Spiritual Assessment ___ Family Conference ___ Bereavement ___ Rapid Response ___ Code Blue ___ Other (describe below) Pastoral Care Referral From _x__ Patient ___ Family ___ Nurse ___ Physician ___ Rocket Engine Mechanic ___ Supervisor Paint Roller [employer]vers ___ Other (describe below) Sacrament/Intervention _x__ Active listening ___ Anointing ___ Rastafari ___ Bereavement ___ Communion ___ Destiny exploration ___ ___ Life review _x__ Prayer ___ Reconciliation ___ Sacrament of Sick _x__ Supportive presence ___ Wedding ___ Other (describe below) Pastoral Comments patient is reading book as she has done throughout her weeks in the hospital; pt reviews her new situation in TCU and how she is progressing; pt had many activities and was able to be out of the room today; casual conversation and a word of prayer in support given
[2023-09-21 19:53] VITALS: PULSE 83; RESP 16; O2SAT 96
[2023-09-21 21:08] VITALS: BP 108/62; PULSE 62
[2023-09-21] MEDS: MELATONIN 3 MG TABLET PO (21:09)
[2023-09-22] MEDS: busPIRone 5 MG Tablet 10 MG PO ×2 (05:39→21:11)
[2023-09-22 08:41] VITALS: BP 117/75; PULSE 64; RESP 16; TEMP 36.6; O2SAT 95
[2023-09-22] MEDS: Multivitamins,Ther W-Minerals Tablet 1 TABLET PO (08:46)
[2023-09-22] MEDS: Calcium (Elemental) 500 MG Tablet PO (08:46)
[2023-09-22 08:47] VITALS: PULSE 64
[2023-09-22] MEDS: APIXABAN 5 MG TABLET PO ×2 (08:47→21:11)
[2023-09-22] MEDS: Lidocaine 5% Patch 1 PATCH TOPICAL (08:47)
[2023-09-22] MEDS: Metoprolol Tartrate 50 MG Tablet PO ×2 (08:47→21:11)
[2023-09-22] MEDS: Vibegron 75 MG TABLET PO (08:47)
[2023-09-22] MEDS: Magnesium Chloride 64 MG Delay Rel.Tablet 128 MG PO (08:48)
[2023-09-22] MEDS: Pantoprazole Sodium 40 MG Tablet PO (08:48)
[2023-09-22] MEDS: Senna/Docusate Sodium 1 Tablet 2 TABLET PO ×2 (08:48→21:11)
[2023-09-22] MEDS: Lisinopril 10 MG Tablet PO (08:49)
[2023-09-22] MEDS: Ascorbic Acid 500 MG Tablet 1000 MG PO (08:49)
[2023-09-22] MEDS: Menthol/Lanolin/Calamine/Znox 113 GM Tube 1 APPLIC TOPICAL ×2 (08:50→21:14)
[2023-09-22 09:32] VITALS: BMI 29.1
--- NOTE | 2023-09-22 09:55 | NURSING ---
Offered covid vaccine, VIS provided. Patient refuses at this time.
[2023-09-22] MEDS: busPIRone 5 MG Tablet PO (13:03)
--- NOTE | 2023-09-22 14:37 | CASEMGMT ---
Addendum entered by Odessa Puga 09/22/23 15:15: PhQ (05/11) Original Note: Social Work SW met with patient at bedside to complete MDS. Patient is feeling nauseous at this time. Patient completed BIM () and PhQ (). Patient states that she is nauseous due to lunch. NORBERTO Bourne
[2023-09-22 21:11] VITALS: BP 115/66; PULSE 72
[2023-09-22] MEDS: MELATONIN 3 MG TABLET PO (21:12)
[2023-09-23] MEDS: busPIRone 5 MG Tablet 10 MG PO ×2 (05:27→22:01)
[2023-09-23] MEDS: Multivitamins,Ther W-Minerals Tablet 1 TABLET PO (08:42)
--- NOTE | 2023-09-23 08:42 | NURSING ---
Trench Digger Helper Note; MDS for 09/23/2023 Complete
[2023-09-23] MEDS: APIXABAN 5 MG TABLET PO ×2 (08:43→22:01)
[2023-09-23] MEDS: Lidocaine 5% Patch 1 PATCH TOPICAL (08:43)
[2023-09-23] MEDS: Calcium (Elemental) 500 MG Tablet PO ×2 (08:43→17:45)
[2023-09-23] MEDS: Vibegron 75 MG TABLET PO (08:43)
[2023-09-23 08:44] VITALS: BP 121/76; PULSE 65
[2023-09-23] MEDS: Metoprolol Tartrate 50 MG Tablet PO ×2 (08:44→22:00)
[2023-09-23] MEDS: Pantoprazole Sodium 40 MG Tablet PO (08:44)
[2023-09-23] MEDS: Magnesium Chloride 64 MG Delay Rel.Tablet 128 MG PO (08:44)
[2023-09-23] MEDS: Ascorbic Acid 500 MG Tablet 1000 MG PO (08:45)
[2023-09-23] MEDS: Lisinopril 10 MG Tablet PO (08:45)
[2023-09-23] MEDS: Senna/Docusate Sodium 1 Tablet 2 TABLET PO ×2 (08:48→22:00)
[2023-09-23] MEDS: Menthol/Lanolin/Calamine/Znox 113 GM Tube 1 APPLIC TOPICAL ×2 (08:52→22:11)
--- NOTE | 2023-09-23 10:00 | CASEMGMT ---
Addendum entered by Odessa Puga 09/23/23 16:35: Notice of Medicare Non-Coverage for current Group Home Facility effective: 10/01/2023; anticipates discharge home 10/02/2023 with Home health care. SW reviewed [facility] with patient and provided information regarding Medicare Right to appeal discharge via [employer]. Patient informed SW that she is currently agreeable to discharge plan. [facility] is reviewing referral. Original Note: Social Work IDT met with patient and friend Bernadette at bedside to complete care plan meeting. Discussed patient progress with therapy (PT/OT), dietary, and activities. Patient is progressing with therapy services. Therapy is recommending for patient to transition to utilizing a rollator. Patient is ambulating over 350ft with therapy. Patient is up independently on unit and walking up 5 steps; contact guard assist. Patient is planning to training with dog next Thursday. Patient anticipates obtaining a rollator and walker from friend, Cayden. Patient is engaged in activities. Patient is on regular; no added salt diet. Patient's friend is concerned about snacks provided with snacks. Nutrition informed family that moderation is walls to eating. SW educated patient of Medicare coverage and benefits. Patient was informed that Medicare will cover 20 days; 100% and copays begin 21-100 days. SW discussed transition of care plans. SW discussed home health care and outpatient therapy services. Therapy informed SW that they are recommending home health care services at discharge. Patient informed SW that she does not have any preference for home health care provider. Therapy and SW discussed plans for initiating discharge from facility. Patient informed SW that she is hoping to discharge soon after training with dog and therapy. Discharge date was set for 10/02/2023 Patient expressed continued anxiety to discharge home due to history of hospitalization. SW encourage patient to continue progress with therapy and set goals for discharge home. Referral for home health care sent to [facility]. Therapy is requesting that home health take place on day of discharge. Discharge Home with Home Health Care Services PT/OT/SN 10/02/2023 NORBERTO Bourne
[2023-09-23] MEDS: busPIRone 5 MG Tablet PO (13:23)
[2023-09-23 15:45] VITALS: BP 121/76; PULSE 65; RESP 18; TEMP 36.6; O2SAT 95
--- NOTE | 2023-09-23 16:59 | DS.PCM_ITS ---
Providers Date of Admission: 09/16/23 Primary Care Physician: Dr. Rick Marsh MD Reason For Visit: DEBILITY Diagnosis Discharge Diagnosis (1) Debility: Status: Acute Code(s): R53.81 - Other malaise (2) Septic shock: Status: Acute Code(s): A41.9 - Sepsis, unspecified organism; R65.21 - Severe sepsis with septic shock (3) Aspiration pneumonia: Status: Acute Code(s): J69.0 - Pneumonitis due to inhalation of food and vomit (4) Acute bilateral deep vein thrombosis (DVT) of upper extremities: Status: Acute Code(s): I82.623 - Acute embolism and thrombosis of deep veins of upper extremity, bilateral (5) Pacemaker malfunction: Status: Acute Code(s): T82.111A - Breakdown (mechanical) of cardiac pulse generator (battery), initial encounter (6) HTN (hypertension): Status: Chronic Code(s): I10 - Essential (primary) hypertension Qualifiers: Hypertension type: primary hypertension Qualified Code(s): I10 - Essential (primary) hypertension (7) Hypertrophic obstructive cardiomyopathy: Status: Acute Code(s): I42.1 - Obstructive hypertrophic cardiomyopathy (8) Complete heart block: Status: Acute Code(s): I44.2 - Atrioventricular block, complete (9) Hiatal hernia: Status: Acute Code(s): K44.9 - Diaphragmatic hernia without obstruction or gangrene (10) Atrial fibrillation: Status: Acute Code(s): I48.91 - Unspecified atrial fibrillation Qualifiers: Atrial fibrillation type: paroxysmal Qualified Code(s): I48.0 - Paroxysmal atrial fibrillation (11) Atrophic vaginitis: Status: Acute Code(s): N95.2 - Postmenopausal atrophic vaginitis (12) Overactive bladder: Status: Acute Code(s): N32.81 - Overactive bladder (13) GERD (gastroesophageal reflux disease): Status: Acute Code(s): K21.9 - Gastro-esophageal reflux disease without esophagitis Plan 78 year old female with below past medical history hospitalized for septic shock 2/2 aspiration pneumonia, complicated by bilateral upper extremity DVT, pacemaker malfunction, admitted to , then transferred to TCU with debility, here for rehabilitation, strengthening, prior to discharge home alone. * Debility - PT/OT. * Pain - Tylenol 1000mg q6 prn pain (1-10), Lidoderm 1 patch topical daily. * Bowel - Miralax 17gm daily, senna/colace 2 tablets bid, Dulcolax 10mg pr x 1 prn, MOM 30ml po x 1 prn. * Adult immunization - Administer pneumonia vaccine, covid vaccine, flu vaccine as appropriate. * DVT prophylaxis - on Eliquis. * Bilateral upper extremity DVT - Eliquis 5mg bid, f/u doppler ultrasound bilateral upper extremity November 2023. * Vitamin C deficiency - Vitamin C 1000mg daily. * Anxiety - Buspar 10mg, 5mg, 10mg. * Calcium deficiency - Calcium 500mg bidcm. * Nutrition - Ensure Plus 120ml po tidcm, MVI 1 tablet daily. * Atrophic vaginitis - Premarin 1gm pv SuWeFr. * Hypertension - Lisinopril 10mg daily, Hydralazine 25mg q4 prn. * Hypomagnesemia - Magnesium chloride 128mg daily. * Insomnia - Melatonin 3mg qhs. * Skin irritation - Calmoseptine topical bid. * Atrial fibrillation - Metoprolol 50mg bid, Eliquis 5mg bid, [facility] to consider Watchman. * GERD - Pantoprazole 40mg daily. * Overactive bladder - Gemtesa 75mg daily. Medications at Discharge Home Medications lutein 20 mg capsule 20 mg PO DAILY [facility] 06/11/17 calcium carbonate 600 mg PO BID SUPPLEMENT 06/26/21 estradiol 0.01% (0.1 mg/gram) vaginal cream 1 g vaginal SUWEFR HORMONES 06/26/21 apixaban 5 mg tablet (Eliquis) 5 mg PO BID blood thinner/afib 08/11/23 ascorbic acid (vitamin C) 500 mg capsule 1,000 mg PO DAILY supplement 08/11/23 multivitamin with minerals (Hair,Skin and Nails tablet) 1 tab PO DAILY Vitamin 08/11/23 vibegron 75 mg tablet (Gemtesa) 75 mg PO DAILY overactive bladder 08/11/23 magnesium chloride 64 mg (magnesium chloride) tablet,delayed release (Mag 64) 128 mg (2 x 64 mg) PO DAILY supplement #1 TAB 09/16/23 melatonin 3 mg tablet 3 mg PO QHS sleep #1 TAB 09/16/23 buspirone 5 mg tablet 5 mg PO 1400 30 days #30 tabs 05/15/24 buspirone 5 mg tablet 10 mg (2 x 5 mg) PO 0600,2200 30 days #120 tabs 09/23/23 lisinopril 10 mg tablet 10 mg PO DAILY 30 days #30 tabs 09/23/23 metoprolol tartrate 50 mg tablet 50 mg PO BID 30 days #60 tabs 09/23/23 pantoprazole 40 mg tablet,delayed release 40 mg PO DAILY 30 days #30 tabs 09/23/23 Hospital Course Operations None Procedures None Summary of Care Provided Minutes Spent on Discharge: 35 Hospital Course: 78 year old female with below past medical history hospitalized for septic shock 2/2 aspiration pneumonia, complicated by bilateral upper extremity DVT, pacemaker malfunction, admitted to , then transferred to TCU with debility, here for rehabilitation, strengthening, prior to discharge home alone. Discharge home alone 10/02/2023, [facility] PT/OT/SN. Physical Exam Const alert General Appearance: cooperative HEENT normocephalic Eyes PERRL and EOMs intact bilaterally Neck supple, no JVD and no carotid bruits Resp normal respiratory effort, normal air movement and clear to auscultation bilaterally Cardio regular rate and regular rhythm GI normal to inspection, nondistended, normoactive bowel sounds, non-tender and non-distended Extremity normal capillary refill General Extremity: Negative for edema Skin no rashes or lesions noted General Skin Exam: no breakdown Psych affect normal Appearance: appropriate Weight / BMI Weight Weight: 67.721 kg Body Mass Index (BMI) 29.1 ABG / Lab / Microbiology Data 09/17/23 05:16 09/17/23 05:16 D/C Instructions Discharge Diet: No restrictions Discharge Activity: Return to Normal Activity, May Shower and Use Walker Weight Bearing Status: Weight bearing as tolerated Call your doctor if you observe: Fever of 101 or Higher, Inability to urinate, Inability to have a bowel movement, Shortness of breath, Dizziness, Fainting spells, Swelling in the ankles, Chest pain and Uncontrolled pain Additional Instructions: Discharge home alone 10/02/2023, [facility] PT/OT/SN. Please Follow Up With: Yesi Craft PA When: As scheduled. Meaningful Use Info Meaningful Use Meaningful Use Diagnoses (Choose all that apply): None applicable Ischemic Stroke Statin Dosing Therapy Reference: STATIN DOSE THERAPY REFERENCE: * Patients > 75 years receive moderate or high dose statin therapy. * Patients 75 years or YOUNGER should receive HIGH intensity statin dose unless contraindicated. You will be required to document reason for non-treatment if statin daily dose does not meet guidelines. HIGH DOSE STATIN THERAPY DAILY Atorvastatin > than or = to 40 mg Rosuvastatin > than or = to 20 mg Amlodipine + Atorvastatin > than or = to 2.5/40 mg Ezetimibe + Simvastatin 10/80 mg Simvastatin 80mg Discharge Plan Admission Admit Date/Time: 09/16/23 11:04 Primary Reason for Your Visit: Debility. Attending Provider: James Castillo Chi Primary Care Provider: Rick Marsh Instructions Additional Instructions / Restrictions: Discharge home alone 10/02/2023, [facility] PT/OT/SN. Discharge Orders/Prescriptions Prescriptions: New buspirone 5 mg Tablet 10 mg PO 0600,2200 30 Days Qty: 120 0RF buspirone 5 mg Tablet 5 mg PO 1400 30 Days Qty: 30 0RF pantoprazole 40 mg Tablet,Delayed Release (Dr/Ec) 40 mg PO DAILY 30 Days Qty: 30 0RF lisinopril 10 mg Tablet 10 mg PO DAILY 30 Days Qty: 30 0RF metoprolol tartrate 50 mg Tablet 50 mg PO BID 30 Days Qty: 60 0RF Continued lutein 20 mg capsule 20 mg PO DAILY calcium carbonate 600 mg calcium (1,500 mg) tablet 600 mg PO BID estradiol 0.01 % (0.1 mg/gram) cream 1 g VAGINAL SUWEFR melatonin 3 mg Tablet 3 mg PO QHS Qty: 1 0RF magnesium chloride [Mag 64] 64 mg Tablet,Delayed Release (Dr/Ec) 128 mg PO DAILY Qty: 1 0RF ascorbic acid (vitamin C) 500 mg capsule 1,000 mg PO DAILY Hair,Skin and Nails Tablet 1 tab PO DAILY Gemtesa 75 mg tablet 75 mg PO DAILY Eliquis 5 mg tablet 5 mg PO BID Discontinued metoprolol tartrate [Lopressor] 50 mg tablet 50 mg PO BID Rx Instructions: hold if SBP < 100 or HR < 50 pantoprazole [Protonix] 40 mg tablet,delayed release (DR/EC) 40 mg PO DAILY polyethylene glycol 3350 [Miralax] 17 gram/dose powder 17 g PO DAILY bisacodyl 10 mg Suppository 10 mg [place] X1 PRN (Reason: Constipation) Qty: 1 0RF buspirone 5 mg Tablet See Rx Instructions .ROUTE .COMPLEX Qty: 1 0RF Rx Instructions: 2 tabs in the AM, 1 in the afternoon and 2 tabs in the evening. hydralazine 25 mg Tablet 25 mg PO Q4H PRN (Reason: sys>170 rangel>85) Qty: 1 0RF magnesium hydroxide 400 mg/5 mL Suspension 30 ml PO X1 PRN (Reason: Constipation) Qty: 30 0RF lisinopril 10 mg Tablet 10 mg PO DAILY Qty: 1 0RF lidocaine 5 % Adhesive Patch,Medicated 1 patch topical DAILY Qty: 1 0RF Protocol: *Topical Application Instructions APPLICATION INSTRUCTIONS: left knee sennosides-docusate sodium [Stool Softener-Stimulant Laxat] 8.6-50 mg Tablet 2 tab PO BID Qty: 1 0RF menthol-zinc oxide [Calmoseptine] 0.44-20.6 % Ointment 1 applic topical BID Qty: 1 0RF Protocol: *Topical Application Instructions APPLICATION INSTRUCTIONS: bilateral buttocks Referrals / Follow Up: Rick Marsh MD [Primary Care Provider] - Disposition Disposition (needs filled in before D/C Order can be placed): Home Health Service
[2023-09-23] MEDS: Estrogens,Conj. 1 Tube 1 DOSE VAGINAL (21:59)
[2023-09-23 22:00] VITALS: BP 130/67; PULSE 61
[2023-09-23] MEDS: MELATONIN 3 MG TABLET PO (22:02)
[2023-09-23 23:26] VITALS: PULSE 62; RESP 16; O2SAT 94
[2023-09-24] MEDS: busPIRone 5 MG Tablet 10 MG PO ×2 (05:41→21:10)
[2023-09-24 06:27] LABS: Absolute Lymphocyte Count 1.28 X10^3/uL (0.83-4.51); Absolute Neutrophil Count 3.2 X10^3/uL (2.0-7.7); Basophil# 0.04 X10^3/uL; Basophil% 0.8 % (0-1); Eosinophil# 0.21 X10^3/uL; Hemoglobin 11.2 g/dL (12.0-15.0); Lymphocyte # 1.28 X10^3/ul (0.83-4.51); Lymphocyte % 24.3 % (19-41); Mean Corp Hgb Conc 31.1 g/dL (32-36); Mean Corpuscular Hgb 30.8 pg (27.0-32.0); Mean Corpuscular Volume 98.9 fL (81-99); Mean Platelet Vol. 11.6 fl (6.2-12.0); Monocyte# 0.48 X10^3/uL; Monocyte% 9.1 % (0-10); NRBC Flagged by Analyzer 0 % (0-5); Neutrophil # 3.23 X10^3/uL (2.7-7.7); Neutrophil % 61.4 % (47-70); Platelet Count 161 K/mm3 (150-450); RBC Distribution Width SD 58.9 fl (35.1-43.9); Red Blood Count 3.64 M/mm3 (4.2-5.4); White Blood Count 5.3 K/mm3 (4.4-11.0)
[2023-09-24 07:01] LABS: Anion Gap 6 (5-15); BUN 11 mg/dL (7-18); BUN/Creat Ratio 15.9 RATIO (10-20); Calcium,Total 9.2 mg/dL (8.5-10.1); Chloride 106 mmol/L (98-107); Creatinine, Serum 0.69 mg/dL (0.55-1.02); EST Glomerular Filtration Rate 87 mL/min (>60); Est Glom Filt Rate - Afr Amer 106 mL/min (>60); Estimated Creatinine Clearance 49.76 ml/min; Glucose 88 mg/dL (74-106); Potassium 4.1 mmol/L (3.5-5.1); Sodium Level 138 mmol/L (136-145)
[2023-09-24 09:44] VITALS: BP 141/76; PULSE 67; RESP 16; TEMP 36.6; O2SAT 95
[2023-09-24] MEDS: Pantoprazole Sodium 40 MG Tablet PO (09:46)
[2023-09-24] MEDS: APIXABAN 5 MG TABLET PO ×2 (09:46→21:12)
[2023-09-24] MEDS: Calcium (Elemental) 500 MG Tablet PO ×2 (09:46→18:10)
[2023-09-24] MEDS: Magnesium Chloride 64 MG Delay Rel.Tablet 128 MG PO (09:46)
[2023-09-24] MEDS: Lisinopril 10 MG Tablet PO (09:46)
[2023-09-24] MEDS: Ascorbic Acid 500 MG Tablet 1000 MG PO (09:46)
[2023-09-24 09:47] VITALS: PULSE 67
[2023-09-24] MEDS: Vibegron 75 MG TABLET PO (09:47)
[2023-09-24] MEDS: Metoprolol Tartrate 50 MG Tablet PO ×2 (09:47→21:12)
[2023-09-24] MEDS: Multivitamins,Ther W-Minerals Tablet 1 TABLET PO (09:47)
[2023-09-24] MEDS: Senna/Docusate Sodium 1 Tablet 2 TABLET PO ×2 (09:48→21:13)
[2023-09-24] MEDS: Lidocaine 5% Patch 1 PATCH TOPICAL (09:48)
[2023-09-24] MEDS: Menthol/Lanolin/Calamine/Znox 113 GM Tube 1 APPLIC TOPICAL ×2 (09:51→21:11)
[2023-09-24] MEDS: Tuberculin,Purif.prot.deriv. 50 TU/ML Vial 0.1 ML ID (12:10)
[2023-09-24] MEDS: busPIRone 5 MG Tablet PO (15:07)
[2023-09-24 21:12] VITALS: BP 126/74; PULSE 60
[2023-09-24] MEDS: MELATONIN 3 MG TABLET PO (21:13)
[2023-09-24 21:19] VITALS: BP 126/74; PULSE 60
[2023-09-25] MEDS: busPIRone 5 MG Tablet 10 MG PO ×2 (05:38→22:21)
[2023-09-25] MEDS: Lidocaine 5% Patch 1 PATCH TOPICAL (08:46)
[2023-09-25] MEDS: Multivitamins,Ther W-Minerals Tablet 1 TABLET PO (08:50)
[2023-09-25] MEDS: Calcium (Elemental) 500 MG Tablet PO (08:50)
[2023-09-25] MEDS: Vibegron 75 MG TABLET PO (08:51)
[2023-09-25] MEDS: APIXABAN 5 MG TABLET PO ×2 (08:51→22:22)
[2023-09-25 08:52] VITALS: BP 106/71; PULSE 63
[2023-09-25] MEDS: Metoprolol Tartrate 50 MG Tablet PO ×2 (08:52→22:24)
[2023-09-25] MEDS: Magnesium Chloride 64 MG Delay Rel.Tablet 128 MG PO (08:52)
[2023-09-25] MEDS: Ascorbic Acid 500 MG Tablet 1000 MG PO (08:53)
[2023-09-25] MEDS: Pantoprazole Sodium 40 MG Tablet PO (08:53)
[2023-09-25] MEDS: Lisinopril 10 MG Tablet PO (08:53)
[2023-09-25] MEDS: Senna/Docusate Sodium 1 Tablet 2 TABLET PO ×2 (08:53→22:23)
[2023-09-25] MEDS: Menthol/Lanolin/Calamine/Znox 113 GM Tube 1 APPLIC TOPICAL ×2 (08:55→22:24)
[2023-09-25 08:58] VITALS: BP 106/71; PULSE 63
[2023-09-25] MEDS: busPIRone 5 MG Tablet PO (14:14)
[2023-09-25 14:44] VITALS: BP 106/76; PULSE 66; RESP 16; TEMP 36.8; O2SAT 94
--- NOTE | 2023-09-25 16:27 | NURSING ---
PT STATED TO THIS NURSE THAT HER STOMACH WAS UPSET FROM EATING A GRILLED CHEESE FOR LUNCH. SALTINES AND KEENAN CHETAN GIVEN. WILL CONTINUE TO MONITOR.
[2023-09-25] MEDS: MELATONIN 3 MG TABLET PO (22:22)
[2023-09-25 22:24] VITALS: BP 110/73; PULSE 71
--- NOTE | 2023-09-25 23:20 | NURSING ---
Pt complains of nausea this ruma. States she had an emesis after dinner. Dr. Castillo notified. Orders received. Pt was able to take meds this ruma with gingerale and crackers.
[2023-09-26] MEDS: busPIRone 5 MG Tablet 10 MG PO ×2 (05:52→21:25)
[2023-09-26 09:57] VITALS: BP 129/82; PULSE 61; RESP 18; TEMP 36.4; O2SAT 93
[2023-09-26] MEDS: APIXABAN 5 MG TABLET PO ×2 (09:59→21:25)
[2023-09-26] MEDS: Ascorbic Acid 500 MG Tablet 1000 MG PO (09:59)
[2023-09-26] MEDS: Senna/Docusate Sodium 1 Tablet 2 TABLET PO ×2 (09:59→21:26)
[2023-09-26 10:00] VITALS: PULSE 61
[2023-09-26] MEDS: Metoprolol Tartrate 50 MG Tablet PO ×2 (10:00→21:25)
[2023-09-26] MEDS: Calcium (Elemental) 500 MG Tablet PO ×2 (10:00→17:57)
[2023-09-26] MEDS: Lisinopril 10 MG Tablet PO (10:01)
[2023-09-26] MEDS: Multivitamins,Ther W-Minerals Tablet 1 TABLET PO (10:02)
[2023-09-26] MEDS: Pantoprazole Sodium 40 MG Tablet PO (10:02)
[2023-09-26] MEDS: Magnesium Chloride 64 MG Delay Rel.Tablet 128 MG PO (10:02)
[2023-09-26] MEDS: Lidocaine 5% Patch 1 PATCH TOPICAL (10:03)
[2023-09-26] MEDS: Vibegron 75 MG TABLET PO (10:03)
[2023-09-26] MEDS: Menthol/Lanolin/Calamine/Znox 113 GM Tube 1 APPLIC TOPICAL ×2 (10:08→21:30)
[2023-09-26] MEDS: busPIRone 5 MG Tablet PO (14:42)
[2023-09-26 21:25] VITALS: BP 122/69; PULSE 61; O2SAT 97
[2023-09-26] MEDS: MELATONIN 3 MG TABLET PO (21:26)
[2023-09-27] MEDS: busPIRone 5 MG Tablet 10 MG PO ×2 (06:00→22:43)
[2023-09-27 08:45] VITALS: PULSE 88
[2023-09-27] MEDS: Metoprolol Tartrate 50 MG Tablet PO ×2 (08:45→22:44)
[2023-09-27] MEDS: Senna/Docusate Sodium 1 Tablet 2 TABLET PO ×2 (08:45→22:44)
[2023-09-27] MEDS: APIXABAN 5 MG TABLET PO ×2 (08:45→22:43)
[2023-09-27] MEDS: Calcium (Elemental) 500 MG Tablet PO ×2 (08:45→16:25)
[2023-09-27] MEDS: Magnesium Chloride 64 MG Delay Rel.Tablet 128 MG PO (08:46)
[2023-09-27] MEDS: Vibegron 75 MG TABLET PO (08:46)
[2023-09-27] MEDS: Lisinopril 10 MG Tablet PO (08:46)
[2023-09-27] MEDS: Lidocaine 5% Patch 1 PATCH TOPICAL (08:47)
[2023-09-27] MEDS: Pantoprazole Sodium 40 MG Tablet PO (08:47)
[2023-09-27] MEDS: Multivitamins,Ther W-Minerals Tablet 1 TABLET PO (08:47)
[2023-09-27] MEDS: Ascorbic Acid 500 MG Tablet 1000 MG PO (08:47)
[2023-09-27] MEDS: Menthol/Lanolin/Calamine/Znox 113 GM Tube 1 APPLIC TOPICAL ×2 (08:51→22:55)
[2023-09-27] MEDS: busPIRone 5 MG Tablet PO (13:16)
[2023-09-27 14:38] VITALS: BP 145/83; PULSE 62; RESP 16; TEMP 36.8; O2SAT 96
[2023-09-27] MEDS: MELATONIN 3 MG TABLET PO (22:43)
[2023-09-27 22:44] VITALS: BP 146/76; PULSE 59
[2023-09-27 22:45] VITALS: BP 146/76; PULSE 59
[2023-09-27] MEDS: Estrogens,Conj. 1 Tube 1 DOSE VAGINAL (22:45)
[2023-09-28] MEDS: busPIRone 5 MG Tablet 10 MG PO ×2 (06:17→20:17)
[2023-09-28 06:21] VITALS: PULSE 70; O2SAT 95
[2023-09-28] MEDS: Lidocaine 5% Patch 1 PATCH TOPICAL (09:30)
[2023-09-28] MEDS: Magnesium Chloride 64 MG Delay Rel.Tablet 128 MG PO (09:33)
[2023-09-28] MEDS: Vibegron 75 MG TABLET PO (09:33)
[2023-09-28] MEDS: Ascorbic Acid 500 MG Tablet 1000 MG PO (09:33)
[2023-09-28] MEDS: Lisinopril 10 MG Tablet PO (09:33)
[2023-09-28 09:34] VITALS: BP 129/76; PULSE 61
[2023-09-28] MEDS: Calcium (Elemental) 500 MG Tablet PO ×2 (09:34→16:43)
[2023-09-28] MEDS: Metoprolol Tartrate 50 MG Tablet PO ×2 (09:34→20:16)
[2023-09-28] MEDS: Senna/Docusate Sodium 1 Tablet 2 TABLET PO ×2 (09:35→20:21)
[2023-09-28] MEDS: Multivitamins,Ther W-Minerals Tablet 1 TABLET PO (09:35)
[2023-09-28] MEDS: Pantoprazole Sodium 40 MG Tablet PO (09:35)
[2023-09-28] MEDS: APIXABAN 5 MG TABLET PO ×2 (09:35→20:18)
[2023-09-28] MEDS: Menthol/Lanolin/Calamine/Znox 113 GM Tube 1 APPLIC TOPICAL ×2 (09:36→20:19)
[2023-09-28 09:39] VITALS: BP 129/76; PULSE 61
[2023-09-28 13:42] VITALS: BP 146/87; PULSE 60; RESP 16; TEMP 36.6; O2SAT 94
[2023-09-28] MEDS: busPIRone 5 MG Tablet PO (14:10)
[2023-09-28 20:16] VITALS: BP 161/83; PULSE 63
[2023-09-28] MEDS: MELATONIN 3 MG TABLET PO (20:19)
[2023-09-28 20:25] VITALS: BP 161/83; PULSE 63
[2023-09-29] MEDS: busPIRone 5 MG Tablet 10 MG PO ×2 (05:36→20:45)
[2023-09-29] MEDS: Lidocaine 5% Patch 1 PATCH TOPICAL (08:58)
[2023-09-29] MEDS: Multivitamins,Ther W-Minerals Tablet 1 TABLET PO (09:01)
[2023-09-29] MEDS: Menthol/Lanolin/Calamine/Znox 113 GM Tube 1 APPLIC TOPICAL ×2 (09:01→20:46)
[2023-09-29] MEDS: Calcium (Elemental) 500 MG Tablet PO ×2 (09:01→16:24)
[2023-09-29] MEDS: APIXABAN 5 MG TABLET PO ×2 (09:02→20:47)
[2023-09-29 09:03] VITALS: BP 124/67; PULSE 67
[2023-09-29] MEDS: Magnesium Chloride 64 MG Delay Rel.Tablet 128 MG PO (09:03)
[2023-09-29] MEDS: Vibegron 75 MG TABLET PO (09:03)
[2023-09-29] MEDS: Metoprolol Tartrate 50 MG Tablet PO ×2 (09:03→20:47)
[2023-09-29] MEDS: Lisinopril 10 MG Tablet PO (09:04)
[2023-09-29] MEDS: Ascorbic Acid 500 MG Tablet 1000 MG PO (09:04)
[2023-09-29] MEDS: Senna/Docusate Sodium 1 Tablet 2 TABLET PO ×2 (09:04→20:49)
[2023-09-29] MEDS: Pantoprazole Sodium 40 MG Tablet PO (09:04)
[2023-09-29 09:08] VITALS: BP 124/67; PULSE 67
[2023-09-29 09:16] VITALS: BMI 28.3
[2023-09-29 12:40] VITALS: PULSE 60; RESP 18; O2SAT 94
--- NOTE | 2023-09-29 12:55 | MDS.RN ---
Information for the MDS was obtained from review of the clinical record, interview of resident, staff, and direct observation of resident?s care.
[2023-09-29] MEDS: busPIRone 5 MG Tablet PO (13:13)
[2023-09-29 14:03] VITALS: BP 121/79; PULSE 64; RESP 16; TEMP 36.4; O2SAT 92
[2023-09-29 20:43] VITALS: BP 128/68; PULSE 64
[2023-09-29 20:47] VITALS: BP 128/68; PULSE 64
[2023-09-29] MEDS: MELATONIN 3 MG TABLET PO (20:49)
[2023-09-30] MEDS: busPIRone 5 MG Tablet 10 MG PO ×2 (05:42→21:18)
[2023-09-30] MEDS: Multivitamins,Ther W-Minerals Tablet 1 TABLET PO (09:06)
[2023-09-30] MEDS: Calcium (Elemental) 500 MG Tablet PO ×2 (09:07→17:18)
[2023-09-30] MEDS: APIXABAN 5 MG TABLET PO ×2 (09:07→21:18)
[2023-09-30] MEDS: Vibegron 75 MG TABLET PO (09:08)
[2023-09-30] MEDS: Lidocaine 5% Patch 1 PATCH TOPICAL (09:09)
[2023-09-30 09:10] VITALS: BP 116/69; PULSE 63
[2023-09-30] MEDS: Metoprolol Tartrate 50 MG Tablet PO (09:10)
[2023-09-30] MEDS: Magnesium Chloride 64 MG Delay Rel.Tablet 128 MG PO (09:13)
[2023-09-30] MEDS: Senna/Docusate Sodium 1 Tablet 2 TABLET PO ×2 (09:15→21:18)
[2023-09-30] MEDS: Pantoprazole Sodium 40 MG Tablet PO (09:15)
[2023-09-30] MEDS: Lisinopril 10 MG Tablet PO (09:16)
[2023-09-30] MEDS: Ascorbic Acid 500 MG Tablet 1000 MG PO (09:16)
[2023-09-30] MEDS: Menthol/Lanolin/Calamine/Znox 113 GM Tube 1 APPLIC TOPICAL ×2 (09:20→21:25)
--- NOTE | 2023-09-30 11:48 | NURSING ---
Venous duplex completed today and report shows left arm continues to have DVT but that right arm DVT has resolved.
--- NOTE | 2023-09-30 12:00 | CASEMGMT ---
Social Work SW met with patient at bedside to discuss discharge. [facility] anticipates start of 10/02/2023 same day as discharge. SW inquired about patient discharge transportation time. Patient informed SW that friend will provide transportation between [id number]. Discharge: [facility] PT.OT/SN SOC 10/01 NORBERTO Bourne
[2023-09-30 14:22] VITALS: BP 128/85; PULSE 63; RESP 18; TEMP 36.8; O2SAT 93
[2023-09-30] MEDS: busPIRone 5 MG Tablet PO (14:24)
[2023-09-30 21:15] VITALS: BP 95/65; PULSE 67
[2023-09-30 21:16] VITALS: BP 96/65; PULSE 67
[2023-09-30] MEDS: Estrogens,Conj. 1 Tube 1 DOSE VAGINAL (21:18)
[2023-09-30] MEDS: MELATONIN 3 MG TABLET PO (21:18)
[2023-10-01] VITALS (8 sets, daily range): BP systolic 94–131; BP diastolic 62–80; PULSE 65–74; RESP 18–20; TEMP 36.5; O2SAT 95–96
[2023-10-01] MEDS: busPIRone 5 MG Tablet 10 MG PO ×2 (05:28→21:16)
[2023-10-01 06:06] LABS: Absolute Lymphocyte Count 1.62 X10^3/uL (0.83-4.51); Basophil# 0.04 X10^3/uL; Basophil% 0.6 % (0-1); Eosinophil# 0.24 X10^3/uL; Eosinophils% 3.7 % (0-5); Hematocrit 42.4 % (37-47); Hemoglobin 13.3 g/dL (12.0-15.0); Lymphocyte # 1.62 X10^3/ul (0.83-4.51); Lymphocyte % 24.9 % (19-41); Mean Corp Hgb Conc 31.4 g/dL (32-36); Mean Corpuscular Hgb 31.2 pg (27.0-32.0); Mean Corpuscular Volume 99.5 fL (81-99); Monocyte# 0.54 X10^3/uL; Monocyte% 8.3 % (0-10); NRBC Flagged by Analyzer 0 % (0-5); Neutrophil # 4.04 X10^3/uL (2.7-7.7); Platelet Count 203 K/mm3 (150-450); RBC Distribution Width CV 15.5 % (11.6-14.6); RBC Distribution Width SD 56.4 fl (35.1-43.9); Red Blood Count 4.26 M/mm3 (4.2-5.4); White Blood Count 6.5 K/mm3 (4.4-11.0)
[2023-10-01 06:36] LABS: Anion Gap 7 (5-15); BUN 11 mg/dL (7-18); BUN/Creat Ratio 14.3 RATIO (10-20); Calcium,Total 9.5 mg/dL (8.5-10.1); Chloride 103 mmol/L (98-107); Creatinine, Serum 0.77 mg/dL (0.55-1.02); EST Glomerular Filtration Rate 77 mL/min (>60); Est Glom Filt Rate - Afr Amer 93 mL/min (>60); Estimated Creatinine Clearance 49.03 ml/min; Glucose 99 mg/dL (74-106); Potassium 4.5 mmol/L (3.5-5.1); Sodium Level 135 mmol/L (136-145)
[2023-10-01] MEDS: Lidocaine 5% Patch 1 PATCH TOPICAL (09:15)
[2023-10-01] MEDS: Multivitamins,Ther W-Minerals Tablet 1 TABLET PO (09:17)
[2023-10-01] MEDS: Calcium (Elemental) 500 MG Tablet PO ×2 (09:17→16:45)
[2023-10-01] MEDS: Menthol/Lanolin/Calamine/Znox 113 GM Tube 1 APPLIC TOPICAL ×2 (09:19→21:16)
[2023-10-01] MEDS: APIXABAN 5 MG TABLET PO ×2 (09:19→21:17)
[2023-10-01] MEDS: Metoprolol Tartrate 50 MG Tablet PO (09:20)
[2023-10-01] MEDS: Senna/Docusate Sodium 1 Tablet 2 TABLET PO ×2 (09:21→21:21)
[2023-10-01] MEDS: Pantoprazole Sodium 40 MG Tablet PO (09:21)
[2023-10-01] MEDS: Magnesium Chloride 64 MG Delay Rel.Tablet 128 MG PO (09:21)
[2023-10-01] MEDS: Vibegron 75 MG TABLET PO (09:21)
[2023-10-01] MEDS: Ascorbic Acid 500 MG Tablet 1000 MG PO (09:22)
[2023-10-01] MEDS: Lisinopril 10 MG Tablet PO (09:22)
[2023-10-01] MEDS: busPIRone 5 MG Tablet PO (14:01)
--- NOTE | 2023-10-01 18:27 | CASEMGMT ---
Social Work SW met with patient to complete discharge MDS. BIM () and PhQ-2 (). Patient informed SW that she felt down one day when she was concerned about health. Patient informed SW that she is ready to transition home. Patient would like Physician to review any restrictions for driving. Patient informed SW that she has plans to follow up with home health to arrange in home care. SW notified Physician via Backline that patient would like to review discharge. NORBERTO Bourne
[2023-10-01] MEDS: MELATONIN 3 MG TABLET PO (21:18)
[2023-10-02] MEDS: busPIRone 5 MG Tablet 10 MG PO (05:39)
[2023-10-02 05:53] VITALS: PULSE 66; O2SAT 92
[2023-10-02] MEDS: Calcium (Elemental) 500 MG Tablet PO (07:54)
[2023-10-02] MEDS: Vibegron 75 MG TABLET PO (07:54)
[2023-10-02] MEDS: Multivitamins,Ther W-Minerals Tablet 1 TABLET PO (07:54)
[2023-10-02] MEDS: APIXABAN 5 MG TABLET PO (07:54)
[2023-10-02 07:55] VITALS: BP 121/70; PULSE 65
[2023-10-02] MEDS: Metoprolol Tartrate 50 MG Tablet PO (07:55)
[2023-10-02] MEDS: Magnesium Chloride 64 MG Delay Rel.Tablet 128 MG PO (07:56)
[2023-10-02] MEDS: Pantoprazole Sodium 40 MG Tablet PO (07:57)
[2023-10-02] MEDS: Senna/Docusate Sodium 1 Tablet 2 TABLET PO (07:57)
[2023-10-02] MEDS: Lidocaine 5% Patch 1 PATCH TOPICAL (07:58)
[2023-10-02] MEDS: Lisinopril 10 MG Tablet PO (07:58)
[2023-10-02] MEDS: Ascorbic Acid 500 MG Tablet 1000 MG PO (07:58)
[2023-10-02] MEDS: Menthol/Lanolin/Calamine/Znox 113 GM Tube 1 APPLIC TOPICAL (08:06)
[2023-10-02] MEDS: busPIRone 5 MG Tablet PO (13:01)
== END 2023-10-02 14:00 | disposition home health service (06) | DRG 178 ==
PROVIDERS: Admitting Provider Family Medicine Geriatric Medicine; PCP Family Medicine; Referring Provider Family Medicine Geriatric Medicine; Visit Provider Family Medicine Geriatric Medicine
DX: J69.0 Pneumonitis due to inhalation of food and vomit (principal); I44.2 Atrioventricular block, complete; I82.623 Acute embolism and thrombosis of deep veins of upper extremity, bilateral; I42.1 Obstructive hypertrophic cardiomyopathy; I48.0 Paroxysmal atrial fibrillation; I10 Essential (primary) hypertension; K21.9 Gastro-esophageal reflux disease without esophagitis; K44.9 Diaphragmatic hernia without obstruction or gangrene; F41.9 Anxiety disorder, unspecified; T82.111D Breakdown (mechanical) of cardiac pulse generator (battery), subsequent encounter; Z79.01 Long term (current) use of anticoagulants; N32.81 Overactive bladder; Y71.2 Prosthetic and other implants, materials and accessory cardiovascular devices associated with adverse incidents; Z79.899 Other long term (current) drug therapy; N76.0 Acute vaginitis; N95.2 Postmenopausal atrophic vaginitis
CPT/HCPCS: 36415; 80048; 85025; 97110; 97116; 97162; 97166; 97530; 97535; 97802

== ENCOUNTER → 2023-09-30 | Outpatient (CLI) | payer MEDICARE, OTHER, SELFPAY | END | disposition home or self-care (01) | LOC: CVS 09:05 | PROVIDERS: PCP Family Medicine; Visit Provider Family Medicine Geriatric Medicine | DX: I82.623 Acute embolism and thrombosis of deep veins of upper extremity, bilateral (principal) | CPT/HCPCS: 93970 ==

== ENCOUNTER → 2023-10-12 | Outpatient (CLI) | payer MEDICARE, OTHER, SELFPAY ==
[2023-10-12 13:20] LABS: Absolute Lymphocyte Count 1.07 X10^3/uL (0.83-4.51); Absolute Neutrophil Count 4.6 X10^3/uL (2.0-7.7); Basophil# 0.03 X10^3/uL; Basophil% 0.5 % (0-1); Eosinophil# 0.17 X10^3/uL; Eosinophils% 2.7 % (0-5); Hematocrit 38.8 % (37-47); Hemoglobin 12.4 g/dL (12.0-15.0); Lymphocyte # 1.07 X10^3/ul (0.83-4.51); Lymphocyte % 16.7 % (19-41); Mean Corpuscular Hgb 31.2 pg (27.0-32.0); Mean Corpuscular Volume 97.7 fL (81-99); Mean Platelet Vol. 12.2 fl (6.2-12.0); Monocyte# 0.52 X10^3/uL; Monocyte% 8.1 % (0-10); NRBC Flagged by Analyzer 0 % (0-5); Neutrophil # 4.59 X10^3/uL (2.7-7.7); Neutrophil % 71.7 % (47-70); Platelet Count 168 K/mm3 (150-450); RBC Distribution Width CV 14.5 % (11.6-14.6); Red Blood Count 3.97 M/mm3 (4.2-5.4); White Blood Count 6.4 K/mm3 (4.4-11.0)
[2023-10-12 14:23] LABS: Anion Gap 7 (5-15); BUN 10 mg/dL (7-18); BUN/Creat Ratio 12.6 RATIO (10-20); Calcium,Total 9.5 mg/dL (8.5-10.1); Chloride 105 mmol/L (98-107); Creatinine, Serum 0.79 mg/dL (0.55-1.02); EST Glomerular Filtration Rate 75 mL/min (>60); Est Glom Filt Rate - Afr Amer 90 mL/min (>60); Glucose 100 mg/dL (74-106); Sodium Level 134 mmol/L (136-145)
[2023-10-12 14:45] LABS: Magnesium 2.2 mg/dL (1.6-2.6)
== END | disposition home or self-care (01) ==
LOC: LABSPEC 12:48
PROVIDERS: PCP Family Medicine; Referring Provider Family Medicine; Visit Provider Family Medicine
DX: D64.9 Anemia, unspecified (principal); E83.42 Hypomagnesemia
CPT/HCPCS: 80048; 83735; 85025

== ENCOUNTER → 2024-04-01 | Outpatient (CLI) | payer MEDICARE, OTHER, SELFPAY ==
[2024-04-01 11:15] LABS: Absolute Lymphocyte Count 1.39 X10^3/uL (0.83-4.51); Absolute Neutrophil Count 5.5 X10^3/uL (2.0-7.7); Basophil# 0.02 X10^3/uL; Basophil% 0.3 % (0-1); Eosinophil# 0.06 X10^3/uL; Eosinophils% 0.8 % (0-5); Hematocrit 42.7 % (37-47); Hemoglobin 13.9 g/dL (12.0-15.0); Lymphocyte # 1.39 X10^3/ul (0.83-4.51); Lymphocyte % 18.4 % (19-41); Mean Corp Hgb Conc 32.6 g/dL (32-36); Mean Corpuscular Hgb 31.4 pg (27.0-32.0); Mean Corpuscular Volume 96.6 fL (81-99); Mean Platelet Vol. 11.2 fl (6.2-12.0); Monocyte# 0.56 X10^3/uL; Monocyte% 7.4 % (0-10); NRBC Flagged by Analyzer 0 % (0-5); Neutrophil # 5.49 X10^3/uL (2.7-7.7); Neutrophil % 72.8 % (47-70); Platelet Count 172 K/mm3 (150-450); RBC Distribution Width CV 13.4 % (11.6-14.6); Red Blood Count 4.42 M/mm3 (4.2-5.4); White Blood Count 7.5 K/mm3 (4.4-11.0)
[2024-04-01 11:53] LABS: Anion Gap 4 (5-15); BUN 15 mg/dL (7-18); BUN/Creat Ratio 19.3 RATIO (10-20); Calcium,Total 9.9 mg/dL (8.5-10.1); Chloride 104 mmol/L (98-107); Creatinine, Serum 0.78 mg/dL (0.55-1.02); EST Glomerular Filtration Rate 76 mL/min (>60); Est Glom Filt Rate - Afr Amer 92 mL/min (>60); Glucose 99 mg/dL (74-106); Potassium 4.6 mmol/L (3.5-5.1); Sodium Level 136 mmol/L (136-145)
[2024-04-01 12:03] LABS: BNP,B-Type NATRIURETIC PEPTIDE 117.2 pg/mL (0-100)
== END | disposition home or self-care (01) ==
LOC: LAB 10:49
PROVIDERS: PCP Family Medicine; Referring Provider Nurse Practitioner Gerontology; Visit Provider Nurse Practitioner Gerontology
DX: R06.02 Shortness of breath (principal); I48.0 Paroxysmal atrial fibrillation; I42.1 Obstructive hypertrophic cardiomyopathy; Z86.2 Personal history of diseases of the blood and blood-forming organs and certain disorders involving the immune mechanism; I10 Essential (primary) hypertension
CPT/HCPCS: 36415; 80048; 83880; 85025

== ENCOUNTER → 2024-08-15 | Outpatient (CLI) | payer MEDICARE, SELFPAY ==
[2024-08-15 09:25] LABS: Absolute Lymphocyte Count 1.69 X10^3/uL (0.83-4.51); Absolute Neutrophil Count 5.8 X10^3/uL (2.0-7.7); Basophil# 0.03 X10^3/uL; Basophil% 0.4 % (0-1); Eosinophil# 0.17 X10^3/uL; Hemoglobin 13.4 g/dL (12.0-15.0); Lymphocyte # 1.69 X10^3/ul (0.83-4.51); Lymphocyte % 20.1 % (19-41); Mean Corp Hgb Conc 32.7 g/dL (32-36); Mean Corpuscular Hgb 32.7 pg (27.0-32.0); Mean Platelet Vol. 11.7 fl (6.2-12.0); Monocyte# 0.64 X10^3/uL; Monocyte% 7.6 % (0-10); NRBC Flagged by Analyzer 0 % (0-5); Neutrophil # 5.84 X10^3/uL (2.7-7.7); Neutrophil % 69.7 % (47-70); Platelet Count 191 K/mm3 (150-450); RBC Distribution Width CV 13.8 % (11.6-14.6); RBC Distribution Width SD 50.6 fl (35.1-43.9); White Blood Count 8.4 K/mm3 (4.4-11.0)
== END | disposition home or self-care (01) ==
LOC: LAB 08:45
PROVIDERS: PCP Family Medicine; Referring Provider Internal Medicine Cardiovascular Disease; Visit Provider Internal Medicine Cardiovascular Disease
DX: I48.91 Unspecified atrial fibrillation (principal)
CPT/HCPCS: 36415; 85025

== ENCOUNTER → 2025-02-14 | Outpatient (CLI) | payer MEDICARE, SELFPAY ==
[2025-02-14 10:29] LABS: Hematocrit 40.7 % (37-47); Hemoglobin 13.1 g/dL (12.0-15.0); Mean Corp Hgb Conc 32.2 g/dL (32-36); Mean Corpuscular Volume 100.7 fL (81-99); Mean Platelet Vol. 12.0 fl (6.2-12.0); Platelet Count 190 K/mm3 (150-450); RBC Distribution Width CV 13.6 % (11.6-14.6); RBC Distribution Width SD 50.9 fl (35.1-43.9); Red Blood Count 4.04 M/mm3 (4.2-5.4); White Blood Count 5.8 K/mm3 (4.4-11.0)
== END | disposition home or self-care (01) ==
LOC: LAB 08:51
PROVIDERS: PCP Family Medicine; Referring Provider Internal Medicine Cardiovascular Disease; Visit Provider Internal Medicine Cardiovascular Disease
DX: I42.1 Obstructive hypertrophic cardiomyopathy (principal)
CPT/HCPCS: 36415; 85027